=== PATIENT | female | born 1940 | race African-American/Black ===

== ENCOUNTER 2017-03-01 11:07 | Inpatient (IN) | payer OTHER, MEDICARE ==
[2017-03-01] MEDS ORDERED: Magnesium 1GM/D5W 100ML PREMIX 200 ML IV ONE (11:11)
[2017-03-01] MEDS ORDERED: methylPREDNISolone SOD SUCC 125 MG/2ML VIAL ONE (11:22)
[2017-03-01] MEDS ORDERED: Magnesium 1GM/D5W 100ML PREMIX 100 ML IV ONE ×2 (11:22→12:34)
[2017-03-01] MEDS ORDERED: IPRATROPIUM NEB FS 0.5 MG/2.5 ML AMPUL.NEB ONE ×2 (11:26→12:34)
[2017-03-01] MEDS ORDERED: ALBUTEROL FS 2.5 MG/3 ML VIAL.NEB ONE ×2 (11:26→12:34)
[2017-03-01] MEDS ORDERED: methylPREDNISolone SOD SUCC 125 MG/2ML VIAL IV ONE (11:30)
[2017-03-01] MEDS ORDERED: IPRATROPIUM NEB FS 0.5 MG/2.5 ML AMPUL.NEB NEB ONE ×2 (11:30→12:30)
[2017-03-01] MEDS ORDERED: ALBUTEROL FS 2.5 MG/3 ML VIAL.NEB NEB ONE ×2 (11:30→12:30)
[2017-03-01] MEDS ORDERED: HYDROCODONE/APAP 5/325MG 1 EACH TABLET PO STA (13:01)
[2017-03-01] MEDS ORDERED: HYDROCODONE/APAP 5/325MG 1 EACH TABLET ONE (13:04)
[2017-03-01] MEDS ORDERED: APIX2.5T PO (13:23)
[2017-03-01] MEDS ORDERED: PANT40TA2 PO (13:23)
[2017-03-01] MEDS ORDERED: ASCO-340 PO (13:23)
[2017-03-01] MEDS ORDERED: AMIO200T2 PO (13:23)
[2017-03-01] MEDS ORDERED: DOCU-170 PO (13:23)
[2017-03-01] MEDS ORDERED: HYDR-552 PO (13:23)
[2017-03-01] MEDS ORDERED: ALBU18HF2 INH (13:23)
[2017-03-01] MEDS ORDERED: FURO40TA5 PO (13:23)
[2017-03-01] MEDS ORDERED: SENN8.6T6 PO (13:23)
[2017-03-01] MEDS ORDERED: TRAZ-144 PO (13:23)
[2017-03-01] MEDS ORDERED: MULT-213 PO (13:23)
[2017-03-01] MEDS ORDERED: INSU100I19 SQ (13:23)
[2017-03-01] MEDS ORDERED: BUDE10.2 INH (13:23)
[2017-03-01] MEDS ORDERED: LEVO175T7 PO (13:23)
[2017-03-01] MEDS ORDERED: DIPH50CA4 PO (13:23)
[2017-03-01] MEDS ORDERED: INSU100I4 SQ (13:23)
[2017-03-01] MEDS ORDERED: ACETAMINOPHEN 325 MG TABLET PO PRN (14:00)
[2017-03-01] MEDS ORDERED: DEXTROSE 50%-WATER 50 ML DISP.SYRIN IV PRN (14:00)
[2017-03-01] MEDS ORDERED: ZOLPIDEM TARTRATE 5 MG TABLET PO PRN (14:00)
[2017-03-01] MEDS ORDERED: ONDANSETRON HCL/PF 4 MG/2 ML VIAL IVP PRN (14:00)
[2017-03-01] MEDS ORDERED: MAGNESIUM HYDROXIDE 30 ML UDC PO PRN (14:00)
[2017-03-01] MEDS ORDERED: Budesonide/Formoterol Fumarate (Symbicort 160-4.5 Mcg In INH SCH (17:00)
[2017-03-01] MEDS: DOCUSATE SODIUM 100 MG CAPSULE PO SCH (17:33)
[2017-03-01] MEDS: methylPREDNISolone SOD SUCC 125 MG/2ML VIAL IV SCH (17:33)
[2017-03-01] MEDS: SENNOSIDES 8.6 MG TABLET PO SCH (17:33)
[2017-03-01] MEDS: BLOOD SUGAR DIAGNOSTIC 1 EACH STRIP VI SCH ×2 (17:33→21:38)
[2017-03-01] MEDS: APIXABAN 2.5 MG TABLET PO SCH (17:34)
[2017-03-01] MEDS: Z GUARD REMEDY 2 OZ OINT TP PRN (17:34)
[2017-03-01] MEDS: HYDROCODONE/APAP 5/325MG 1 EACH TABLET PO PRN ×2 (17:40→21:38)
[2017-03-01] MEDS: ALBUTEROL FS 2.5 MG/3 ML VIAL.NEB NEB PRN (18:06)
[2017-03-01] MEDS: INSULIN REGULAR, HUMAN 100 UNIT/ML 3 ML VIAL SQ PRN (18:09)
[2017-03-01] MEDS: ALBUTEROL FS 2.5 MG/3 ML VIAL.NEB NEB SCH (19:08)
[2017-03-01] MEDS: diphenhydrAMINE HCL 50 MG CAPSULE PO SCH (21:37)
[2017-03-01] MEDS: INSULIN DETEMIR 100 UNIT/ML CARTRIDGE SQ SCH (21:45)
[2017-03-01] MEDS: *INSULIN REGULAR(HUMULIN R)HUM 100 UNIT/ML VIAL SQ PRN (21:46)
[2017-03-01] MEDS: MAG HYDROX/AL HYDROX/SIMETH 30 ML UDC PO PRN (22:17)
[2017-03-02] MEDS: ALBUTEROL FS 2.5 MG/3 ML VIAL.NEB NEB SCH ×4 (01:03→19:18)
[2017-03-02] MEDS: HYDROCODONE/APAP 5/325MG 1 EACH TABLET PO PRN ×2 (05:56→19:42)
[2017-03-02] MEDS: BLOOD SUGAR DIAGNOSTIC 1 EACH STRIP VI SCH ×4 (05:56→21:30)
[2017-03-02] MEDS: INSULIN REGULAR, HUMAN 100 UNIT/ML 3 ML VIAL SQ PRN ×3 (06:00→17:51)
[2017-03-02] MEDS: ALBUTEROL FS 2.5 MG/3 ML VIAL.NEB NEB PRN ×3 (06:10→23:59)
[2017-03-02] MEDS: methylPREDNISolone SOD SUCC 125 MG/2ML VIAL IV SCH ×3 (08:19→17:25)
[2017-03-02] MEDS: DOCUSATE SODIUM 100 MG CAPSULE PO SCH ×2 (08:19→17:25)
[2017-03-02] MEDS: TRAZODONE 50 MG TABLET PO SCH (08:19)
[2017-03-02] MEDS: FUROSEMIDE 40 MG TABLET PO SCH (08:19)
[2017-03-02] MEDS: PANTOPRAZOLE 40 MG TABLET.DR PO SCH (08:19)
[2017-03-02] MEDS: LEVOTHYROXINE SODIUM 175 MCG TABLET PO SCH (08:19)
[2017-03-02] MEDS: AMIODARONE HCL 200 MG TABLET PO SCH (08:20)
[2017-03-02] MEDS: SENNOSIDES 8.6 MG TABLET PO SCH ×2 (08:46→17:25)
[2017-03-02] MEDS: APIXABAN 2.5 MG TABLET PO SCH ×2 (08:46→17:25)
[2017-03-02] MEDS: INSULIN DETEMIR 100 UNIT/ML CARTRIDGE SQ SCH ×2 (08:51→21:33)
[2017-03-02] MEDS: Z GUARD REMEDY 2 OZ OINT TP PRN (12:13)
[2017-03-02] MEDS ORDERED: HYDROGEL DRESSING 90 GM TUBE TP PRN (14:00)
[2017-03-02] MEDS: HYDROGEL DRESSING 90 GM TUBE TP SCH (14:15)
[2017-03-02] MEDS: MAG HYDROX/AL HYDROX/SIMETH 30 ML UDC PO PRN (19:42)
[2017-03-02] MEDS: diphenhydrAMINE HCL 50 MG CAPSULE PO SCH (21:30)
[2017-03-02] MEDS: *INSULIN REGULAR(HUMULIN R)HUM 100 UNIT/ML VIAL SQ PRN (21:33)
[2017-03-03] MEDS: HYDROCODONE/APAP 5/325MG 1 EACH TABLET PO PRN ×3 (00:02→21:21)
[2017-03-03] MEDS: ALBUTEROL FS 2.5 MG/3 ML VIAL.NEB NEB SCH ×5 (01:30→20:38)
[2017-03-03] MEDS: ALBUTEROL FS 2.5 MG/3 ML VIAL.NEB NEB PRN (05:20)
[2017-03-03] MEDS: BLOOD SUGAR DIAGNOSTIC 1 EACH STRIP VI SCH ×4 (07:55→21:50)
[2017-03-03] MEDS: LEVOTHYROXINE SODIUM 175 MCG TABLET PO SCH (07:55)
[2017-03-03] MEDS: PANTOPRAZOLE 40 MG TABLET.DR PO SCH (07:55)
[2017-03-03] MEDS: FLUTICASONE/VILANTEROL 1 EACH BLST.W.DEV IH SCH (08:02)
[2017-03-03] MEDS: TRAZODONE 50 MG TABLET PO SCH (08:02)
[2017-03-03] MEDS: FUROSEMIDE 40 MG TABLET PO SCH (08:03)
[2017-03-03] MEDS: DOCUSATE SODIUM 100 MG CAPSULE PO SCH ×2 (08:03→16:36)
[2017-03-03] MEDS: SENNOSIDES 8.6 MG TABLET PO SCH ×2 (08:03→16:36)
[2017-03-03] MEDS: predniSONE 20 MG TABLET PO SCH (08:11)
[2017-03-03] MEDS: APIXABAN 2.5 MG TABLET PO SCH ×2 (08:12→16:36)
[2017-03-03] MEDS: HYDROGEL DRESSING 90 GM TUBE TP SCH (08:12)
[2017-03-03] MEDS: AMIODARONE HCL 200 MG TABLET PO SCH (08:12)
[2017-03-03] MEDS: INSULIN REGULAR, HUMAN 100 UNIT/ML 3 ML VIAL SQ PRN ×2 (08:16→11:36)
[2017-03-03] MEDS: INSULIN DETEMIR 100 UNIT/ML CARTRIDGE SQ SCH ×2 (08:17→21:50)
[2017-03-03] MEDS ORDERED: *INSULIN REGULAR(HUMULIN R)HUM 100 UNIT/ML VIAL SQ PRN (17:00)
[2017-03-03] MEDS ORDERED: INSULIN REGULAR, HUMAN 100 UNIT/ML 3 ML VIAL SQ PRN (17:00)
[2017-03-03] MEDS: diphenhydrAMINE HCL 50 MG CAPSULE PO SCH (21:21)
[2017-03-04] MEDS: ALBUTEROL FS 2.5 MG/3 ML VIAL.NEB NEB SCH ×3 (01:30→13:36)
[2017-03-04] MEDS: HYDROCODONE/APAP 5/325MG 1 EACH TABLET PO PRN ×4 (01:48→17:26)
[2017-03-04] MEDS: ALBUTEROL FS 2.5 MG/3 ML VIAL.NEB NEB PRN ×2 (01:54→11:46)
[2017-03-04] MEDS: BLOOD SUGAR DIAGNOSTIC 1 EACH STRIP VI SCH ×3 (07:30→17:16)
[2017-03-04] MEDS: SENNOSIDES 8.6 MG TABLET PO SCH ×2 (08:53→17:16)
[2017-03-04] MEDS: TRAZODONE 50 MG TABLET PO SCH (08:53)
[2017-03-04] MEDS: AMIODARONE HCL 200 MG TABLET PO SCH (08:54)
[2017-03-04] MEDS: predniSONE 20 MG TABLET PO SCH (08:54)
[2017-03-04] MEDS: FUROSEMIDE 40 MG TABLET PO SCH (08:54)
[2017-03-04] MEDS: DOCUSATE SODIUM 100 MG CAPSULE PO SCH ×2 (08:54→17:16)
[2017-03-04] MEDS: INSULIN DETEMIR 100 UNIT/ML CARTRIDGE SQ SCH (09:00)
[2017-03-04] MEDS: FLUTICASONE/VILANTEROL 1 EACH BLST.W.DEV IH SCH (09:02)
[2017-03-04] MEDS: PANTOPRAZOLE 40 MG TABLET.DR PO SCH (09:02)
[2017-03-04] MEDS: APIXABAN 2.5 MG TABLET PO SCH ×2 (09:03→17:16)
[2017-03-04] MEDS: LEVOTHYROXINE SODIUM 175 MCG TABLET PO SCH (09:03)
[2017-03-04] MEDS: HYDROGEL DRESSING 90 GM TUBE TP SCH (09:03)
[2017-03-04] MEDS ORDERED: PRED1TAB PO (13:44)
[2017-03-04] MEDS ORDERED: METH4TAB16 PO (13:44)
[2017-03-04] MEDS ORDERED: PRED20TA PO (13:44)
== END 2017-03-04 19:49 | DRG 191 ==
DX: J44.0 Chronic obstructive pulmonary disease with (acute) lower respiratory infection (principal); E44.1 Mild protein-calorie malnutrition; J96.10 Chronic respiratory failure, unspecified whether with hypoxia or hypercapnia; I11.0 Hypertensive heart disease with heart failure; I50.32 Chronic diastolic (congestive) heart failure; Z68.42 Body mass index [BMI] 45.0-49.9, adult; J44.1 Chronic obstructive pulmonary disease with (acute) exacerbation; E66.9 Obesity, unspecified; K21.9 Gastro-esophageal reflux disease without esophagitis; E78.5 Hyperlipidemia, unspecified; E11.9 Type 2 diabetes mellitus without complications; I25.10 Atherosclerotic heart disease of native coronary artery without angina pectoris; I48.0 Paroxysmal atrial fibrillation; Z79.01 Long term (current) use of anticoagulants; Z99.81 Dependence on supplemental oxygen; J20.9 Acute bronchitis, unspecified; Z79.899 Other long term (current) drug therapy; Z82.49 Family history of ischemic heart disease and other diseases of the circulatory system

== ENCOUNTER 2017-04-10 16:59 | Inpatient (IN) | payer MEDICARE, OTHER ==
[~2017-04-10] VITALS: Ht 165.1 cm; Wt 113.9 kg
[~2017-04-10 16:59] MED LIST: ALBU18HF2 INH; AMIO200T2 PO; APIX2.5T PO; ASCO-340 PO; BUDE10.2 INH; DIPH50CA4 PO; DOCU-170 PO; FURO40TA5 PO; HYDR-552 PO; INSU100I19 SQ; INSU100I4 SQ; LEVO175T7 PO; METH4TAB16 PO; MULT-213 PO; PANT40TA2 PO; PRED1TAB PO; PRED20TA PO; SENN8.6T6 PO; TRAZ-144 PO
--- NOTE | 2017-04-10 17:05 | NUR ---
AAOX3, BIB PRIVATE EMT,PAIN/SWELLING TO RIGHT OCCIPITAL AREA AND JAW X 4 DAYS. RR IS EVEN AND UNLABORED WITH NAD NOTED. SKIN IS WARM AND DRY. AWAITING MD FOR EVAL.
[2017-04-10 17:50] LABS: BASOPHILS % (AUTO) 0.3 % (0.0-2.0); EOSINOPHILS # (AUTO) 0.1 /CMM (0.0-0.7); EOSINOPHILS % (AUTO) 1.3 % (0.0-6.0); HEMATOCRIT 38 % (33-45); LYMPHOCYTES % (AUTO) 14.7 % (20.0-44.0); MEAN CORPUSCULAR HEMOGLOBIN 26 PG (26.0-33.0); MEAN CORPUSCULAR HGB CONC 32 g/dl (31.0-36.0); MEAN CORPUSCULAR VOLUME 83 fL (82-100); MONOCYTES # (AUTO) 0.6 /CMM (0.1-1.30); MONOCYTES % (AUTO) 8.6 % (2.0-12.0); NEUTROPHILS # (AUTO) 4.9 /CMM (1.8-8.9); NEUTROPHILS % (AUTO) 75.1 % (43.0-81.0); PLATELET COUNT (AUTO) 348 /CMM (150-450); RDW COEFFICIENT OF VARIATION 16.7 (11.5-15.0); RED BLOOD CELL COUNT(AUTO) 4.59 MIL/uL (4.0-5.2); WHITE BLOOD COUNT (AUTO) 6.6 K/uL (4.3-11.0)
[2017-04-10] MEDS ORDERED: ACETAMINOPHEN ES 500 MG TABLET PO ONE (18:00)
[2017-04-10 18:03] LABS: CARBON DIOXIDE 36 mmol/L (21-32); CHLORIDE 96 mmol/L (98-107); CREATININE 1.2 mg/dL (0.6-1.3); GLUCOSE 139 mg/dL (74-106); POTASSIUM 3.7 mmol/L (3.5-5.1); SODIUM SERUM 137 mmol/L (136-145); UREA NITROGEN, BLOOD 13 mg/dL (7-18)
[2017-04-10] MEDS ORDERED: diphenhydrAMINE HCL 50 MG/ML VIAL IV ONE (18:30)
[2017-04-10] MEDS ORDERED: FLUT1DIS3 IH (18:40)
[2017-04-10] MEDS ORDERED: METH1ADH4 TP (18:40)
[2017-04-10] MEDS ORDERED: MULT-24 PO (18:40)
[2017-04-10 18:49] LABS: INR 1.03 (0.87-1.13); PROTHROMBIN TIME 10.7 SECS (9.5-12.7)
[2017-04-10 18:50] LABS: ALANINE AMINOTRANSFERASE 11 U/L (12-78); ALBUMIN 3.4 g/dL (3.4-5.0); ALKALINE PHOSPHATASE 68 U/L (46-116); ASPARTATE AMINOTRANSFERASE 14 U/L (15-37); BILIRUBIN,DIRECT 0.2 mg/dL (0.0-0.2); BILIRUBIN,TOTAL 0.4 mg/dL (0.2-1.0); TOTAL PROTEIN, SERUM 7.8 g/dL (6.4-8.2)
[2017-04-10 18:54] LABS: TROPONIN I < 0.017 ng/mL (0.00-0.056)
[2017-04-10 18:59] LABS: APPEARANCE,URINE Clear (CLEAR); BILIRUBIN,URINE Negative (NEGATIVE); BLOOD, URINE Negative Ery/uL (NEGATIVE); COLOR,URINE Yellow (YELLOW); KETONES,URINE Trace (NEGATIVE); LEUKOCYTE ESTERASE ,URINE Trace (NEGATIVE); NITRITE, URINE Negative (NEGATIVE); PROTEIN,URINE Trace mg/dl (NEGATIVE); UGLUCOSE Negative (NEGATIVE)
--- NOTE | 2017-04-10 19:00 | NUR ---
IV removed AT [facility]. Catheter intact and site benign. Pressure and 4x4 applied to site. No bleeding noted.
[2017-04-10] MEDS ORDERED: ACETAMINOPHEN ES 500 MG TABLET ONE (19:01)
[2017-04-10] MEDS ORDERED: diphenhydrAMINE HCL 50 MG/ML VIAL ONE (19:01)
[2017-04-10 19:10] LABS: BACTERIA,URINE 3+ /HPF (None Seen); RBC,URINE NONE SEEN /HPF (0-2); SQUAMOUS EPITHELIAL CELL,UR Few /HPF (None Seen)
--- NOTE | 2017-04-10 19:25 | NUR ---
REPORT GIVEN TO ED, HANDMADE TILE ARTIST NURSE FOR CARLOS.
[2017-04-10] MEDS ORDERED: HYDROCODONE/APAP 10/325MG 1 EA TABLET PO ONE (19:30)
[2017-04-10] MEDS ORDERED: HYDROCODONE/APAP 10/325MG 1 EA TABLET ONE ×2 (19:33→23:08)
[2017-04-10] MEDS ORDERED: IV NS 0.9% 250 ML IV ONE (19:50)
[2017-04-10] MEDS ORDERED: IOHEXOL-300 100 ML VIAL IV ONE (19:50)
--- NOTE | 2017-04-10 19:56 | NUR ---
PT TRANSPORTED TO RADIOLOGY FOR CT FACIAL WITH IV CONTRAST.
--- NOTE | 2017-04-10 20:11 | NUR ---
PT BACK FROM RADIOLOGY. PENDING CT RESULT.
[2017-04-10] MEDS ORDERED: PIPERACILLIN /TAZOBACTAM 3.375 G VIAL IV ONE (21:51)
[2017-04-10] MEDS ORDERED: VANCOMYCIN 1 GM VIAL ONE (21:51)
--- NOTE | 2017-04-10 21:51 | NUR ---
VANCOMUYCIN 1GM IVPB ENDORSED TO M/S BARBARA GRIMALDO.
--- NOTE | 2017-04-10 21:51 | NUR ---
REPORT CALLED TO M/S BARBARA GRIMALDO. ER SPOKE TO DR. MARJ ROGERS PT ADMISSION.
[2017-04-10] MEDS: diphenhydrAMINE HCL 50 MG CAPSULE PO SCH (22:00)
[2017-04-10] MEDS ORDERED: MENTHOL TP PRN (22:00)
[2017-04-10] MEDS ORDERED: Z GUARD REMEDY 2 OZ OINT TP PRN (22:00)
[2017-04-10] MEDS ORDERED: ZOLPIDEM TARTRATE 5 MG TABLET PO PRN (22:00)
[2017-04-10] MEDS ORDERED: CAMPHOR TP PRN (22:00)
[2017-04-10] MEDS ORDERED: MAG HYDROX/AL HYDROX/SIMETH 30 ML UDC PO PRN (22:00)
[2017-04-10] MEDS ORDERED: VANCOMYCIN 1 GM in IV D5W 250 ML IV ONE (22:00)
[2017-04-10] MEDS ORDERED: [UNRECOGNIZED DRUG - OTHER] TP PRN (22:00)
[2017-04-10] MEDS ORDERED: MAGNESIUM HYDROXIDE 30 ML UDC PO PRN (22:00)
[2017-04-10] MEDS ORDERED: ENOXAPARIN SODIUM 30 MG/0.3 ML DISP.SYRIN SQ SCH (22:00)
[2017-04-10] MEDS ORDERED: ACETAMINOPHEN 325 MG TABLET PO PRN (22:00)
[2017-04-10] MEDS ORDERED: METHYL SALICYLATE TP PRN (22:00)
[2017-04-10] MEDS ORDERED: DEXTROSE 50%-WATER 50 ML DISP.SYRIN IV PRN (22:00)
[2017-04-10] MEDS ORDERED: ONDANSETRON HCL/PF 4 MG/2 ML VIAL IVP PRN (22:00)
[2017-04-10] MEDS ORDERED: PIPERACILLIN /TAZOBACTAM 3.375 G in IV D5W 50 ML IV ONE (22:00)
[2017-04-10 22:20] VITALS: BP 128/75
--- NOTE | 2017-04-10 22:20 | NUR ---
MS RN NOTE RECEIVED PATIENT AWAKE, ALERT AND ORIENTED X3. ON 2L OXYGEN VIA NASAL CANNULA. NO RESPIRATORY DISTRESS OR SOB NOTED. PATIENT HAVING 7/10 GENERALIZED PAIN. RELAXATION TECHNIQUES PROVIDED. WILL ADMINISTER PAIN MEDICATION WHEN DUE. LUMP ON RIGHT SIDE OF HEAD, RASH TO RIGHT SIDE OF NECK. PICTURES TAKEN AND PLACED IN CHART. WOUND CONSULT ORDERED. ALL BELONGINGS CHECKED AND ACCOUNTED FOR. ORIENTED TO ROOM AND TO UNIT. BED LOCKED AND IN LOWEST POSITION. CALL LIGHT WITHIN REACH. WILL CONTINUE TO MONITOR.
[2017-04-10] MEDS ORDERED: ENOXAPARIN SODIUM 30 MG/0.3 ML DISP.SYRIN ONE (22:28)
[2017-04-10] MEDS ORDERED: TRAZODONE 50 MG TABLET ONE (22:28)
[2017-04-10] MEDS: TRAZODONE 50 MG TABLET PO SCH (22:49)
[2017-04-10] MEDS: BLOOD SUGAR DIAGNOSTIC 1 EACH STRIP VI SCH (22:51)
[2017-04-10] MEDS: HYDROCODONE/APAP 10/325MG 1 EA TABLET PO PRN (23:14)
[2017-04-10 23:41] VITALS: BP 128/75
[2017-04-11] MEDS ORDERED: CEFTRIAXONE 1 G VIAL ONE (01:20)
[2017-04-11] MEDS ORDERED: ACYCLOVIR 800 MG TABLET ONE ×2 (01:20→06:00)
[2017-04-11] MEDS: ACYCLOVIR 800 MG TABLET PO SCH ×5 (02:04→16:44)
[2017-04-11] MEDS: CEFTRIAXONE 1 G in IV D5W 50 ML IV SCH ×2 (02:04→23:01)
[2017-04-11] MEDS ORDERED: HYDROCODONE/APAP 10/325MG 1 EA TABLET ONE (06:00)
[2017-04-11] MEDS: HYDROCODONE/APAP 10/325MG 1 EA TABLET PO PRN (06:02)
--- NOTE | 2017-04-11 06:26 | NUR ---
MS RN NOTE PATIENT STABLE. RECEIVING 2L VIA NASAL CANNULA. ALL NEEDS MET AND ATTENDED TOO. KEPT CLEAN DRY AND COMFORTABLE. BLOOD SUGAR 110. NO COVERAGE NEEDED. WILL ENDORSE TO DAY SHIFT FOR CARLOS.
[2017-04-11 06:30] LABS: BASOPHILS % (AUTO) 0.5 % (0.0-2.0); EOSINOPHILS # (AUTO) 0.1 /CMM (0.0-0.7); EOSINOPHILS % (AUTO) 1.3 % (0.0-6.0); HEMATOCRIT 36 % (33-45); HEMOGLOBIN 11.5 g/dL (11.5-14.8); LYMPHOCYTES # (AUTO) 1.4 /CMM (0.8-4.8); LYMPHOCYTES % (AUTO) 24.7 % (20.0-44.0); MEAN CORPUSCULAR HEMOGLOBIN 26 PG (26.0-33.0); MEAN CORPUSCULAR HGB CONC 32 g/dl (31.0-36.0); MEAN CORPUSCULAR VOLUME 83 fL (82-100); MONOCYTES # (AUTO) 0.6 /CMM (0.1-1.30); MONOCYTES % (AUTO) 9.9 % (2.0-12.0); NEUTROPHILS # (AUTO) 3.6 /CMM (1.8-8.9); NEUTROPHILS % (AUTO) 63.6 % (43.0-81.0); PLATELET COUNT (AUTO) 318 /CMM (150-450); RDW COEFFICIENT OF VARIATION 17.6 (11.5-15.0); RED BLOOD CELL COUNT(AUTO) 4.34 MIL/uL (4.0-5.2); WHITE BLOOD COUNT (AUTO) 5.7 K/uL (4.3-11.0)
[2017-04-11 06:52] LABS: CALCIUM, SERUM 8.4 mg/dL (8.5-10.1); CARBON DIOXIDE 32 mmol/L (21-32); CHLORIDE 96 mmol/L (98-107); CREATININE 1.1 mg/dL (0.6-1.3); GLUCOSE 115 mg/dL (74-106); MAGNESIUM 1.7 mg/dL (1.8-2.4); PHOSPHORUS 4.4 mg/dL (2.5-4.9); POTASSIUM 3.3 mmol/L (3.5-5.1); SODIUM SERUM 136 mmol/L (136-145); UREA NITROGEN, BLOOD 12 mg/dL (7-18)
[2017-04-11] MEDS: BLOOD SUGAR DIAGNOSTIC 1 EACH STRIP VI SCH ×4 (06:54→20:54)
[2017-04-11] MEDS ORDERED: PANTOPRAZOLE 40 MG TABLET.DR PO SCH (07:30)
[2017-04-11] MEDS ORDERED: FEE PK DOSING 1 MIN EA MC ONE (08:02)
--- NOTE | 2017-04-11 08:11 | NUR ---
RN NOTES RECEIVED PT. PT IS STABLE AND IN BED, A/OX4. NO S/S OF DISTRESS OR SOB. PT HAS C/O MILD PAIN 09/29, WILL MANAGE WITH NON-PHARMACOLOGICAL INTERVENTIONS. IV ACCESS LOCATED ON RIGHT FOREARM 18G, CURRENTLY SL. SAFETY MEASURES IN PLACE, CALL LIGHT WITHIN REACH. WILL CONTINUE TO MONITOR.
[2017-04-11 08:15] VITALS: BP 110/72
[2017-04-11] MEDS: MULTIVITAMINS,THERAGRAN 1 UDTAB TABLET PO SCH (08:39)
[2017-04-11] MEDS: AMIODARONE HCL 200 MG TABLET PO SCH (08:40)
[2017-04-11] MEDS: DOCUSATE SODIUM 100 MG CAPSULE PO SCH ×2 (08:40→16:35)
[2017-04-11] MEDS: LEVOTHYROXINE SODIUM 175 MCG TABLET PO SCH (08:40)
[2017-04-11] MEDS: FUROSEMIDE 40 MG TABLET PO SCH (08:40)
[2017-04-11] MEDS: SENNOSIDES 8.6 MG TABLET PO SCH ×2 (08:40→16:43)
[2017-04-11] MEDS: PANTOPRAZOLE 40 MG TABLET.DR PO SCH (08:40)
[2017-04-11] MEDS: ASCORBIC ACID 500 MG TABLET PO SCH (08:40)
[2017-04-11] MEDS: HYDROCODONE/APAP 5/325MG 1 EACH TABLET PO PRN (08:41)
--- NOTE | 2017-04-11 09:03 | NUR ---
RN NOTES LEVEMIR AND ELIQUIS ADMINISTRATION DELAYED. NO STOCK WITHIN [facility] OR [facility]. PHARMACY NOTIFIED. WILL F/U FOR ADMINISTRATION.
[2017-04-11] MEDS ORDERED: POTASSIUM CHLORIDE 20 MEQ TAB.PRT.SR PO ONE (09:30)
[2017-04-11] MEDS: Magnesium 1GM/D5W 100ML PREMIX 100 ML IV SCH ×2 (09:57→10:58)
[2017-04-11] MEDS: FLUTICASONE/VILANTEROL 1 EACH BLST.W.DEV IH SCH (09:58)
[2017-04-11] MEDS: INSULIN DETEMIR 100 UNIT/ML CARTRIDGE SQ SCH ×2 (09:58→16:46)
[2017-04-11] MEDS: APIXABAN 2.5 MG TABLET PO SCH ×2 (10:58→16:43)
--- NOTE | 2017-04-11 11:48 | NUR ---
RN NOTES PT APPEARS TO BE IN PAIN DESPITE PHARMACOLOGICAL PAIN MANAGEMENT. MD CALLED, NEW ORDERS PLACED.
[2017-04-11] MEDS: NYSTATIN (PYXIS) 500,000 UNIT/5 ML ORAL.SUSP PO SCH ×2 (12:33→16:37)
[2017-04-11] MEDS: MORPHINE SULFATE INJ 2 MG/ML DISP.SYRIN IV PRN ×3 (12:45→20:49)
--- NOTE | 2017-04-11 12:47 | NUR ---
RN NOTES BLOOD SUGAR LEVEL AT 140. INSULIN PER SLIDING SCALE HELD. PT REFUSES LUNCH DUE TO SORES IN THE MOUTH. MD AWARE, NYSTATIN SWISH/SWALLOW ORDERED AND GIVEN.
[2017-04-11 16:25] VITALS: BP 132/78
[2017-04-11] MEDS: GABAPENTIN 300 MG CAPSULE PO SCH (16:43)
--- NOTE | 2017-04-11 18:29 | NUR ---
RN NOTES PT IS AWAKE AND RESTING IN BED. A/OX3. NO S/S OF RESPIRATORY DISTRESS OR SOB. PT C/O PAIN AT 5/10 AT THIS TIME. WILL F/U AND MANAGE WITH NON-PHARMACOLOGICAL INTERVENTIONS. 1730 LEVEMIR AND SLIDING SCALE INSULIN HELD DUE TO BS OF 104 AND PT INABILITY TO EAT AT THIS MOMENT. BOOST ORDERED FOR PT IN ORDER TO SUPPLEMENT DIET. ALL NEEDS ANTICIPATED AND MET. SAFETY MEASURES IN PLACE, CALL LIGHT WITHIN REACH. WILL ENDORSE TO ENGINEERING TEST MECHANIC FOR CARLOS.
[2017-04-11] MEDS ORDERED: BOOST PLUS FOOD-CHOCLATE 237 ML BOX PO SCH (18:30)
--- NOTE | 2017-04-11 19:50 | NUR ---
RN INITIAL NOTES: RECEIVED REPORT FORM OMAIRA JIMENEZ, PT IN BED, AWAKE, A/O X3 ON 2L VIA NC RESPIRATION EVEN AND UNLABORED, STATED SHE HAS TOLERABLE PAIN /GENERALIZED AT 4/10, RFA IV ACCESS PATENT AND FLUSHING WELL, ON HL. NOTED RASHES ON NECK AND OTHER PARTS OF THE BODY APPEARING TO BE SHINGLES, AWARE, PT REFUSED SCD DUE TO FEELING OF SORENESS ON LEGS AND THUS SHE ADDED ITS CAUSING DISCOMFORT, EDUCATON PROVIDED TO THE PT, BED ON LOWEST POSITION, BRAKES ENGAGED, CALL LIGHT IN REACH, WILL CONTINUE TO MONITOR
[2017-04-11 20:00] VITALS: BP 122/70
[2017-04-11] MEDS: MICAFUNGIN SODIUM 50 MG in IV NS 0.9% 100 ML IV SCH (20:13)
[2017-04-11] MEDS: *INSULIN REGULAR(HUMULIN R)HUM 100 UNIT/ML VIAL SQ PRN (21:00)
[2017-04-11] MEDS ORDERED: VANCOMYCIN 1.25 GM in IV D5W 500 ML IV SCH (21:00)
--- NOTE | 2017-04-11 21:01 | NUR ---
PRN MORPHINE: PT C.O 01/29 DESCRIBED TOOTH ACHE -LIKE PAIN IN HER HEAD FACE SHOULDER ARM (GENERALIZED), REQUESTING FOR PAIN MEDICATION, PRN MORPHINE 2MG IVP ADMINISTERED TO THE PT AT THIS TIME, ALSO PT REQUESTED TO HAVE HER BLOOD SUGAR CHECK, ACCU CHECKED PERFORMED AND OBTAINED 210 A RESULT, 4UNITS OF INSULIN GIVEN PER SLIDING SCALE, PT ABLE TO DRINK THE PRESCRIBED ENSURE BY MD, WILL CONTINUE MONITORING FOR ANY S/S OF HYPOGLYCEMIA
[2017-04-11] MEDS: ACYCLOVIR IV 500 MG in IV D5W 100 ML IV SCH (21:32)
[2017-04-11] MEDS: TRAZODONE 50 MG TABLET PO SCH (21:45)
[2017-04-11] MEDS: diphenhydrAMINE HCL 50 MG CAPSULE PO SCH (21:46)
--- NOTE | 2017-04-11 21:58 | NUR ---
RN NOTES: RFA IV NOTED TO BE INFILTRATED, REMOVED AND APPLIED PRESSURED DRESSING, OFFLOADED ARM ON A PILLOW. NEW ACCESS SECURED ON RIGHT HAND G22
--- NOTE | 2017-04-12 | NUR ---
RN NOTES: PT SLEEPING, APPEARS COMFORTABLE
[2017-04-12] MEDS: ACYCLOVIR IV 500 MG in IV D5W 100 ML IV SCH ×3 (05:07→21:03)
[2017-04-12] MEDS: MORPHINE SULFATE INJ 2 MG/ML DISP.SYRIN IV PRN (05:38)
--- NOTE | 2017-04-12 05:49 | NUR ---
PRN MORPHINE: PT C/O 01/29 GENERALIZED PAIN REQUESTING MORPHINE, PRN MORPHINE 2MG IVP ADMINISTERED TO THE PT ORDERED,WILL MONITOR AND REASSESS
[2017-04-12] MEDS: BLOOD SUGAR DIAGNOSTIC 1 EACH STRIP VI SCH ×4 (05:55→21:03)
[2017-04-12] MEDS: INSULIN REGULAR, HUMAN 100 UNIT/ML 3 ML VIAL SQ PRN ×2 (05:56→12:09)
--- NOTE | 2017-04-12 05:56 | NUR ---
ACCU CHECK: PT INSISTED TO CHECK BLOOD SUGAR AT THIS TIME, SHE STATED SINCE SHE'S AWAKE, AND HAD A BED BATH SHE RATHER HAVE HER SUGAR/GLUCOSE CHECK SHE WILL GO BACK TO SLEEP AFTERWARDS, BLOOD SUGAR CHECKED AND REVEAL 120, NO INSULIN COVERAGE GIVEN PER SLIDING SCALE, WILL MONITOR FOR ANY S/S OF HYPOGLYCEMIA
[2017-04-12 06:34] LABS: BASOPHILS % (AUTO) 0.1 % (0.0-2.0); EOSINOPHILS # (AUTO) 0.1 /CMM (0.0-0.7); EOSINOPHILS % (AUTO) 1.4 % (0.0-6.0); HEMATOCRIT 40 % (33-45); HEMOGLOBIN 12.6 g/dL (11.5-14.8); LYMPHOCYTES # (AUTO) 1.4 /CMM (0.8-4.8); MEAN CORPUSCULAR HEMOGLOBIN 26 PG (26.0-33.0); MEAN CORPUSCULAR HGB CONC 32 g/dl (31.0-36.0); MEAN CORPUSCULAR VOLUME 84 fL (82-100); MONOCYTES # (AUTO) 0.7 /CMM (0.1-1.30); MONOCYTES % (AUTO) 12.5 % (2.0-12.0); NEUTROPHILS # (AUTO) 3.4 /CMM (1.8-8.9); PLATELET COUNT (AUTO) 337 /CMM (150-450); RDW COEFFICIENT OF VARIATION 17.8 (11.5-15.0); RED BLOOD CELL COUNT(AUTO) 4.78 MIL/uL (4.0-5.2); WHITE BLOOD COUNT (AUTO) 5.6 K/uL (4.3-11.0)
--- NOTE | 2017-04-12 06:52 | NUR ---
RN CLOSING NOTES: PT IN BED, AWAKE, REMAINS ON 2L VIA NC, RESPIRATION EVEN AND UNLABORED, LAST PAIN MEDS GIVEN AT 0538AM. IV ACCESS REMAINS PATENT AND FLUSHING WELL, ON HL. VS REMAINS STABLE, NEEDS ATTENDED, BED BRAKES REMAINS ENGAGED, CALL LIGHT IN REACH, WILL ENDORSE TO DAY RN FOR CARLOS.
[2017-04-12 07:03] LABS: CALCIUM, SERUM 8.9 mg/dL (8.5-10.1); CARBON DIOXIDE 34 mmol/L (21-32); CHLORIDE 96 mmol/L (98-107); CREATININE 1.2 mg/dL (0.6-1.3); GLUCOSE 116 mg/dL (74-106); PHOSPHORUS 4.2 mg/dL (2.5-4.9); POTASSIUM 3.6 mmol/L (3.5-5.1); SODIUM SERUM 139 mmol/L (136-145); UREA NITROGEN, BLOOD 13 mg/dL (7-18)
--- NOTE | 2017-04-12 07:15 | NUR ---
ms rn initial notes Received patient in bed, awake, head of bed elevated, no SOB or distress noted. On 02 @2lpm via NC and tolerated well. 02 saturation of 98%. No complaint of pain or discomfort. Verbally responsive and able to make needs known. IV intact and patent HL only. Kept patient clean and comfortable in bed, call light with in patient reach, will continue to monitor accordingly.
[2017-04-12] MEDS: PANTOPRAZOLE 40 MG TABLET.DR PO SCH (07:36)
[2017-04-12] MEDS: LEVOTHYROXINE SODIUM 175 MCG TABLET PO SCH (07:36)
[2017-04-12 08:00] VITALS: BP 126/77
[2017-04-12] MEDS: INSULIN DETEMIR 100 UNIT/ML CARTRIDGE SQ SCH ×2 (08:30→16:21)
[2017-04-12] MEDS: ASCORBIC ACID 500 MG TABLET PO SCH (08:31)
[2017-04-12] MEDS: SENNOSIDES 8.6 MG TABLET PO SCH ×2 (08:31→16:21)
[2017-04-12] MEDS: APIXABAN 2.5 MG TABLET PO SCH ×2 (08:31→16:20)
[2017-04-12] MEDS: FUROSEMIDE 40 MG TABLET PO SCH (08:31)
[2017-04-12] MEDS: DOCUSATE SODIUM 100 MG CAPSULE PO SCH ×2 (08:31→16:20)
[2017-04-12] MEDS: NYSTATIN (PYXIS) 500,000 UNIT/5 ML ORAL.SUSP PO SCH ×3 (08:31→16:20)
[2017-04-12] MEDS: MULTIVITAMINS,THERAGRAN 1 UDTAB TABLET PO SCH (08:31)
[2017-04-12] MEDS: GABAPENTIN 300 MG CAPSULE PO SCH ×2 (08:31→16:21)
[2017-04-12] MEDS: AMIODARONE HCL 200 MG TABLET PO SCH (08:32)
[2017-04-12] MEDS: FLUTICASONE/VILANTEROL 1 EACH BLST.W.DEV IH SCH (08:33)
[2017-04-12] MEDS: HYDROCODONE/APAP 5/325MG 1 EACH TABLET PO PRN ×3 (08:36→21:14)
[2017-04-12] MEDS ORDERED: FLUTICASONE/VILANTEROL 1 EACH BLST.W.DEV IH SCH (09:00)
[2017-04-12 16:00] VITALS: BP 107/61
[2017-04-12] MEDS: LACTOBACILLUS RHAMNOSUS GG 1 EACH CAP.SPRINK PO SCH (16:21)
[2017-04-12] MEDS: *INSULIN REGULAR(HUMULIN R)HUM 100 UNIT/ML VIAL SQ PRN ×2 (16:22→21:23)
--- NOTE | 2017-04-12 18:51 | NUR ---
ms rn closing notes All needs provided, attended, and anticipated. Kept patient clean and comfortable in bed, call light with in patient reach, Endorsed to next shift RN to continue care.
[2017-04-12] MEDS: MICAFUNGIN SODIUM 50 MG in IV NS 0.9% 100 ML IV SCH (19:15)
--- NOTE | 2017-04-12 19:39 | NUR ---
RN INITIAL NOTES: RECEIVED REPORT FORM CARLENE JIMENEZ, PT IN BED, AWAKE, A/O X3 ON 2L VIA NC RESPIRATION EVEN AND UNLABORED, STATED HER PAIN IMPROVED. PT HAS RIGHT HAND IV ACCESS PATENT AND FLUSHING WELL, ON HL. BED SIDE COMMODE AVAILABLE, INSTRUCTED PT TO CALL FOR ASSISTANCE. BED ON LOWEST POSITION, BRAKES ENGAGED, CALL LIGHT IN REACH, WILL CONTINUE TO MONITOR
[2017-04-12 20:00] VITALS: BP 98/65
[2017-04-12 20:36] VITALS: BP 98/65
[2017-04-12] MEDS: TRAZODONE 50 MG TABLET PO SCH (21:03)
[2017-04-12] MEDS: diphenhydrAMINE HCL 50 MG CAPSULE PO SCH (21:03)
--- NOTE | 2017-04-12 21:14 | NUR ---
PRN NORCO: PT REQUESTED FOR PAIN MEDICATION 10/29 STATED SHE HAS GENERALIZED TOOTH-ACHE LIKE PAIN, PRN NORCO 5/325 MG TAB PO ADMINISTERED TO THE PT AT THIS TIME, EDUCATION PROVIDED TO THE PT REGARDING FALL RISK, WILL CONTINUE TO MONITOR AND REASSESS
--- NOTE | 2017-04-12 21:24 | NUR ---
ACCU CHECK: BLOOD SUGAR CHECK PERFORMED AND REVEAL 165, 3UNITS OF INSULIN GIVEN PER SLIDING SCALE, WILL MONITOR PT FOR ANY S/S OF HYPOGLYCEMIA
[2017-04-12] MEDS: CEFTRIAXONE 1 G in IV D5W 50 ML IV SCH (23:08)
[2017-04-13] MEDS: HYDROCODONE/APAP 5/325MG 1 EACH TABLET PO PRN ×3 (02:28→20:00)
--- NOTE | 2017-04-13 02:28 | NUR ---
PRN NORCO: PT C/O 6/10 GENERALIZED PAIN REQUESTING FOR NORCO, PRN NORCO 5/325 MG TAB PO ADMINISTERED TO THE PT AT THIS TIME, WILL CONTINUE TO MONITOR AND REASSESS
[2017-04-13] MEDS: ACYCLOVIR IV 500 MG in IV D5W 100 ML IV SCH ×2 (05:29→12:22)
[2017-04-13] MEDS: BLOOD SUGAR DIAGNOSTIC 1 EACH STRIP VI SCH ×3 (05:44→17:24)
[2017-04-13] MEDS: INSULIN REGULAR, HUMAN 100 UNIT/ML 3 ML VIAL SQ PRN ×2 (05:46→13:22)
--- NOTE | 2017-04-13 05:52 | NUR ---
ACCU CHECK: PT REQUESTED TO CHECK BLOOD SUGAR, SHE STATED SHE DOESN'T FEEL GOOD AND THAT MAY BE HER SUGAR IS WAY TOO LOW, BS TAKEN AND REVEAL 92, NO INSULIN GIVEN PER SLIDING SCALE, CRANBERRY JUICE 120ML PROVIDED TO THE PT,WILL CONTINUE TO MONITOR FOR ANY S/S OF HYPOGLYCEMIA
[2017-04-13 06:46] LABS: CALCIUM, SERUM 8.7 mg/dL (8.5-10.1); CARBON DIOXIDE 33 mmol/L (21-32); CHLORIDE 97 mmol/L (98-107); CREATININE 1.7 mg/dL (0.6-1.3); GLUCOSE 147 mg/dL (74-106); POTASSIUM 3.7 mmol/L (3.5-5.1); SODIUM SERUM 137 mmol/L (136-145); UREA NITROGEN, BLOOD 24 mg/dL (7-18)
--- NOTE | 2017-04-13 06:54 | NUR ---
RN CLOSING NOTES: PT IN BED, REMAINS ON 2L VIA NC, RESPIRATION EVEN AND UNLABORED, RIGHT HAND IV ACCESS REMAINS PATENT AND FLUSHING WELL, ON HL. POSSIBLE DC TODAY TO [facility], EXIT CARE COMPLETED. VS REMAINS STABLE, NEEDS ATTENDED. SAFETY PRECAUTIONS FOR FALL REMAINS ENGAGED, CALL LIGHT IN REACH, WILL ENDORSE TO DAY RN FOR CARLOS.
[2017-04-13 08:00] VITALS: BP 123/75
[2017-04-13] MEDS: SENNOSIDES 8.6 MG TABLET PO SCH ×2 (08:30→17:21)
[2017-04-13] MEDS: MULTIVITAMINS,THERAGRAN 1 UDTAB TABLET PO SCH (08:30)
[2017-04-13] MEDS: LACTOBACILLUS RHAMNOSUS GG 1 EACH CAP.SPRINK PO SCH ×2 (08:30→17:21)
[2017-04-13] MEDS: PANTOPRAZOLE 40 MG TABLET.DR PO SCH (08:30)
[2017-04-13] MEDS: NYSTATIN (PYXIS) 500,000 UNIT/5 ML ORAL.SUSP PO SCH ×3 (08:30→17:21)
[2017-04-13] MEDS: GABAPENTIN 300 MG CAPSULE PO SCH ×2 (08:30→17:21)
[2017-04-13] MEDS: FUROSEMIDE 40 MG TABLET PO SCH (08:30)
[2017-04-13] MEDS: LEVOTHYROXINE SODIUM 175 MCG TABLET PO SCH (08:30)
[2017-04-13] MEDS: ASCORBIC ACID 500 MG TABLET PO SCH (08:30)
[2017-04-13] MEDS: DOCUSATE SODIUM 100 MG CAPSULE PO SCH ×2 (08:31→17:21)
[2017-04-13] MEDS: AMIODARONE HCL 200 MG TABLET PO SCH (08:31)
[2017-04-13] MEDS: APIXABAN 2.5 MG TABLET PO SCH ×2 (08:33→17:21)
[2017-04-13] MEDS: FLUTICASONE/VILANTEROL 1 EACH BLST.W.DEV IH SCH (08:34)
[2017-04-13] MEDS: INSULIN DETEMIR 100 UNIT/ML CARTRIDGE SQ SCH ×2 (08:35→17:00)
--- NOTE | 2017-04-13 08:35 | NUR ---
MS/RN Levemir non administration Levemir not administered as patient not wanting to eat breakfast.
--- NOTE | 2017-04-13 09:36 | NUR ---
WOUND CARE CONSULT PATIENT SEEN AND PARTIAL SKIN ASSESSMENT PERFORMED; PATIENT REFUSED TO HAVE BACK AND SACRUM CHECKED. PATIENT NOTED TO HAVE A RASH ON HER FACE AND NECK AND A RAISED HEMATOMA ON THE OCCIPITAL SKULL. MD IS AWARE OF HEMATOMA AND RASH AND HAS PLACED TREATMENT ORDERS. PATIENT SEVERINO Mohr; NO ASSISTANCE NEEDED WITH TURNING AND REPOSITIONING. PT ON FIRST STEP LOW AIR LOSS MATTRESS. WILL CONTINUE TO FOLLOW PATIENT NEEDED. Addendum: 04/13/17 at 0941 by VIDHYA ASHLEY RN Amended: Links added. Addendum: 04/13/17 at 1038 by VIDHYA ASHLEY RN PATIENT ON ISOFLEX AIR MATTRESS NOT LOW AIR LOSS.
--- NOTE | 2017-04-13 11:06 | NUR ---
MS/RN S/B Dr Sousa Seen by Dr Sousa - patient to be discharged back to facility today and continue with oral antibiotics for further seven days. Paper prescription wrote
[2017-04-13] MEDS ORDERED: GABA-532 PO (11:28)
--- NOTE | 2017-04-13 11:30 | NUR ---
MS/commodity management specialist Per case management, no isolation bed at [facility] at this time, will contact family to arrange alternative placement.
--- NOTE | 2017-04-13 14:59 | NUR ---
MS/RN C/O Pain Patient complaining of pain 03/31, norco 5/325mg administered as ordered at 1420, will monitor effectiveness.
[2017-04-13 16:00] VITALS: BP 94/56
--- NOTE | 2017-04-13 17:00 | NUR ---
MS/RN Blood sugar Blood sugar at 5p - 142.
[2017-04-13] MEDS ORDERED: ACYCLOVIR 200 MG CAPSULE PO SCH (17:30)
--- NOTE | 2017-04-13 17:40 | NUR ---
MS/RN New placement Per Neema correctional case manager, patient will be discharged to [facility] this evening at 8p. Paperwork printed, needs to be signed by patient. Daughter has attempted to been contacted by correctional case manager but no response, voice mail left.
--- NOTE | 2017-04-13 18:44 | NUR ---
MS/RN End note No changes in condition, transport arranged to [employer] patient at 8p. Will endorse to night baker.
[2017-04-13 19:54] VITALS: BP 100/61
--- NOTE | 2017-04-13 20:00 | NUR ---
MS RN NOTE: PATIENT RESTING IN BED, NO ACUTE DISTRESS NOTED. BREATHING EVEN AND UNLABORED, NO SOB NOTED. PATIENT TO BE DISCHARGED TO [facility], WAITING GLASS WASH[facility]. DISCHARGE PAPERWORK SIGNED AND IN CHART AND COPY GIVEN TO PATIENT. CALLED TO GIVE REPORT, SPOKE TO HAZEL. PATIENT BLOOD SUGAR LEVEL 148 MG/DL, NO COVERAGE GIVEN PER PATIENT REQUEST. PATIENT COMPLAINS OF PAIN TO LEFT SHOULDER, NORCO 5/325MG ORAL GIVEN PER MD ORDER. SPOKE TO PATIENT DAUGHTER RO, INFORMED THAT PATIENT WILL BE DISCHARGE TONIGHT AND PROVIDED LOCATION AND PHONE NUMBER OF FACILITY. WILL CONTINUE TO MONITOR.
--- NOTE | 2017-04-13 20:45 | NUR ---
MS RN NOTE: PATIENT PICKED UP FOR TRANSFER. REPORT GIVEN TO EMT, VITAL SIGNS STABLE. DISCHARGE PAPER WORK GIVING TO EMT. IV ALREADY REMOVED DURING DAY SHIFT. BELONGING WITH PATIENT . PATIENT OFF FLOOR IN STABLE CONDITION.
== END 2017-04-13 20:45 | DRG 871 ==
LOC: ER 17:00 → MEDSG2 21:46
PROVIDERS: ADMIT Internal Medicine; ATTEND Internal Medicine
DX: A41.9 Sepsis, unspecified organism (principal); E43 Unspecified severe protein-calorie malnutrition; J96.11 Chronic respiratory failure with hypoxia; I48.0 Paroxysmal atrial fibrillation; B37.0 Candidal stomatitis; I11.0 Hypertensive heart disease with heart failure; I50.32 Chronic diastolic (congestive) heart failure; B02.9 Zoster without complications; E66.2 Morbid (severe) obesity with alveolar hypoventilation; N39.0 Urinary tract infection, site not specified; Z68.41 Body mass index [BMI] 40.0-44.9, adult; L03.221 Cellulitis of neck; L03.211 Cellulitis of face; E11.9 Type 2 diabetes mellitus without complications; J44.9 Chronic obstructive pulmonary disease, unspecified; E03.9 Hypothyroidism, unspecified; E78.5 Hyperlipidemia, unspecified; I25.10 Atherosclerotic heart disease of native coronary artery without angina pectoris; K21.9 Gastro-esophageal reflux disease without esophagitis; Z79.01 Long term (current) use of anticoagulants; B96.20 Unspecified Escherichia coli [E. coli] as the cause of diseases classified elsewhere; R13.10 Dysphagia, unspecified; R19.6 Halitosis
CPT/HCPCS: 36415; 70486-TC; 71010-TC; 80048-TC; 80076-TC; 81000-TC; 82962-TC; 83605-TC; 83735-TC; 84100-TC; 84484-TC; 85025-TC; 85730-TC; 87040-TC; 87086-TC; 87186-TC; A4216; A4606; J0133; J0696; J1200; J1650; J1815; J2248; J2270; J2543; J3370; J3475; J7030; J7050; J7060; Q0163; Q9967; Z7610

== ENCOUNTER 2017-06-15 08:03 | Inpatient (IN) | payer MEDICAID, MEDICARE ==
[~2017-06-15] VITALS: Ht 165.1 cm; Wt 119.7 kg
[2017-06-15] VITALS (26 sets, daily range): BP systolic 129–189; BP diastolic 69–150
[~2017-06-15 08:03] MED LIST changes: -ALBU18HF2 INH; -DOCU-170 PO; +DOCU100C36 PO; +FLUT1DIS3 IH; +GABA-532 PO; -HYDR-552 PO; +METH1ADH4 TP; -METH4TAB16 PO; -MULT-213 PO; +MULT-24 PO; -PRED1TAB PO; -PRED20TA PO; +SENN-167 PO; -SENN8.6T6 PO
--- NOTE | 2017-06-15 08:05 | NUR ---
PT WAS BBRA 60 FROM [facility] FOR SOB. PT ARRIVED ON CPAP. RT AT BEDSIDE- PT WAS PLACED ON BIPAP WITH THE FF SETTINGS: 15/5, R-16, FIO2-40%. PT UNABLE TO PROVIDE INFORTAION AT THIS TIME. GOWNED AND PLACED ON CONT MONITORING. ALL NEEDS ARE ATTENDED. KEPT COMFORTABLE. DR VALENTINO AT BEDSIDE FOR EVALUATION. WILL CONT TO MONITOR
[2017-06-15] MEDS ORDERED: IPRATROPIUM NEB FS 0.5 MG/2.5 ML AMPUL.NEB ONE (08:20)
[2017-06-15] MEDS ORDERED: ALBUTEROL FS 2.5 MG/3 ML VIAL.NEB ONE (08:20)
--- NOTE | 2017-06-15 08:22 | NUR ---
BREATHING TRETAMENT IN PROGRESS AT BEDSIDE.
[2017-06-15 08:29] LABS: BASOPHILS % (AUTO) 0.4 % (0.0-2.0); EOSINOPHILS # (AUTO) 0.1 /CMM (0.0-0.7); EOSINOPHILS % (AUTO) 0.8 % (0.0-6.0); HEMATOCRIT 37 % (33-45); HEMOGLOBIN 11.5 g/dL (11.5-14.8); LYMPHOCYTES # (AUTO) 1.2 /CMM (0.8-4.8); LYMPHOCYTES % (AUTO) 12.9 % (20.0-44.0); MEAN CORPUSCULAR HEMOGLOBIN 27 PG (26.0-33.0); MEAN CORPUSCULAR HGB CONC 31 g/dl (31.0-36.0); MEAN CORPUSCULAR VOLUME 88 fL (82-100); MONOCYTES # (AUTO) 0.3 /CMM (0.1-1.30); MONOCYTES % (AUTO) 3.9 % (2.0-12.0); NEUTROPHILS # (AUTO) 7.4 /CMM (1.8-8.9); PLATELET COUNT (AUTO) 332 /CMM (150-450); RDW COEFFICIENT OF VARIATION 18.9 (11.5-15.0)
[2017-06-15] MEDS ORDERED: ALBUTEROL FS 2.5 MG/3 ML VIAL.NEB CONTNEB ONE (08:30)
[2017-06-15] MEDS ORDERED: IPRATROPIUM NEB FS 0.5 MG/2.5 ML AMPUL.NEB NEB ONE (08:30)
[2017-06-15 08:39] LABS: CALCIUM, SERUM 9.4 mg/dL (8.5-10.1); CARBON DIOXIDE 37 mmol/L (21-32); CHLORIDE 98 mmol/L (98-107); CREATININE 1.2 mg/dL (0.6-1.3); GLUCOSE 218 mg/dL (74-106); POTASSIUM 5.1 mmol/L (3.5-5.1); SODIUM SERUM 138 mmol/L (136-145); UREA NITROGEN, BLOOD 23 mg/dL (7-18)
[2017-06-15 08:46] LABS: TROPONIN I < 0.017 ng/mL (0.00-0.056)
--- NOTE | 2017-06-15 08:48 | NUR ---
RT NOTE PT PLACED ON BIPAP PER MD ORDER. SETTINGS PRESCRIBED. ALARMS SET PER PROTOCOL AND AUDIBLE. BIPAP PLUGGED IN TO RED OUTLET. AMBU BAG AT BED SIDE. PT AWAKE AND ALERT. NO DISTRESS NOTED. WILL CONTINUE TO MONITOR. Addendum: 06/15/17 at 0850 by NASH HUNT RT Amended: Links added.
[2017-06-15 08:53] LABS: ALANINE AMINOTRANSFERASE 30 U/L (12-78); ALBUMIN 3.8 g/dL (3.4-5.0); ALKALINE PHOSPHATASE 76 U/L (46-116); ASPARTATE AMINOTRANSFERASE 24 U/L (15-37); B-TYPE NATRIURETIC PEPTIDE 1420 PG/ML (0-125); BILIRUBIN,DIRECT 0.2 mg/dL (0.0-0.2); BILIRUBIN,TOTAL 0.6 mg/dL (0.2-1.0); TOTAL PROTEIN, SERUM 8.6 g/dL (6.4-8.2)
--- NOTE | 2017-06-15 08:57 | NUR ---
PANEL ON-CALL PAGED
[2017-06-15] MEDS ORDERED: VANCOMYCIN 1 GM in IV D5W 250 ML IV ONE (09:00)
[2017-06-15] MEDS ORDERED: LEVOFLOXACIN 750 MG /D5W 150ML 150 ML IV ONE ×2 (09:00→09:12)
[2017-06-15] MEDS ORDERED: PIPERACILLIN /TAZOBACTAM 3.375 G in IV D5W 50 ML IV ONE (09:00)
--- NOTE | 2017-06-15 09:00 | NUR ---
CALLED PHARMACY FOR IV ABX ORDER
[2017-06-15 09:15] LABS: ABG OXYGEN SATURATION 94.3 % (92.0-98.5); ABG PCO2 60.8 mmHg (35.0-45.0); ABG PH 7.354 (7.350-7.450); ABG PO2 77.5 mmHg (75.0-100.0); AaDO2 137.8 mmHg; COHb 1.6 % (0.5-1.5); MetHb 0.4 % (0.0-1.5); O2Hb 92.4 % (94.0-97.0); PEEP,BG 5 cm H2O; SITE, ABG Right Radial; VENT MODE, BG ST 15/5 RR 16 40%
--- NOTE | 2017-06-15 09:21 | NUR ---
SPOKE TO MADINA FROM PHARMACY FOR FOLLOW UP OF ABX
[2017-06-15] MEDS ORDERED: methylPREDNISolone SOD SUCC 125 MG/2ML VIAL ONE (09:23)
[2017-06-15] MEDS ORDERED: FUROSEMIDE 20 MG/2 ML VIAL ONE (09:23)
[2017-06-15] MEDS ORDERED: GABA-532 PO (09:25)
[2017-06-15] MEDS ORDERED: HYDR-551 PO (09:25)
[2017-06-15] MEDS ORDERED: methylPREDNISolone SOD SUCC 125 MG/2ML VIAL IV ONE (09:30)
[2017-06-15] MEDS ORDERED: FUROSEMIDE 20 MG/2 ML VIAL IV ONE (09:30)
--- NOTE | 2017-06-15 11:20 | NUR ---
REPORT GIVEN TO JOB RN FOR CONT OF CARE
[2017-06-15] MEDS ORDERED: MAGNESIUM HYDROXIDE 30 ML UDC PO PRN (11:30)
[2017-06-15] MEDS ORDERED: MAG HYDROX/AL HYDROX/SIMETH 30 ML UDC PO PRN (11:30)
[2017-06-15] MEDS ORDERED: ENOXAPARIN SODIUM 40 MG/0.4 ML DISP.SYRIN SQ SCH (11:30)
[2017-06-15] MEDS ORDERED: ZOLPIDEM TARTRATE 5 MG TABLET PO PRN (11:30)
[2017-06-15] MEDS ORDERED: LEVOFLOXACIN 500 MG /D5W 100ML 500 MG in PREMIX 1 EA IV SCH (11:30)
[2017-06-15] MEDS ORDERED: HYDROCODONE/APAP 5/325MG 1 EACH TABLET PO PRN (11:30)
[2017-06-15] MEDS ORDERED: ONDANSETRON HCL/PF 4 MG/2 ML VIAL IVP PRN (11:30)
[2017-06-15] MEDS ORDERED: ALBUTEROL FS 2.5 MG/3 ML VIAL.NEB NEB PRN (11:30)
[2017-06-15] MEDS: methylPREDNISolone SOD SUCC 40 MG/ML VIAL IV SCH ×3 (12:00→23:13)
--- NOTE | 2017-06-15 13:02 | NUR ---
ICU ROOM 251
--- NOTE | 2017-06-15 13:11 | NUR ---
REPORT GIVEN TO SOFÍA RN FOR CONT OF CARE
--- NOTE | 2017-06-15 13:25 | NUR ---
TRANSFERRED TO FLOOR [facility] PROTOCOL
[2017-06-15] MEDS: IPRATROPIUM NEB FS 0.5 MG/2.5 ML AMPUL.NEB NEB SCH ×4 (13:30→23:37)
[2017-06-15] MEDS: ALBUTEROL HALF STRENGTH 1.25 MG/3 ML VIAL.NEB NEB SCH ×4 (13:30→23:37)
--- NOTE | 2017-06-15 13:39 | NUR ---
SOLUMEDROL WAS GIVEN IN ER AT 0930-125 MG AND PT WAS NOT IN ICU UNTIL 1330
--- NOTE | 2017-06-15 14:00 | NUR ---
RN NOTE RECIEVED PT ON BED, ON BIPAP, AOX2, ABLE TO VERBALIZE NEEDS, IV IN R HAND AND L AC INACT, SKIN IS INTACT, VS STABLE, SAFETY MEASURES IMPLEMENTED, CALL LIGHT WITHIN REACH. WILL MONITOR.
[2017-06-15] MEDS: GABAPENTIN 100 MG CAPSULE PO SCH ×2 (15:28→17:00)
[2017-06-15] MEDS: ACETAMINOPHEN 325 MG TABLET PO PRN (15:28)
[2017-06-15] MEDS ORDERED: DEXTROSE 50%-WATER 50 ML DISP.SYRIN IV PRN (15:30)
[2017-06-15] MEDS: CEFTRIAXONE 1 G in IV D5W 50 ML IV SCH (15:59)
[2017-06-15] MEDS ORDERED: FLUTICASONE/SALMETEROL DISKUS IH SCH (17:00)
--- NOTE | 2017-06-15 17:00 | NUR ---
RN NOTE GABAPENTIN SCHEDULED 1700 NOT GIVEN BECAUSE PREVIOUS DOSE GIVEN TOO CLOSE TO THIS ONE.
[2017-06-15] MEDS: APIXABAN 2.5 MG TABLET PO SCH (17:10)
[2017-06-15] MEDS: SENNOSIDES 8.6 MG TABLET PO SCH (17:10)
[2017-06-15] MEDS: BLOOD SUGAR DIAGNOSTIC 1 EACH STRIP VI SCH ×2 (17:40→22:18)
[2017-06-15] MEDS: INSULIN REGULAR, HUMAN 100 UNIT/ML 3 ML VIAL SQ PRN (17:44)
--- NOTE | 2017-06-15 19:00 | NUR ---
RN NOTE PT REMAINED STABLE, ALL NEEDS MET, MEDS GIVEN, SAFETY MEASURES IMPLEMENTED, KEPT CLEAN AND DRY, DID NOT EAT DINNER BECAUSE OF FEELING TIRED AND OUT OF BREATH. WILL ENDORSE TO AUTOMATION ANALYST NURSE.
--- NOTE | 2017-06-15 19:59 | NUR ---
OCCUPATIONAL HEALTH PHYSICIAN - NOTES - PT RECEIVED IN BED, AWAKE ALERT, ON BIPAP SETTINGS R 18, FIO2 40%, PEEP 5.0 AND CPAP 15. PT TOLERATING WELL, 02SAT 100%, VSS, NAD. PT IS IN SR HR 80S. PT HAS 2 INTACT PATENT IVS R HAND 22G AND L AC 18G. WILL CONTINUE TO MONITOR
[2017-06-15] MEDS: TRAZODONE 50 MG TABLET PO SCH (22:18)
[2017-06-15] MEDS: diphenhydrAMINE HCL 50 MG CAPSULE PO SCH (22:18)
[2017-06-15] MEDS: *INSULIN REGULAR(HUMULIN R)HUM 100 UNIT/ML VIAL SQ PRN (22:20)
[2017-06-16] VITALS (42 sets, daily range): BP systolic 49–159; BP diastolic 24–113
[2017-06-16] MEDS: IPRATROPIUM NEB FS 0.5 MG/2.5 ML AMPUL.NEB NEB SCH ×6 (03:03→23:36)
[2017-06-16] MEDS: ALBUTEROL HALF STRENGTH 1.25 MG/3 ML VIAL.NEB NEB SCH ×6 (03:03→23:36)
[2017-06-16 05:32] LABS: HEMATOCRIT 38 % (33-45); LYMPHOCYTES # (AUTO) 0.4 /CMM (0.8-4.8); LYMPHOCYTES % (AUTO) 7.1 % (20.0-44.0); MEAN CORPUSCULAR HEMOGLOBIN 28 PG (26.0-33.0); MEAN CORPUSCULAR HGB CONC 32 g/dl (31.0-36.0); MEAN CORPUSCULAR VOLUME 88 fL (82-100); MONOCYTES # (AUTO) 0.2 /CMM (0.1-1.30); MONOCYTES % (AUTO) 3.9 % (2.0-12.0); NEUTROPHILS # (AUTO) 4.6 /CMM (1.8-8.9); PLATELET COUNT (AUTO) 310 /CMM (150-450); RDW COEFFICIENT OF VARIATION 18.8 (11.5-15.0); RED BLOOD CELL COUNT(AUTO) 4.28 MIL/uL (4.0-5.2); WHITE BLOOD COUNT (AUTO) 5.2 K/uL (4.3-11.0)
[2017-06-16] MEDS: methylPREDNISolone SOD SUCC 40 MG/ML VIAL IV SCH ×4 (05:40→23:31)
[2017-06-16 05:42] LABS: CALCIUM, SERUM 9.5 mg/dL (8.5-10.1); CARBON DIOXIDE 35 mmol/L (21-32); CHLORIDE 97 mmol/L (98-107); CREATININE 1.1 mg/dL (0.6-1.3); GLUCOSE 163 mg/dL (74-106); MAGNESIUM 2.4 mg/dL (1.8-2.4); PHOSPHORUS 4.6 mg/dL (2.5-4.9); POTASSIUM 4.4 mmol/L (3.5-5.1); SODIUM SERUM 138 mmol/L (136-145); UREA NITROGEN, BLOOD 23 mg/dL (7-18)
--- NOTE | 2017-06-16 06:30 | NUR ---
pt had an episode of sob and respiratory distress while on bipap, she pulled off the bipap and said that she couldnt breathe, lungs sounds had wheezing and pt complained of tightness, rt was called and pt was given a breathing treatment albuterol via bipap, afterwards she became calm and said her lungs felt less tight, 02sat never dropped below 98%
--- NOTE | 2017-06-16 07:30 | NUR ---
PAPER COUNTER INITIAL NOTES RECEIVED PATIENT AWAKE IN BED, AOX3, ON BIPAP SETTINGS FI02 40% PEEP 5 RR18, IPAP 15 EPAP 5, SATURATING WELL, NO SOB, IN DIAPER CLEAN AND DRY, IV R HAND 22G PATENT AND INTACT, L AC 18G PATENT AND INTACT, SL, BED IN LOW AND LOCKED POSITION WILL CONTINUE TO MONITOR.
[2017-06-16] MEDS: BLOOD SUGAR DIAGNOSTIC 1 EACH STRIP VI SCH ×4 (07:51→21:40)
--- NOTE | 2017-06-16 08:00 | NUR ---
PULPWOOD CUTTER NOTES PATIENT OFF BIPAP, ON NASAL CANNULA 3L SATURATING WELL, WILL CONTINUE MONITOR.
[2017-06-16] MEDS: SENNOSIDES 8.6 MG TABLET PO SCH ×2 (08:07→17:17)
[2017-06-16] MEDS: PANTOPRAZOLE 40 MG TABLET.DR PO SCH (08:07)
[2017-06-16] MEDS: GABAPENTIN 100 MG CAPSULE PO SCH ×3 (08:08→17:17)
[2017-06-16] MEDS: LEVOTHYROXINE SODIUM 175 MCG TABLET PO SCH (08:08)
[2017-06-16] MEDS: MULTIVITAMINS,THERAGRAN 1 UDTAB TABLET PO SCH (08:08)
[2017-06-16] MEDS: ASCORBIC ACID 500 MG TABLET PO SCH (08:08)
[2017-06-16] MEDS: DOCUSATE SODIUM 100 MG CAPSULE PO SCH (08:08)
[2017-06-16] MEDS: APIXABAN 2.5 MG TABLET PO SCH ×2 (08:09→17:17)
[2017-06-16] MEDS: AMIODARONE HCL 200 MG TABLET PO SCH (08:09)
[2017-06-16] MEDS: FUROSEMIDE 40 MG/4 ML VIAL IV SCH (08:09)
[2017-06-16] MEDS: INSULIN REGULAR, HUMAN 100 UNIT/ML 3 ML VIAL SQ PRN ×3 (08:11→17:22)
[2017-06-16] MEDS ORDERED: FLUTICASONE/VILANTEROL 1 EACH BLST.W.DEV IH SCH (09:00)
[2017-06-16 09:34] LABS: ABG BASE EXCESS 9.4 mmol/L; ABG PCO2 66.3 mmHg (35.0-45.0); ABG PH 7.364 (7.350-7.450); ABG PO2 66.6 mmHg (75.0-100.0); AaDO2 69.4 mmHg; COHb 0.3 % (0.5-1.5); MetHb 0.5 % (0.0-1.5); O2Hb 91.3 % (94.0-97.0); SITE, ABG Right Radial; VENT MODE, BG NC 3L
[2017-06-16] MEDS: CEFTRIAXONE 1 G in IV D5W 50 ML IV SCH (13:57)
--- NOTE | 2017-06-16 18:49 | NUR ---
TRIM SETTER NOTES PATIENT RESTING IN BED, NO SIGNS OF DISTRESS, ALL NEEDS MET, PATIENT ABLE TO USE COMMODE WITH ASSISTANCE, BED IN LOW AND LOCKED POSITION CALL LIGHT WITHIN REACH, WILL ENDORSE TO PATTERN PUNCHER FOR CONTINUITY OF CARE.
--- NOTE | 2017-06-16 19:30 | NUR ---
ROLL OR TAPE EDGE MACHINE OPERATOR NOTE PT RECEIVED SITTING UP IN BED. A/O X3 AND ABLE TO VERBALIZE NEEDS. ON 3L OF O2 VIA NC AND SATURATING 92%. BREATHING REGULAR, EVEN AND UNLABORED. HOB ELEVATED. IV R HAND AND L AC CLEAN, DRY, PATENT AND FLUSHING WELL. CALL LIGHT WITHIN REACH. WILL CONTINUE TO MONITOR.
--- NOTE | 2017-06-16 21:15 | NUR ---
SEED TESTER NOTE PT TRANSFERRED SAFELY FROM ICU TO TELE STATUS ROOM 112-1. TELE- SR 97. ON 3L OF O2 AND SATURATING WELL. CALL LIGHT WITHIN REACH. NO SOB NOTED. WILL CONTINUE TO MONITOR.
[2017-06-16] MEDS: diphenhydrAMINE HCL 50 MG CAPSULE PO SCH (21:38)
[2017-06-16] MEDS: TRAZODONE 50 MG TABLET PO SCH (21:38)
[2017-06-16] MEDS: *INSULIN REGULAR(HUMULIN R)HUM 100 UNIT/ML VIAL SQ PRN (21:50)
--- NOTE | 2017-06-16 23:00 | NUR ---
GUSSET EDGER NOTE PT REFUSED TO USE NOCTURNAL BIPAP. NO C/O SOB. INFORMED OF RISKS AND BENEFITS OF USING BIPAP. PT STILL REFUSED. ON 2L AND SATURATING WELL. WILL CONTINUE TO MONITOR.
[2017-06-17] VITALS: BP 111/75
[2017-06-17] MEDS: ACETAMINOPHEN 325 MG TABLET PO PRN ×2 (00:16→09:27)
[2017-06-17] MEDS: IPRATROPIUM NEB FS 0.5 MG/2.5 ML AMPUL.NEB NEB SCH ×6 (02:52→23:45)
[2017-06-17] MEDS: ALBUTEROL HALF STRENGTH 1.25 MG/3 ML VIAL.NEB NEB SCH ×6 (02:52→23:45)
[2017-06-17 04:00] VITALS: BP 138/81
[2017-06-17] MEDS: methylPREDNISolone SOD SUCC 40 MG/ML VIAL IV SCH ×3 (06:00→16:38)
--- NOTE | 2017-06-17 07:30 | NUR ---
television servicer opening received patient a/ox4. slight increased effort of breathing. on 2lpm nc. states pain; will give tylenol. patient needs in reach, bed lowered and locked, rails upx3 for safety with bed alarm on. will round q2h or less per needs.
[2017-06-17 08:00] VITALS: BP 132/87
[2017-06-17] MEDS: BLOOD SUGAR DIAGNOSTIC 1 EACH STRIP VI SCH ×4 (08:13→21:33)
[2017-06-17] MEDS: SENNOSIDES 8.6 MG TABLET PO SCH ×2 (08:13→16:28)
[2017-06-17] MEDS: MULTIVITAMINS,THERAGRAN 1 UDTAB TABLET PO SCH (08:13)
[2017-06-17] MEDS: ASCORBIC ACID 500 MG TABLET PO SCH (08:13)
[2017-06-17] MEDS: LEVOTHYROXINE SODIUM 175 MCG TABLET PO SCH (08:14)
[2017-06-17] MEDS: APIXABAN 2.5 MG TABLET PO SCH ×2 (08:14→16:28)
[2017-06-17] MEDS: PANTOPRAZOLE 40 MG TABLET.DR PO SCH (08:14)
[2017-06-17] MEDS: FUROSEMIDE 40 MG/4 ML VIAL IV SCH (08:14)
[2017-06-17] MEDS: GABAPENTIN 100 MG CAPSULE PO SCH ×3 (08:14→16:28)
[2017-06-17] MEDS: DOCUSATE SODIUM 100 MG CAPSULE PO SCH (08:14)
--- NOTE | 2017-06-17 08:14 | NUR ---
EYEWEAR CONSULTANT CLOSING NOTE PT REMAINED STABLE DURING SHIFT. NO S/SX OF RESPIRATORY DISTRESS NOTED. ON 2L OF O2 AND WELL TOLERATED. KEPT CLEAN AND DRY. CALL LIGHT WITHIN REACH. WILL ENDORSE TO NEXT SHIFT FOR CONTINUITY OF CARE.
[2017-06-17] MEDS: Z GUARD REMEDY 2 OZ OINT TP PRN ×3 (08:15→16:37)
[2017-06-17] MEDS: AMIODARONE HCL 200 MG TABLET PO SCH (08:19)
[2017-06-17] MEDS: INSULIN REGULAR, HUMAN 100 UNIT/ML 3 ML VIAL SQ PRN ×3 (08:24→16:37)
[2017-06-17 08:52] LABS: CALCIUM, SERUM 9.1 mg/dL (8.5-10.1); CARBON DIOXIDE 34 mmol/L (21-32); CHLORIDE 98 mmol/L (98-107); CREATININE 1.3 mg/dL (0.6-1.3); GLUCOSE 203 mg/dL (74-106); POTASSIUM 4.5 mmol/L (3.5-5.1); SODIUM SERUM 137 mmol/L (136-145); UREA NITROGEN, BLOOD 36 mg/dL (7-18)
[2017-06-17 09:09] LABS: BASOPHILS % (AUTO) 0.1 % (0.0-2.0); HEMATOCRIT 38 % (33-45); HEMOGLOBIN 11.9 g/dL (11.5-14.8); LYMPHOCYTES # (AUTO) 0.6 /CMM (0.8-4.8); LYMPHOCYTES % (AUTO) 7.5 % (20.0-44.0); MEAN CORPUSCULAR HEMOGLOBIN 28 PG (26.0-33.0); MEAN CORPUSCULAR HGB CONC 32 g/dl (31.0-36.0); MEAN CORPUSCULAR VOLUME 88 fL (82-100); MONOCYTES # (AUTO) 0.4 /CMM (0.1-1.30); MONOCYTES % (AUTO) 5.6 % (2.0-12.0); NEUTROPHILS # (AUTO) 6.4 /CMM (1.8-8.9); NEUTROPHILS % (AUTO) 86.8 % (43.0-81.0); PLATELET COUNT (AUTO) 326 /CMM (150-450); RDW COEFFICIENT OF VARIATION 18.4 (11.5-15.0); RED BLOOD CELL COUNT(AUTO) 4.27 MIL/uL (4.0-5.2); WHITE BLOOD COUNT (AUTO) 7.4 K/uL (4.3-11.0)
--- NOTE | 2017-06-17 09:24 | NUR ---
PLANNER CHIEF NOTES PATIENT OXYGEN SATURATION IS 79-82% ROOM AIR HOWEVER SHE HAS NAILPOLISH ON ALL OF HER FINGERS WHICH I TRIED TO EXPLAIN DECREASES THE ACCURACY OF THE READING. ASKED IF I MAY REMOVE NAIL SAMI FROM ONE OF HER FINGERS AND PATIENT STARTED YELLING AT ME. WILL NOT ALLOW ME TO CHECK O2 SAT ANY WHERE ELSE. 2LPM NASAL CANNULA APPLIED.
--- NOTE | 2017-06-17 10:30 | NUR ---
SENIOR CUSTOMER SERVICE REPRESENTATIVE NOTES NOTIFIED ESPINOSA PATIENT C/O PAIN NOT RELIEVED BY TYLENOL. PER MD GIVE 5/325 NORCO PO Q4H PRN FOR PAIN
[2017-06-17] MEDS: HYDROCODONE/APAP 5/325MG 1 EACH TABLET PO PRN ×2 (11:43→18:23)
[2017-06-17 12:00] VITALS: BP 128/83
[2017-06-17] MEDS: CEFTRIAXONE 1 G in IV D5W 50 ML IV SCH (13:57)
[2017-06-17 16:00] VITALS: BP 121/84
--- NOTE | 2017-06-17 18:44 | NUR ---
PROCESS SPECIALIST CLOSING PATIENT STABLE PAIN WELL CONTROLLED WITH PRN MEDICATIONS. ALL DUE MEDS GIVEN AND ALL NEEDS MET. PATIENT NEEDS IN REACH. BED LOWERED AND LOCKED, RAILS UPX3 FOR SAFETY AND WILL ENDORSE CARE TO RN FOR CARLOS.
[2017-06-17 20:00] VITALS: BP 122/59
--- NOTE | 2017-06-17 20:00 | NUR ---
Rn initial note received patient a/ox4,resting in bed, no signs of distress, bed lowered and locked, rails upx3 for safety with bed alarm on. will continue to monitor.
[2017-06-17] MEDS: TRAZODONE 50 MG TABLET PO SCH (21:17)
[2017-06-17] MEDS: diphenhydrAMINE HCL 50 MG CAPSULE PO SCH (21:17)
[2017-06-17] MEDS: *INSULIN REGULAR(HUMULIN R)HUM 100 UNIT/ML VIAL SQ PRN (21:37)
[2017-06-18] VITALS: BP 106/70
[2017-06-18] MEDS: ALBUTEROL HALF STRENGTH 1.25 MG/3 ML VIAL.NEB NEB SCH ×6 (03:57→23:28)
[2017-06-18] MEDS: IPRATROPIUM NEB FS 0.5 MG/2.5 ML AMPUL.NEB NEB SCH ×6 (03:57→23:28)
[2017-06-18 04:00] VITALS: BP 136/88
--- NOTE | 2017-06-18 07:27 | NUR ---
RN CLOSING NOTES NO CHANGES OVER NIGHT, PATIENT STABLE PAIN WELL CONTROLLED WITH PRN MEDICATIONS. ALL DUE MEDS GIVEN AND ALL NEEDS MET. PATIENT NEEDS IN REACH. BED LOWERED AND LOCKED, RAILS UPX3 FOR SAFETY AND WILL ENDORSE CARE TO RN FOR CARLOS.
--- NOTE | 2017-06-18 07:36 | NUR ---
telephonic nurse case manager opening received patient a/ox4. slight increased effort of breathing with activity. on 1lpm nc tolerating well. states pain well controlled now with prn medications. patient needs in reach, bed lowered and locked, rails upx3 for safety with bed alarm on. will round q2h or less per needs. patient is wheelchair bound and educated patient on importance of turning and offloading sacrum throughout day. patient is wanting to wear diaper and educated on skin care and keeping clean and dry. patient still wishes to use diaper. blanching redness on sacrum. will continue to educate patient. she is not wanting pillows placed for offloading states she will do it herself
[2017-06-18 08:00] VITALS: BP 143/89
[2017-06-18] MEDS: BLOOD SUGAR DIAGNOSTIC 1 EACH STRIP VI SCH ×4 (08:22→21:32)
[2017-06-18] MEDS: PANTOPRAZOLE 40 MG TABLET.DR PO SCH (08:23)
[2017-06-18] MEDS: APIXABAN 2.5 MG TABLET PO SCH ×2 (08:23→16:08)
[2017-06-18] MEDS: GABAPENTIN 100 MG CAPSULE PO SCH ×3 (08:23→16:08)
[2017-06-18] MEDS: ASCORBIC ACID 500 MG TABLET PO SCH (08:23)
[2017-06-18] MEDS: LEVOTHYROXINE SODIUM 175 MCG TABLET PO SCH (08:23)
[2017-06-18] MEDS: MULTIVITAMINS,THERAGRAN 1 UDTAB TABLET PO SCH (08:24)
[2017-06-18] MEDS: AMIODARONE HCL 200 MG TABLET PO SCH (08:24)
[2017-06-18] MEDS: SENNOSIDES 8.6 MG TABLET PO SCH ×2 (08:24→16:08)
[2017-06-18] MEDS: HYDROCODONE/APAP 5/325MG 1 EACH TABLET PO PRN ×3 (08:24→18:15)
[2017-06-18] MEDS: FUROSEMIDE 40 MG TABLET PO SCH (08:24)
[2017-06-18] MEDS: DOCUSATE SODIUM 100 MG CAPSULE PO SCH (08:24)
[2017-06-18] MEDS: methylPREDNISolone SOD SUCC 40 MG/ML VIAL IV SCH ×2 (08:24→16:08)
[2017-06-18] MEDS: INSULIN REGULAR, HUMAN 100 UNIT/ML 3 ML VIAL SQ PRN ×4 (08:30→21:39)
[2017-06-18] MEDS: Z GUARD REMEDY 2 OZ OINT TP PRN ×2 (08:31→12:36)
--- NOTE | 2017-06-18 09:33 | NUR ---
DENITRATOR OPERATOR NOTES NOTIFIED PATIENT I WILL NEED TO PUT NEW IV IN TODAY IT IS DAY 3. PATIENT REFUSING STARTING TO YELL. EXPLAINED REASONING. WILL F/U WITH PATIENT LATER.
[2017-06-18 12:00] VITALS: BP 110/77
[2017-06-18] MEDS: CEFTRIAXONE 1 G in IV D5W 50 ML IV SCH (14:35)
[2017-06-18 16:00] VITALS: BP 118/70
--- NOTE | 2017-06-18 19:15 | NUR ---
MEAL PACKER CLOSING PATIENT STABLE PAIN WELL CONTROLLED WITH PRN MEDICATIONS. ALL DUE MEDS GIVEN AND ALL NEEDS MET. PATIENT NEEDS IN REACH. BED LOWERED AND LOCKED, RAILS UPX3 FOR SAFETY AND WILL ENDORSE CARE TO RN FOR CARLOS.
[2017-06-18 20:00] VITALS: BP 132/78
--- NOTE | 2017-06-18 20:00 | NUR ---
RN INITIAL NOTES RECEIVED PATIENT STABLE, PAIN WELL CONTROLLED WITH PRN MEDICATIONS. CALL LIGHT WITHIN REACH. BED LOWERED AND LOCKED, RAILS UPX3 FOR SAFETY, WILL ENDORSE CARE TO RN FOR CARLOS.
[2017-06-18] MEDS: diphenhydrAMINE HCL 50 MG CAPSULE PO SCH (21:31)
[2017-06-18] MEDS: TRAZODONE 50 MG TABLET PO SCH (21:31)
[2017-06-19] VITALS: BP_SYST 133; BP_DIAS 60; BP_DIAS 80
[2017-06-19] MEDS: ALBUTEROL HALF STRENGTH 1.25 MG/3 ML VIAL.NEB NEB SCH ×6 (03:08→23:03)
[2017-06-19] MEDS: IPRATROPIUM NEB FS 0.5 MG/2.5 ML AMPUL.NEB NEB SCH ×6 (03:08→23:03)
[2017-06-19 04:00] VITALS: BP 134/81
--- NOTE | 2017-06-19 07:20 | NUR ---
RN NOTES; PATIENT RESTING IN BED. AOX3. NONLABORED BREATHING. NO SOB NOTED. DENIES PAIN AT THE MOMENT. IV SITE ON RIGHT HAND PATENT AND INTACT. BED IN LOWEST LOCKED POSITION. CALL LIGHT WITHIN REACH. WILL CONTINUE TO MONITOR. PATIENT NOW ON TELE MONITORING WITH SR NOTED
[2017-06-19] MEDS: LEVOTHYROXINE SODIUM 175 MCG TABLET PO SCH (07:30)
[2017-06-19] MEDS: PANTOPRAZOLE 40 MG TABLET.DR PO SCH (07:30)
[2017-06-19 08:00] VITALS: BP 132/79
[2017-06-19] MEDS: BLOOD SUGAR DIAGNOSTIC 1 EACH STRIP VI SCH ×4 (08:05→21:52)
[2017-06-19] MEDS: SENNOSIDES 8.6 MG TABLET PO SCH ×2 (09:00→17:46)
[2017-06-19] MEDS: DOCUSATE SODIUM 100 MG CAPSULE PO SCH (09:00)
[2017-06-19] MEDS: ASCORBIC ACID 500 MG TABLET PO SCH (09:00)
[2017-06-19] MEDS: MULTIVITAMINS,THERAGRAN 1 UDTAB TABLET PO SCH (09:00)
[2017-06-19] MEDS: AMIODARONE HCL 200 MG TABLET PO SCH (09:00)
[2017-06-19] MEDS: methylPREDNISolone SOD SUCC 40 MG/ML VIAL IV SCH ×2 (09:00→17:44)
[2017-06-19] MEDS: GABAPENTIN 100 MG CAPSULE PO SCH ×3 (09:00→17:46)
[2017-06-19] MEDS: APIXABAN 2.5 MG TABLET PO SCH ×2 (09:00→17:48)
[2017-06-19 09:15] LABS: CALCIUM, SERUM 9.2 mg/dL (8.5-10.1); CARBON DIOXIDE 38 mmol/L (21-32); CHLORIDE 100 mmol/L (98-107); CREATININE 1.2 mg/dL (0.6-1.3); GLUCOSE 106 mg/dL (74-106); POTASSIUM 4.3 mmol/L (3.5-5.1); SODIUM SERUM 139 mmol/L (136-145); UREA NITROGEN, BLOOD 39 mg/dL (7-18)
[2017-06-19] MEDS: HYDROCODONE/APAP 5/325MG 1 EACH TABLET PO PRN ×2 (09:30→20:04)
[2017-06-19] MEDS: FUROSEMIDE 40 MG TABLET PO SCH (11:49)
[2017-06-19 12:00] VITALS: BP 133/78
[2017-06-19] MEDS: INSULIN REGULAR, HUMAN 100 UNIT/ML 3 ML VIAL SQ PRN (12:12)
[2017-06-19] MEDS: CEFTRIAXONE 1 G in IV D5W 50 ML IV SCH (13:57)
[2017-06-19] MEDS ORDERED: Z GUARD REMEDY 4 OZ OINT TP PRN (14:30)
[2017-06-19 16:00] VITALS: BP 94/56
--- NOTE | 2017-06-19 19:20 | NUR ---
RN NOTES; PATIENT RESTING IN BED. AOX3. NONLABORED BREATHING. NO SOB NOTED. DENIES PAIN AT THE MOMENT. IV SITE ON RIGHT HAND PATENT AND INTACT. BED IN LOWEST LOCKED POSITION. CALL LIGHT WITHIN REACH. PATIENT REFUSED MORNING MEDICATIONS, OFFERED THEM TO HER TILL 1200 WITH BENEFITS AND RISKS EXPLAINED MULTIPLE TIMES. PATIENT KEPT REFUSING STATING THAT SHE JUST WANTED TO TAKE HER NORCO, LASIX. AND WISHED TO REST AND BE LEFT ALONE. DR ESPINOSA INFORMED AND SPOKE WITH PATIENT, PATIENT HAS BEEN MED COMPLIANT DURING SHIFT. PATIENT KEPT CLEAN AND DRY. ENDORSED TO NEXT SHIFT
--- NOTE | 2017-06-19 19:30 | NUR ---
RN NOTES RECEIVED PATIENT IN BED AWAKE, AO X 3, ABLE TO MAKE NEEDS KNOWN. NO ACUTE DISTRESS NOTED. MONITORED FOR PAIN. SR HR 90. IV SITE PATENT, INTACT; FLUSHED. SAFETY REMINDERS GIVEN. ON LOW BED WITH BILATERAL UPPER SIDE RAILS UP. CALL LIGHT WITHIN EASY REACH. WILL CONTINUE TO MONITOR.
[2017-06-19 20:00] VITALS: BP 123/82
[2017-06-19] MEDS: TRAZODONE 50 MG TABLET PO SCH (21:52)
[2017-06-19] MEDS: diphenhydrAMINE HCL 50 MG CAPSULE PO SCH (21:52)
[2017-06-19] MEDS: *INSULIN REGULAR(HUMULIN R)HUM 100 UNIT/ML VIAL SQ PRN (21:55)
[2017-06-20] VITALS: BP 112/70
[2017-06-20] MEDS: ALBUTEROL HALF STRENGTH 1.25 MG/3 ML VIAL.NEB NEB SCH ×4 (03:44→14:53)
[2017-06-20] MEDS: IPRATROPIUM NEB FS 0.5 MG/2.5 ML AMPUL.NEB NEB SCH ×4 (03:44→14:53)
[2017-06-20 04:00] VITALS: BP 129/84
--- NOTE | 2017-06-20 06:38 | NUR ---
RN NOTES PATIENT ASLEEP, EASILY AROUSABLE. RESPIRATIONS EVEN. NO SIGNS OF PAIN NOTED. DUE MEDS GIVEN WITH NO ASE NOTED. NEEDS ATTENDED. KEPT CLEAN AND DRY. SAFETY PRECAUTIONS AND COMFORT MEASURES IN PLACE. WILL GIVE REPORT TO DAY SHIFT FOR CONTINUITY OF CARE.
--- NOTE | 2017-06-20 07:45 | NUR ---
RN OPENING NOTES PATIENT RESTING COMFORTABLY IN BED. AOX4. SATURATING ADEQUATELY ON 2L VIA NC. DENIES CP, SOB. COMPLAINING OF SEVERE LOWER BACK PAIN. IV ACCESS PATENT AND INTACT. RESPIRATIONS EVEN AND UNLABORED. NO ACUTE DISTRESS. BED LOCKED IN THE LOWEST POSITION WITH SIDERAILS UP X2. CALL LIGHT WITHIN REACH. WILL CONTINUE TO EDUCATE, MONITOR AND ASSESS PATIENT THROUGHOUT SHIFT.
[2017-06-20 08:00] VITALS: BP 154/92
[2017-06-20 08:41] LABS: CALCIUM, SERUM 8.7 mg/dL (8.5-10.1); CHLORIDE 100 mmol/L (98-107); CREATININE 1.1 mg/dL (0.6-1.3); GLUCOSE 180 mg/dL (74-106); POTASSIUM 4.4 mmol/L (3.5-5.1); SODIUM SERUM 138 mmol/L (136-145); UREA NITROGEN, BLOOD 35 mg/dL (7-18)
[2017-06-20 08:47] LABS: BASOPHILS % (AUTO) 0.6 % (0.0-2.0); HEMATOCRIT 39 % (33-45); HEMOGLOBIN 12.5 g/dL (11.5-14.8); LYMPHOCYTES # (AUTO) 1.3 /CMM (0.8-4.8); LYMPHOCYTES % (AUTO) 16.5 % (20.0-44.0); MEAN CORPUSCULAR HEMOGLOBIN 28 PG (26.0-33.0); MEAN CORPUSCULAR HGB CONC 32 g/dl (31.0-36.0); MEAN CORPUSCULAR VOLUME 87 fL (82-100); MONOCYTES # (AUTO) 0.7 /CMM (0.1-1.30); MONOCYTES % (AUTO) 8.8 % (2.0-12.0); NEUTROPHILS # (AUTO) 5.8 /CMM (1.8-8.9); NEUTROPHILS % (AUTO) 74.1 % (43.0-81.0); PLATELET COUNT (AUTO) 301 /CMM (150-450); RDW COEFFICIENT OF VARIATION 16.8 (11.5-15.0); WHITE BLOOD COUNT (AUTO) 7.8 K/uL (4.3-11.0)
[2017-06-20 09:05] LABS: CARBON DIOXIDE 34 mmol/L (21-32)
[2017-06-20] MEDS: LEVOTHYROXINE SODIUM 175 MCG TABLET PO SCH (09:46)
[2017-06-20] MEDS: MULTIVITAMINS,THERAGRAN 1 UDTAB TABLET PO SCH (09:46)
[2017-06-20] MEDS: FUROSEMIDE 40 MG TABLET PO SCH (09:46)
[2017-06-20] MEDS: ASCORBIC ACID 500 MG TABLET PO SCH (09:46)
[2017-06-20] MEDS: PANTOPRAZOLE 40 MG TABLET.DR PO SCH (09:46)
[2017-06-20] MEDS: GABAPENTIN 100 MG CAPSULE PO SCH ×3 (09:46→18:09)
[2017-06-20] MEDS: DOCUSATE SODIUM 100 MG CAPSULE PO SCH (09:46)
[2017-06-20] MEDS: SENNOSIDES 8.6 MG TABLET PO SCH ×2 (09:46→18:09)
[2017-06-20] MEDS: methylPREDNISolone SOD SUCC 40 MG/ML VIAL IV SCH ×2 (09:50→18:09)
[2017-06-20] MEDS: AMIODARONE HCL 200 MG TABLET PO SCH (09:50)
[2017-06-20] MEDS: APIXABAN 2.5 MG TABLET PO SCH ×2 (09:51→18:10)
[2017-06-20] MEDS: BLOOD SUGAR DIAGNOSTIC 1 EACH STRIP VI SCH ×3 (09:51→18:10)
[2017-06-20] MEDS: INSULIN REGULAR, HUMAN 100 UNIT/ML 3 ML VIAL SQ PRN ×3 (09:52→18:26)
[2017-06-20] MEDS: HYDROCODONE/APAP 5/325MG 1 EACH TABLET PO PRN ×2 (10:01→14:30)
[2017-06-20] MEDS: CEFTRIAXONE 1 G in IV D5W 50 ML IV SCH (14:30)
[2017-06-20] MEDS ORDERED: PRED20TA PO (14:32)
[2017-06-20 16:00] VITALS: BP 122/89
--- NOTE | 2017-06-20 20:25 | NUR ---
RN CLOSING NOTES PATIENT DISCHARGED IN STABLE CONDITION TO [facility]. PATIENT VERBALIZED UNDERSTANDING OF DISCHARGE. NO ACUTE DISTRESS. AOX4. RESPIRATIONS EVEN AND UNLABORED. ALL EXITCARE EDUCATION PROVIDED. ALL BELONGINGS ACCOUNTED FOR. REPORT GIVEN TO [facility].
== END 2017-06-20 20:25 | DRG 194 ==
LOC: ER 08:06 → ICU 11:02 → TELE1 06-16 20:57 → MEDSG1 06-20 10:09
PROVIDERS: ADMIT Internal Medicine; ATTEND Internal Medicine
PROC: 5A09457 Assistance with Respiratory Ventilation, 24-96 Consecutive Hours, Continuous Positive Airway Pressure (ICD-10-PCS; principal; 2017-06-15)
DX: I11.0 Hypertensive heart disease with heart failure (principal); J96.21 Acute and chronic respiratory failure with hypoxia; E43 Unspecified severe protein-calorie malnutrition; D69.2 Other nonthrombocytopenic purpura; I48.0 Paroxysmal atrial fibrillation; Z99.81 Dependence on supplemental oxygen; E66.2 Morbid (severe) obesity with alveolar hypoventilation; Z68.41 Body mass index [BMI] 40.0-44.9, adult; J44.0 Chronic obstructive pulmonary disease with (acute) lower respiratory infection; E11.9 Type 2 diabetes mellitus without complications; J44.1 Chronic obstructive pulmonary disease with (acute) exacerbation; I50.33 Acute on chronic diastolic (congestive) heart failure; J96.22 Acute and chronic respiratory failure with hypercapnia; E03.9 Hypothyroidism, unspecified; E78.5 Hyperlipidemia, unspecified; F17.200 Nicotine dependence, unspecified, uncomplicated; G89.29 Other chronic pain; I25.10 Atherosclerotic heart disease of native coronary artery without angina pectoris; J20.9 Acute bronchitis, unspecified; K21.9 Gastro-esophageal reflux disease without esophagitis; L84 Corns and callosities; Z83.3 Family history of diabetes mellitus; M19.012 Primary osteoarthritis, left shoulder; Z79.01 Long term (current) use of anticoagulants; F32.9 Major depressive disorder, single episode, unspecified; F41.9 Anxiety disorder, unspecified; Z79.4 Long term (current) use of insulin; Z79.899 Other long term (current) drug therapy; S90.415A Abrasion, left lesser toe(s), initial encounter; S90.414A Abrasion, right lesser toe(s), initial encounter; X58.XXXA Exposure to other specified factors, initial encounter; Y93.9 Activity, unspecified; Y92.89 Other specified places as the place of occurrence of the external cause
CPT/HCPCS: 36415; 36600; 71010-TC; 80048-TC; 80076-TC; 82803-TC; 82962-TC; 83605-TC; 83735-TC; 83880; 84100-TC; 84484-TC; 85025-TC; 87040-TC; 87081-TC; 87400; 93307-TC; 94762-TC; 94799-TC; 99082-TC; A4216; A4606; A6253; A6402; J0696; J1815; J1940; J1956; J2543; J2920; J2930; J3370; J7030; J7050; J7060; Q0163; Z7610

== ENCOUNTER 2018-06-09 13:35 | Inpatient (IN) | payer MEDICAID, MEDICARE ==
[~2018-06-09] VITALS: Ht 165.1 cm; Wt 129.7 kg
[~2018-06-09 13:35] MED LIST changes: -AMIO200T2 PO; +AMIO200T4 PO; -BUDE10.2 INH; +HYDR-4385 PO; -INSU100I19 SQ; -INSU100I4 SQ; -METH1ADH4 TP; +PRED20TA PO; -SENN-167 PO; +SENN-168 PO; -TRAZ-144 PO; +TRAZ-182 PO
--- NOTE | 2018-06-09 13:40 | NUR ---
PT CAME FROM [facility] C/O GENERALIZED WEAKNESS. PT SLID OUT OF BED AND ROLLED RIGHT ANKLE, PER EMS AND DAUGHTER. APPEARS VERY WEAK. NO EVIDENCE OF FACIAL ASYMMETRY, SLURRED SPEECH, ARM DRIFT. EYES PERRLA. ON 2 L NC, SATTING AT 98%. AMBULATORY FOR VERY SHORT DISTANCES, RESPIRATIONS EVEN AND UNLABORED. DENIES PAIN, SOB, DIZZINESS, N/V. DAUGHTER AT BEDSIDE. READY FOR EVAL.
[2018-06-09 14:31] LABS: BASOPHILS % (AUTO) 0.4 % (0.0-2.0); EOSINOPHILS % (AUTO) 0.7 % (0.0-6.0); HEMATOCRIT 39 % (33-45); HEMOGLOBIN 12.4 g/dL (11.5-14.8); LYMPHOCYTES # (AUTO) 0.9 /CMM (0.8-4.8); LYMPHOCYTES % (AUTO) 9.9 % (20.0-44.0); MEAN CORPUSCULAR HGB CONC 32 g/dl (31.0-36.0); MEAN CORPUSCULAR VOLUME 92 fL (82-100); MONOCYTES # (AUTO) 0.5 /CMM (0.1-1.30); MONOCYTES % (AUTO) 5.1 % (2.0-12.0); NEUTROPHILS # (AUTO) 7.9 /CMM (1.8-8.9); NEUTROPHILS % (AUTO) 83.9 % (43.0-81.0); PLATELET COUNT (AUTO) 310 /CMM (150-450); RED BLOOD CELL COUNT(AUTO) 4.25 MIL/uL (4.0-5.2); WHITE BLOOD COUNT (AUTO) 9.3 K/uL (4.3-11.0)
[2018-06-09 14:59] LABS: ALANINE AMINOTRANSFERASE 14 U/L (12-78); ALBUMIN 3.3 g/dL (3.4-5.0); ALKALINE PHOSPHATASE 64 U/L (46-116); ASPARTATE AMINOTRANSFERASE 14 U/L (15-37); BILIRUBIN,DIRECT 0.1 mg/dL (0.0-0.2); BILIRUBIN,TOTAL 0.3 mg/dL (0.2-1.0); CALCIUM, SERUM 9.1 mg/dL (8.5-10.1); CHLORIDE 97 mmol/L (98-107); CREATININE 1.4 mg/dL (0.6-1.3); GLUCOSE 332 mg/dL (74-106); POTASSIUM 4.1 mmol/L (3.5-5.1); SODIUM SERUM 137 mmol/L (136-145); TOTAL PROTEIN, SERUM 7.7 g/dL (6.4-8.2); UREA NITROGEN, BLOOD 25 mg/dL (7-18)
[2018-06-09 15:00] LABS: CARBON DIOXIDE 41 mmol/L (21-32)
--- NOTE | 2018-06-09 15:19 | NUR ---
URINE COLLECTED VIA BEDPAN AND SENT TO LAB
[2018-06-09] MEDS ORDERED: predniSONE 20 MG TABLET ONE (15:23)
--- NOTE | 2018-06-09 15:28 | NUR ---
RT CALLED FOR BREATHING TX
[2018-06-09] MEDS ORDERED: ALBUTEROL FS 2.5 MG/3 ML VIAL.NEB NEB ONE (15:30)
[2018-06-09] MEDS ORDERED: predniSONE 20 MG TABLET PO ONE (15:30)
[2018-06-09] MEDS ORDERED: IPRATROPIUM NEB FS 0.5 MG/2.5 ML AMPUL.NEB NEB ONE (15:30)
[2018-06-09] MEDS ORDERED: IPRATROPIUM NEB FS 0.5 MG/2.5 ML AMPUL.NEB ONE (15:34)
[2018-06-09] MEDS ORDERED: ALBUTEROL FS 2.5 MG/3 ML VIAL.NEB ONE (15:34)
[2018-06-09 15:44] LABS: APPEARANCE,URINE Clear (CLEAR); BILIRUBIN,URINE Negative (NEGATIVE); BLOOD, URINE Negative Ery/uL (NEGATIVE); COLOR,URINE Yellow (YELLOW); KETONES,URINE Negative (NEGATIVE); LEUKOCYTE ESTERASE ,URINE Negative (NEGATIVE); NITRITE, URINE Negative (NEGATIVE); PROTEIN,URINE Negative (NEGATIVE); UGLUCOSE Negative (NEGATIVE); UROBILINOGEN,URINE 0.2 EU/dL (0.2)
[2018-06-09] MEDS ORDERED: ASCO500T9 PO (16:04)
[2018-06-09] MEDS ORDERED: INSU100V10 SQ (16:04)
[2018-06-09] MEDS ORDERED: ALBU18HF2 IH (16:04)
[2018-06-09] MEDS ORDERED: INSU100V11 SQ (16:04)
[2018-06-09] MEDS ORDERED: ACET325T53 PO (16:04)
[2018-06-09] MEDS ORDERED: GABA-536 PO (16:04)
[2018-06-09] MEDS ORDERED: GABA-534 PO (16:04)
--- NOTE | 2018-06-09 16:16 | NUR ---
CALLED [employer] GLASS CARRIER WAS PAGED.
--- NOTE | 2018-06-09 16:42 | NUR ---
Patient is resting comfortably in bed with eyes closed. Easily aroused. VSS
[2018-06-09] MEDS ORDERED: HYDROCODONE/APAP 5/325MG 1 EACH TABLET PO PRN (18:30)
[2018-06-09] MEDS ORDERED: ONDANSETRON HCL/PF 4 MG/2 ML VIAL IVP PRN (18:30)
[2018-06-09] MEDS ORDERED: Z GUARD REMEDY 2 OZ OINT TP PRN (18:30)
[2018-06-09] MEDS ORDERED: MAGNESIUM HYDROXIDE 30 ML UDC PO PRN (18:30)
[2018-06-09] MEDS ORDERED: ACETAMINOPHEN 325 MG TABLET PO PRN (18:30)
[2018-06-09] MEDS ORDERED: FUROSEMIDE 40 MG/4 ML VIAL IV SCH (18:30)
[2018-06-09] MEDS ORDERED: MAG HYDROX/AL HYDROX/SIMETH 30 ML UDC PO PRN (18:30)
[2018-06-09] MEDS ORDERED: DEXTROSE 50%-WATER 50 ML DISP.SYRIN IV PRN (18:30)
--- NOTE | 2018-06-09 19:40 | NUR ---
REPORT GIVEN TO SALES SERVICE MANAGER FOR [id number] TELE
[2018-06-09 20:00] VITALS: BP 136/61
--- NOTE | 2018-06-09 20:00 | NUR ---
S/B Dr. Ruggiero discuss POC and reminded the Med recon per Dr. Ruggiero Insert Sneed noted orders and carried out
--- NOTE | 2018-06-09 20:10 | NUR ---
PT TRANSFERRED TO FLOOR
[2018-06-09] MEDS: ALBUTEROL FS 2.5 MG/0.5 ML VIAL.NEB NEB SCH ×2 (20:17→23:05)
--- NOTE | 2018-06-09 20:30 | NUR ---
TELE NOTES INSERTED [facility] CATH FR 16 STERILE TECHNIQUE PT TOLERATED PROCEDURE WELL WITH GOOD FLOW OF URINE YELLOW (CLEAR) NO SEDIMENTS NO HEMATURIA NO CLOUDINESS
[2018-06-09] MEDS: BLOOD SUGAR DIAGNOSTIC 1 EACH STRIP VI SCH (21:54)
[2018-06-09] MEDS: *INSULIN REGULAR(HUMULIN R)HUM 100 UNIT/ML VIAL SQ PRN (21:55)
--- NOTE | 2018-06-09 22:00 | NUR ---
Tele Admit Received pt via helen from [facility] at 1953 admit to tele pt awake, alert and oriented x 4, well appearing, non toxic, Symmetric chest wall rise. no rales. No accessory muscle use. on 3lpm via nc 02 sat at 95% pt complains that she fell but 0 pain at this time in the R leg.head to assessment is done. kept clean and dry and comfort. will continue to monitor
[2018-06-09] MEDS: FUROSEMIDE 40 MG/4 ML VIAL IV SCH (22:35)
[2018-06-10] VITALS: BP 151/82
[2018-06-10] MEDS: ALBUTEROL FS 2.5 MG/0.5 ML VIAL.NEB NEB SCH ×5 (03:22→20:17)
[2018-06-10 04:00] VITALS: BP 115/86
[2018-06-10] MEDS: BLOOD SUGAR DIAGNOSTIC 1 EACH STRIP VI SCH ×4 (05:54→21:35)
[2018-06-10] MEDS: INSULIN REGULAR, HUMAN 100 UNIT/ML 3 ML VIAL SQ PRN ×3 (05:57→16:37)
--- NOTE | 2018-06-10 06:22 | NUR ---
MS RN CLOSING NOTES REMAINS STABLE. ON 3LPM VIA NC 02 SAT AT 95%. ALL NURSING CARE RENDERED. KEPT CLEAN AND DRY AND COMFORTABLE, NEEDS ATTENDED AND ANTICIPATED. OFFLOAD HEELS AND ELBOWS. REPOSITION EVERY 2 HOURS FOR SKIN MANAGEMENT. ON LOW BED AT ALL TIMES TO ENSURE SAFETY. SAFE HAZARD FREE ENVIRONMENT PROVIDED. CALL LIGHT WITHIN EASY TO REACH. WILL ENDORSE NEXT SHIFT CONTINUITY OF CARE Addendum: 06/10/18 at 0624 by CHACHA DUGGAN RN 84'S
--- NOTE | 2018-06-10 07:35 | NUR ---
RETAIL COVERAGE MERCHANDISER OPENING NOTES RECEIVED PT LAYING IN BED WITH HOB ELEVATED. PT IS A/O X2-3, AFEBRILE. RESPIRATIONS ARE EVEN AND UNLABORED, NOT IN ANY ACUTE DISTRESS NOTED. PT DENIES ANY CHEST PAIN, SOB, N/V. IV SITE TO LAC INTACT, NO INFILTRATION NOTED. DRESSING KEPT CLEAN AND DRY. INSTRUCTED PT TO USE CALL LIGHT WHEN ASSISTANCE IS NEEDED, CALL LIGHT IS LEFT WITHIN REACH. SAFETY MEASURES ARE IN PLACE. BED IS IN ITS LOWEST AND LOCKED POSITION. WILL CONTINUE TO MONITOR THROUGHOUT SHIFT FOR CONTINUITY OF CARE.
[2018-06-10 08:00] VITALS: BP 138/91
[2018-06-10] MEDS: FUROSEMIDE 40 MG/4 ML VIAL IV SCH (08:13)
[2018-06-10 08:36] LABS: ABG BASE EXCESS 11.4 mmol/L; ABG PCO2 50.5 mmHg (35.0-45.0); ABG PH 7.481 (7.350-7.450); AaDO2 75.1 mmHg; SITE, ABG Right Radial
--- NOTE | 2018-06-10 08:44 | NUR ---
TURKEY PINNER NOTES-- PT SEEN AND EXAMINED BY DR. MCMAHAN W/ ORDERS FOR ABG AND PULMONARY CONSULT.
--- NOTE | 2018-06-10 10:59 | NUR ---
AGENCY SALES DIRECTOR NOTES-- NOTIFIED DR. ROBERTSON OF ABG RESULTS AND FOR CONSULTATION. PER DR. ROBERTSON " WILL SEE THIS AFTERNOON."
[2018-06-10 11:27] LABS: BASOPHILS % (AUTO) 0.4 % (0.0-2.0); EOSINOPHILS % (AUTO) 0.3 % (0.0-6.0); HEMATOCRIT 42 % (33-45); HEMOGLOBIN 13.3 g/dL (11.5-14.8); LYMPHOCYTES # (AUTO) 1.7 /CMM (0.8-4.8); LYMPHOCYTES % (AUTO) 16.5 % (20.0-44.0); MEAN CORPUSCULAR HGB CONC 32 g/dl (31.0-36.0); MEAN CORPUSCULAR VOLUME 90 fL (82-100); MONOCYTES % (AUTO) 9.5 % (2.0-12.0); NEUTROPHILS # (AUTO) 7.8 /CMM (1.8-8.9); NEUTROPHILS % (AUTO) 73.3 % (43.0-81.0); PLATELET COUNT (AUTO) 344 /CMM (150-450); RED BLOOD CELL COUNT(AUTO) 4.64 MIL/uL (4.0-5.2); WHITE BLOOD COUNT (AUTO) 10.6 K/uL (4.3-11.0)
[2018-06-10 11:40] LABS: CALCIUM, SERUM 9.6 mg/dL (8.5-10.1); CARBON DIOXIDE 39 mmol/L (21-32); CHLORIDE 97 mmol/L (98-107); CREATININE 1.3 mg/dL (0.6-1.3); GLUCOSE 168 mg/dL (74-106); MAGNESIUM 1.9 mg/dL (1.8-2.4); PHOSPHORUS 3.1 mg/dL (2.5-4.9); SODIUM SERUM 141 mmol/L (136-145); UREA NITROGEN, BLOOD 26 mg/dL (7-18)
[2018-06-10 12:00] VITALS: BP 129/92
--- NOTE | 2018-06-10 12:50 | NUR ---
OPTICAL GLASS WET INSPECTOR NOTES-- PT SEEN AND EXAMINED BY DR. AILYN Luis/ ORDERS FOR STAT ABG. NOTIFIED EMIGDIO DUNN.
[2018-06-10 13:24] LABS: ABG BASE EXCESS 9.7 mmol/L; ABG PCO2 44.1 mmHg (35.0-45.0); ABG PH 7.504 (7.350-7.450); ABG PO2 63.3 mmHg (75.0-100.0); AaDO2 84.3 mmHg; COHb 1.5 % (0.5-1.5); MetHb 0.3 % (0.0-1.5); O2Hb 91.3 % (94.0-97.0); SITE, ABG Right Radial; VENT MODE, BG NASAL CANULA 2L
--- NOTE | 2018-06-10 13:27 | NUR ---
NEUROPSYCHOLOGY MEDICAL CONSULTANT NOTES-- NOTIFIED DR. ROBERTSON OF ABG RESULTS W/ NO NEW ORDERS.
[2018-06-10] MEDS: acetaZOLAMIDE 250 MG TABLET PO SCH (13:33)
[2018-06-10] MEDS: NYSTATIN TOP POWDER 15 GM BOTTLE TP SCH (14:09)
[2018-06-10 16:00] VITALS: BP 141/88
[2018-06-10] MEDS: GABAPENTIN 300 MG CAPSULE PO SCH (16:30)
[2018-06-10] MEDS: SENNOSIDES 8.6 MG TABLET PO SCH (16:30)
--- NOTE | 2018-06-10 16:43 | NUR ---
LEGAL AID NOTES-- A CALL IS OUT TO DR. MCMAHAN RE: PT BEING LETHARGIC AFTER BREAKFAST AND IS NOW RESTLESS. WAITING A CALL BACK. WILL CONTINUE TO MONITOR PT.
--- NOTE | 2018-06-10 17:26 | NUR ---
PULP ROLLER NOTES-- RECEIVED A CALL BACK FROM DR. MCMAHAN "TO OBSERVE FOR NOW." WILL CONTINUE TO MONITOR. PT IS NOT IN ANY DISTRESS AT THIS TIME.
--- NOTE | 2018-06-10 18:23 | NUR ---
CLINICAL EDUCATION MANAGER CLOSING NOTES ALL DUE MEDS GIVEN, NEEDS MET AND ANTICIPATED. PT IS AWAKE AND ALERT AT THIS TIME W/ DAUGHTER AT BEDSIDE. RESPIRATIONS ARE EVEN AND UNLABORED, NOT IN ANY ACUTE DISTRESS NOTED. CURRENTLY ON O2 SATURATING AT 92%, TOLERATING 2L/MIN. DENIES ANY CHEST PAIN, N/V. IV SITE TO LAC INTACT, NO INFILTRATION NOTED. DRESSING KEPT CLEAN AND DRY. CENTENO CATH IN PLACE, TUBING FREE OF KINKS, DRAINING YELLOW URINE. SAFETY MEASURES ARE IN PLACE. REMINDED PT TO USE CALL LIGHT WHEN ASSISTANCE IS NEEDED, CALL LIGHT IS LEFT WITHIN REACH. WILL ENDORSE TO NEXT SHIFT FOR CONTINUITY OF CARE.
--- NOTE | 2018-06-10 19:29 | NUR ---
MS JIMENEZ NOTES RECEIVE PT IN THE BED A/O X 4, IN STABLE CONDITION, NOT IN DISTRESS, SAFETY MEASURES IN PLACE. WILL CONTINUE TO MONITOR. Addendum: 06/10/18 at 1930 by CHACHA DUGGAN RN SR [facility]
[2018-06-10 20:00] VITALS: BP 120/71
[2018-06-10] MEDS: *INSULIN REGULAR(HUMULIN R)HUM 100 UNIT/ML VIAL SQ PRN (21:33)
[2018-06-10] MEDS: GABAPENTIN 400 MG CAPSULE PO SCH (21:35)
[2018-06-11] VITALS: BP 120/76
[2018-06-11] MEDS: ALBUTEROL FS 2.5 MG/0.5 ML VIAL.NEB NEB SCH ×6 (00:22→20:25)
[2018-06-11] MEDS: NYSTATIN TOP POWDER 15 GM BOTTLE TP SCH ×2 (01:30→17:36)
[2018-06-11 04:00] VITALS: BP 115/69
[2018-06-11] MEDS: INSULIN REGULAR, HUMAN 100 UNIT/ML 3 ML VIAL SQ PRN ×3 (05:47→17:46)
[2018-06-11] MEDS: BLOOD SUGAR DIAGNOSTIC 1 EACH STRIP VI SCH ×4 (05:47→21:11)
--- NOTE | 2018-06-11 06:17 | NUR ---
SUPERVISORY INVESTIGATIVE SPECIALIST CLOSING NOTES ASLEEP AND EASILY AWAKEN ON 3LPM VIA NC 02 SAT AT 98%. RESPIRATIONS EVEN AND UNLABORED. KEPT CLEAN AND DRY AND COMFORTABLE, NEEDS ATTENDED AND ANTICIPATED. ALL NURSING CARE RENDERED. REPOSITION EVERY 2 HOURS FOR SKIN MANAGEMENT. GOOD SKIN CARE, OFFLOAD HEELS AND ELBOWS. ON LOW BED AT ALL TIMES TO ENSURE SAFETY. SAFE HAZARD FREE ENVIRONMENT PROVIDED. CALL LIGHT WITHIN EASY TO REACH. WILL ENDORSE NEXT SHIFT CONTINUITY OF CARE Addendum: 06/11/18 at 0618 by CHACHA DUGGAN RN SR 71 HR IN THE TELE MONITOR
--- NOTE | 2018-06-11 07:25 | NUR ---
MSRN. PT RECEIVED A&0X1, CONVERSING APPROPRIATELY AND ABLE TO MAKE NEEDS KNOWN. PT WITH O2 VIA NC AT 3LPM, DENIES SOB AT THIS TIME, AUSCULTATED CLEAR BUT DIMINISHED AT LOWER LOBES. PT WITH IVC AT LAC INTACT AND SALINE FLUSH PATENT. PT DECLINED ASSISTANCE WITH REPOSITIONING. PT WITH CENTENO INTACT AND OPERATIONAL WITH YELLOW URINE IN COLLECTION. HARD BOOT INSITU AT R FOOT. PT WITH RT PRESENT FOR THERAPY. PT BED IN LOWEST LOCKED POSITION WITH HANDRUIALSX2 AND CALL LEARY WITHIN REACH. PT BRIEFED ON POC AND IS WITHOUT CONCERN OR COMPLAINT AT THIS TIME. WILL CONTINUE POC.
[2018-06-11 08:14] VITALS: BP 119/75
[2018-06-11 08:50] LABS: BASOPHILS # (AUTO) 0.1 /CMM (0.0-0.2); BASOPHILS % (AUTO) 0.6 % (0.0-2.0); EOSINOPHILS % (AUTO) 0.5 % (0.0-6.0); HEMATOCRIT 43 % (33-45); HEMOGLOBIN 13.4 g/dL (11.5-14.8); LYMPHOCYTES # (AUTO) 2.4 /CMM (0.8-4.8); LYMPHOCYTES % (AUTO) 23.4 % (20.0-44.0); MEAN CORPUSCULAR HGB CONC 32 g/dl (31.0-36.0); MEAN CORPUSCULAR VOLUME 90 fL (82-100); MONOCYTES # (AUTO) 0.9 /CMM (0.1-1.30); MONOCYTES % (AUTO) 8.7 % (2.0-12.0); NEUTROPHILS # (AUTO) 6.8 /CMM (1.8-8.9); NEUTROPHILS % (AUTO) 66.8 % (43.0-81.0); PLATELET COUNT (AUTO) 348 /CMM (150-450); RED BLOOD CELL COUNT(AUTO) 4.72 MIL/uL (4.0-5.2); WHITE BLOOD COUNT (AUTO) 10.1 K/uL (4.3-11.0)
[2018-06-11 09:23] LABS: CARBON DIOXIDE 33 mmol/L (21-32); CHLORIDE 99 mmol/L (98-107); CREATININE 1.5 mg/dL (0.6-1.3); GLUCOSE 179 mg/dL (74-106); MAGNESIUM 1.9 mg/dL (1.8-2.4); PHOSPHORUS 4.7 mg/dL (2.5-4.9); POTASSIUM 3.4 mmol/L (3.5-5.1); SODIUM SERUM 140 mmol/L (136-145); UREA NITROGEN, BLOOD 32 mg/dL (7-18)
[2018-06-11] MEDS: GABAPENTIN 300 MG CAPSULE PO SCH ×3 (09:24→17:34)
[2018-06-11] MEDS: SENNOSIDES 8.6 MG TABLET PO SCH ×2 (09:24→17:34)
[2018-06-11] MEDS: DOCUSATE SODIUM 100 MG CAPSULE PO SCH (09:24)
[2018-06-11] MEDS: ASCORBIC ACID 500 MG TABLET PO SCH (09:24)
[2018-06-11] MEDS: acetaZOLAMIDE 250 MG TABLET PO SCH (09:24)
[2018-06-11] MEDS: PANTOPRAZOLE 40 MG TABLET.DR PO SCH (09:24)
[2018-06-11] MEDS: MULTIVITAMINS,THERAGRAN 1 UDTAB TABLET PO SCH (09:25)
[2018-06-11] MEDS: LEVOTHYROXINE SODIUM 175 MCG TABLET PO SCH (09:25)
[2018-06-11] MEDS: AMIODARONE HCL 200 MG TABLET PO SCH (09:25)
[2018-06-11] MEDS: FLUTICASONE/VILANTEROL 1 EACH BLST.W.DEV IH SCH (09:28)
[2018-06-11] MEDS ORDERED: POTASSIUM CHLORIDE 10 MEQ TABLET.SA PO ONE (11:00)
[2018-06-11] MEDS ORDERED: POTASSIUM CHLORIDE 20 MEQ TAB.PRT.SR PO ONE (11:30)
[2018-06-11 16:19] VITALS: BP 118/66
--- NOTE | 2018-06-11 18:49 | NUR ---
MSRN. PT REMAINS A&0X1 BUT CONVERSING WITH DTR AND SON AT BEDSIDE. PT WITH O2 VIA NC AT 3LPM WITHOUT DISTRESS. PT WITH IVC AT LAC INTACT AND SL. PT REFUSED MULTIPLE REPOSITIONINGS BUT COMPLIANT WITH REPO APPROX Q3HR. PT WITH CENTENO INTACT AND OPERATIONAL. HARD BOOT REMAINS IN.SITU AT R FOOT, REFUSED FUTHER INSPECTION/ASSESSMENT. PT BED IN LOWEST LOCKED POSITION WITH HANDRIALSX2 AND CALL LEARY WITHIN REACH. PT AND FAMILY ARE WITHOUT CONCERN OR COMPLAINT AT THIS TIME. WILL ENDORSE TO NIGHT NURSE AT BEDSIDE FOR CARLOS.
--- NOTE | 2018-06-11 19:00 | NUR ---
MS RN NOTES RECEIVE PT IN THE BED A/O X 2-3 WITH PERIOD OF FORGETFULNESS, IN STABLE CONDITION, NOT IN DISTRESS, SAFETY MEASURES IN PLACE. WILL CONTINUE TO MONITOR.
[2018-06-11 20:00] VITALS: BP 113/79
[2018-06-11 20:22] VITALS: BP 113/79
[2018-06-11] MEDS: *INSULIN REGULAR(HUMULIN R)HUM 100 UNIT/ML VIAL SQ PRN (21:19)
[2018-06-11] MEDS: GABAPENTIN 400 MG CAPSULE PO SCH (21:22)
[2018-06-12] MEDS: ALBUTEROL FS 2.5 MG/0.5 ML VIAL.NEB NEB SCH ×5 (00:19→14:57)
[2018-06-12] MEDS: NYSTATIN TOP POWDER 15 GM BOTTLE TP SCH ×2 (01:30→14:18)
[2018-06-12] MEDS: BLOOD SUGAR DIAGNOSTIC 1 EACH STRIP VI SCH ×2 (05:59→12:10)
[2018-06-12] MEDS: INSULIN REGULAR, HUMAN 100 UNIT/ML 3 ML VIAL SQ PRN ×2 (06:02→12:16)
--- NOTE | 2018-06-12 06:29 | NUR ---
MS RN CLOSING NOTES ASLEEP AND EASILY AWAKEN, ON 3LPM VIA NC 02 SAT AT 96%. OFFLOAD HEELS AND ELBOWS. GOOD SKIN CARE. NOT IN DISTRESS. KEPT CLEAN AND DRY AND COMFORTABLE, ALL NURSING CARE RENDERED. NEEDS ATTENDED AND ANTICIPATED. ON LOW BED AT ALL TIMES TO ENSURE SAFETY. SAFE HAZARD FREE ENVIRONMENT PROVIDED. CALL LIGHT WITHIN EASY TO REACH. WILL ENDORSE NEXT SHIFT CONTINUITY OF CARE Addendum: 06/12/18 at 0641 by CHACHA DUGGAN RN REPOSITIONED EVERY 2 HOURS FOR SKIN MGT.
[2018-06-12 07:01] LABS: BASOPHILS % (AUTO) 0.5 % (0.0-2.0); EOSINOPHILS % (AUTO) 1.6 % (0.0-6.0); HEMATOCRIT 39 % (33-45); HEMOGLOBIN 12.7 g/dL (11.5-14.8); LYMPHOCYTES # (AUTO) 1.4 /CMM (0.8-4.8); LYMPHOCYTES % (AUTO) 18.6 % (20.0-44.0); MEAN CORPUSCULAR HGB CONC 32 g/dl (31.0-36.0); MEAN CORPUSCULAR VOLUME 90 fL (82-100); MONOCYTES # (AUTO) 0.6 /CMM (0.1-1.30); MONOCYTES % (AUTO) 8.5 % (2.0-12.0); NEUTROPHILS # (AUTO) 5.3 /CMM (1.8-8.9); NEUTROPHILS % (AUTO) 70.8 % (43.0-81.0); PLATELET COUNT (AUTO) 310 /CMM (150-450); RED BLOOD CELL COUNT(AUTO) 4.36 MIL/uL (4.0-5.2); WHITE BLOOD COUNT (AUTO) 7.4 K/uL (4.3-11.0)
[2018-06-12 07:21] LABS: CALCIUM, SERUM 8.7 mg/dL (8.5-10.1); CARBON DIOXIDE 33 mmol/L (21-32); CHLORIDE 100 mmol/L (98-107); CREATININE 1.7 mg/dL (0.6-1.3); GLUCOSE 292 mg/dL (74-106); MAGNESIUM 2.2 mg/dL (1.8-2.4); PHOSPHORUS 4.9 mg/dL (2.5-4.9); POTASSIUM 3.6 mmol/L (3.5-5.1); SODIUM SERUM 139 mmol/L (136-145); UREA NITROGEN, BLOOD 40 mg/dL (7-18)
[2018-06-12 08:00] VITALS: BP 121/79
[2018-06-12 08:17] VITALS: BP 121/79
[2018-06-12] MEDS: PANTOPRAZOLE 40 MG TABLET.DR PO SCH (08:23)
[2018-06-12] MEDS: ASCORBIC ACID 500 MG TABLET PO SCH (08:23)
[2018-06-12] MEDS: MULTIVITAMINS,THERAGRAN 1 UDTAB TABLET PO SCH (08:23)
[2018-06-12] MEDS: DOCUSATE SODIUM 100 MG CAPSULE PO SCH (08:23)
[2018-06-12] MEDS: GABAPENTIN 300 MG CAPSULE PO SCH ×2 (08:23→13:00)
[2018-06-12] MEDS: SENNOSIDES 8.6 MG TABLET PO SCH (08:23)
[2018-06-12] MEDS: LEVOTHYROXINE SODIUM 175 MCG TABLET PO SCH (08:23)
[2018-06-12 08:24] VITALS: BP 121/79
[2018-06-12] MEDS: AMIODARONE HCL 200 MG TABLET PO SCH (08:24)
[2018-06-12] MEDS: FLUTICASONE/VILANTEROL 1 EACH BLST.W.DEV IH SCH (08:25)
--- NOTE | 2018-06-12 13:00 | NUR ---
MS RN NOTES-- PT NOT IN ANY DISTRESS. NO C/O SOB, N/V, CHEST PAIN. WILL CONTINUE TO MONITOR.
--- NOTE | 2018-06-12 15:50 | NUR ---
MS POTATO SEED CUTTER NOTE PT DISCHARGED TO [facility] IN STABLE CONDITION VIA GURNEY ACCOMPANIED BY 2 EMT PERSONNEL. PT IS A/O X2-3, AFEBRILE. RESPIRATIONS ARE EVEN AND UNLABORED, NOT IN ANY ACUTE DISTRESS NOTED. PT DENIES ANY CHEST PAIN, N/V, SOB. PUPILS ARE REACTIVE TO LIGHT, BILATERAL HAND LATHER APPRENTICE ARE STRONG AND EQUAL. ABDOMEN IS SOFT AND NONDISTENDED, BOWEL SOUNDS ARE PRESENT IN ALL 4 QUADRANTS UPON AUSCULTATION. DENIES ANY BLADDER DISCOMFORT. PT HAS A CENTENO CATH, TUBING FREE OF KINKS AND DRAINING YELLOW URINE. PICTURES TAKEN TO CHEST AND RLE, PLACED IN CHART. IV ACCESS REMOVED, APPLIED PRESSURE AND TOLERATED WELL. ID BAND REMOVED. ALL BELONGINGS TAKEN WITH PT. EXPLAINED DISCHARGE PAPERWORK TO PT WITH VERBAL AND WRITTEN UNDERSTANDING. PT LEFT IN STABLE CONDITION.
== END 2018-06-12 15:50 | disposition home health service (06) | DRG 133 ==
LOC: ER 13:39 → MED 18:12 → TELE 22:06 → MED 06-11 08:19
PROVIDERS: ADMIT Internal Medicine; ATTEND Internal Medicine
PROC: 2W3QX1Z Immobilization of Right Lower Leg using Splint (ICD-10-PCS; principal; 2018-06-09)
DX: J96.22 Acute and chronic respiratory failure with hypercapnia (principal); N17.0 Acute kidney failure with tubular necrosis; E43 Unspecified severe protein-calorie malnutrition; I50.33 Acute on chronic diastolic (congestive) heart failure; E87.3 Alkalosis; I42.9 Cardiomyopathy, unspecified; I48.0 Paroxysmal atrial fibrillation; Z68.42 Body mass index [BMI] 45.0-49.9, adult; Z99.81 Dependence on supplemental oxygen; S82.64XA Nondisplaced fracture of lateral malleolus of right fibula, initial encounter for closed fracture; E11.9 Type 2 diabetes mellitus without complications; E86.9 Volume depletion, unspecified; J44.1 Chronic obstructive pulmonary disease with (acute) exacerbation; I11.0 Hypertensive heart disease with heart failure; I25.10 Atherosclerotic heart disease of native coronary artery without angina pectoris; W01.0XXA Fall on same level from slipping, tripping and stumbling without subsequent striking against object, initial encounter; E78.5 Hyperlipidemia, unspecified; Y92.129 Unspecified place in nursing home as the place of occurrence of the external cause; E03.9 Hypothyroidism, unspecified; E66.2 Morbid (severe) obesity with alveolar hypoventilation; Z87.891 Personal history of nicotine dependence; L30.4 Erythema intertrigo; K21.9 Gastro-esophageal reflux disease without esophagitis; Y93.9 Activity, unspecified; Y92.89 Other specified places as the place of occurrence of the external cause; Z79.01 Long term (current) use of anticoagulants; Z79.4 Long term (current) use of insulin
CPT/HCPCS: 36415; 36600; 70450-TC; 71045-TC; 73564-TC; 73590-TC; 73610-TC; 80048-TC; 80076-TC; 81000-TC; 82803-TC; 82962-TC; 83735-TC; 83880; 84100-TC; 84484-TC; 85025-TC; 85730-TC; 87081-TC; 93307-TC; A4606; G0378; J1815; J1940; Z7610

== ENCOUNTER 2018-09-04 19:38 | Inpatient (IN) | payer MEDICARE, MEDICAID ==
[~2018-09-04] VITALS: Ht 172.7 cm; Wt 130.6 kg
[~2018-09-04 19:38] MED LIST changes: +ACET325T53 PO; +ALBU18HF2 IH; -APIX2.5T PO; -ASCO-340 PO; +ASCO500T9 PO; -GABA-532 PO; +GABA-534 PO; +GABA-536 PO; +INSU100V10 SQ; +INSU100V11 SQ; -PRED20TA PO
--- NOTE | 2018-09-04 19:51 | NUR ---
ANASTASIA. C/O "HAVING SOB FOR 2X DAYS, 02 SAT 86-88% ON 6L O2" -ACUTE DISTRESS AT THIS TIME. PT AOX4.
--- NOTE | 2018-09-04 20:17 | NUR ---
RT AT BEDSIDE. RADIO AT BEDSIDE.
[2018-09-04] MEDS ORDERED: methylPREDNISolone SOD SUCC 125 MG/2ML VIAL ONE (20:19)
[2018-09-04 20:21] LABS: BASOPHILS % (AUTO) 0.8 % (0.0-2.0); EOSINOPHILS % (AUTO) 0.8 % (0.0-6.0); HEMATOCRIT 37 % (33-45); HEMOGLOBIN 11.5 g/dL (11.5-14.8); LYMPHOCYTES # (AUTO) 0.7 /CMM (0.8-4.8); LYMPHOCYTES % (AUTO) 13.8 % (20.0-44.0); MEAN CORPUSCULAR HGB CONC 32 g/dl (31.0-36.0); MEAN CORPUSCULAR VOLUME 95 fL (82-100); MONOCYTES # (AUTO) 0.5 /CMM (0.1-1.30); MONOCYTES % (AUTO) 9.8 % (2.0-12.0); NEUTROPHILS # (AUTO) 3.5 /CMM (1.8-8.9); NEUTROPHILS % (AUTO) 74.8 % (43.0-81.0); PLATELET COUNT (AUTO) 259 /CMM (150-450); RED BLOOD CELL COUNT(AUTO) 3.83 MIL/uL (4.0-5.2); WHITE BLOOD COUNT (AUTO) 4.7 K/uL (4.3-11.0)
[2018-09-04] MEDS ORDERED: IPRATROPIUM NEB FS 0.5 MG/2.5 ML AMPUL.NEB ONE (20:24)
[2018-09-04] MEDS ORDERED: ALBUTEROL FS 2.5 MG/3 ML VIAL.NEB ONE (20:24)
[2018-09-04 20:30] LABS: CARBON DIOXIDE 37 mmol/L (21-32); CHLORIDE 98 mmol/L (98-107); CREATININE 1.7 mg/dL (0.6-1.3); GLUCOSE 212 mg/dL (74-106); POTASSIUM 4.7 mmol/L (3.5-5.1); SODIUM SERUM 134 mmol/L (136-145); UREA NITROGEN, BLOOD 20 mg/dL (7-18)
[2018-09-04] MEDS ORDERED: methylPREDNISolone SOD SUCC 125 MG/2ML VIAL IV ONE (20:30)
[2018-09-04] MEDS ORDERED: ALBUTEROL FS 2.5 MG/3 ML VIAL.NEB CONTNEB ONE (20:30)
[2018-09-04] MEDS ORDERED: IPRATROPIUM NEB FS 0.5 MG/2.5 ML AMPUL.NEB NEB ONE (20:30)
[2018-09-04 20:42] LABS: B-TYPE NATRIURETIC PEPTIDE 4660 PG/ML (0-125)
[2018-09-04] MEDS ORDERED: FUROSEMIDE 40 MG/4 ML VIAL ONE (21:12)
--- NOTE | 2018-09-04 21:17 | NUR ---
CALLED NURSING SUP. FOR TELE BED
[2018-09-04] MEDS ORDERED: FUROSEMIDE 40 MG/4 ML VIAL IV ONE (21:30)
--- NOTE | 2018-09-04 23:00 | NUR ---
REPORT GIVEN TO MICKI JIMENEZ.
[2018-09-04] MEDS ORDERED: NITROGLYCERIN 0.4 MG/TAB BOTTLE SL PRN (23:30)
[2018-09-04] MEDS ORDERED: DEXTROSE 50%-WATER 50 ML DISP.SYRIN IV PRN (23:30)
--- NOTE | 2018-09-04 23:34 | NUR ---
DAIRY PRODUCTS MAKER Notes ADMITTED PT FROM ER VIA [facility] IN STABLE CONDITION. PT A/O X3. PT DENIES AND DISTRESS OR SOB AT THIS TIME. PT DENIES ANY CHEST PAIN. EXPLAINED TO PT IF HELP IS NEEDED TO USE CALL LIGHT. PT REFUSED SKIN CHECK ASSESSMENT AND PICTURES AT THIS TIME. SAFETY MEASURES IN PLACE WITH BED IN LOWEST POSITION WITH SIDE RAILS UP X3. CALL LIGHT WITHIN REACH. WILL CONTINUE TO MONITOR.
[2018-09-05] VITALS (31 sets, daily range): BP systolic 120–166; BP diastolic 66–106
[2018-09-05] MEDS: ALBUTEROL FS 2.5 MG/0.5 ML VIAL.NEB NEB SCH ×6 (01:39→23:25)
[2018-09-05] MEDS: IPRATROPIUM NEB FS 0.5 MG/2.5 ML AMPUL.NEB NEB SCH ×6 (01:39→23:25)
[2018-09-05 03:18] LABS: ABG BASE EXCESS 5.5 mmol/L; ABG OXYGEN SATURATION 82.7 % (92.0-98.5); ABG PCO2 72.7 mmHg (35.0-45.0); ABG PH 7.292 (7.350-7.450); ABG PO2 50.2 mmHg (75.0-100.0); AaDO2 63.7 mmHg; COHb 2.1 % (0.5-1.5); MetHb 0.3 % (0.0-1.5); O2Hb 80.7 % (94.0-97.0); SITE, ABG Right Radial; VENT MODE, BG NASAL CANNULA
--- NOTE | 2018-09-05 03:45 | NUR ---
SOFTWARE ENGINEER WEB SERVICES NOTES PT TRANSFERRED TO ICU PER ACLS PROTOCOL. BEDSIDE REPORT GIVEN TO ED.
[2018-09-05 06:20] LABS: ABG BASE EXCESS 7.5 mmol/L; ABG PH 7.313 (7.350-7.450); ABG PO2 55.9 mmHg (75.0-100.0); AaDO2 72.2 mmHg; COHb 1.8 % (0.5-1.5); MetHb 0.6 % (0.0-1.5); O2Hb 83.9 % (94.0-97.0); PEEP,BG 5 cm H2O; SITE, ABG Left Radial; VENT MODE, BG BIPAP 20/5
--- NOTE | 2018-09-05 07:00 | NUR ---
TIME STAMP ASSEMBLER PT WAS TRANSFERRED FORM [facility] AROUND 4 A.M. WITH DIAGNOSIS COPD EXACERBATION, RESPIRATORY FAILURE. STAT ABG DONE- RESPIRATORY ACIDOSIS. PT WAS PLACED ON BIPAP. PT IS DROWSY, OPENS EYES TO VOICE, ALL EXTREMITIES ARE WEAK. NO EDEMA. SCOPE-A.FIB. VSS, AFEBRILE. PT REFUSED TO HAVE F/C INSERTION. PT HAS 300 POUNDS WEIGHT AND BARIMAXX !! BED WAS ORDERED. COMPLETE BATH GIVEN, ALL LINEN CHANGED. ABG WAS REPEATED IN 2 HOURS AFTER PLACING PT ON BIPAP- SEE RESULTS. REPORT GIVEN TO NABOR TOWNSEND RN.
--- NOTE | 2018-09-05 07:05 | NUR ---
STOKER INSTALLATION MECHANIC INITIAL NOTES RECEIVED PT FROM NIGHTSHIFT RN IN STABLE CONDITION. PT LETHARGIC AT THIS TIME, BUT RESPONDS APPROPRIATELY WHEN SPOKEN TO. PT ON BIPAP. SETTINGS CHECKED FOR ACCURACY. NO SOB OAR ACUTE SIGNS OF DISTRESS NOTED. PT SATING WELL AT 100%. VSS. PT CURRENTLY AFIB ON THE TELE MONITOR. IV TO RIGHT FA NOTED TO BE PATENT AND INTACT. NO REDNESS OR SIGNS OF INFILTRATION NOTED. BED IN LOW LOCKED POSITION, SIDE RAILS UP X2, CALL LIGHT WITHIN REACH. WILL CONTINUE TO MONITOR
[2018-09-05] MEDS: LEVOTHYROXINE SODIUM 175 MCG TABLET PO SCH (07:30)
[2018-09-05] MEDS: PANTOPRAZOLE 40 MG TABLET.DR PO SCH (07:30)
[2018-09-05 07:36] LABS: BASOPHILS % (AUTO) 0.3 % (0.0-2.0); HEMATOCRIT 37 % (33-45); HEMOGLOBIN 11.7 g/dL (11.5-14.8); LYMPHOCYTES # (AUTO) 0.4 /CMM (0.8-4.8); LYMPHOCYTES % (AUTO) 7.3 % (20.0-44.0); MEAN CORPUSCULAR HGB CONC 31 g/dl (31.0-36.0); MEAN CORPUSCULAR VOLUME 95 fL (82-100); MONOCYTES # (AUTO) 0.2 /CMM (0.1-1.30); MONOCYTES % (AUTO) 3.3 % (2.0-12.0); NEUTROPHILS # (AUTO) 4.4 /CMM (1.8-8.9); NEUTROPHILS % (AUTO) 89.1 % (43.0-81.0); PLATELET COUNT (AUTO) 251 /CMM (150-450); RED BLOOD CELL COUNT(AUTO) 3.91 MIL/uL (4.0-5.2)
[2018-09-05 07:58] LABS: ALANINE AMINOTRANSFERASE 41 U/L (12-78); ALBUMIN 3.3 g/dL (3.4-5.0); ALKALINE PHOSPHATASE 72 U/L (46-116); ASPARTATE AMINOTRANSFERASE 20 U/L (15-37); BILIRUBIN,TOTAL 0.4 mg/dL (0.2-1.0); CALCIUM, SERUM 8.8 mg/dL (8.5-10.1); CARBON DIOXIDE 34 mmol/L (21-32); CHLORIDE 97 mmol/L (98-107); CREATININE 1.5 mg/dL (0.6-1.3); GLUCOSE 265 mg/dL (74-106); MAGNESIUM 2.2 mg/dL (1.8-2.4); PHOSPHORUS 4.6 mg/dL (2.5-4.9); SODIUM SERUM 138 mmol/L (136-145); TOTAL PROTEIN, SERUM 7.7 g/dL (6.4-8.2); UREA NITROGEN, BLOOD 22 mg/dL (7-18)
[2018-09-05 08:02] LABS: CHOLESTEROL 151 mg/dL (<200); HDL CHOLESTEROL 80 mg/dL (40-60); LDL 67 mg/dL (0-99); THYROID STIMULATING HORMONE 1.481 uIU/mL (0.358-3.74); TRIGLYCERIDES 41 mg/dL (30-150)
[2018-09-05 08:48] LABS: ABG BASE EXCESS 7.5 mmol/L; ABG OXYGEN SATURATION 96.8 % (92.0-98.5); ABG PCO2 84.4 mmHg (35.0-45.0); ABG PH 7.262 (7.350-7.450); ABG PO2 102.4 mmHg (75.0-100.0); AaDO2 122.4 mmHg; COHb 1.8 % (0.5-1.5); MetHb 0.6 % (0.0-1.5); O2Hb 94.5 % (94.0-97.0); SITE, ABG Left Radial
[2018-09-05] MEDS ORDERED: HEPARIN SODIUM, PORCINE 5000 UNITS/1 ML VIAL SQ SCH (09:00)
[2018-09-05] MEDS: DOCUSATE SODIUM 100 MG CAPSULE PO SCH (09:00)
[2018-09-05] MEDS: SENNOSIDES 8.6 MG TABLET PO SCH ×2 (09:00→16:49)
[2018-09-05] MEDS: AMIODARONE HCL 200 MG TABLET PO SCH (09:00)
[2018-09-05] MEDS ORDERED: FUROSEMIDE 40 MG/4 ML VIAL IV SCH ×2 (09:00)
[2018-09-05] MEDS: MULTIVITAMINS,THERAGRAN 1 UDTAB TABLET PO SCH (09:00)
[2018-09-05] MEDS: GABAPENTIN 300 MG CAPSULE PO SCH ×3 (09:00→16:48)
[2018-09-05] MEDS ORDERED: HYDROCODONE/APAP 5/325MG 1 EACH TABLET PO PRN (09:00)
[2018-09-05] MEDS: FLUTICASONE/VILANTEROL 1 EACH BLST.W.DEV IH SCH (09:00)
[2018-09-05] MEDS ORDERED: methylPREDNISolone SOD SUCC 40 MG/ML VIAL IV ONE (09:00)
[2018-09-05] MEDS ORDERED: FLUTICASONE/SALMETEROL DISKUS IH SCH (09:00)
[2018-09-05] MEDS: INSULIN GLARGINE, 100 UNIT/ML CARTRIDGE SQ SCH ×2 (09:00→21:19)
[2018-09-05] MEDS: ASCORBIC ACID 500 MG TABLET PO SCH (09:00)
[2018-09-05] MEDS: BLOOD SUGAR DIAGNOSTIC 1 EACH STRIP VI SCH ×4 (09:24→21:12)
[2018-09-05] MEDS: INSULIN REGULAR, HUMAN 100 UNIT/ML 3 ML VIAL SQ PRN ×3 (09:27→16:51)
[2018-09-05] MEDS ORDERED: ENOXAPARIN SODIUM 40 MG/0.4 ML DISP.SYRIN SQ SCH (11:00)
[2018-09-05] MEDS: methylPREDNISolone SOD SUCC 125 MG/2ML VIAL IV SCH ×3 (11:00→16:49)
[2018-09-05] MEDS: FUROSEMIDE 40 MG/4 ML VIAL IV SCH ×2 (12:40→16:49)
--- NOTE | 2018-09-05 15:31 | NUR ---
RT PATIENT REMAINS ON BIPAP WITH SETTINGS SET BY DR SMITH 13/11. PATIENT LETHARGIC BUT AWAKENS WHEN SPOKEN TO. PER DR SMITH PATIENT WILL REMAIN ON BIPAP UNTIL TOMORROW AND RE-EVALUATE IN THE MORNING. Addendum: 09/05/18 at 1550 by JASIEL CRUZ RT Amended: Links added.
[2018-09-05] MEDS: RIVAROXABAN 15 MG TABLET PO SCH (16:50)
[2018-09-05 18:32] LABS: APPEARANCE,URINE CLEAR (CLEAR); BILIRUBIN,URINE NEGATIVE (NEGATIVE); BLOOD, URINE TRACE-INTA Ery/uL (NEGATIVE); COLOR,URINE YELLOW (YELLOW); KETONES,URINE NEGATIVE (NEGATIVE); LEUKOCYTE ESTERASE ,URINE NEGATIVE (NEGATIVE); NITRITE, URINE NEGATIVE (NEGATIVE); PH,URINE 6.5 (5.0-8.0); PROTEIN,URINE NEGATIVE (NEGATIVE); UGLUCOSE NEGATIVE (NEGATIVE); UROBILINOGEN,URINE 0.2 EU/dL (0.2)
--- NOTE | 2018-09-05 18:54 | NUR ---
BILLING CHECKER CLOSING NOTES PT REMAINS STABLE ON BIPAP. ALL NEEDS ANTICIPATED FOR AND MET. ALL DUE MEDS GIVEN ACCORDINGLY. PRN CARE RENDERED. CENTENO CATHETER SUCCESSFULLY INSERTED PER HOSPITAL POLICY AND PROCEDURES. CATHETER CARE RENDERED. INVASIVE LINES REMAIN CLEAN, DRY, AND INTACT. PT REPOSITIONED AND TURNED PER PROTOCOL. SAFETY MEASURES IN PLACE. WILL ENDORSE TO NIGHTSHIFT RN FOR CARLOS
[2018-09-05 19:04] LABS: CREATININE, URINE < 13.0 MG/DL (30.0-125.0); URINE SODIUM, RANDOM 110 mmol/l (40-220); URINE TOTAL PROTEIN 10.1 mg/dL (0-11.9)
[2018-09-05 19:15] LABS: BACTERIA,URINE Rare /HPF (None Seen); SQUAMOUS EPITHELIAL CELL,UR 0-2 /HPF (None Seen); WBC,URINE 0-2 /HPF (0-3)
[2018-09-05 20:34] LABS: EOSINOPHIL,URINE None Seen
[2018-09-05] MEDS: TRAZODONE 50 MG TABLET PO SCH (21:12)
[2018-09-05] MEDS: diphenhydrAMINE HCL 50 MG CAPSULE PO SCH (21:12)
[2018-09-05] MEDS: GABAPENTIN 400 MG CAPSULE PO SCH (21:12)
[2018-09-06] VITALS (29 sets, daily range): BP systolic 95–144; BP diastolic 53–85
[2018-09-06] MEDS: ALBUTEROL FS 2.5 MG/0.5 ML VIAL.NEB NEB SCH ×6 (03:15→23:10)
[2018-09-06] MEDS: IPRATROPIUM NEB FS 0.5 MG/2.5 ML AMPUL.NEB NEB SCH ×6 (03:15→23:10)
[2018-09-06 05:21] LABS: BASOPHILS % (AUTO) 0.1 % (0.0-2.0); HEMATOCRIT 39 % (33-45); HEMOGLOBIN 12.3 g/dL (11.5-14.8); LYMPHOCYTES # (AUTO) 0.6 /CMM (0.8-4.8); LYMPHOCYTES % (AUTO) 8.8 % (20.0-44.0); MEAN CORPUSCULAR HGB CONC 31 g/dl (31.0-36.0); MEAN CORPUSCULAR VOLUME 95 fL (82-100); MONOCYTES # (AUTO) 0.4 /CMM (0.1-1.30); MONOCYTES % (AUTO) 6.5 % (2.0-12.0); NEUTROPHILS # (AUTO) 5.3 /CMM (1.8-8.9); NEUTROPHILS % (AUTO) 84.6 % (43.0-81.0); PLATELET COUNT (AUTO) 299 /CMM (150-450); RED BLOOD CELL COUNT(AUTO) 4.14 MIL/uL (4.0-5.2); WHITE BLOOD COUNT (AUTO) 6.3 K/uL (4.3-11.0)
--- NOTE | 2018-09-06 05:29 | NUR ---
RT Pt remains on BiPAP t/o the night w/ no resp distress noted. svn treatment given inline. Addendum: 09/06/18 at 0529 by ZAC HENSON RT Amended: Links added.
[2018-09-06 05:41] LABS: ALANINE AMINOTRANSFERASE 33 U/L (12-78); ALBUMIN 3.4 g/dL (3.4-5.0); ALKALINE PHOSPHATASE 70 U/L (46-116); ASPARTATE AMINOTRANSFERASE 18 U/L (15-37); BILIRUBIN,TOTAL 0.3 mg/dL (0.2-1.0); CALCIUM, SERUM 9.1 mg/dL (8.5-10.1); CARBON DIOXIDE 39 mmol/L (21-32); CHLORIDE 97 mmol/L (98-107); CREATININE 1.5 mg/dL (0.6-1.3); GLUCOSE 182 mg/dL (74-106); MAGNESIUM 2.2 mg/dL (1.8-2.4); PHOSPHORUS 4.4 mg/dL (2.5-4.9); POTASSIUM 4.1 mmol/L (3.5-5.1); SODIUM SERUM 140 mmol/L (136-145); TOTAL PROTEIN, SERUM 7.9 g/dL (6.4-8.2); UREA NITROGEN, BLOOD 31 mg/dL (7-18)
[2018-09-06 05:54] LABS: CREATINE KINASE, TOTAL 74 U/L (26-192)
[2018-09-06] MEDS: PANTOPRAZOLE 40 MG TABLET.DR PO SCH (07:30)
[2018-09-06] MEDS: LEVOTHYROXINE SODIUM 175 MCG TABLET PO SCH (07:30)
--- NOTE | 2018-09-06 07:45 | NUR ---
ICU/RN: Pt received on BiPAP, awake, alert, pleasant. No distress noted. FC draining well to gravity. Pt refuses 2nd IV line, "the other one is working." Educated, will reattempt at later time.
[2018-09-06] MEDS: BLOOD SUGAR DIAGNOSTIC 1 EACH STRIP VI SCH ×4 (07:55→22:16)
[2018-09-06] MEDS: FLUTICASONE/VILANTEROL 1 EACH BLST.W.DEV IH SCH (07:56)
--- NOTE | 2018-09-06 08:47 | NUR ---
RT REMOVED PT FROM BIPAP PLACED ON NC 4L ABG IN 2 HRS PER MD DALY
[2018-09-06] MEDS: methylPREDNISolone SOD SUCC 125 MG/2ML VIAL IV SCH ×3 (08:54→17:12)
[2018-09-06] MEDS: FUROSEMIDE 40 MG TABLET PO SCH (08:54)
[2018-09-06] MEDS: AMIODARONE HCL 200 MG TABLET PO SCH (08:54)
[2018-09-06] MEDS: SENNOSIDES 8.6 MG TABLET PO SCH ×2 (08:54→17:00)
[2018-09-06] MEDS: GABAPENTIN 300 MG CAPSULE PO SCH ×3 (08:54→17:12)
[2018-09-06] MEDS: MULTIVITAMINS,THERAGRAN 1 UDTAB TABLET PO SCH (08:55)
[2018-09-06] MEDS: DOCUSATE SODIUM 100 MG CAPSULE PO SCH (08:55)
[2018-09-06] MEDS: ASCORBIC ACID 500 MG TABLET PO SCH (08:55)
[2018-09-06] MEDS: INSULIN GLARGINE, 100 UNIT/ML CARTRIDGE SQ SCH ×2 (08:56→22:21)
[2018-09-06] MEDS ORDERED: FUROSEMIDE 40 MG TABLET PO SCH (09:00)
[2018-09-06] MEDS: ACETAMINOPHEN 325 MG TABLET PO PRN (09:03)
[2018-09-06 12:15] LABS: ABG BASE EXCESS 10.3 mmol/L; ABG OXYGEN SATURATION 92.5 % (92.0-98.5); ABG PCO2 70.2 mmHg (35.0-45.0); ABG PH 7.357 (7.350-7.450); ABG PO2 68.8 mmHg (75.0-100.0); AaDO2 106.5 mmHg; COHb 0.9 % (0.5-1.5); MetHb 0.3 % (0.0-1.5); O2Hb 91.4 % (94.0-97.0); SITE, ABG Left Radial; VENT MODE, BG 4L NC
--- NOTE | 2018-09-06 13:00 | NUR ---
ICU/RN: Pt tolerating meals, on NC. Educated on need for nocturnal BiPAP, verbalized understanding.
[2018-09-06] MEDS: INSULIN REGULAR, HUMAN 100 UNIT/ML 3 ML VIAL SQ PRN ×2 (13:17→17:24)
[2018-09-06] MEDS ORDERED: SIMETHICONE 80 MG TAB.CHEW PO PRN (14:30)
--- NOTE | 2018-09-06 15:30 | NUR ---
ICU/RN: Total of 3 loose BM, per pt "I was constipated yesterday and took a lot of stool softeners." Hygienic care rendered. Pt noted with SOB with exertion.
[2018-09-06] MEDS: RIVAROXABAN 15 MG TABLET PO SCH (17:12)
--- NOTE | 2018-09-06 20:14 | NUR ---
RECEIVED PT ON 4L NC. PT IS AWAKE AND ALERT. PT IS RECEIVING Q4 BREATHING TX. PT HAS ORDER FOR NOC BIPAP. EXPLAINED TO THE PT THAT SHE WILL BE ON BIPAP AT NIGHT. PT SAID SHE DOESN'T WANT TO BE ON THE BIPAP MACHINE. BARBARA MERAZ AT BEDSIDE AND IS AWARE. WILL CONTINUE TO MONITOR.
--- NOTE | 2018-09-06 22:00 | NUR ---
PT REFUSED BIPAP, PT STATED IT HURTS AND SHE DOESNT WANT IT, CHARGE NURSE AWARE.
[2018-09-06] MEDS: GABAPENTIN 400 MG CAPSULE PO SCH (22:15)
[2018-09-06] MEDS: diphenhydrAMINE HCL 50 MG CAPSULE PO SCH (22:16)
[2018-09-06] MEDS: TRAZODONE 50 MG TABLET PO SCH (22:16)
[2018-09-06] MEDS: *INSULIN REGULAR(HUMULIN R)HUM 100 UNIT/ML VIAL SQ PRN (22:22)
--- NOTE | 2018-09-06 23:14 | NUR ---
PT REFUSED BIPAP. BARBARA MERAZ NOTIFIED.
[2018-09-07] VITALS (29 sets, daily range): BP systolic 100–167; BP diastolic 34–102
[2018-09-07] MEDS: ALBUTEROL FS 2.5 MG/0.5 ML VIAL.NEB NEB SCH ×6 (03:09→23:37)
[2018-09-07] MEDS: IPRATROPIUM NEB FS 0.5 MG/2.5 ML AMPUL.NEB NEB SCH ×6 (03:09→23:37)
[2018-09-07 05:07] LABS: BASOPHILS % (AUTO) 0.2 % (0.0-2.0); HEMATOCRIT 39 % (33-45); HEMOGLOBIN 12.3 g/dL (11.5-14.8); MEAN CORPUSCULAR HGB CONC 32 g/dl (31.0-36.0); MEAN CORPUSCULAR VOLUME 94 fL (82-100); MONOCYTES # (AUTO) 0.7 /CMM (0.1-1.30); MONOCYTES % (AUTO) 10.4 % (2.0-12.0); NEUTROPHILS # (AUTO) 5.3 /CMM (1.8-8.9); NEUTROPHILS % (AUTO) 75.4 % (43.0-81.0); PLATELET COUNT (AUTO) 280 /CMM (150-450)
[2018-09-07 05:24] LABS: ALANINE AMINOTRANSFERASE 30 U/L (12-78); ALBUMIN 2.9 g/dL (3.4-5.0); ALKALINE PHOSPHATASE 56 U/L (46-116); ASPARTATE AMINOTRANSFERASE 16 U/L (15-37); BILIRUBIN,TOTAL 0.2 mg/dL (0.2-1.0); CALCIUM, SERUM 8.6 mg/dL (8.5-10.1); CHLORIDE 100 mmol/L (98-107); CREATININE 1.5 mg/dL (0.6-1.3); GLUCOSE 128 mg/dL (74-106); MAGNESIUM 2.3 mg/dL (1.8-2.4); PHOSPHORUS 4.5 mg/dL (2.5-4.9); POTASSIUM 4.2 mmol/L (3.5-5.1); SODIUM SERUM 143 mmol/L (136-145); UREA NITROGEN, BLOOD 41 mg/dL (7-18)
[2018-09-07 05:37] LABS: CARBON DIOXIDE 41 mmol/L (21-32)
[2018-09-07] MEDS ORDERED: acetaZOLAMIDE 250 MG TABLET PO ONE (08:00)
[2018-09-07] MEDS: BLOOD SUGAR DIAGNOSTIC 1 EACH STRIP VI SCH ×4 (08:31→21:31)
[2018-09-07] MEDS: FUROSEMIDE 40 MG TABLET PO SCH (08:35)
[2018-09-07] MEDS: GABAPENTIN 300 MG CAPSULE PO SCH ×3 (08:35→16:38)
[2018-09-07] MEDS: MULTIVITAMINS,THERAGRAN 1 UDTAB TABLET PO SCH (08:35)
[2018-09-07] MEDS: DOCUSATE SODIUM 100 MG CAPSULE PO SCH (08:35)
[2018-09-07] MEDS: ASCORBIC ACID 500 MG TABLET PO SCH (08:36)
[2018-09-07] MEDS: methylPREDNISolone SOD SUCC 125 MG/2ML VIAL IV SCH ×2 (08:36→12:30)
[2018-09-07] MEDS: SENNOSIDES 8.6 MG TABLET PO SCH ×2 (08:36→16:38)
[2018-09-07] MEDS: AMIODARONE HCL 200 MG TABLET PO SCH (08:36)
[2018-09-07] MEDS: PANTOPRAZOLE 40 MG TABLET.DR PO SCH (08:37)
[2018-09-07] MEDS: INSULIN GLARGINE, 100 UNIT/ML CARTRIDGE SQ SCH ×2 (08:38→21:24)
[2018-09-07] MEDS: LEVOTHYROXINE SODIUM 175 MCG TABLET PO SCH (08:38)
--- NOTE | 2018-09-07 09:28 | NUR ---
RN NOTE 0715: Received patient resting well. VS in the monitor are stable. On 8LPM of O2 via mask. Will titrate O2. 96% O2 sat. Sneed cath intact, noted with kelsey colored urine drained to BSD. Afib 90's on the monitor. 0800: Patient awake, A/Ox4. LFA PIV intact. 92% O2 sat on 4LPM of O2 via NC. 0915: S/E by Dr. Bourgeois, with order for ABG.
[2018-09-07] MEDS: FLUTICASONE/VILANTEROL 1 EACH BLST.W.DEV IH SCH (09:42)
[2018-09-07 09:45] LABS: ABG BASE EXCESS 15.4 mmol/L; ABG OXYGEN SATURATION 92.8 % (92.0-98.5); ABG PH 7.315 (7.350-7.450); ABG PO2 71.5 mmHg (75.0-100.0); AaDO2 34.3 mmHg; COHb 0.7 % (0.5-1.5); MetHb 0.3 % (0.0-1.5); O2Hb 91.9 % (94.0-97.0); SITE, ABG Right Radial; VENT MODE, BG NASAL CANNULA
--- NOTE | 2018-09-07 10:27 | NUR ---
RN NOTE ABg resulted. Dr. Bourgeois in the unit made aware, with order to place patient on Bipap again 20/5 rate 12 then ABG in 2 hours. Made RT aware, spoke with Anny.
[2018-09-07 11:10] LABS: *SPE ALBUMIN 3.8 g/dL (2.9-4.4); *SPE ALPHA-1-GLOBULIN 0.2 g/dL (0.0-0.4); *SPE ALPHA-2-GLOBULIN 0.7 g/dL (0.4-1.0); *SPE BETA GLOBULIN 1.2 g/dL (0.7-1.3); *SPE GLOBULIN, TOTAL 3.7 g/dL (2.2-3.9); *SPE M-SPIKE Not Observed g/dL (Not Observed); *SPEGAMMA GLOBULIN 1.6 g/dL (0.4-1.8)
[2018-09-07 13:45] LABS: ABG BASE EXCESS 12.2 mmol/L; ABG OXYGEN SATURATION 83.5 % (92.0-98.5); ABG PCO2 83.6 mmHg (35.0-45.0); ABG PO2 51.9 mmHg (75.0-100.0); AaDO2 63.8 mmHg; COHb 0.7 % (0.5-1.5); MetHb 0.3 % (0.0-1.5); O2Hb 82.7 % (94.0-97.0)
[2018-09-07 14:02] LABS: PTH, INTACT 42 pg/mL (15-65)
--- NOTE | 2018-09-07 15:15 | NUR ---
RN NTOE 1400: Repeat ABG resulted, made Dr. calloway aware. Patient let eat, placed on 4LPM of O2 via NC. said to place back on Bipap after eating. Patient at first refuses but let her talk to daughter and agreed to be back on Bipap. 1500: On Bipap at this time. Daughter at bedside. Patient and family aware needed to be on Bipap for now for high PCo2.
[2018-09-07] MEDS: methylPREDNISolone SOD SUCC 40 MG/ML VIAL IV SCH (16:38)
[2018-09-07] MEDS: RIVAROXABAN 15 MG TABLET PO SCH (16:38)
[2018-09-07] MEDS: INSULIN REGULAR, HUMAN 100 UNIT/ML 3 ML VIAL SQ PRN (16:48)
--- NOTE | 2018-09-07 19:00 | NUR ---
MANAGER BACKGROUND NOTES Received patient awake,alert,not in nay distress,converses,coherent and appropriate.With O2 via nasal cannula 3 L/min., saturating well in the 90's.BIPAP/AVAP at HS .Comfort care done,needs attended.
[2018-09-07] MEDS: *INSULIN REGULAR(HUMULIN R)HUM 100 UNIT/ML VIAL SQ PRN (21:27)
[2018-09-07] MEDS: GABAPENTIN 400 MG CAPSULE PO SCH (21:30)
[2018-09-07] MEDS: diphenhydrAMINE HCL 50 MG CAPSULE PO SCH (21:30)
[2018-09-07] MEDS: TRAZODONE 50 MG TABLET PO SCH (21:30)
--- NOTE | 2018-09-07 22:00 | NUR ---
OPTIMIZATION ENGINEER NOTES Patient remains stable,transferred to [facility] room # 118, via luisana ,awake,alert not in nay distress.Report given to Rigo JIMENEZ.
--- NOTE | 2018-09-07 23:54 | NUR ---
PT PLACED ON BIPAP. BARBARA PATE NOTIFIED.
[2018-09-08] VITALS (21 sets, daily range): BP systolic 92–144; BP diastolic 43–84
--- NOTE | 2018-09-08 | NUR ---
ACCREDITED FARM MANAGER NOTES REMAINS STABLE,NOT IN NAY DISTRESS.PLACED ON BIPAP MACHINE (AVAP MODE),COMPLIANT,KEEPS IT ON. 0200 ASLEEP ,STILL COMPLIANT WITH THE BIPAP.WILL CLOSELY MONITOR .
[2018-09-08] MEDS: ALBUTEROL FS 2.5 MG/0.5 ML VIAL.NEB NEB SCH ×6 (03:12→23:02)
[2018-09-08] MEDS: IPRATROPIUM NEB FS 0.5 MG/2.5 ML AMPUL.NEB NEB SCH ×6 (03:13→23:02)
[2018-09-08 05:07] LABS: BASOPHILS % (AUTO) 0.1 % (0.0-2.0); EOSINOPHILS % (AUTO) 0.2 % (0.0-6.0); HEMATOCRIT 40 % (33-45); HEMOGLOBIN 12.9 g/dL (11.5-14.8); LYMPHOCYTES # (AUTO) 1.3 /CMM (0.8-4.8); LYMPHOCYTES % (AUTO) 19.4 % (20.0-44.0); MEAN CORPUSCULAR HGB CONC 32 g/dl (31.0-36.0); MEAN CORPUSCULAR VOLUME 94 fL (82-100); MONOCYTES # (AUTO) 0.7 /CMM (0.1-1.30); MONOCYTES % (AUTO) 10.7 % (2.0-12.0); NEUTROPHILS # (AUTO) 4.8 /CMM (1.8-8.9); NEUTROPHILS % (AUTO) 69.6 % (43.0-81.0); PLATELET COUNT (AUTO) 271 /CMM (150-450); RED BLOOD CELL COUNT(AUTO) 4.28 MIL/uL (4.0-5.2); WHITE BLOOD COUNT (AUTO) 6.9 K/uL (4.3-11.0)
[2018-09-08 05:10] LABS: CALCIUM, SERUM 8.6 mg/dL (8.5-10.1); CARBON DIOXIDE 39 mmol/L (21-32); CHLORIDE 101 mmol/L (98-107); CREATININE 1.4 mg/dL (0.6-1.3); GLUCOSE 92 mg/dL (74-106); POTASSIUM 3.9 mmol/L (3.5-5.1); SODIUM SERUM 143 mmol/L (136-145); UREA NITROGEN, BLOOD 42 mg/dL (7-18)
--- NOTE | 2018-09-08 05:53 | NUR ---
PT OFF BIPAP, PLACED ON 3L NC. RN NOTIFIED.
--- NOTE | 2018-09-08 07:00 | NUR ---
SELVAGE MACHINE OPERATOR NOTES REMAINS STABLE,KEPT BIPAP ALL NIGHT .NO SOB,NOT IN NAY DISTRESS.STABLE ALL NIGHT.
--- NOTE | 2018-09-08 07:30 | NUR ---
RN NOTES RECEIVED PATIENT IN BED, ASLEEP BUT EASILY AWAKEN BY VERBAL STIMULI, A/0X2-3, ABLE TO RESPOND APPROPRIATELY, WITH NASAL CANNULA AT 3 LPM, NO SOB NOTED, BREATHING UNLABORED, SATING AT 98%, SINUS RHYTHM ON THE MONITOR, HR AT 86BPM. IV ACCESS ON THE R FORE ARM, G 22: IN PLACE AND INTACT, DRESSING CDI, PATENT ON FLUSHING. PATIENT ABLE TO MOVE AROUND IN BED. SAFETY MEASURES OBSERVED AND MAINTAINED, ENCOURAGE TO USE CALL LIGHT FOR ASSISTANCE. CALL LIGHT PLACED WITHIN REACH, WILL CONTINUE TO MONITOR PATIENT CLOSELY
--- NOTE | 2018-09-08 08:08 | NUR ---
RT PATIENT AWAKE AND ALERT, REFUSING ABG. NO SOB NOTED.
[2018-09-08] MEDS: BLOOD SUGAR DIAGNOSTIC 1 EACH STRIP VI SCH ×4 (08:42→21:21)
[2018-09-08] MEDS: INSULIN GLARGINE, 100 UNIT/ML CARTRIDGE SQ SCH ×2 (08:46→21:23)
[2018-09-08] MEDS: PANTOPRAZOLE 40 MG TABLET.DR PO SCH (08:46)
[2018-09-08] MEDS: MULTIVITAMINS,THERAGRAN 1 UDTAB TABLET PO SCH (08:46)
[2018-09-08] MEDS: FLUTICASONE/VILANTEROL 1 EACH BLST.W.DEV IH SCH (08:46)
[2018-09-08] MEDS: methylPREDNISolone SOD SUCC 40 MG/ML VIAL IV SCH ×2 (08:46→17:03)
[2018-09-08] MEDS: DOCUSATE SODIUM 100 MG CAPSULE PO SCH (08:47)
[2018-09-08] MEDS: GABAPENTIN 300 MG CAPSULE PO SCH ×3 (08:47→17:03)
[2018-09-08] MEDS: FUROSEMIDE 40 MG TABLET PO SCH (08:47)
[2018-09-08] MEDS: LEVOTHYROXINE SODIUM 175 MCG TABLET PO SCH (08:47)
[2018-09-08] MEDS: ASCORBIC ACID 500 MG TABLET PO SCH (08:47)
[2018-09-08] MEDS: SENNOSIDES 8.6 MG TABLET PO SCH ×2 (08:47→17:03)
[2018-09-08] MEDS: AMIODARONE HCL 200 MG TABLET PO SCH (08:48)
--- NOTE | 2018-09-08 09:00 | NUR ---
RN NOTES SEEN AND EXAMINED BY Melchor ESPINOSA DNP WITH ORDERS FOR ABG. PER LATER, IF ABG RESULTS ARE GUNJAN, PATIENT MIGHT GET DOWN GRADED TODAY.
--- NOTE | 2018-09-08 09:30 | NUR ---
WOUND CARE CONSULT WOUND CARE RECEIVED CONSULT FOR TWO DRIED BLISTERS ON POSTERIOR RIGHT THIGH. WOUND CARE WILL DEFER CONSULT AND ALL TREATMENT PLANS TO PLASTIC SURGICAL TEAM WHO ARE CURRENTLY FOLLOWING THIS PATIENT. PATIENT WITH SEVERINO AT 15, ALL PRESSURE ULCER PREVENTION MEASURES ARE NOTED TO BE IN PLACE. WILL SEE PRN.
--- NOTE | 2018-09-08 11:28 | NUR ---
PATIENT AWAKE AND ALERT. NEW ABG ORDERS WERE PLACED AND PATIENT IS STILL REFUSING ABG TO BE DONE. RN YANDEL NOTIFIED.
[2018-09-08 11:38] LABS: ABG BASE EXCESS 10.7 mmol/L; ABG OXYGEN SATURATION 97.3 % (92.0-98.5); ABG PCO2 67.4 mmHg (35.0-45.0); ABG PH 7.375 (7.350-7.450); ABG PO2 108.3 mmHg (75.0-100.0); AaDO2 62.9 mmHg; COHb 0.4 % (0.5-1.5); MetHb 0.6 % (0.0-1.5); O2Hb 96.3 % (94.0-97.0); SITE, ABG Left Radial; VENT MODE, BG 3L N/C
[2018-09-08] MEDS: INSULIN REGULAR, HUMAN 100 UNIT/ML 3 ML VIAL SQ PRN ×2 (12:47→17:06)
--- NOTE | 2018-09-08 13:00 | NUR ---
RN NOTES RELAYED ABG RESULT TO DR. ROBERTSON WITH ORDERS TO TRANSFER PATIENT TO [facility]. ORDERED CARRIED OUT
--- NOTE | 2018-09-08 15:40 | NUR ---
RN NOTES ENDORSED PATIENT TO BARBARA LAINEZ. PATIENT TRANSFERRED TO [facility] VIA ACLS PROTOCOL. PATIENT ON STABLE CONDITION. NO ACUTE CHANGES NOTED.
--- NOTE | 2018-09-08 15:45 | NUR ---
[facility] RN NOTE RECEIVED REPORT FROM YANDEL JIMENEZ.
--- NOTE | 2018-09-08 16:20 | NUR ---
[facility] RN NOTE RECEIVED PATIENT IN [facility] IN STABLE CONDITION.NO SOB NO DISTRESS NOTED.ON TELE MONITOR SR WITH OCCASIONAL PAC WITH FIRST DEGREE AV BLOCK.HR 95.DAUGHTER IS AT BEDSIDE.BED IS LOW AND IN LOCKED POSITION.CALL LIGHT IN REACH.SRX3.WILL CONTINUE TO MONITOR. Addendum: 09/08/18 at 1857 by INDIGO BORDEN RN ON TELE MONITOR CONTROLLED AFIB.
[2018-09-08] MEDS: RIVAROXABAN 15 MG TABLET PO SCH (17:07)
--- NOTE | 2018-09-08 18:50 | NUR ---
[facility] RN CLOSING NOTE PATIENT IN BED. AXOX4.NO SOB NO DISTRESS NOTED.ON O2 3L VIA NASAL CANULA.ON TELE MONITOR AFIB CONTROLLED.HR 95.BED IS LOW AND IN LOCKED POSITION.CALL LIGHT IN REACH.SRX3.WILL ENDORSE TO PM NURSE FOR CARLOS.
--- NOTE | 2018-09-08 19:30 | NUR ---
RN INITIAL NOTES RECEIVED PT A/OX 3, ON A BARIATRIC BED. PT IS ON 3L NASAL CANNULA, NO S/S OF RESP DISTRESS, SATURATING WELL. CURRENTLY CONTROLLED AFIB ON THE MONITOR,HR 90'S. CENTENO CATH INTACT. RIGHT FOREARM 22G FLUSHED AND PATENT, NO S/S OF INFILTRATION/INFECTION, DRESSING CDI. BED LOW AND LOCKED, SIDERAILS UP, CALL LIGHT WITHIN REACH. WILL MONITOR
--- NOTE | 2018-09-08 20:02 | NUR ---
PT IS AWAKE AND ALERT. PATIENT REFUSED BIPAP AT THIS TIME. SAYS SHE DOESN'T LIKE IT AND FEELS LIKE IT CHOKES HER. PT IS ON 3LNC SP02 97%. NOTIFIED BARBARA WILCOX. WILL CONT TO MONITOR PATIENT AND GIVE Q4 BREATHING TREATMENTS.
[2018-09-08] MEDS: diphenhydrAMINE HCL 50 MG CAPSULE PO SCH (21:21)
[2018-09-08] MEDS: GABAPENTIN 400 MG CAPSULE PO SCH (21:21)
[2018-09-08] MEDS: TRAZODONE 50 MG TABLET PO SCH (21:21)
[2018-09-08] MEDS: *INSULIN REGULAR(HUMULIN R)HUM 100 UNIT/ML VIAL SQ PRN (21:22)
[2018-09-09] VITALS: BP 117/71
--- NOTE | 2018-09-09 | NUR ---
RN NOTES PT REFUSES BIPAP. EDUCATION PROVIDED IN REGARDS TO THE IMPORTANCE OF HAVING THE BIPAP AT NIGHT PER MD ORDER BUT PT CONTINUES TO REFUSE. WILL CONTINUE TO MONITOR RESP STATUS
[2018-09-09] MEDS: ALBUTEROL FS 2.5 MG/0.5 ML VIAL.NEB NEB SCH ×6 (03:21→22:31)
[2018-09-09] MEDS: IPRATROPIUM NEB FS 0.5 MG/2.5 ML AMPUL.NEB NEB SCH ×6 (03:21→22:31)
[2018-09-09 04:00] VITALS: BP 109/72
[2018-09-09 06:28] LABS: BASOPHILS % (AUTO) 0.5 % (0.0-2.0); HEMATOCRIT 42 % (33-45); HEMOGLOBIN 13.5 g/dL (11.5-14.8); LYMPHOCYTES # (AUTO) 0.9 /CMM (0.8-4.8); LYMPHOCYTES % (AUTO) 11.3 % (20.0-44.0); MEAN CORPUSCULAR HGB CONC 32 g/dl (31.0-36.0); MEAN CORPUSCULAR VOLUME 94 fL (82-100); MONOCYTES # (AUTO) 0.5 /CMM (0.1-1.30); MONOCYTES % (AUTO) 6.2 % (2.0-12.0); NEUTROPHILS # (AUTO) 6.6 /CMM (1.8-8.9); PLATELET COUNT (AUTO) 268 /CMM (150-450); RED BLOOD CELL COUNT(AUTO) 4.53 MIL/uL (4.0-5.2)
--- NOTE | 2018-09-09 06:30 | NUR ---
RN CLOSING NOTES PT REMAINS STABLE OF THE MOMENT. ALL DUE MEDS GIVEN, AM CARE PROVIDED. WILL ENDORSE CARLOS TO AM RN
[2018-09-09 06:42] LABS: CALCIUM, SERUM 8.9 mg/dL (8.5-10.1); CARBON DIOXIDE 37 mmol/L (21-32); CHLORIDE 102 mmol/L (98-107); CREATININE 1.2 mg/dL (0.6-1.3); GLUCOSE 188 mg/dL (74-106); POTASSIUM 4.4 mmol/L (3.5-5.1); SODIUM SERUM 142 mmol/L (136-145); UREA NITROGEN, BLOOD 36 mg/dL (7-18)
--- NOTE | 2018-09-09 07:23 | NUR ---
RN [facility] OPENING NOTES RECIEVED BEDSIDE REPORT PATIENT SLEEPING ABLE TO AWAKE WITH VOICE AND TOUCH. A/O X2-3. NO SIGNS OR SYMPTOMS OF RESPIRATORY DISTRESS OR ACUTE PAIN NOTED ON 3 LTRS NASAL CANNULA. CONTROLLED AFIB ON MONITOR CENTENO CATH DRAINING CLEAR YELLOW URINE. SAFETY PRECAUTIONS IN PLACE BED IN LOW POSITION LABS DRAWN WILL CONT TO MONITOR
[2018-09-09] MEDS: BLOOD SUGAR DIAGNOSTIC 1 EACH STRIP VI SCH ×4 (07:47→21:48)
[2018-09-09] MEDS: PANTOPRAZOLE 40 MG TABLET.DR PO SCH (07:47)
[2018-09-09] MEDS: LEVOTHYROXINE SODIUM 175 MCG TABLET PO SCH (07:48)
[2018-09-09] MEDS: INSULIN REGULAR, HUMAN 100 UNIT/ML 3 ML VIAL SQ PRN ×2 (07:49→17:52)
[2018-09-09 08:00] VITALS: BP 111/71
[2018-09-09] MEDS: FLUTICASONE/VILANTEROL 1 EACH BLST.W.DEV IH SCH (09:00)
[2018-09-09] MEDS: FUROSEMIDE 40 MG TABLET PO SCH (09:46)
[2018-09-09] MEDS: SENNOSIDES 8.6 MG TABLET PO SCH ×2 (09:47→17:12)
[2018-09-09] MEDS: MULTIVITAMINS,THERAGRAN 1 UDTAB TABLET PO SCH (09:47)
[2018-09-09] MEDS: GABAPENTIN 300 MG CAPSULE PO SCH ×3 (09:47→17:12)
[2018-09-09] MEDS: DOCUSATE SODIUM 100 MG CAPSULE PO SCH (09:47)
[2018-09-09] MEDS: methylPREDNISolone SOD SUCC 40 MG/ML VIAL IV SCH ×2 (09:48→17:12)
[2018-09-09] MEDS: ASCORBIC ACID 500 MG TABLET PO SCH (09:48)
[2018-09-09] MEDS: AMIODARONE HCL 200 MG TABLET PO SCH (09:48)
[2018-09-09] MEDS: INSULIN GLARGINE, 100 UNIT/ML CARTRIDGE SQ SCH ×2 (09:59→21:42)
--- NOTE | 2018-09-09 10:23 | NUR ---
RN [facility] NOTES SPOKE WITH RT IN REGARDS TO STAT ABG FROM ALESSIA ESPINOSA. RT SAID SHE WILL CONFIRM WITH DR ROBERTSON BECAUSE PATIENT IS ABLE TO AROUSE AND IS REFUSING. WILL F/U WITH BOTH MDS
--- NOTE | 2018-09-09 10:25 | NUR ---
RT NOTE: ALERT PATIENT IS REFUSING ABG DRAW AND STATES TO CHECK WITH ADMINISTRATION ASSISTANT. NOTIFIED AND SAYS IT IS OKAY TO TRY AGAIN LATER.
[2018-09-09 12:00] VITALS: BP 120/68
[2018-09-09 12:06] LABS: ABG BASE EXCESS 5.4 mmol/L; ABG OXYGEN SATURATION 93.4 % (92.0-98.5); ABG PCO2 53.1 mmHg (35.0-45.0); ABG PH 7.393 (7.350-7.450); ABG PO2 67.5 mmHg (75.0-100.0); AaDO2 69.5 mmHg; MetHb 0.2 % (0.0-1.5); O2Hb 92.3 % (94.0-97.0); SITE, ABG Right Radial; VENT MODE, BG Nasal Cannula
[2018-09-09 16:00] VITALS: BP 128/70
[2018-09-09] MEDS: RIVAROXABAN 15 MG TABLET PO SCH (17:14)
[2018-09-09] MEDS ORDERED: Z GUARD REMEDY 2 OZ OINT TP PRN (17:30)
--- NOTE | 2018-09-09 19:07 | NUR ---
FORESTRY CONSULTANT CLOSING NOTES BEDSIDE REPORT GIVEN TO NOC PATIENT MORE ALERT THIS EVENING. A/O X 3-4. NO SIGNS OR SYMPTOMS OF RESPIRATORY DISTRESS OR ACUTE PAIN NOTED ON 3 LTRS NASAL CANNULA.APPETITE GOOD. CONTROLLED AFIB ON MONITOR CENTENO CATH DRAINING CLEAR YELLOW URINE. SAFETY PRECAUTIONS IN PLACE BED IN LOW POSITION ABLE TO MAKE NEEDS KNOW AND AND ALL MET BY STAFF. WILL ENDORSE TO NOC
[2018-09-09 20:00] VITALS: BP 104/58
--- NOTE | 2018-09-09 20:00 | NUR ---
RN [facility] OPENING NOTES RECEIVED BEDSIDE REPORT FROM AM RN.PATIENT SLEEPING ABLE TO AWAKE WITH EASILY.PATIENT IS A/O X3. NO SIGNS OR SYMPTOMS OF RESPIRATORY DISTRESS , ON 3 L O2 VIA NASAL CANNULA WITH SPO2 OF 98%. PATIENT IS COMPLAINING OF LOW BACK PAIN 10/10 AND ASKED FOR PAIN MEDICATION. AFIB ON RELOCATION DIRECTOR WITH HR OS 105, CENTENO CATH DRAINING CLEAR YELLOW URINE. SAFETY PRECAUTIONS IN PLACE BED IN LOW, LOCKED POSITION, CALL LIGHT IN REACH. WILL CONT TO MONITOR PATIENT CLOSELY
[2018-09-09] MEDS: *INSULIN REGULAR(HUMULIN R)HUM 100 UNIT/ML VIAL SQ PRN (21:44)
[2018-09-09] MEDS: GABAPENTIN 400 MG CAPSULE PO SCH (21:47)
[2018-09-09] MEDS: TRAZODONE 50 MG TABLET PO SCH (21:47)
[2018-09-09] MEDS: diphenhydrAMINE HCL 50 MG CAPSULE PO SCH (21:48)
[2018-09-10] VITALS: BP 95/58
--- NOTE | 2018-09-10 01:02 | NUR ---
RT NOTE PT TOOK OFF BIPAP, DOES NOT WANT TO USE IT.
[2018-09-10] MEDS: ALBUTEROL FS 2.5 MG/0.5 ML VIAL.NEB NEB SCH ×4 (03:09→15:30)
[2018-09-10] MEDS: IPRATROPIUM NEB FS 0.5 MG/2.5 ML AMPUL.NEB NEB SCH ×4 (03:09→15:30)
[2018-09-10] MEDS: ACETAMINOPHEN 325 MG TABLET PO PRN (03:19)
[2018-09-10 04:00] VITALS: BP 96/60
[2018-09-10 06:38] LABS: BASOPHILS % (AUTO) 0.1 % (0.0-2.0); EOSINOPHILS % (AUTO) 0.1 % (0.0-6.0); HEMATOCRIT 41 % (33-45); HEMOGLOBIN 13.1 g/dL (11.5-14.8); LYMPHOCYTES # (AUTO) 0.9 /CMM (0.8-4.8); LYMPHOCYTES % (AUTO) 10.2 % (20.0-44.0); MEAN CORPUSCULAR HGB CONC 32 g/dl (31.0-36.0); MEAN CORPUSCULAR VOLUME 93 fL (82-100); MONOCYTES # (AUTO) 0.6 /CMM (0.1-1.30); MONOCYTES % (AUTO) 6.4 % (2.0-12.0); NEUTROPHILS # (AUTO) 7.6 /CMM (1.8-8.9); NEUTROPHILS % (AUTO) 83.2 % (43.0-81.0); PLATELET COUNT (AUTO) 263 /CMM (150-450); RED BLOOD CELL COUNT(AUTO) 4.37 MIL/uL (4.0-5.2); WHITE BLOOD COUNT (AUTO) 9.2 K/uL (4.3-11.0)
[2018-09-10 06:50] LABS: ALANINE AMINOTRANSFERASE 17 U/L (12-78); ALBUMIN 2.7 g/dL (3.4-5.0); ALKALINE PHOSPHATASE 50 U/L (46-116); ASPARTATE AMINOTRANSFERASE 15 U/L (15-37); BILIRUBIN,TOTAL 0.3 mg/dL (0.2-1.0); CALCIUM, SERUM 8.4 mg/dL (8.5-10.1); CARBON DIOXIDE 36 mmol/L (21-32); CHLORIDE 100 mmol/L (98-107); CREATININE 1.3 mg/dL (0.6-1.3); GLUCOSE 218 mg/dL (74-106); MAGNESIUM 2.4 mg/dL (1.8-2.4); PHOSPHORUS 3.7 mg/dL (2.5-4.9); POTASSIUM 4.2 mmol/L (3.5-5.1); SODIUM SERUM 139 mmol/L (136-145); TOTAL PROTEIN, SERUM 6.6 g/dL (6.4-8.2); UREA NITROGEN, BLOOD 38 mg/dL (7-18)
--- NOTE | 2018-09-10 07:22 | NUR ---
ALTERNATIVE MEDICINE PRACTITIONER OPENING NOTES RECEIVED BEDSIDE REPORT PATIENT SLEEPING ABLE TO AWAKE WITH VOICE AND TOUCH. A/O X2-3. NO SIGNS OR SYMPTOMS OF RESPIRATORY DISTRESS OR ACUTE PAIN NOTED ON 3 LTRS NASAL CANNULA. CONTROLLED AFIB ON MONITOR CENTENO CATH DRAINING CLEAR YELLOW URINE. SAFETY PRECAUTIONS IN PLACE BED IN LOW POSITION LABS DRAWN WILL CONT TO MONITOR
[2018-09-10] MEDS: BLOOD SUGAR DIAGNOSTIC 1 EACH STRIP VI SCH ×2 (07:39→12:07)
[2018-09-10] MEDS: INSULIN REGULAR, HUMAN 100 UNIT/ML 3 ML VIAL SQ PRN ×2 (07:45→12:19)
[2018-09-10] MEDS: LEVOTHYROXINE SODIUM 175 MCG TABLET PO SCH (07:45)
[2018-09-10] MEDS: PANTOPRAZOLE 40 MG TABLET.DR PO SCH (07:45)
[2018-09-10 08:00] VITALS: BP 104/74
[2018-09-10] MEDS: DOCUSATE SODIUM 100 MG CAPSULE PO SCH (08:23)
[2018-09-10] MEDS: AMIODARONE HCL 200 MG TABLET PO SCH (08:23)
[2018-09-10] MEDS: FUROSEMIDE 40 MG TABLET PO SCH (08:23)
[2018-09-10] MEDS: GABAPENTIN 300 MG CAPSULE PO SCH ×2 (08:23→12:18)
[2018-09-10] MEDS: MULTIVITAMINS,THERAGRAN 1 UDTAB TABLET PO SCH (08:23)
[2018-09-10] MEDS: FLUTICASONE/VILANTEROL 1 EACH BLST.W.DEV IH SCH (08:23)
[2018-09-10] MEDS: ASCORBIC ACID 500 MG TABLET PO SCH (08:23)
[2018-09-10] MEDS: SENNOSIDES 8.6 MG TABLET PO SCH (08:23)
[2018-09-10] MEDS: methylPREDNISolone SOD SUCC 40 MG/ML VIAL IV SCH (08:23)
[2018-09-10] MEDS: INSULIN GLARGINE, 100 UNIT/ML CARTRIDGE SQ SCH (08:28)
[2018-09-10] MEDS ORDERED: PRED20TA PO (08:53)
[2018-09-10] MEDS ORDERED: PRED10TA PO (08:53)
[2018-09-10] MEDS ORDERED: Rivaroxaban PO (08:53)
--- NOTE | 2018-09-10 11:25 | NUR ---
SR. PAYROLL PROCESSOR NOTES REPORT GIVEN TO MATTHEW @ [facility] PATIENT TO BE P/U @ 5154 TICKET # [id number]
[2018-09-10 12:00] VITALS: BP 122/76
--- NOTE | 2018-09-10 12:54 | NUR ---
CHEMICAL TANK WORKER NOTES ALL EXIT CARE DONE ALL PT EDUCATION EXPLAINED AND UNDERSTOOD. NO WOUND NOTED TO RIGHT THIGH ( HEALED) NO PHOTOS TAKEN. DAUGHTER TO ACCOMPANY PT BACK TO FACILITY. CENTENO CATH LEFT PER FACILITY (MATTHEW) ALL RX AND PAPERS SIGNED AND BIPAP TO BE DELIVERED TO FACILITY AWAITING FOR P/U
--- NOTE | 2018-09-10 13:42 | NUR ---
CABINET PROFESSIONAL NOTES EMS TO SHEET ROCK APPLIER PATIENT. LEAVING VIA GURNEY. LAST VS BP 1.3/58 HR 96 RR 18 97% ON 3 LTRS. DAUGHTER ACCOMPANY EMS . ALL EXIT CARE GIVEN
[2018-09-11] MEDS ORDERED: methylPREDNISolone SOD SUCC 40 MG/ML VIAL IV SCH (09:00)
== END 2018-09-10 13:42 | DRG 194 ==
LOC: ER 19:42 → TELE 22:03 → ICU 09-05 03:38 → TELE-TD 09-08 16:21 → TELE1 09-09 14:54
PROVIDERS: ADMIT Registered Nurse; ATTEND Nurse Practitioner Acute Care
PROC: 5A09457 Assistance with Respiratory Ventilation, 24-96 Consecutive Hours, Continuous Positive Airway Pressure (ICD-10-PCS; principal; 2018-09-05)
DX: I13.0 Hypertensive heart and chronic kidney disease with heart failure and stage 1 through stage 4 chronic kidney disease, or unspecified chronic kidney disease (principal); J96.21 Acute and chronic respiratory failure with hypoxia; N17.0 Acute kidney failure with tubular necrosis; G93.41 Metabolic encephalopathy; E87.4 Mixed disorder of acid-base balance; E10.22 Type 1 diabetes mellitus with diabetic chronic kidney disease; D68.59 Other primary thrombophilia; I48.91 Unspecified atrial fibrillation; I48.92 Unspecified atrial flutter; E10.40 Type 1 diabetes mellitus with diabetic neuropathy, unspecified; J96.22 Acute and chronic respiratory failure with hypercapnia; I50.33 Acute on chronic diastolic (congestive) heart failure; N18.9 Chronic kidney disease, unspecified; I25.10 Atherosclerotic heart disease of native coronary artery without angina pectoris; E78.5 Hyperlipidemia, unspecified; J44.1 Chronic obstructive pulmonary disease with (acute) exacerbation; K21.9 Gastro-esophageal reflux disease without esophagitis; D64.9 Anemia, unspecified; G89.29 Other chronic pain; G47.9 Sleep disorder, unspecified; Z68.41 Body mass index [BMI] 40.0-44.9, adult; S70.321A Blister (nonthermal), right thigh, initial encounter; E66.2 Morbid (severe) obesity with alveolar hypoventilation; E87.1 Hypo-osmolality and hyponatremia; E03.9 Hypothyroidism, unspecified; Z87.891 Personal history of nicotine dependence; Z99.81 Dependence on supplemental oxygen
CPT/HCPCS: 36415; 36600; 71045-TC; 80048-TC; 80053-TC; 80061-TC; 81000-TC; 82550-TC; 82570-TC; 82803-TC; 82962-TC; 83735-TC; 83880; 83970; 84100-TC; 84155; 84155-TC; 84165; 84300-TC; 84443-TC; 84484-TC; 85025-TC; 87081-TC; 94660; 94760-TC; 94799-TC; 99082-TC; G0378; J1815; J1940; J2920; J2930; Q0163

== ENCOUNTER 2018-10-16 19:39 | Inpatient (IN) | payer MEDICARE, MEDICAID ==
[~2018-10-16] VITALS: Ht 165.1 cm; Wt 130.2 kg
[~2018-10-16 19:39] MED LIST changes: +PRED10TA PO; +PRED20TA PO; +Rivaroxaban PO
--- NOTE | 2018-10-16 20:08 | NUR ---
ALYSE FROM [facility] C/O SOB X1 WK WITH COUGH, CONGESTION, WHEEZING, NOTED ON 2 L NC, PLACED ON ER BED 1, SEEN AND EVAL ARIANE ARCHER, PLACED ON MONITOR VS STABLE, O2 95% AT THIS TIME.
[2018-10-16] MEDS ORDERED: Magnesium 1GM/D5W 100ML PREMIX 200 ML IV ONE ×2 (20:09→21:16)
--- NOTE | 2018-10-16 20:13 | NUR ---
TAKEN TO CT HEAD AND XR CHEST.
[2018-10-16] MEDS ORDERED: ALBUTEROL FS 2.5 MG/3 ML VIAL.NEB CONTNEB ONE ×2 (20:30→21:30)
[2018-10-16] MEDS ORDERED: IV NS 0.9% 1,000 ML BAG IV ONE (20:30)
[2018-10-16] MEDS ORDERED: methylPREDNISolone SOD SUCC 125 MG/2ML VIAL IV ONE ×2 (20:30→21:30)
[2018-10-16] MEDS ORDERED: IPRATROPIUM NEB FS 0.5 MG/2.5 ML AMPUL.NEB NEB ONE ×2 (20:30→21:30)
[2018-10-16 20:38] LABS: BASOPHILS % (AUTO) 0.5 % (0.0-2.0); HEMATOCRIT 36 % (33-45); HEMOGLOBIN 11.4 g/dL (11.5-14.8); LYMPHOCYTES # (AUTO) 1.4 /CMM (0.8-4.8); LYMPHOCYTES % (AUTO) 27.8 % (20.0-44.0); MEAN CORPUSCULAR HGB CONC 32 g/dl (31.0-36.0); MEAN CORPUSCULAR VOLUME 94 fL (82-100); MONOCYTES # (AUTO) 0.5 /CMM (0.1-1.30); MONOCYTES % (AUTO) 9.6 % (2.0-12.0); NEUTROPHILS # (AUTO) 3.1 /CMM (1.8-8.9); NEUTROPHILS % (AUTO) 61.1 % (43.0-81.0); PLATELET COUNT (AUTO) 299 /CMM (150-450); RED BLOOD CELL COUNT(AUTO) 3.83 MIL/uL (4.0-5.2)
[2018-10-16 20:39] LABS: ABG BASE EXCESS 7.9 mmol/L; ABG OXYGEN SATURATION 93.4 % (92.0-98.5); ABG PCO2 69.8 mmHg (35.0-45.0); ABG PH 7.331 (7.350-7.450); ABG PO2 76.9 mmHg (75.0-100.0); AaDO2 40.4 mmHg; COHb 2.3 % (0.5-1.5); MetHb 0.3 % (0.0-1.5); SITE, ABG Right Brachial
--- NOTE | 2018-10-16 20:40 | NUR ---
PT PLACED ON BIPAP, BY RT, APPEARS COMFORTABLE AT THIS TIME.
[2018-10-16 21:02] LABS: ALANINE AMINOTRANSFERASE 18 U/L (12-78); ALBUMIN 3.2 g/dL (3.4-5.0); ALKALINE PHOSPHATASE 60 U/L (46-116); ASPARTATE AMINOTRANSFERASE 19 U/L (15-37); B-TYPE NATRIURETIC PEPTIDE 2866 PG/ML (0-125); BILIRUBIN,DIRECT 0.1 mg/dL (0.0-0.2); BILIRUBIN,TOTAL 0.3 mg/dL (0.2-1.0); CALCIUM, SERUM 8.9 mg/dL (8.5-10.1); CARBON DIOXIDE 38 mmol/L (21-32); CHLORIDE 101 mmol/L (98-107); CREATININE 1.3 mg/dL (0.6-1.3); GLUCOSE 178 mg/dL (74-106); POTASSIUM 4.3 mmol/L (3.5-5.1); SODIUM SERUM 141 mmol/L (136-145); TOTAL PROTEIN, SERUM 7.3 g/dL (6.4-8.2); UREA NITROGEN, BLOOD 12 mg/dL (7-18)
[2018-10-16] MEDS ORDERED: Magnesium 1GM/D5W 100ML PREMIX 100 ML IV ONE ×2 (21:19→22:35)
[2018-10-16] MEDS ORDERED: methylPREDNISolone SOD SUCC 125 MG/2ML VIAL ONE (21:19)
[2018-10-16] MEDS ORDERED: ALBUTEROL FS 2.5 MG/3 ML VIAL.NEB ONE (21:21)
[2018-10-16] MEDS ORDERED: IPRATROPIUM NEB FS 0.5 MG/2.5 ML AMPUL.NEB ONE (21:21)
[2018-10-16] MEDS ORDERED: FUROSEMIDE 40 MG/4 ML VIAL IV ONE (22:00)
--- NOTE | 2018-10-16 22:04 | NUR ---
ICU BED 259
[2018-10-16] MEDS ORDERED: FUROSEMIDE 40 MG/4 ML VIAL ONE (22:30)
--- NOTE | 2018-10-16 22:45 | NUR ---
called for report, pt going to rm [id number] icu, report given to Ed charge nurse.
--- NOTE | 2018-10-16 22:50 | NUR ---
Received patient from ED, who presented to ED from longterm with complain of SOB x 3-4 days with cough.HX of COPD,Diastolic Heart failure,CAD,HTN,HLD,GERD, AFIB . In ER CXR showed pulmonary congestion ( given lasix,placed on BIPAP ,Solumedrol)ABG on NC Pco2=69.8,Po2= 76.9,PH=7.33 placed on BIPAP. BNP =2866. Patient awake,alert,converses,coherent and appropriate,not in acute distress, tolerating BIPAP( 05/26, rate=16, Fio2 -40%). 2300 Sneed catheter inserted, Bumex 4 mg.to be given.Comfort care done,needs attended.
[2018-10-16 23:00] VITALS: BP 126/86
[2018-10-16] MEDS ORDERED: HYDROCODONE/APAP 10/325MG 1 EA TABLET PO PRN (23:00)
[2018-10-16] MEDS ORDERED: ZOLPIDEM TARTRATE 5 MG TABLET PO PRN (23:00)
[2018-10-16] MEDS ORDERED: Z GUARD REMEDY 2 OZ OINT TP PRN (23:00)
[2018-10-16] MEDS ORDERED: BUMETANIDE INJ 4 MG in IV NS 0.9% 24 ML IV ONE (23:00)
[2018-10-16] MEDS ORDERED: DEXTROSE 50%-WATER 50 ML DISP.SYRIN IV PRN (23:00)
[2018-10-16] MEDS ORDERED: ACETAMINOPHEN 325 MG TABLET PO PRN (23:00)
[2018-10-16] MEDS ORDERED: ONDANSETRON HCL/PF 4 MG/2 ML VIAL IVP PRN (23:00)
[2018-10-16] MEDS: methylPREDNISolone SOD SUCC 125 MG/2ML VIAL IV SCH (23:00)
[2018-10-16] MEDS ORDERED: BUMETANIDE INJ 0.25 MG/ML VIAL ONE (23:11)
[2018-10-16] MEDS: IPRATROPIUM NEB FS 0.5 MG/2.5 ML AMPUL.NEB NEB SCH (23:26)
[2018-10-16] MEDS: ALBUTEROL FS 2.5 MG/0.5 ML VIAL.NEB NEB SCH (23:26)
[2018-10-16 23:31] VITALS: BP 126/86
[2018-10-17] VITALS (32 sets, daily range): BP systolic 86–141; BP diastolic 55–94
--- NOTE | 2018-10-17 04:00 | NUR ---
Remains stable,tolerating BIPAP. not in any distress.Bumex still infusing ,voiding excellent amount of urine.
[2018-10-17] MEDS: ALBUTEROL FS 2.5 MG/0.5 ML VIAL.NEB NEB SCH ×6 (04:29→23:19)
[2018-10-17] MEDS: IPRATROPIUM NEB FS 0.5 MG/2.5 ML AMPUL.NEB NEB SCH ×6 (04:29→23:19)
[2018-10-17 04:47] LABS: BASOPHILS % (AUTO) 0.4 % (0.0-2.0); HEMATOCRIT 37 % (33-45); HEMOGLOBIN 12.1 g/dL (11.5-14.8); LYMPHOCYTES # (AUTO) 0.3 /CMM (0.8-4.8); LYMPHOCYTES % (AUTO) 5.8 % (20.0-44.0); MEAN CORPUSCULAR HGB CONC 32 g/dl (31.0-36.0); MEAN CORPUSCULAR VOLUME 93 fL (82-100); MONOCYTES # (AUTO) 0.1 /CMM (0.1-1.30); MONOCYTES % (AUTO) 1.3 % (2.0-12.0); NEUTROPHILS # (AUTO) 5.1 /CMM (1.8-8.9); NEUTROPHILS % (AUTO) 92.5 % (43.0-81.0); PLATELET COUNT (AUTO) 325 /CMM (150-450); WHITE BLOOD COUNT (AUTO) 5.5 K/uL (4.3-11.0)
[2018-10-17 05:27] LABS: CARBON DIOXIDE 38 mmol/L (21-32); CHLORIDE 99 mmol/L (98-107); POTASSIUM 4.1 mmol/L (3.5-5.1); SODIUM SERUM 142 mmol/L (136-145)
[2018-10-17 05:28] LABS: CALCIUM, SERUM 9.2 mg/dL (8.5-10.1); CREATININE 1.2 mg/dL (0.6-1.3); GLUCOSE 319 mg/dL (74-106); PHOSPHORUS 5.2 mg/dL (2.5-4.9); UREA NITROGEN, BLOOD 11 mg/dL (7-18)
[2018-10-17 05:29] LABS: ALANINE AMINOTRANSFERASE 16 U/L (12-78); ALBUMIN 3.3 g/dL (3.4-5.0); ASPARTATE AMINOTRANSFERASE 11 U/L (15-37); MAGNESIUM 2.1 mg/dL (1.8-2.4)
[2018-10-17 05:30] LABS: BILIRUBIN,TOTAL 0.5 mg/dL (0.2-1.0); TOTAL PROTEIN, SERUM 7.7 g/dL (6.4-8.2)
[2018-10-17 05:31] LABS: ALKALINE PHOSPHATASE 60 U/L (46-116)
[2018-10-17 06:09] LABS: CHOLESTEROL 197 mg/dL (<200); HDL CHOLESTEROL 100 mg/dL (40-60); LDL 82 mg/dL (0-99); THYROID STIMULATING HORMONE 1.089 uIU/mL (0.358-3.74); TRIGLYCERIDES 43 mg/dL (30-150)
--- NOTE | 2018-10-17 07:00 | NUR ---
Remains stable,not in nay distress ,still tolerating BIPAP.
[2018-10-17] MEDS: PANTOPRAZOLE 40 MG TABLET.DR PO SCH ×2 (07:30→16:59)
[2018-10-17] MEDS: LEVOTHYROXINE SODIUM 175 MCG TABLET PO SCH ×2 (07:30→16:59)
[2018-10-17] MEDS: BLOOD SUGAR DIAGNOSTIC 1 EACH STRIP IN SCH ×4 (07:31→22:23)
[2018-10-17] MEDS: INSULIN REGULAR, HUMAN 100 UNIT/ML 3 ML VIAL SQ PRN ×3 (07:51→17:42)
[2018-10-17 08:50] LABS: ABG BASE EXCESS 12.6 mmol/L; ABG OXYGEN SATURATION 98.4 % (92.0-98.5); ABG PCO2 60.3 mmHg (35.0-45.0); ABG PH 7.432 (7.350-7.450); ABG PO2 139.5 mmHg (75.0-100.0); COHb 1.5 % (0.5-1.5); MetHb 0.6 % (0.0-1.5); O2Hb 96.3 % (94.0-97.0); SITE, ABG Right Radial
[2018-10-17] MEDS: AMIODARONE HCL 200 MG TABLET PO SCH ×2 (09:00→17:00)
[2018-10-17] MEDS ORDERED: FLUTICASONE/SALMETEROL DISKUS IH SCH (09:00)
[2018-10-17] MEDS: GABAPENTIN 300 MG CAPSULE PO SCH ×3 (09:00→17:02)
[2018-10-17] MEDS ORDERED: FUROSEMIDE 40 MG TABLET PO SCH (09:00)
--- NOTE | 2018-10-17 09:30 | NUR ---
Pt opens eye so tactile stimulation, follows commands, but coughs on sips of water. 0730 and 0900 am po meds held. breakfast held.
[2018-10-17] MEDS: methylPREDNISolone SOD SUCC 125 MG/2ML VIAL IV SCH ×3 (09:44→17:00)
[2018-10-17] MEDS: FUROSEMIDE 40 MG/4 ML VIAL IV SCH (09:44)
[2018-10-17] MEDS: FLUTICASONE/VILANTEROL 1 EACH BLST.W.DEV IH SCH (09:45)
[2018-10-17] MEDS: CLINDAMYCIN 600 MG in IV D5W 50 ML IV SCH ×2 (12:50→20:18)
[2018-10-17] MEDS ORDERED: CLINDAMYCIN 600 MG in IV NS 0.9% 50 ML IV SCH (13:00)
--- NOTE | 2018-10-17 13:41 | NUR ---
1300 po meds held due to pt's mental status. not safe to swallow.
--- NOTE | 2018-10-17 16:00 | NUR ---
PT NEURO STATUS IMPROVED. SHE IS ALERT ORIENTED X3. DENIES PAIN, ABLE TO MAKE HER NEEDS KNOWN. STATES SHE FEELS MUCH BETTER NOW ABLE TO SWALLOW WATER AND SOLID FOOD. SHE WAS ABLE TO EAT PB AND J SANDWICH. ASSISTED WITH BED AND BATH. ONE BM.
[2018-10-17] MEDS: RIVAROXABAN 15 MG TABLET PO SCH (17:02)
--- NOTE | 2018-10-17 18:30 | NUR ---
ALL MEDS ADMINISTERED, PT ATE 80% OF HER DINNER. ASSISTED TO BEDPAN FOR ONE LARGE BM.
--- NOTE | 2018-10-17 19:07 | NUR ---
SUPPORT ANALYST. INITIAL ASSESSMENT. RECEIVED THE PT REST ON THE BED, AWAKE, ALERT, FOLLOW COMMANDS. DIRECTOR OF SOFTWARE DEVELOPMENT SHOWING CONTROLLED A FLUTTER. OXYGEN 2L VIA NASAL CANNULA. SAT 98%, NO ACUTE DISTRESS NOTED, FC PATENT, URINE DRAINING, HOB ELEVATED, WILL CONTINUE TO MONITOR VITALS
[2018-10-17] MEDS ORDERED: diphenhydrAMINE HCL 50 MG CAPSULE PO SCH (22:00)
[2018-10-17] MEDS: TRAZODONE 50 MG TABLET PO SCH (22:23)
[2018-10-17] MEDS: GABAPENTIN 400 MG CAPSULE PO SCH (22:23)
[2018-10-17] MEDS: *INSULIN REGULAR(HUMULIN R)HUM 100 UNIT/ML VIAL SQ PRN (22:34)
[2018-10-18] VITALS (23 sets, daily range): BP systolic 99–135; BP diastolic 53–93
--- NOTE | 2018-10-18 03:03 | NUR ---
BUFFING LINE SET UP WORKER. AM CARE, ORAL CARE, BED BATH GIVEN. LINEN CHANGED. REMAINING SAME BIPAP SETTING TOLERATED WELL. SAT 97%, LAB ANIMAL TECHNOLOGIST SHOWING A FLUTTER. HOB ELEVATED. FC PATENT. URINE DRAINING, TURN AND REPOSITION Q2H. WILL CONTINUE TO MONITOR VITALS.
[2018-10-18] MEDS: IPRATROPIUM NEB FS 0.5 MG/2.5 ML AMPUL.NEB NEB SCH ×6 (03:41→23:20)
[2018-10-18] MEDS: ALBUTEROL FS 2.5 MG/0.5 ML VIAL.NEB NEB SCH ×6 (03:41→23:20)
[2018-10-18 04:33] LABS: BASOPHILS % (AUTO) 0.2 % (0.0-2.0); HEMATOCRIT 38 % (33-45); HEMOGLOBIN 12.1 g/dL (11.5-14.8); LYMPHOCYTES # (AUTO) 0.7 /CMM (0.8-4.8); LYMPHOCYTES % (AUTO) 7.7 % (20.0-44.0); MEAN CORPUSCULAR HGB CONC 32 g/dl (31.0-36.0); MEAN CORPUSCULAR VOLUME 93 fL (82-100); MONOCYTES # (AUTO) 0.4 /CMM (0.1-1.30); MONOCYTES % (AUTO) 3.7 % (2.0-12.0); NEUTROPHILS # (AUTO) 8.5 /CMM (1.8-8.9); NEUTROPHILS % (AUTO) 88.4 % (43.0-81.0); PLATELET COUNT (AUTO) 358 /CMM (150-450); RED BLOOD CELL COUNT(AUTO) 4.07 MIL/uL (4.0-5.2); WHITE BLOOD COUNT (AUTO) 9.6 K/uL (4.3-11.0)
[2018-10-18 04:48] LABS: CALCIUM, SERUM 8.7 mg/dL (8.5-10.1); CHLORIDE 98 mmol/L (98-107); CREATININE 1.4 mg/dL (0.6-1.3); GLUCOSE 255 mg/dL (74-106); POTASSIUM 3.9 mmol/L (3.5-5.1); SODIUM SERUM 141 mmol/L (136-145); UREA NITROGEN, BLOOD 20 mg/dL (7-18)
[2018-10-18 05:00] LABS: CARBON DIOXIDE 45 mmol/L (21-32)
[2018-10-18] MEDS: CLINDAMYCIN 600 MG in IV D5W 50 ML IV SCH ×3 (05:15→21:18)
--- NOTE | 2018-10-18 07:00 | NUR ---
RN NOTES RECEIVED PT ON BED, A/Ox3, ON BIPAP AT THIS TIME, ON TELE A.FIB HR IN 90'S , NO DISTRESS NOTED, CENTENO DRAINING TO GRAVITY, R AC IV SITE G 18 CLEAN , DRY AND INTACT, SR UP x3, CALL LIGHT WITHIN EASY REACH, BED LOCKED AND IN LOWEST POSITION, CONTINUE TO MONITOR
[2018-10-18] MEDS: INSULIN REGULAR, HUMAN 100 UNIT/ML 3 ML VIAL SQ PRN ×2 (08:08→11:51)
[2018-10-18] MEDS: BLOOD SUGAR DIAGNOSTIC 1 EACH STRIP IN SCH ×4 (08:08→21:15)
[2018-10-18] MEDS: methylPREDNISolone SOD SUCC 125 MG/2ML VIAL IV SCH (08:09)
[2018-10-18] MEDS: LEVOTHYROXINE SODIUM 175 MCG TABLET PO SCH (08:09)
[2018-10-18] MEDS: FUROSEMIDE 40 MG/4 ML VIAL IV SCH (08:09)
[2018-10-18] MEDS: PANTOPRAZOLE 40 MG TABLET.DR PO SCH (08:10)
[2018-10-18] MEDS: AMIODARONE HCL 200 MG TABLET PO SCH (08:10)
[2018-10-18] MEDS: GABAPENTIN 300 MG CAPSULE PO SCH ×3 (08:10→16:32)
[2018-10-18] MEDS: FLUTICASONE/VILANTEROL 1 EACH BLST.W.DEV IH SCH (08:12)
[2018-10-18 10:00] LABS: ABG BASE EXCESS 14.3 mmol/L; ABG OXYGEN SATURATION 91.8 % (92.0-98.5); ABG PCO2 60.6 mmHg (35.0-45.0); ABG PH 7.448 (7.350-7.450); ABG PO2 62.6 mmHg (75.0-100.0); AaDO2 65.5 mmHg; COHb 1.2 % (0.5-1.5); MetHb 0.2 % (0.0-1.5); O2Hb 90.5 % (94.0-97.0); SITE, ABG Left Radial; VENT MODE, BG N/C
--- NOTE | 2018-10-18 11:00 | NUR ---
RN NOTES DR ROBERTSON NOTIFED REGARDING ABG RESULTS , NO NEW ORDER GIVEN , PT ON 2L O2 N/C , TOLERATING WELL, NO SOB NOTED
[2018-10-18] MEDS: NYSTATIN TOP POWDER 15 GM BOTTLE TP SCH ×2 (13:06→23:56)
[2018-10-18] MEDS: RIVAROXABAN 15 MG TABLET PO SCH (16:32)
[2018-10-18] MEDS: methylPREDNISolone SOD SUCC 40 MG/ML VIAL IV SCH (16:33)
--- NOTE | 2018-10-18 17:30 | NUR ---
RN NOTES REPORT GIVEN TO YANDEL RN IN [facility] FOR CONTINUITY OF CARE .
--- NOTE | 2018-10-18 18:33 | NUR ---
RN NOTES RECEIVED PATIENT FROM ICU ACCOMPANIED BY BARBARA REAGAN AND TYLER. PATIENT MADE COMFORTABLE AND SITUATED IN BED. PATIENT A/O X2-3, ABLE TO RESPOND APPROPRIATELY, ON OXYGEN SUPPORT VIA NASAL CANNULA AT 2LPM, SATING WELL, ATTACHED TO MONITOR. VITAL SIGNS TAKEN AND NOTED FOLLOWS BP 121/69, HR AT 88, TEMP AT 98.8. IV ACCESS ON THE RAC G 18: IN PLACE AND INTACT. PATIENT ORIENTED TO FLOOR AND USE OF CALL LIGHT. ENCOURAGE TO USE CALL LIGHT FOR HELP AND ASSISTANCE. ENSURED SAFETY BY RAISING SRX2, BED LOW AND LOCKED POSITIONED. CALL LIGHT PLACED WITHIN REACH. WILL CONTINUE TO MONITOR PATIENT
--- NOTE | 2018-10-18 18:33 | NUR ---
RN NOTES PT TRANSFERRED TO ROOM 107 [place] STATUS VIA ACLS PROTOCOL IN STABLE CONDITION WITH HER BELONGING.
--- NOTE | 2018-10-18 19:23 | NUR ---
RN NOTES ENDORSED PATIENT FOR CONTINUITY OF CARE. NO ACUTE CHANGES WITHIN THE SHIFT. NOT ON ANY FORM OF DISTRESS. ALL NURSING NEEDS ATTENDED AND MET. SAFETY MEASURES KEPT IN PLACE. CALL LIGHT PLACED WITHIN REACH AT ALL TIMES
--- NOTE | 2018-10-18 20:10 | NUR ---
pt refusing bipap at this time. rn notified Addendum: 10/18/18 at 2010 by MARIAH GREGORIO RT Amended: Links added.
--- NOTE | 2018-10-18 20:30 | NUR ---
TD RN NOTES RECEIVED PT ON BED. A/O X 4. NO RESPIRATORY DISTRESS NOTED. IV ACCESS PATENT AND INTACT. ON TELE MONTOR AFIB CONTROLLED. HEAD OF BED ELEVATED. SIDE RAILS UP. CALL LIGHT WITHIN REACH. BED ALARM ON . WILL CONTINUE TO MONITOR PT CLOSELY.
--- NOTE | 2018-10-18 20:32 | NUR ---
TD RN NOTES PT REFUSING BIPAP, EXPLAINED RISK AND BENEFITS. PT STILL REFUSED.
[2018-10-18] MEDS: TRAZODONE 50 MG TABLET PO SCH (21:18)
[2018-10-18] MEDS: *INSULIN REGULAR(HUMULIN R)HUM 100 UNIT/ML VIAL SQ PRN (21:18)
[2018-10-18] MEDS: diphenhydrAMINE HCL 25 MG CAPSULE PO SCH (21:19)
[2018-10-18] MEDS: GABAPENTIN 400 MG CAPSULE PO SCH (21:19)
--- NOTE | 2018-10-18 23:56 | NUR ---
TD RN NOTES [place]STAT[facility] NON ADMIN. MEDICATION NOT PRESENT. WILL F/U IN AM
[2018-10-19] VITALS: BP 134/87
--- NOTE | 2018-10-19 00:17 | NUR ---
TD RN NOTES PT ON BIPAP, RT @ BEDSIDE
[2018-10-19 04:00] VITALS: BP 138/87
[2018-10-19] MEDS: ALBUTEROL FS 2.5 MG/0.5 ML VIAL.NEB NEB SCH ×6 (04:09→22:30)
[2018-10-19] MEDS: IPRATROPIUM NEB FS 0.5 MG/2.5 ML AMPUL.NEB NEB SCH ×6 (04:09→22:30)
[2018-10-19] MEDS: CLINDAMYCIN 600 MG in IV D5W 50 ML IV SCH ×3 (04:15→20:06)
--- NOTE | 2018-10-19 05:17 | NUR ---
TD RN NOTES PT REFUSING WOUND CARE. EXPLAINED RISK AND BENEFITS. PT STILL REFUSED. CHARGE NURSE INFORMED.
[2018-10-19 06:26] LABS: BASOPHILS % (AUTO) 0.1 % (0.0-2.0); EOSINOPHILS % (AUTO) 0.1 % (0.0-6.0); HEMATOCRIT 38 % (33-45); HEMOGLOBIN 12.3 g/dL (11.5-14.8); LYMPHOCYTES # (AUTO) 0.9 /CMM (0.8-4.8); LYMPHOCYTES % (AUTO) 7.3 % (20.0-44.0); MEAN CORPUSCULAR HGB CONC 32 g/dl (31.0-36.0); MEAN CORPUSCULAR VOLUME 91 fL (82-100); MONOCYTES # (AUTO) 0.7 /CMM (0.1-1.30); MONOCYTES % (AUTO) 5.9 % (2.0-12.0); NEUTROPHILS # (AUTO) 10.1 /CMM (1.8-8.9); NEUTROPHILS % (AUTO) 86.6 % (43.0-81.0); PLATELET COUNT (AUTO) 346 /CMM (150-450); RED BLOOD CELL COUNT(AUTO) 4.19 MIL/uL (4.0-5.2); WHITE BLOOD COUNT (AUTO) 11.7 K/uL (4.3-11.0)
[2018-10-19 07:02] LABS: CALCIUM, SERUM 8.7 mg/dL (8.5-10.1); CHLORIDE 97 mmol/L (98-107); CREATININE 1.2 mg/dL (0.6-1.3); GLUCOSE 226 mg/dL (74-106); POTASSIUM 3.8 mmol/L (3.5-5.1); SODIUM SERUM 140 mmol/L (136-145); UREA NITROGEN, BLOOD 30 mg/dL (7-18)
[2018-10-19 07:14] LABS: CARBON DIOXIDE 40 mmol/L (21-32)
--- NOTE | 2018-10-19 07:19 | NUR ---
TD RN NOTES NO ACUTE CHANGES NOTED DURING THE SHIFT. NO RESPIRATORY DISTRESS NOTED. CO2 OF 40 TRENDING DOWN. ENDORSE TO THE AM NURSE FOR CONTINUITY OF CARE.
[2018-10-19] MEDS: BLOOD SUGAR DIAGNOSTIC 1 EACH STRIP IN SCH ×4 (07:32→21:16)
[2018-10-19 08:00] VITALS: BP 117/78
--- NOTE | 2018-10-19 08:00 | NUR ---
TD/RN AM SHIFT INITIAL NOTES RECEIVED PT AWAKE SITTING IN BED, PT A/O X 3, DENIES ANY SYMPTOMS, NO ACUTE RESPIRATORY DISTRESS NOTED. ON 2L O2 VIA N/C SATURATING @ 96%, LUNG SOUNDS DIMINISHED, RESPIRATIONS EVEN AND UNLABORED. ON TELE MONITORING, CONTROLLED A-FIB, HR 78. IV SITE FLUSHED, PATENT WITH NO S/S OF INFECTION. CENTENO CATHETER INTACT WITH CLEAR YELLOW URINE OUT. BS CHECKED, RESULT 238, NO S/S OF HYPERGLYCEMIA, TO BE 8 UNITS OF REGULAR INSULIN PER ORDERED SLIDING SCALE. PT IS COMFORTABLE AT THIS TIME, SCHEDULED AM MEDS TO BE GIVEN. CL WITHIN REACHED AND SAFETY MAINTAINED. ON GOING MONITORING.
[2018-10-19] MEDS: INSULIN REGULAR, HUMAN 100 UNIT/ML 3 ML VIAL SQ PRN ×3 (08:42→17:16)
[2018-10-19] MEDS: FLUTICASONE/VILANTEROL 1 EACH BLST.W.DEV IH SCH (08:42)
[2018-10-19] MEDS: methylPREDNISolone SOD SUCC 40 MG/ML VIAL IV SCH ×2 (08:43→17:13)
[2018-10-19] MEDS: AMIODARONE HCL 200 MG TABLET PO SCH (08:45)
[2018-10-19] MEDS: LEVOTHYROXINE SODIUM 175 MCG TABLET PO SCH (08:46)
[2018-10-19] MEDS: PANTOPRAZOLE 40 MG TABLET.DR PO SCH (08:46)
[2018-10-19] MEDS: GABAPENTIN 300 MG CAPSULE PO SCH ×3 (08:46→17:12)
--- NOTE | 2018-10-19 10:42 | NUR ---
TD/RN ROUNDS - DR. DALY UPDATED PT'S CONDITION. PT SEEN & EXAMINED BY DR. DALY, WITH ORDER NOTED FOR LANTUS. MONITORING CONTINUED.
[2018-10-19] MEDS ORDERED: INSULIN GLARGINE, 100 UNIT/ML CARTRIDGE SQ SCH ×2 (11:00→22:00)
[2018-10-19 12:00] VITALS: BP 143/83
--- NOTE | 2018-10-19 12:00 | NUR ---
TD/RN NOON ROUNDS NO ACUTE CHANGE OF CONDITION. MONITORING CONTINUED.
[2018-10-19] MEDS: NYSTATIN TOP POWDER 15 GM BOTTLE TP SCH ×2 (12:06→23:03)
[2018-10-19 16:00] VITALS: BP 103/59
[2018-10-19] MEDS: RIVAROXABAN 15 MG TABLET PO SCH (17:13)
--- NOTE | 2018-10-19 17:30 | NUR ---
TD/RN AFTERNOON ROUNDS PM CARE PROVIDED. NO CHANGE OF CONDITION. MONITORING CONTINUED.
--- NOTE | 2018-10-19 19:11 | NUR ---
TD/RN AM SHIFT END NOTES NO ACUTE CHANGE OF CONDITION NOTED DURING THE SHIFT, ALL NEEDS MET. PT ENDORSED TO PM NURSE TO CONTINUE CARE. CL WITHIN REACHED AND SAFETY MAINTAINED.
[2018-10-19 20:00] VITALS: BP 123/69
[2018-10-19] MEDS: HYDROCODONE/APAP 10/325MG 1 EA TABLET PO PRN (20:14)
[2018-10-19] MEDS: diphenhydrAMINE HCL 25 MG CAPSULE PO SCH (21:19)
[2018-10-19] MEDS: TRAZODONE 50 MG TABLET PO SCH (21:19)
[2018-10-19] MEDS: GABAPENTIN 400 MG CAPSULE PO SCH (21:19)
[2018-10-19] MEDS: *INSULIN REGULAR(HUMULIN R)HUM 100 UNIT/ML VIAL SQ PRN (21:22)
[2018-10-20] VITALS (7 sets, daily range): BP systolic 104–129; BP diastolic 67–77
--- NOTE | 2018-10-20 00:10 | NUR ---
pt refused avaps at this time, pt placed back on 2l nc, tolerating well, no s/s of distress
--- NOTE | 2018-10-20 00:30 | NUR ---
RT NOTE PT WAS TAKEN OFF BIPAP AT MIDNIGHT; REFUSES AT THIS TIME. PLACED BACK ON 2L NC PER RN.
[2018-10-20] MEDS: IPRATROPIUM NEB FS 0.5 MG/2.5 ML AMPUL.NEB NEB SCH ×6 (02:31→22:31)
[2018-10-20] MEDS: ALBUTEROL FS 2.5 MG/0.5 ML VIAL.NEB NEB SCH ×6 (02:31→22:31)
[2018-10-20] MEDS: CLINDAMYCIN 600 MG in IV D5W 50 ML IV SCH ×3 (05:50→21:01)
--- NOTE | 2018-10-20 07:30 | NUR ---
SAND MILL OPERATOR INITIAL NOTES RECEIVED PT A/A/O X3. PATIENT ABLE TO MAKE NEEDS KNOWN. NO ACUTE RESPIRATORY OR CARDIAC DISTRESS AT THIS TIME. PATIENT ON O2 2 LITERS VIA N/C SATURATING @ 100%. RESPIRATIONS EVEN AND UNLABORED. ON TELE MONITORING WITH HR OF 78. PATIENT IV SITE ON RIGHT AC 18G. FLUSHING WELL AND PATENT. NO S/S OF INFECTION OR INFILTRATION. CENTENO CATHETER INTACT AND IN PLACE WITH CLEAR YELLOW URINE OUT. BS CHECKED AND IT WAS RESULT 300. NO S/S OF HYPERGLYCEMIA. INSULIN WAS GIVEN PER SLIDING SCALE. ALL NEEDS ANTICIPATED. KEPT CLEAN AND DRY. CALL LIGHT WITHIN REACHED. BED LOCKED AND IN LOW POSITION. SAFETY MEASURES OBSERVED. WILL CONTINUE TO MONITOR.
[2018-10-20] MEDS: BLOOD SUGAR DIAGNOSTIC 1 EACH STRIP IN SCH ×4 (07:57→21:31)
[2018-10-20] MEDS: PANTOPRAZOLE 40 MG TABLET.DR PO SCH (07:57)
[2018-10-20] MEDS: LEVOTHYROXINE SODIUM 175 MCG TABLET PO SCH (07:57)
[2018-10-20] MEDS: INSULIN REGULAR, HUMAN 100 UNIT/ML 3 ML VIAL SQ PRN ×3 (07:58→16:21)
[2018-10-20] MEDS: AMIODARONE HCL 200 MG TABLET PO SCH (08:04)
[2018-10-20] MEDS: methylPREDNISolone SOD SUCC 40 MG/ML VIAL IV SCH ×2 (08:04→16:06)
[2018-10-20] MEDS: GABAPENTIN 300 MG CAPSULE PO SCH ×3 (08:04→16:05)
[2018-10-20] MEDS: FLUTICASONE/VILANTEROL 1 EACH BLST.W.DEV IH SCH (08:05)
[2018-10-20] MEDS: HYDROCODONE/APAP 10/325MG 1 EA TABLET PO PRN (08:06)
--- NOTE | 2018-10-20 10:45 | NUR ---
RN NOTES RECEIVED RESULTS OF THE ABG AND RELAYED THE RESULTS TO DR. DALY WITH NO NEW ORDERS AT THIS TIME. WILL CONTINUE TO MONITOR.
[2018-10-20 10:53] LABS: ABG BASE EXCESS 10.4 mmol/L; ABG PCO2 58.6 mmHg (35.0-45.0); ABG PH 7.418 (7.350-7.450); ABG PO2 58.7 mmHg (75.0-100.0); AaDO2 42.7 mmHg; MetHb 0.3 % (0.0-1.5); O2Hb 87.8 % (94.0-97.0); SITE, ABG Right Brachial; VENT MODE, BG NASAL CANNULA
[2018-10-20] MEDS: NYSTATIN TOP POWDER 15 GM BOTTLE TP SCH (11:58)
--- NOTE | 2018-10-20 13:00 | NUR ---
RN NOTES NUT CHOPPER WAS MADE AWARE BY BARBARA KRISHNA REGARDING THE REQUEST OF THE FAMILY TO HAVE BIPAP AT HOME IF POSSIBLE.
[2018-10-20] MEDS: RIVAROXABAN 15 MG TABLET PO SCH (16:04)
--- NOTE | 2018-10-20 18:29 | NUR ---
RN CLOSING NOTES PATIENT IN BED AWAKE AND WATCHING TV AT THE MOMENT. PT TOLERATED DINNER WELL AND ATE 100%. PATIENT ABLE TO MAKE NEEDS KNOWN. NO ACUTE RESPIRATORY OR CARDIAC DISTRESS AT THIS TIME. PT CONTINUES ON O2 THERAPY AT 2LPM. RESPIRATIONS EVEN AND UNLABORED. PATIENT IV SITE ON LEFT AC 18G. FLUSHING WELL AND PATENT. NO S/S OF INFECTION OR INFILTRATION. CENTENO CATHETER INTACT AND IN PLACE WITH CLEAR YELLOW URINE OUTPUT. NO S/S OF HYPERGLYCEMIA. ALL NEEDS ANTICIPATED. KEPT CLEAN AND DRY. CALL LIGHT WITHIN REACHED. BED LOCKED AND IN LOW POSITION. SAFETY MEASURES OBSERVED. WILL CONTINUE TO MONITOR.
--- NOTE | 2018-10-20 19:00 | NUR ---
leopoldo rn notes received pts in bed awake alert and responsive no sob no distress noted on tele afib 101 on monitor sating 98 % v/s stable afebrile no sob no distress noted , heplock on bernie intact and patent ,pts on f/c intact and patent draining with yellowish urine output.all due meds given as ordered , daughter at bedside , updated with pts current condition , all needs attended too call light within reach ,kept pts clean dry and comfortable will continue to monitor pts..
[2018-10-20] MEDS: diphenhydrAMINE HCL 25 MG CAPSULE PO SCH (21:01)
[2018-10-20] MEDS: TRAZODONE 50 MG TABLET PO SCH (21:01)
[2018-10-20] MEDS: GABAPENTIN 400 MG CAPSULE PO SCH (21:01)
[2018-10-20] MEDS: *INSULIN REGULAR(HUMULIN R)HUM 100 UNIT/ML VIAL SQ PRN (21:36)
[2018-10-20] MEDS ORDERED: INSULIN GLARGINE, 100 UNIT/ML CARTRIDGE SQ SCH (22:00)
--- NOTE | 2018-10-20 22:00 | NUR ---
leopoldo rn notes rt at bedside , pts refused nocte bipap , explain r/b pts still refusing, pts on nc at 2liters of o2 pts sating 98% all needs attended call light within reach, pts blood sugar for 10 pm is 375 mg/dl lantus 18 units sq injection , and regular insulin 10 units given per sliding scale , pts offered snacks kept pts clean dry and comfortable .
--- NOTE | 2018-10-20 22:03 | NUR ---
RT NOTES PT REFUSED USE OF BIPAP FOR NIGHT. TOLD PT ABOUT THE BENEFITS BIPAP OFFERS. WILL CONT TO MONITOR PT. RN AWARE OF REFUSAL. NO DISTRESS NOTED. NO SOB/ RESP. DISTRESS NOTED.
[2018-10-21] VITALS (7 sets, daily range): BP systolic 114–133; BP diastolic 65–79
[2018-10-21] MEDS: NYSTATIN TOP POWDER 15 GM BOTTLE TP SCH ×3 (00:56→23:18)
[2018-10-21] MEDS: IPRATROPIUM NEB FS 0.5 MG/2.5 ML AMPUL.NEB NEB SCH ×6 (02:46→22:33)
[2018-10-21] MEDS: ALBUTEROL FS 2.5 MG/0.5 ML VIAL.NEB NEB SCH ×6 (02:46→22:33)
[2018-10-21] MEDS: CLINDAMYCIN 600 MG in IV D5W 50 ML IV SCH ×3 (04:23→20:08)
[2018-10-21 06:28] LABS: BASOPHILS % (AUTO) 0.2 % (0.0-2.0); HEMATOCRIT 39 % (33-45); HEMOGLOBIN 12.4 g/dL (11.5-14.8); LYMPHOCYTES # (AUTO) 0.7 /CMM (0.8-4.8); LYMPHOCYTES % (AUTO) 6.1 % (20.0-44.0); MEAN CORPUSCULAR HGB CONC 32 g/dl (31.0-36.0); MEAN CORPUSCULAR VOLUME 92 fL (82-100); MONOCYTES % (AUTO) 8.6 % (2.0-12.0); NEUTROPHILS # (AUTO) 9.6 /CMM (1.8-8.9); NEUTROPHILS % (AUTO) 85.1 % (43.0-81.0); PLATELET COUNT (AUTO) 320 /CMM (150-450); RED BLOOD CELL COUNT(AUTO) 4.23 MIL/uL (4.0-5.2); WHITE BLOOD COUNT (AUTO) 11.3 K/uL (4.3-11.0)
[2018-10-21 06:37] LABS: ALANINE AMINOTRANSFERASE 9 U/L (12-78); ALBUMIN 2.7 g/dL (3.4-5.0); ALKALINE PHOSPHATASE 60 U/L (46-116); ASPARTATE AMINOTRANSFERASE 4 U/L (15-37); BILIRUBIN,TOTAL 0.2 mg/dL (0.2-1.0); CALCIUM, SERUM 8.4 mg/dL (8.5-10.1); CARBON DIOXIDE 34 mmol/L (21-32); CHLORIDE 99 mmol/L (98-107); CREATININE 1.4 mg/dL (0.6-1.3); MAGNESIUM 2.3 mg/dL (1.8-2.4); POTASSIUM 3.6 mmol/L (3.5-5.1); SODIUM SERUM 139 mmol/L (136-145); TOTAL PROTEIN, SERUM 6.3 g/dL (6.4-8.2); UREA NITROGEN, BLOOD 39 mg/dL (7-18)
[2018-10-21 06:43] LABS: GLUCOSE 367 mg/dL (74-106)
--- NOTE | 2018-10-21 06:57 | NUR ---
TORSTEN RN NOTES RECEIVED LAB RESULT FROM LAB BLOOD GLUCOSE IS 357 MG /DL PTS BREAKFAST COMING SOON , WILL ENDORSE TO RN DAY SHIFT FOR SLIDING SCALE BEFORE MEALS.
[2018-10-21] MEDS: BLOOD SUGAR DIAGNOSTIC 1 EACH STRIP IN SCH ×5 (07:31→23:03)
[2018-10-21] MEDS: PANTOPRAZOLE 40 MG TABLET.DR PO SCH (07:32)
[2018-10-21] MEDS: LEVOTHYROXINE SODIUM 175 MCG TABLET PO SCH (07:32)
[2018-10-21] MEDS: INSULIN REGULAR, HUMAN 100 UNIT/ML 3 ML VIAL SQ PRN ×5 (07:34→23:10)
--- NOTE | 2018-10-21 07:52 | NUR ---
ART TEACHER OPENING NOTES RECEIVED REPORT FROM PM NURSE.PT A/A/O X3-4 WITH PERIODS OF FORGETFULNESS . PATIENT ABLE TO MAKE NEEDS KNOWN. NO ACUTE RESPIRATORY OR CARDIAC DISTRESS AT THIS TIME. PATIENT ON O2 1 LITERS VIA N/C SATURATING @ 100%. RESPIRATIONS EVEN AND UNLABORED. ON TELE MONITOR CONTROLLED AFIB WITH HR OF 68. PATIENT IV SITE INTACT AND PATENT. NO S/S OF INFECTION OR INFILTRATION. CENTENO CATHETER INTACT AND IN PLACE WITH CLEAR YELLOW URINE OUT. CALL LIGHT WITHIN REACH. BED LOCKED AND IN LOW POSITION. SAFETY MEASURES OBSERVED. SRX3.WILL CONTINUE TO MONITOR.
[2018-10-21] MEDS: FLUTICASONE/VILANTEROL 1 EACH BLST.W.DEV IH SCH (08:15)
[2018-10-21] MEDS: methylPREDNISolone SOD SUCC 40 MG/ML VIAL IV SCH (08:15)
[2018-10-21] MEDS: GABAPENTIN 300 MG CAPSULE PO SCH ×3 (08:15→17:06)
[2018-10-21] MEDS: AMIODARONE HCL 200 MG TABLET PO SCH (08:15)
[2018-10-21] MEDS: HYDROCODONE/APAP 10/325MG 1 EA TABLET PO PRN ×2 (08:29→18:12)
[2018-10-21] MEDS ORDERED: DEXTROSE 50%-WATER 50 ML DISP.SYRIN IV PRN (11:21)
[2018-10-21] MEDS ORDERED: INSULIN GLARGINE, 100 UNIT/ML CARTRIDGE SQ ONE (11:30)
--- NOTE | 2018-10-21 12:00 | NUR ---
TORSTEN RN NOTE SEEN BY ,UPDATED ABOUT PATIENT CONDITION,OK TO HAVE DIETITIAN CONSULT FOR LOW ALBUMIN.
[2018-10-21] MEDS: RIVAROXABAN 15 MG TABLET PO SCH (17:06)
--- NOTE | 2018-10-21 18:59 | NUR ---
RN CLOSING NOTES PATIENT IN BED SLEEPING COMFORTABLY. ABLE TO RESPOND TO VERBAL AND TACTILE STIMULI. NO ACUTE DISTRESS AT THIS TIME. NO SOB. RESPIRATION EVEN AND UNLABORED. HOB ELEVATED AT ALL TIMES. NO S/S OF HYPOGLYCEMIA. PATIENT CONTINUES ON O2 THERAPY. TOLERATED WELL. SKIN IS DRY WARM TO TOUCH. PATIENT HAS A LEFT HAND IV ACCESS. PATENT AND FLUSHING WELL. NO S/S OF INFILTRATION AND INFECTION. CENTENO CATH INTACT AND PATENT WITH YELLOW COLOR URINE. ALL NEEDS ANTICIPATED. KEPT CLEAN AND DRY. BED LOCKED AND IN LOW POSITION. SAFETY MEASURES OBSERVED. CALL LIGHT WITHIN REACHED. WILL CONTINUE PLAN OF CARE. ENDORSED TO PM NURSE FOR CARLOS.
--- NOTE | 2018-10-21 19:30 | NUR ---
leopoldo rn notes blood sugar for 1930 hrs is 198mg/dl 4 units og regular insulin given per sliding scale , pts on po diet, will check again in 4 hrs.
--- NOTE | 2018-10-21 20:00 | NUR ---
leopoldo rn notes received pts in bed a/o x3 able to make needs known , on tele afib -90 on the monitor ,sating 100%on 1 liter of 02 via nc , pts refused noc avap explain benifits pts still refusing , pts no sob no distress noted , all needs attended too call light within reach kept pts clean dry and comfortable , all due meds given as ordered ,pts on iv heplock on left hand g 22 intact and patent continue on iv atb cleocin with no ase noted , also with f/c intact and patent draining with yellowish urine output .will continue to monitor pts.
[2018-10-21] MEDS: GABAPENTIN 400 MG CAPSULE PO SCH (21:24)
[2018-10-21] MEDS: TRAZODONE 50 MG TABLET PO SCH (21:24)
[2018-10-21] MEDS: diphenhydrAMINE HCL 25 MG CAPSULE PO SCH (21:24)
--- NOTE | 2018-10-21 22:30 | NUR ---
TORSTEN RN NOTES RT AT BEDSIDE PTS WAS PLACE ON AVAP FOR 13MINS PTS REMOVED THE AVAP ,PTS WAS PUT BACK TO NC AT 1 LITER OF O2 NO SOB NO DISTRESS NOTED .WILL CONTINUE TO MONITOR PTS.
--- NOTE | 2018-10-21 22:43 | NUR ---
RT NOTE PT PLACED ON BIPAP AT 2230 AND TAKEN OFF AT 2243. PT IS REFUSING BIPAP AT THIS TIME. PT PLACED BACK ON NC 2L. NO RESP DISTRESS NOTED. RN IS AWARE.
[2018-10-21] MEDS: INSULIN GLARGINE, 100 UNIT/ML CARTRIDGE SQ SCH (23:04)
--- NOTE | 2018-10-21 23:30 | NUR ---
TORSTEN RN NOTES BLOOD SUGAR FOR 1130PM IS 235M/DL, LANTUS 25 UNITS GIVEN ORDERED AND 8 UNITS OF REGULAR INSULIN GIVEN PER SLIDING SCALE.WILL CHECK BLOOD SUGAR AGAIN IN 4 HRS.WILL CONTINUE TO MONITOR PTS.
[2018-10-22] VITALS: BP 118/73
[2018-10-22] MEDS: IPRATROPIUM NEB FS 0.5 MG/2.5 ML AMPUL.NEB NEB SCH ×6 (02:33→23:00)
[2018-10-22] MEDS: ALBUTEROL FS 2.5 MG/0.5 ML VIAL.NEB NEB SCH ×6 (02:33→23:00)
[2018-10-22] MEDS: INSULIN REGULAR, HUMAN 100 UNIT/ML 3 ML VIAL SQ PRN ×4 (03:41→21:35)
[2018-10-22] MEDS: BLOOD SUGAR DIAGNOSTIC 1 EACH STRIP IN SCH ×5 (03:42→19:52)
--- NOTE | 2018-10-22 03:43 | NUR ---
TORSTEN RN NOTES BLOOD SUGAR FOR 330AM IS 88MG/DL NO INSULIN COVERAGE GIVEN PER SLIDING SCALE.WILL CHECK BLOOD SUGAR AGAIN AT 730AM.
[2018-10-22 04:00] VITALS: BP 101/60
[2018-10-22] MEDS: CLINDAMYCIN 600 MG in IV D5W 50 ML IV SCH ×3 (05:53→21:39)
--- NOTE | 2018-10-22 06:25 | NUR ---
leopoldo rn notes pts remains in bed on o2 at 1 liter via nc sating 100%. no sob no distress noted , v/s stable afebrile , no complain of pain .will endorse to rn day shift for continuity of care.
[2018-10-22 06:27] LABS: BASOPHILS % (AUTO) 0.2 % (0.0-2.0); EOSINOPHILS % (AUTO) 0.5 % (0.0-6.0); HEMATOCRIT 40 % (33-45); HEMOGLOBIN 12.8 g/dL (11.5-14.8); LYMPHOCYTES # (AUTO) 1.7 /CMM (0.8-4.8); MEAN CORPUSCULAR HGB CONC 32 g/dl (31.0-36.0); MEAN CORPUSCULAR VOLUME 92 fL (82-100); MONOCYTES # (AUTO) 1.4 /CMM (0.1-1.30); MONOCYTES % (AUTO) 10.2 % (2.0-12.0); NEUTROPHILS # (AUTO) 10.2 /CMM (1.8-8.9); NEUTROPHILS % (AUTO) 76.1 % (43.0-81.0); PLATELET COUNT (AUTO) 316 /CMM (150-450); RED BLOOD CELL COUNT(AUTO) 4.36 MIL/uL (4.0-5.2); WHITE BLOOD COUNT (AUTO) 13.4 K/uL (4.3-11.0)
[2018-10-22 06:56] LABS: CALCIUM, SERUM 8.5 mg/dL (8.5-10.1); CARBON DIOXIDE 36 mmol/L (21-32); CHLORIDE 99 mmol/L (98-107); CREATININE 1.2 mg/dL (0.6-1.3); GLUCOSE 104 mg/dL (74-106); MAGNESIUM 2.5 mg/dL (1.8-2.4); PHOSPHORUS 4.6 mg/dL (2.5-4.9); POTASSIUM 3.8 mmol/L (3.5-5.1); SODIUM SERUM 141 mmol/L (136-145); UREA NITROGEN, BLOOD 40 mg/dL (7-18)
--- NOTE | 2018-10-22 07:46 | NUR ---
SALES AND MARKETING INTERN NOTE RECEIVED PATIENT IN BED , RESTING COMFORTABLY, ON 2L NS , NO SOB NOTED AT THIS TIME , , ON TELE MONITOR AFIB HR 74, WITH CENTENO CATH TO GRAVITY M LT HAND HL INTACT BED IN LOWEST AND LOCKED POSITION , CALL LIGHT WITHIN REACH , WILL CONT TO MONITOR CLOSELY
[2018-10-22 08:00] VITALS: BP 103/65
--- NOTE | 2018-10-22 08:00 | NUR ---
AUDITING SPECIALIST NOTE RECEIVED PATENT IN ED , ALERT ORIENTED X3 ,ON TELE MONITOR SR 93 WITH CENTENO CATH TO GRAVITY WITH YELLOW COLOR URINE ,FED BY STAFF, ATE 50 50% OF DIET , ON IVF ORDERED VIA PAULO CATH LT FA , BED IN LOWEST AND LOCKED POSITION , CALL LIGHT WITHIN REACH ,PLAN OF CARE DISCUSSED WITH PATIENT, WILL CONT TO MONITOR CLOSELY NO SOB AT THIS TIME NOTED
[2018-10-22] MEDS: LEVOTHYROXINE SODIUM 175 MCG TABLET PO SCH (08:29)
[2018-10-22] MEDS: AMIODARONE HCL 200 MG TABLET PO SCH (08:29)
[2018-10-22] MEDS: GABAPENTIN 300 MG CAPSULE PO SCH ×3 (08:29→17:22)
[2018-10-22] MEDS: PANTOPRAZOLE 40 MG TABLET.DR PO SCH (08:29)
[2018-10-22] MEDS: FLUTICASONE/VILANTEROL 1 EACH BLST.W.DEV IH SCH (08:32)
[2018-10-22] MEDS: methylPREDNISolone SOD SUCC 40 MG/ML VIAL IV SCH (08:32)
--- NOTE | 2018-10-22 09:50 | NUR ---
TORSTEN RN NOTE REPORT GIVEN TO YANDEL RN
--- NOTE | 2018-10-22 10:00 | NUR ---
RN NOTES RECEIVED PATIENT FROM BARBARA FERNANDEZ. PATIENT CALMLY ASLEEP AT THIS TIME. ON OXYGEN SUPPORT VIA NASAL CANNULA, NO SOB NOTED AT THIS TIME. KEPT COMFORTABLE, WILL CHECK WITH INTERVAL AND CONTINUE TO MONITOR.
[2018-10-22] MEDS: NYSTATIN TOP POWDER 15 GM BOTTLE TP SCH (12:36)
[2018-10-22 16:00] VITALS: BP 109/63
--- NOTE | 2018-10-22 16:00 | NUR ---
RN NOTES RECEIVED DISCHARGE ORDER FROM DR. BOWMAN. ORDER NOTED AND CARRIED OUT Addendum: 10/22/18 at 2009 by YANDEL IGLESIAS RN CALLED DAUGHTERS TO INFORM THEM ON THE DISCHARGE, FIRST DAUGHTER DIDN'T PICKED UP, LEFT MESSAGE ON VOICE MAIL. CALL AND SPOKE TO MONET, DETAILS RELAYED TO HER
[2018-10-22] MEDS: RIVAROXABAN 15 MG TABLET PO SCH (17:21)
--- NOTE | 2018-10-22 17:30 | NUR ---
RN NOTES SPOKE AND REPORT GIVEN TO BARBARA RAY FOR CONTINUITY OF CARE.
--- NOTE | 2018-10-22 19:00 | NUR ---
RN NOTES SPOKE TO MONET, WITH CONCERNS ABOUT MOTHER NOT READY TO BE DISCHARGE YET? AND REQUEST FOR CHEST XRAY. DR. BOWMAN CALLED AND INFORMED, PER OK TO HOLD DISCHARGE AND ORDER FOR CHEST XRAY. ORDER NOTED AND CARRIED OUT Addendum: 10/22/18 at 2012 by YANDEL IGLESIAS RN CASE MANAGEMENT TEAM INFORMED
--- NOTE | 2018-10-22 19:30 | NUR ---
RN NOTES ENDORSED PATIENT FOR CONNTINUITY OF CARE. NOT ON ANY FORM OF DISTRESS. NO ACUTE CHANGES WITHIN THE SHIFT. ALL NURSING NEEDS ATTENDED AND MET. SAFETY MEASURES IN PLACE AT ALL TIME. CALL LIGHT WITHIN REACH
--- NOTE | 2018-10-22 20:00 | NUR ---
RN NOTES RECEIVED PATIENT AWAKE, ALERT, NO SIGNS OF ACUTE RESPIRATORY DISTRESS NOTED, ALL SAFETY MEASURES IN PLACED, BED IN LOW LOCKED POSITION, CALL LIGHT WITH REACH, ASPIRATION PRECAUTION EMPHASIZED, IV ACCESS ON HER L HAND G#22 INTACT AND PATENT, REPOSITIONED FOR COMFORT, WILL CONTINUE TO MONITOR ACCORDINGLY.
--- NOTE | 2018-10-22 21:00 | NUR ---
RN NOTES DAUGHTER CALLED, UPDATED HER REGARDING PATIENT'S CURRENT STATUS, PATIENT IS RESTING COMFORTABLY, WILL MONITOR.
[2018-10-22] MEDS ORDERED: CLINDAMYCIN 900 MG/6 ML VIAL ONE (21:29)
[2018-10-22] MEDS: diphenhydrAMINE HCL 25 MG CAPSULE PO SCH (21:30)
[2018-10-22] MEDS: GABAPENTIN 400 MG CAPSULE PO SCH (21:30)
[2018-10-22] MEDS: TRAZODONE 50 MG TABLET PO SCH (21:30)
[2018-10-22] MEDS: INSULIN GLARGINE, 100 UNIT/ML CARTRIDGE SQ SCH (21:39)
[2018-10-22 22:00] VITALS: BP 134/75
[2018-10-23] MEDS: NYSTATIN TOP POWDER 15 GM BOTTLE TP SCH ×2 (00:04→12:52)
[2018-10-23] MEDS: BLOOD SUGAR DIAGNOSTIC 1 EACH STRIP IN SCH ×4 (00:04→11:22)
[2018-10-23] MEDS: INSULIN REGULAR, HUMAN 100 UNIT/ML 3 ML VIAL SQ PRN ×4 (00:07→11:31)
[2018-10-23] MEDS: HYDROCODONE/APAP 10/325MG 1 EA TABLET PO PRN ×2 (01:43→08:30)
--- NOTE | 2018-10-23 01:43 | NUR ---
RN NOTES PATIENT COMPLAINTS OF SHOULDER PAIN 01/29, REPOSITIONED FOR COMFORT, NORCO GIVEN PER MD ORDER, WILL CONTINUE TO MONITOR.
[2018-10-23] MEDS: IPRATROPIUM NEB FS 0.5 MG/2.5 ML AMPUL.NEB NEB SCH ×2 (04:03→08:03)
[2018-10-23] MEDS: ALBUTEROL FS 2.5 MG/0.5 ML VIAL.NEB NEB SCH ×2 (04:03→08:04)
[2018-10-23] MEDS: CLINDAMYCIN 600 MG in IV D5W 50 ML IV SCH (04:41)
--- NOTE | 2018-10-23 06:17 | NUR ---
RN NOTES RESTING COMFORTABLY, REPOSITIONED, ABLE TO REST AND SLEEP AT INTERVALS, NO SIGNS OF ACUTE RESPIRATORY DISTRESS NOTED, CAN TOLERATE WITHOUT OXYGEN VIA NC, SATING 98-100%, SAFETY MEASURES IN PLACED, ASPIRATION PRECAUTION EMPHASIZED, ALL NEEDS ATTENDED AND MET, WILL ENDORSED TO AM NURSE FOR CONTINUITY OF CARE.
--- NOTE | 2018-10-23 07:33 | NUR ---
MS RN OPENING NOTES RECEIVED PT LAYING IN BED WITH HOB SLIGHTLY ELEVATED. PT IS A/O X3, AFEBRILE. RESPIRATIONS ARE EVEN AND UNLABORED, NOT IN ANY ACUTE DISTRESS NOTED.C/O GENERALIZED PAIN W/ PL 09/29. WILL MEDICATE ACCORDINGLY. DENIES ANY SOB, N/V. IV SITE TO L HAND INTACT, NO INFILTRATION NOTED. DRESSING KEPT CLEAN AND DRY. SAFETY MEASURES ARE IN PLACE. INSTRUCTED PT TO USE CALL LIGHT WHEN ASSISTANCE IS NEEDED, CALL LIGHT IS LEFT WITHIN REACH. WILL MONITOR THROUGHOUT SHIFT FOR CONTINUITY OF CARE.
[2018-10-23] MEDS: PANTOPRAZOLE 40 MG TABLET.DR PO SCH (07:57)
[2018-10-23] MEDS: LEVOTHYROXINE SODIUM 175 MCG TABLET PO SCH (07:57)
[2018-10-23 08:00] VITALS: BP 100/66
[2018-10-23] MEDS: GABAPENTIN 300 MG CAPSULE PO SCH ×2 (08:30→12:51)
[2018-10-23] MEDS: methylPREDNISolone SOD SUCC 40 MG/ML VIAL IV SCH (08:31)
[2018-10-23] MEDS: AMIODARONE HCL 200 MG TABLET PO SCH (08:31)
[2018-10-23] MEDS: FLUTICASONE/VILANTEROL 1 EACH BLST.W.DEV IH SCH (08:33)
--- NOTE | 2018-10-23 09:31 | NUR ---
message left to daughter voicemail pt. seen and evaluated by dr. carmichael and reviewed cxr and clear pt. for discharge.c/o rah [phone].
--- NOTE | 2018-10-23 09:32 | NUR ---
yancy jensen made aware.awaits ambulance.
[2018-10-23 10:00] VITALS: BP 100/66
--- NOTE | 2018-10-23 10:52 | NUR ---
MS RN NOTES-- NOTIFIED BANDAR SIEGEL, RE: TIME OF DISCHARGE AND AGREES. PT MADE AWARE. EXPLAINED DISCHARGE PAPERWORK TO PT WITH VERBAL AND WRITTEN UNDERSTANDING.
--- NOTE | 2018-10-23 13:40 | NUR ---
MS CONVERSION MAN NOTE PT DISCHARGED TO [facility] IN STABLE CONDITION VIA GURNEY ACCOMPANIED BY 2 EMT PERSONNEL. PT IS A/O X3, AFEBRILE. RESPIRATIONS ARE EVEN AND UNLABORED, NOT IN ANY ACUTE DISTRESS NOTED. PT DENIES ANY PAIN AT THIS TIME, NO C/O SOB, N/V. ABDOMEN IS SOFT AND NONDISTENDED, BOWEL SOUNDS ARE PRESENT IN ALL 4 QUADRANTS UPON AUSCULTATION. DENIES ANY BLADDER DISCOMFORT. IV SITE REMOVED, APPLIED PRESSURE AND TOLERATED WELL. ID BANDS REMOVED. SKIN ASSESSMENT DONE AND PICTURES TAKEN TO RIGHT GROIN, RLE, AND RIGHT POSTERIOR THIGH. PT IS KEPT CLEAN AND DRY. CALLED [facility], SPOKE WITH PETEY JIMENEZ FOR REPORT. PT WILL BE GOING TO [facility] [address]. BEDSIDE ENDORSEMENT GIVEN TO EMT PERSONNEL. BELONGINGS SENT WITH PT. BEDSIDE ENDORSEMENT GIVEN. PT LEFT IN STABLE CONDITION.
== END 2018-10-23 13:43 | DRG 194 ==
LOC: ER 19:46 → ICU 22:04 → TELE-TD 10-18 18:16 → MEDSG1 10-22 09:57
PROVIDERS: ADMIT Nurse Practitioner Acute Care; ATTEND Internal Medicine
PROC: 5A09357 Assistance with Respiratory Ventilation, Less than 24 Consecutive Hours, Continuous Positive Airway Pressure (ICD-10-PCS; principal; 2018-10-16)
DX: I13.0 Hypertensive heart and chronic kidney disease with heart failure and stage 1 through stage 4 chronic kidney disease, or unspecified chronic kidney disease (principal); N17.0 Acute kidney failure with tubular necrosis; J96.21 Acute and chronic respiratory failure with hypoxia; J44.1 Chronic obstructive pulmonary disease with (acute) exacerbation; D68.59 Other primary thrombophilia; E11.22 Type 2 diabetes mellitus with diabetic chronic kidney disease; E66.2 Morbid (severe) obesity with alveolar hypoventilation; J96.22 Acute and chronic respiratory failure with hypercapnia; L03.116 Cellulitis of left lower limb; I50.33 Acute on chronic diastolic (congestive) heart failure; E03.9 Hypothyroidism, unspecified; I25.10 Atherosclerotic heart disease of native coronary artery without angina pectoris; E78.5 Hyperlipidemia, unspecified; L30.4 Erythema intertrigo; N18.9 Chronic kidney disease, unspecified; K21.9 Gastro-esophageal reflux disease without esophagitis; Z79.01 Long term (current) use of anticoagulants; Z79.4 Long term (current) use of insulin; I48.91 Unspecified atrial fibrillation; Z99.81 Dependence on supplemental oxygen; Z68.41 Body mass index [BMI] 40.0-44.9, adult
CPT/HCPCS: 36415; 36600; 71045-TC; 80048-TC; 80053-TC; 80061-TC; 80076-TC; 82803-TC; 82962-TC; 83605-TC; 83735-TC; 83880; 84100-TC; 84443-TC; 84484-TC; 85025-TC; 87040-TC; 87081-TC; 87400; 93307-TC; 93970-TC; 94760-TC; 94799-TC; 97110-TC; 97116-TC; 97530-TC; 99082-TC; A4216; G0378; J1815; J1940; J2920; J2930; J3475; J3490; J7030; J7050; J7060; Q0163

== ENCOUNTER 2018-11-13 18:30 | Inpatient (IN) | payer MEDICAID, MEDICARE ==
[~2018-11-13] VITALS: Ht 167.6 cm; Wt 131.5 kg
--- NOTE | 2018-11-13 18:36 | NUR ---
PT BIB DAUGHTER FOR SOB, PT RECENTLY DC FROM [facility]. PT AAOX4, PT TO BED 5, PT ON MONITOR, VSS, NAD NOTED, ERMIAS BOUDREAUX
[2018-11-13 18:45] LABS: BASOPHILS % (AUTO) 0.9 % (0.0-2.0); EOSINOPHILS % (AUTO) 1.8 % (0.0-6.0); HEMATOCRIT 37 % (33-45); HEMOGLOBIN 12.2 g/dL (11.5-14.8); LYMPHOCYTES % (AUTO) 20.8 % (20.0-44.0); MEAN CORPUSCULAR HGB CONC 33 g/dl (31.0-36.0); MEAN CORPUSCULAR VOLUME 92 fL (82-100); MONOCYTES # (AUTO) 0.4 /CMM (0.1-1.30); NEUTROPHILS # (AUTO) 3.4 /CMM (1.8-8.9); NEUTROPHILS % (AUTO) 68.5 % (43.0-81.0); PLATELET COUNT (AUTO) 333 /CMM (150-450); RED BLOOD CELL COUNT(AUTO) 4.06 MIL/uL (4.0-5.2)
[2018-11-13 18:55] LABS: CALCIUM, SERUM 9.4 mg/dL (8.5-10.1); CARBON DIOXIDE 34 mmol/L (21-32); CHLORIDE 101 mmol/L (98-107); CREATININE 1.3 mg/dL (0.6-1.3); GLUCOSE 248 mg/dL (74-106); POTASSIUM 3.8 mmol/L (3.5-5.1); SODIUM SERUM 140 mmol/L (136-145); UREA NITROGEN, BLOOD 16 mg/dL (7-18)
[2018-11-13] MEDS ORDERED: INSU100V3 SQ (18:55)
[2018-11-13] MEDS ORDERED: RIVA10TA PO (18:55)
[2018-11-13] MEDS ORDERED: HYDR-4354 PO (18:55)
[2018-11-13] MEDS ORDERED: IPRA0.2S9 IH (18:55)
[2018-11-13] MEDS ORDERED: ALBU2.5V13 IH (18:55)
[2018-11-13] MEDS ORDERED: FLUT1DIS IH (18:55)
[2018-11-13] MEDS ORDERED: FLUT1BLS IH (18:58)
[2018-11-13] MEDS ORDERED: TIOT18CA3 IH (18:58)
[2018-11-13 19:07] LABS: ALANINE AMINOTRANSFERASE 15 U/L (12-78); ALKALINE PHOSPHATASE 57 U/L (46-116); ASPARTATE AMINOTRANSFERASE 16 U/L (15-37); B-TYPE NATRIURETIC PEPTIDE 2595 PG/ML (0-125); BILIRUBIN,DIRECT 0.1 mg/dL (0.0-0.2); BILIRUBIN,TOTAL 0.5 mg/dL (0.2-1.0); TOTAL PROTEIN, SERUM 7.4 g/dL (6.4-8.2)
--- NOTE | 2018-11-13 19:14 | NUR ---
CHRISTAL SALGUERO (DAUGHTER) - [phone] CALL FOR ANY UPDATE
[2018-11-13] MEDS ORDERED: FUROSEMIDE 40 MG/4 ML VIAL ONE (20:11)
[2018-11-13] MEDS ORDERED: FUROSEMIDE 40 MG/4 ML VIAL IV ONE (20:30)
--- NOTE | 2018-11-13 20:41 | NUR ---
PT ASSIGNED TO 114-1
[2018-11-13] MEDS ORDERED: ALBUTEROL FS 2.5 MG/0.5 ML VIAL.NEB IH PRN (21:00)
[2018-11-13] MEDS ORDERED: INSULIN DETEMIR 100 UNIT/ML CARTRIDGE SQ SCH (21:00)
[2018-11-13] MEDS ORDERED: ONDANSETRON HCL/PF 4 MG/2 ML VIAL IVP PRN (21:00)
[2018-11-13] MEDS ORDERED: IPRATROPIUM NEB FS 0.5 MG/2.5 ML AMPUL.NEB IH PRN (21:00)
[2018-11-13] MEDS ORDERED: INSULIN REGULAR, HUMAN 100 UNIT/ML 3 ML VIAL SQ PRN (21:00)
--- NOTE | 2018-11-13 21:00 | NUR ---
REPORT GIVEN, PT WILL BE TRANSPORTED TO 1ST FLOOR/TELE VIA ACLS PROTOCOL
--- NOTE | 2018-11-13 21:50 | NUR ---
RN SPOKE TO MD ZENG, WITH NEW ORDER OF ACCU CHECK Q ACHS WITH MILD SLIDING SCALE, AND INSERT F/C FOR STRICT I&O, PT ON LASIX, BEDBOUND . PT AWARE AND AGREED.
[2018-11-13 22:00] VITALS: BP 129/76
[2018-11-13] MEDS ORDERED: DEXTROSE 50%-WATER 50 ML DISP.SYRIN IV PRN (22:00)
[2018-11-13] MEDS: SENNOSIDES 8.6 MG TABLET PO SCH (22:35)
[2018-11-13] MEDS: TRAZODONE 50 MG TABLET PO SCH (22:36)
[2018-11-13] MEDS: GABAPENTIN 400 MG CAPSULE PO SCH (22:36)
[2018-11-13] MEDS: methylPREDNISolone SOD SUCC 40 MG/ML VIAL IV SCH (22:36)
[2018-11-13] MEDS: HYDROCODONE/APAP 10/325MG 1 EA TABLET PO PRN (22:37)
[2018-11-13] MEDS: BLOOD SUGAR DIAGNOSTIC 1 EACH STRIP IN SCH (22:49)
[2018-11-13] MEDS ORDERED: INSULIN GLARGINE, 100 UNIT/ML CARTRIDGE SQ ONE (23:42)
[2018-11-13] MEDS: INSULIN REGULAR, HUMAN 100 UNIT/ML 3 ML VIAL SQ PRN (23:48)
[2018-11-13] MEDS: FUROSEMIDE 40 MG/4 ML VIAL IV SCH (23:51)
[2018-11-14] VITALS: BP 119/59
--- NOTE | 2018-11-14 00:23 | NUR ---
BARBARA PT COMPLAINED OF L ARM PAIN, NO SWELLING OR DISCOLORATION NOTED, MD ZENG MADE AWARE WITH NO NEW ORDERS AT THIS TIME.
[2018-11-14 04:00] VITALS: BP_SYST 119; BP_SYST 120; BP_DIAS 59; BP_DIAS 76
[2018-11-14] MEDS: FUROSEMIDE 40 MG/4 ML VIAL IV SCH (05:08)
[2018-11-14] MEDS: methylPREDNISolone SOD SUCC 40 MG/ML VIAL IV SCH ×3 (05:08→20:38)
[2018-11-14 06:23] LABS: BASOPHILS % (AUTO) 0.4 % (0.0-2.0); EOSINOPHILS % (AUTO) 0.2 % (0.0-6.0); HEMATOCRIT 39 % (33-45); HEMOGLOBIN 12.5 g/dL (11.5-14.8); LYMPHOCYTES # (AUTO) 0.5 /CMM (0.8-4.8); LYMPHOCYTES % (AUTO) 12.5 % (20.0-44.0); MEAN CORPUSCULAR HGB CONC 32 g/dl (31.0-36.0); MEAN CORPUSCULAR VOLUME 91 fL (82-100); MONOCYTES # (AUTO) 0.1 /CMM (0.1-1.30); MONOCYTES % (AUTO) 1.4 % (2.0-12.0); NEUTROPHILS # (AUTO) 3.5 /CMM (1.8-8.9); NEUTROPHILS % (AUTO) 85.5 % (43.0-81.0); PLATELET COUNT (AUTO) 361 /CMM (150-450); RED BLOOD CELL COUNT(AUTO) 4.29 MIL/uL (4.0-5.2); WHITE BLOOD COUNT (AUTO) 4.1 K/uL (4.3-11.0)
[2018-11-14 06:34] LABS: B-TYPE NATRIURETIC PEPTIDE 2095 PG/ML (0-125); CALCIUM, SERUM 9.2 mg/dL (8.5-10.1); CARBON DIOXIDE 37 mmol/L (21-32); CHLORIDE 99 mmol/L (98-107); CREATININE 1.1 mg/dL (0.6-1.3); GLUCOSE 237 mg/dL (74-106); MAGNESIUM 1.7 mg/dL (1.8-2.4); PHOSPHORUS 4.8 mg/dL (2.5-4.9); SODIUM SERUM 140 mmol/L (136-145); UREA NITROGEN, BLOOD 17 mg/dL (7-18)
[2018-11-14 07:07] LABS: CHOLESTEROL 179 mg/dL (<200); HDL CHOLESTEROL 102 mg/dL (40-60); LDL 74 mg/dL (0-99); THYROID STIMULATING HORMONE 1.209 uIU/mL (0.358-3.74); TRIGLYCERIDES 38 mg/dL (30-150)
[2018-11-14] MEDS: IPRATROPIUM NEB FS 0.5 MG/2.5 ML AMPUL.NEB NEB SCH ×3 (07:35→20:24)
--- NOTE | 2018-11-14 07:35 | NUR ---
RN OPENING NOTE PT WAS RECEIVED RESTING IN BED AT LOWEST AND LOCKED POSITION WITH SIDE RAILS UP X2, A/O X3-4 BREATHING EVEN AND UNLABORED ON 2L VIA NC, NOTED TO BE ON TELE MONITOR SHOWING A.FIB, ON STRICT I/O WITH CENTENO IN PLACE, IV IS PATENT AND INTACT, SAFETY PRECUATIOSN IN PLACE, CALL LIGHT WITHIN REACH, WILL MONITOR PT ACCORDINGLY
[2018-11-14] MEDS: BLOOD SUGAR DIAGNOSTIC 1 EACH STRIP IN SCH ×4 (08:26→21:41)
[2018-11-14] MEDS: INSULIN REGULAR, HUMAN 100 UNIT/ML 3 ML VIAL SQ PRN ×4 (08:28→21:27)
[2018-11-14] MEDS: MULTIVITAMINS,THERAGRAN 1 UDTAB TABLET PO SCH (08:30)
[2018-11-14] MEDS: DOCUSATE SODIUM 100 MG CAPSULE PO SCH (08:30)
[2018-11-14] MEDS: LEVOTHYROXINE SODIUM 175 MCG TABLET PO SCH (08:30)
[2018-11-14] MEDS: PANTOPRAZOLE 40 MG TABLET.DR PO SCH (08:30)
[2018-11-14] MEDS: GABAPENTIN 300 MG CAPSULE PO SCH ×3 (08:30→16:44)
[2018-11-14] MEDS: HYDROCODONE/APAP 10/325MG 1 EA TABLET PO PRN ×2 (08:31→20:38)
[2018-11-14] MEDS: AMIODARONE HCL 200 MG TABLET PO SCH ×2 (08:31→16:44)
[2018-11-14] MEDS: ASCORBIC ACID 500 MG TABLET PO SCH (08:31)
[2018-11-14] MEDS: INSULIN GLARGINE, 100 UNIT/ML CARTRIDGE SQ SCH ×2 (08:33→21:26)
[2018-11-14] MEDS: Magnesium 1GM/D5W 100ML PREMIX 100 ML IV SCH ×2 (08:41→09:29)
[2018-11-14] MEDS ORDERED: AMIODARONE HCL 200 MG TABLET PO SCH (09:00)
[2018-11-14 09:07] VITALS: BP 130/81
[2018-11-14] MEDS: FLUTICASONE/VILANTEROL 1 EACH BLST.W.DEV IH SCH ×2 (12:06→16:44)
[2018-11-14 12:21] VITALS: BP 122/83
[2018-11-14] MEDS: RIVAROXABAN 10 MG TABLET PO SCH (16:46)
[2018-11-14] MEDS ORDERED: RIVAROXABAN 10 MG TABLET PO SCH (17:00)
[2018-11-14 17:12] VITALS: BP 124/81
--- NOTE | 2018-11-14 18:34 | NUR ---
RN CLOSING NOTE PT RESTING IN BED AT LOWEST AND LOCKED POSITION WITH SIDE RAILS UP X2, A/O X3-4 BREATHING EVEN AND UNLABORED ON 2L VIA NC, ON TELE MONITOR SHOWING A.FIB 76, ON STRICT I/O WITH 500 CC NOTED OUT OF CENTENO, IV IS PATENT AND INTACT, SAFETY PRECAUTIONS IN PLACE, CALL LIGHT WITHIN REACH, ALL NEEDS ATTENDED TO, WILL ENDORSE TO APPEALS OFFICER RN FOR CARLOS.
[2018-11-14 20:00] VITALS: BP 124/73
--- NOTE | 2018-11-14 20:28 | NUR ---
NO HHN TREATMENTS GIVEN IN AM SHIFT. Addendum: 11/14/18 at 2028 by JESSIKA REIS RT Amended: Links added.
[2018-11-14] MEDS: GABAPENTIN 400 MG CAPSULE PO SCH (21:19)
[2018-11-14] MEDS: TRAZODONE 50 MG TABLET PO SCH (21:19)
[2018-11-14] MEDS: SENNOSIDES 8.6 MG TABLET PO SCH (21:19)
[2018-11-15] VITALS (7 sets, daily range): BP systolic 97–132; BP diastolic 53–73
[2018-11-15] MEDS: IPRATROPIUM NEB FS 0.5 MG/2.5 ML AMPUL.NEB NEB SCH ×4 (01:56→19:09)
[2018-11-15] MEDS: HYDROCODONE/APAP 10/325MG 1 EA TABLET PO PRN ×3 (02:34→17:07)
[2018-11-15] MEDS: methylPREDNISolone SOD SUCC 40 MG/ML VIAL IV SCH ×3 (05:23→16:50)
[2018-11-15 06:31] LABS: BASOPHILS % (AUTO) 0.1 % (0.0-2.0); HEMATOCRIT 38 % (33-45); HEMOGLOBIN 12.2 g/dL (11.5-14.8); LYMPHOCYTES # (AUTO) 0.8 /CMM (0.8-4.8); LYMPHOCYTES % (AUTO) 7.9 % (20.0-44.0); MEAN CORPUSCULAR HGB CONC 32 g/dl (31.0-36.0); MEAN CORPUSCULAR VOLUME 91 fL (82-100); MONOCYTES # (AUTO) 0.4 /CMM (0.1-1.30); NEUTROPHILS # (AUTO) 8.5 /CMM (1.8-8.9); PLATELET COUNT (AUTO) 344 /CMM (150-450); RED BLOOD CELL COUNT(AUTO) 4.17 MIL/uL (4.0-5.2); WHITE BLOOD COUNT (AUTO) 9.6 K/uL (4.3-11.0)
[2018-11-15 07:06] LABS: CALCIUM, SERUM 8.4 mg/dL (8.5-10.1); CARBON DIOXIDE 31 mmol/L (21-32); CHLORIDE 96 mmol/L (98-107); CREATININE 1.4 mg/dL (0.6-1.3); GLUCOSE 309 mg/dL (74-106); SODIUM SERUM 135 mmol/L (136-145); UREA NITROGEN, BLOOD 31 mg/dL (7-18)
--- NOTE | 2018-11-15 07:15 | NUR ---
RN OPENING NOTES RECEIVED BEDSIDE REPORT, PATIENT AWAKE AND ALERT. ON TELE MONITOR, CONTROLLED AFIB. ON A STRICT I AND O WITH CENTENO WITH CLEAR AND YELLOW URINE. HAS A RIGHT HAND #22 SALINE LOCKED. BEDREST, WAITING FOR PT EVAL PER NOC SHIFT RN. BED LOCKED AND IN LOW POSITION. CALL LIGHT WITHIN REACH. WILL CONTINUE TO MONITOR
[2018-11-15] MEDS: BLOOD SUGAR DIAGNOSTIC 1 EACH STRIP IN SCH ×4 (07:32→21:11)
[2018-11-15] MEDS: INSULIN REGULAR, HUMAN 100 UNIT/ML 3 ML VIAL SQ PRN ×4 (07:35→21:14)
[2018-11-15] MEDS: FLUTICASONE/VILANTEROL 1 EACH BLST.W.DEV IH SCH ×2 (08:32→16:51)
[2018-11-15] MEDS: ASCORBIC ACID 500 MG TABLET PO SCH (08:33)
[2018-11-15] MEDS: MULTIVITAMINS,THERAGRAN 1 UDTAB TABLET PO SCH (08:33)
[2018-11-15] MEDS: AMIODARONE HCL 200 MG TABLET PO SCH ×2 (08:33→16:50)
[2018-11-15] MEDS: GABAPENTIN 300 MG CAPSULE PO SCH ×3 (08:33→16:50)
[2018-11-15] MEDS: PANTOPRAZOLE 40 MG TABLET.DR PO SCH (08:33)
[2018-11-15] MEDS: LEVOTHYROXINE SODIUM 175 MCG TABLET PO SCH (08:33)
[2018-11-15] MEDS: DOCUSATE SODIUM 100 MG CAPSULE PO SCH (08:34)
[2018-11-15] MEDS: INSULIN GLARGINE, 100 UNIT/ML CARTRIDGE SQ SCH ×2 (08:59→21:13)
--- NOTE | 2018-11-15 09:14 | NUR ---
RN NOTES PATIENT COMPLAINED OF GENERALIZED PAIN 7/10, WAS GIVEN NORCO.
--- NOTE | 2018-11-15 16:31 | NUR ---
RN NOTES DAUGHTER ON BEDSIDE, STATES THAT HER MOM WOULD GO TO A DIFFERENT PLACE WHEN GETS DISCHARGED. GOING TO [facility] INSTEAD OF [facility]. DAUGHTER'S NAME IS CHRISTAL . WILL LET PIANO PLAYER AWARE
[2018-11-15] MEDS: RIVAROXABAN 10 MG TABLET PO SCH (16:53)
--- NOTE | 2018-11-15 18:30 | NUR ---
RN CLOSING NOTE PATIENT IN BED AWAKE AND ALERT. ALL MEDS GIVEN. NO COMPLAINS OF ANY PAIN AT THIS TIME. NO SOB NOTED, ON 2L NC. PATIENT REQUESTED FOR BEDSIDE COMMODE, HAD A BM ONCE. HAS CENTENO CATH. HAS A RIGHT HAND #20 SALINE LOCKED. BED LOCKED AND IN LOW POSITION. CALL LIGHT WITHIN REACH. WILL ENDORSE TO NOC SHIFT RN
--- NOTE | 2018-11-15 19:10 | NUR ---
TELE/RN INITIAL NOTES RECEIVED PT IN BED, A/OX4. CONTROLLED AFIB, HR 80S ON TELE. ON 2L O2 VIA NC, NO SOB NOTED. F/C INTACT AND INPLACED, DRAINING CLEAR YELLOW URINE. RHAND G22 HEPLOCK PATENT, C/D/I. CALL LIGHT WITHIN EASY REACH. SAFETY MEASURES IN PLACED. WILL CONT TO MONITOR
[2018-11-15] MEDS: TRAZODONE 50 MG TABLET PO SCH (21:10)
[2018-11-15] MEDS: GABAPENTIN 400 MG CAPSULE PO SCH (21:10)
[2018-11-15] MEDS: SENNOSIDES 8.6 MG TABLET PO SCH (21:11)
[2018-11-16] VITALS (9 sets, daily range): BP systolic 98–121; BP diastolic 61–80
[2018-11-16] MEDS: IPRATROPIUM NEB FS 0.5 MG/2.5 ML AMPUL.NEB NEB SCH ×4 (01:25→19:57)
[2018-11-16] MEDS: HYDROCODONE/APAP 10/325MG 1 EA TABLET PO PRN ×4 (02:19→21:27)
--- NOTE | 2018-11-16 07:02 | NUR ---
RN NOTES PT IN STABLE CONDITION. NO ACUTE CHANGES THROUGHOUT SHIFT. ALL NEEDS ANTICIPATED. SAFETY MEASURES OBSERVED AT ALL TIMES. ENDORSED TO AM SHIFT RN
--- NOTE | 2018-11-16 07:30 | NUR ---
MS/RN Patient received Patient received from shift production supervisor. A/O X3, vital signs within normal range for patient. Call light within reach, will continue to monitor and ensure safety.
[2018-11-16 07:46] LABS: BASOPHILS % (AUTO) 0.3 % (0.0-2.0); HEMATOCRIT 38 % (33-45); HEMOGLOBIN 12.2 g/dL (11.5-14.8); LYMPHOCYTES # (AUTO) 0.7 /CMM (0.8-4.8); LYMPHOCYTES % (AUTO) 8.1 % (20.0-44.0); MEAN CORPUSCULAR HGB CONC 32 g/dl (31.0-36.0); MEAN CORPUSCULAR VOLUME 91 fL (82-100); MONOCYTES # (AUTO) 0.6 /CMM (0.1-1.30); MONOCYTES % (AUTO) 6.7 % (2.0-12.0); NEUTROPHILS # (AUTO) 7.8 /CMM (1.8-8.9); NEUTROPHILS % (AUTO) 84.9 % (43.0-81.0); PLATELET COUNT (AUTO) 334 /CMM (150-450); RED BLOOD CELL COUNT(AUTO) 4.16 MIL/uL (4.0-5.2); WHITE BLOOD COUNT (AUTO) 9.2 K/uL (4.3-11.0)
[2018-11-16 07:57] LABS: CALCIUM, SERUM 8.7 mg/dL (8.5-10.1); CARBON DIOXIDE 36 mmol/L (21-32); CHLORIDE 97 mmol/L (98-107); CREATININE 1.2 mg/dL (0.6-1.3); GLUCOSE 226 mg/dL (74-106); POTASSIUM 4.1 mmol/L (3.5-5.1); SODIUM SERUM 137 mmol/L (136-145); UREA NITROGEN, BLOOD 38 mg/dL (7-18)
[2018-11-16] MEDS: AMIODARONE HCL 200 MG TABLET PO SCH ×2 (08:21→16:43)
[2018-11-16] MEDS: MULTIVITAMINS,THERAGRAN 1 UDTAB TABLET PO SCH (08:22)
[2018-11-16] MEDS: LEVOTHYROXINE SODIUM 175 MCG TABLET PO SCH (08:22)
[2018-11-16] MEDS: methylPREDNISolone SOD SUCC 40 MG/ML VIAL IV SCH ×2 (08:22→16:43)
[2018-11-16] MEDS: ASCORBIC ACID 500 MG TABLET PO SCH (08:22)
[2018-11-16] MEDS: DOCUSATE SODIUM 100 MG CAPSULE PO SCH (08:22)
[2018-11-16] MEDS: PANTOPRAZOLE 40 MG TABLET.DR PO SCH (08:22)
[2018-11-16] MEDS: INSULIN GLARGINE, 100 UNIT/ML CARTRIDGE SQ SCH ×2 (08:26→21:30)
[2018-11-16] MEDS: INSULIN REGULAR, HUMAN 100 UNIT/ML 3 ML VIAL SQ PRN ×4 (08:26→21:29)
[2018-11-16] MEDS: BLOOD SUGAR DIAGNOSTIC 1 EACH STRIP IN SCH ×4 (08:27→21:28)
[2018-11-16] MEDS: GABAPENTIN 300 MG CAPSULE PO SCH ×3 (08:27→16:43)
--- NOTE | 2018-11-16 08:30 | NUR ---
MS/RN Medications Morning medications administered by student nurse with clinical instructor supervising.
--- NOTE | 2018-11-16 08:48 | NUR ---
MS/RN Pain Complaining of back pain 12/29 and requesting pain medication. [place] 5/325mg one tablet administered. Will monitor effectiveness.
[2018-11-16] MEDS: FLUTICASONE/VILANTEROL 1 EACH BLST.W.DEV IH SCH ×2 (08:54→16:46)
--- NOTE | 2018-11-16 11:00 | NUR ---
MS/RN S/B Dr Sousa Seen by MD - patient to be discharged back to facility today to continue with current treatment.
--- NOTE | 2018-11-16 16:00 | NUR ---
MS/management information systems director Per Diana watch caser, patient will remain in the hospital overnight as [facility] are still waiting for authorization from insurance company.
[2018-11-16] MEDS: RIVAROXABAN 10 MG TABLET PO SCH (16:45)
--- NOTE | 2018-11-16 17:00 | NUR ---
MS/RN Blood sugar Blood sugar at 5p - 265, 6 units regulat insulin administered as per sliding scale.
--- NOTE | 2018-11-16 18:24 | NUR ---
MS/RN End note Patient remains in stable condition, all needs attended, will endorse to shift foreman.
--- NOTE | 2018-11-16 19:10 | NUR ---
TELE/RN INITIAL NOTES RECEIVED PT IN BED, A/OX4. ON 2L O2 VIA NC, NO SOB NOTED. F/C INTACT AND INPLACED, DRAINING CLEAR YELLOW URINE. [facility] G22 HEPLOCK PATENT, C/D/I. CALL LIGHT WITHIN EASY REACH. SAFETY MEASURES IN PLACED. WILL CONT TO MONITOR PT IS FOR D/C TO [facility], AWAITING FOR AUTHORIZATION
[2018-11-16] MEDS: GABAPENTIN 400 MG CAPSULE PO SCH (21:27)
[2018-11-16] MEDS: TRAZODONE 50 MG TABLET PO SCH (21:27)
[2018-11-16] MEDS: SENNOSIDES 8.6 MG TABLET PO SCH (21:27)
[2018-11-17] VITALS: BP 103/61
[2018-11-17] MEDS: IPRATROPIUM NEB FS 0.5 MG/2.5 ML AMPUL.NEB NEB SCH ×4 (01:19→19:30)
[2018-11-17 04:00] VITALS: BP 104/67
--- NOTE | 2018-11-17 06:45 | NUR ---
RN NOTES PT IN STABLE CONDITION. NO ACUTE CHANGES THROUGHOUT SHIFT. ALL NEEDS ANTICIPATED. SAFETY MEASURES OBSERVED AT ALL TIMES. ENDORSED TO AM SHIFT RN
--- NOTE | 2018-11-17 07:20 | NUR ---
LOCUM TENENS PSYCHIATRIST OPENING NOTES RECEIVED PT IN BED, A/OX4. ON 2L O2 VIA NC, NO SOB NOTED. F/C INTACT AND INPLACED, DRAINING CLEAR YELLOW URINE. RHAND G22 S/L PATENT, C/D/I. CALL LIGHT WITHIN EASY REACH. SAFETY MEASURES IN PLACED. WILL CONT TO MONITOR PT IS FOR D/C TO [facility], AWAITING FOR AUTHORIZATION
[2018-11-17 08:00] VITALS: BP 113/64
[2018-11-17] MEDS: PANTOPRAZOLE 40 MG TABLET.DR PO SCH (08:15)
[2018-11-17] MEDS: DOCUSATE SODIUM 100 MG CAPSULE PO SCH (08:15)
[2018-11-17] MEDS: MULTIVITAMINS,THERAGRAN 1 UDTAB TABLET PO SCH (08:15)
[2018-11-17] MEDS: ASCORBIC ACID 500 MG TABLET PO SCH (08:15)
[2018-11-17] MEDS: methylPREDNISolone SOD SUCC 40 MG/ML VIAL IV SCH ×2 (08:16→17:53)
[2018-11-17] MEDS: GABAPENTIN 300 MG CAPSULE PO SCH ×3 (08:16→17:52)
[2018-11-17] MEDS: AMIODARONE HCL 200 MG TABLET PO SCH ×2 (08:17→17:52)
[2018-11-17] MEDS: BLOOD SUGAR DIAGNOSTIC 1 EACH STRIP IN SCH ×3 (08:17→17:53)
[2018-11-17] MEDS: LEVOTHYROXINE SODIUM 175 MCG TABLET PO SCH (08:19)
[2018-11-17] MEDS: HYDROCODONE/APAP 10/325MG 1 EA TABLET PO PRN ×2 (08:44→18:08)
[2018-11-17] MEDS: INSULIN REGULAR, HUMAN 100 UNIT/ML 3 ML VIAL SQ PRN ×3 (08:45→17:58)
[2018-11-17] MEDS: FLUTICASONE/VILANTEROL 1 EACH BLST.W.DEV IH SCH (09:46)
[2018-11-17] MEDS: INSULIN GLARGINE, 100 UNIT/ML CARTRIDGE SQ SCH (09:47)
[2018-11-17 12:00] VITALS: BP 106/54
[2018-11-17 16:00] VITALS: BP 118/65
[2018-11-17] MEDS: RIVAROXABAN 10 MG TABLET PO SCH (17:54)
--- NOTE | 2018-11-17 19:10 | NUR ---
MS RN NOTES RECEIVED PT IN BED AWAKE AND ABLE TO MAKE NEEDS KNOWN. PT A/O X4. RESPIRATIONS EVEN AND SLIGHTLY LABORED WITH NO S/S OF ACUTE DISTRESS OR SOB NOTED. ELEVATED HOB FOR EASIER BREATHING. NO COMPLAINTS OF PAIN AT THIS TIME. AND #22G PATENT AND INTACT. SAFETY MEASURES IN PLACE WITH BED IN LOWEST LOCKED POSITION WITH SIDE RAILS UP X2. CALL LIGHT WITHIN REACH. WILL CONTINUE TO MONITOR.
--- NOTE | 2018-11-17 19:21 | NUR ---
RN MS CLOSING NOTES REPORT GIVEN TO [facility] SHIFT RN. PT IN BED, A/OX4. ON 2L O2 VIA NC, NO SOB NOTED. F/C INTACT AND INPLACED, DRAINING CLEAR YELLOW URINE. RHAND G22 S/L PATENT, C/D/I. CALL LIGHT WITHIN EASY REACH. SAFETY MEASURES IN PLACED. WILL ENDORSE CONTINUITY OF CARE TO OR ASSISTANT RN. REPORT GIVEN TO RN STAFF THERAPIST MIHAI AT [facility].
[2018-11-17 20:00] VITALS: BP 124/75
--- NOTE | 2018-11-17 20:50 | NUR ---
MS FINANCIAL COST ANALYST PT A/O X4 AND ABLE TO MAKE NEEDS KNOWN IN STABLE CONDITION. PT BEING DISCHRAGED TO [facility]. DISCHARGE INSTRUCTIONS REVIEWED WITH PT WELL RN MIHAI AND BOTH VERBALIZED UNDERSTANDING. ALL BELONGINGS WITH PT AND DENIED MISSING ITEMS. VSS, DENIES PAIN, AFEBRILE, NO C/O SOB. NO FALL/INJURY DURING HOSPITAL STAY. SALINE LOCK REMOVED ON RIGHT HAND WITH CATHETER TIP INTACT AND NO REDNESS OR SWELLING AT SITE. DISCHARGE PHOTOS TAKEN. DISCHARGE PAPERS SENT WITH AMBULANCE. CHRISTAL AWARE OF DISCHARGE.
[2018-11-18] MEDS ORDERED: FLUTICASONE/VILANTEROL 1 EACH BLST.W.DEV IH SCH (09:00)
== END 2018-11-17 21:40 | DRG 140 ==
LOC: ER 18:30 → TELE1 20:54 → MEDSG1 11-17 17:50
PROVIDERS: ATTEND Internal Medicine
DX: J44.1 Chronic obstructive pulmonary disease with (acute) exacerbation (principal); J96.21 Acute and chronic respiratory failure with hypoxia; I50.33 Acute on chronic diastolic (congestive) heart failure; E44.0 Moderate protein-calorie malnutrition; D68.59 Other primary thrombophilia; E11.65 Type 2 diabetes mellitus with hyperglycemia; E11.22 Type 2 diabetes mellitus with diabetic chronic kidney disease; I48.0 Paroxysmal atrial fibrillation; E66.01 Morbid (severe) obesity due to excess calories; I13.0 Hypertensive heart and chronic kidney disease with heart failure and stage 1 through stage 4 chronic kidney disease, or unspecified chronic kidney disease; I48.92 Unspecified atrial flutter; E83.42 Hypomagnesemia; E03.9 Hypothyroidism, unspecified; Z99.81 Dependence on supplemental oxygen; E78.5 Hyperlipidemia, unspecified; I25.10 Atherosclerotic heart disease of native coronary artery without angina pectoris; K21.9 Gastro-esophageal reflux disease without esophagitis; Z79.4 Long term (current) use of insulin; Z87.01 Personal history of pneumonia (recurrent); Z87.891 Personal history of nicotine dependence; G47.33 Obstructive sleep apnea (adult) (pediatric); Z68.42 Body mass index [BMI] 45.0-49.9, adult; E88.09 Other disorders of plasma-protein metabolism, not elsewhere classified; L30.4 Erythema intertrigo; L98.8 Other specified disorders of the skin and subcutaneous tissue; N18.9 Chronic kidney disease, unspecified
CPT/HCPCS: 36415; 71045-TC; 80048-TC; 80061-TC; 80076-TC; 82962-TC; 83735-TC; 83880; 84100-TC; 84443-TC; 84484-TC; 85025-TC; 85730-TC; 87081-TC; 94799-TC; 97530-TC; G0378; J1815; J1940; J2920; J3475; J7030

== ENCOUNTER 2019-04-10 01:10 | Inpatient (IN) | payer MEDICARE, MEDICAID ==
[~2019-04-10] VITALS: Ht 165.1 cm; Wt 127.0 kg
[~2019-04-10 01:10] MED LIST changes: -ACET325T53 PO; -ALBU18HF2 IH; +ALBU2.5V13 IH; -DIPH50CA4 PO; +FLUT1BLS IH; -FLUT1DIS3 IH; +HYDR-4354 PO; -HYDR-4385 PO; -INSU100V11 SQ; +INSU100V3 SQ; +IPRA0.2S9 IH; -PRED10TA PO; -PRED20TA PO; +RIVA10TA PO; -Rivaroxaban PO; +TIOT18CA3 IH
[2019-04-10 01:51] LABS: BASOPHILS # (AUTO) 0.1 /CMM (0.0-0.2); EOSINOPHILS % (AUTO) 2.5 % (0.0-6.0); HEMATOCRIT 37 % (33-45); HEMOGLOBIN 11.7 g/dL (11.5-14.8); LYMPHOCYTES # (AUTO) 1.3 /CMM (0.8-4.8); LYMPHOCYTES % (AUTO) 26.9 % (20.0-44.0); MEAN CORPUSCULAR HGB CONC 32 g/dl (31.0-36.0); MEAN CORPUSCULAR VOLUME 93 fL (82-100); MONOCYTES # (AUTO) 0.5 /CMM (0.1-1.30); MONOCYTES % (AUTO) 9.2 % (2.0-12.0); NEUTROPHILS % (AUTO) 60.4 % (43.0-81.0); PLATELET COUNT (AUTO) 233 /CMM (150-450); RED BLOOD CELL COUNT(AUTO) 3.95 MIL/uL (4.0-5.2); WHITE BLOOD COUNT (AUTO) 4.9 K/uL (4.3-11.0)
--- NOTE | 2019-04-10 01:56 | NUR ---
FELI FROM HOME TO ER BED 8. AAOX3. NO RESP DISTRESS NOTED, BREATHING EVEN AND UNLABORED. BROUGHT IN FOR DESATURATION ON RA AT [facility]. PER EMS REPORT, PT DESATTED AND EMS WAS CALLED. UPPON ARRIVAL, EMS NOTED THE PT WAS SATTING @ 95% ON RA. W/O NOTING ANY DISTRESS. PT WAS PLACED ON 02 VIA NC @ 2LPM AND SATTING @ 97%. PT CONTINUED TO BE PLACED ON 02 VIA NC. WAS AT BEDSIDE FOR EVAL. IV LINE OBTAINED ON L AC 20G. BLOOD DRAWN AND SENT TO LAB. XRAY DONE AT BEDSIDE
[2019-04-10 02:01] LABS: CALCIUM, SERUM 8.9 mg/dL (8.5-10.1); CARBON DIOXIDE 38 mmol/L (21-32); CHLORIDE 98 mmol/L (98-107); CREATININE 1.2 mg/dL (0.6-1.3); GLUCOSE 129 mg/dL (74-106); POTASSIUM 4.7 mmol/L (3.5-5.1); SODIUM SERUM 135 mmol/L (136-145); UREA NITROGEN, BLOOD 21 mg/dL (7-18)
[2019-04-10 02:13] LABS: ALANINE AMINOTRANSFERASE 13 U/L (12-78); ALKALINE PHOSPHATASE 48 U/L (46-116); ASPARTATE AMINOTRANSFERASE 13 U/L (15-37); B-TYPE NATRIURETIC PEPTIDE 994 PG/ML (0-125); BILIRUBIN,DIRECT 0.1 mg/dL (0.0-0.2); BILIRUBIN,TOTAL 0.3 mg/dL (0.2-1.0); TOTAL PROTEIN, SERUM 7.4 g/dL (6.4-8.2)
--- NOTE | 2019-04-10 02:16 | NUR ---
URINE COLLECTED AND SENT OT LAB
[2019-04-10 02:20] LABS: APPEARANCE,URINE Cloudy (CLEAR); BILIRUBIN,URINE Negative (NEGATIVE); BLOOD, URINE Negative Ery/uL (NEGATIVE); COLOR,URINE Light yellow (YELLOW); KETONES,URINE Negative (NEGATIVE); LEUKOCYTE ESTERASE ,URINE Trace (NEGATIVE); NITRITE, URINE Positive (NEGATIVE); PROTEIN,URINE Negative (NEGATIVE); UGLUCOSE Negative (NEGATIVE); UROBILINOGEN,URINE 0.2 EU/dL (0.2)
[2019-04-10] MEDS ORDERED: CEFTRIAXONE 1GM BAG (ER ONLY) 50 ML IV ONE (02:50)
[2019-04-10] MEDS ORDERED: Z GUARD REMEDY 2 OZ OINT TP PRN (03:00)
[2019-04-10] MEDS ORDERED: ONDANSETRON HCL/PF 4 MG/2 ML VIAL IVP PRN (03:00)
[2019-04-10] MEDS ORDERED: ACETAMINOPHEN 325 MG TABLET PO PRN (03:00)
[2019-04-10] MEDS ORDERED: CEFTRIAXONE 1GM BAG (ER ONLY) 1 GM/50 ML PIGGYBACK IV ONE (03:00)
[2019-04-10] MEDS ORDERED: ZOLPIDEM TARTRATE 5 MG TABLET PO PRN (03:00)
[2019-04-10] MEDS ORDERED: FUROSEMIDE 40 MG/4 ML VIAL IV ONE (03:00)
[2019-04-10 03:12] LABS: BACTERIA,URINE Moderate /HPF (None Seen); RBC,URINE 0-2 /HPF (0-2); SQUAMOUS EPITHELIAL CELL,UR Moderate /HPF (None Seen)
--- NOTE | 2019-04-10 04:30 | NUR ---
REPORT GIVEN TO JOMAR JIMENEZ.
--- NOTE | 2019-04-10 04:31 | NUR ---
roofer vinyl coating notes Received report from BARBARA Zapata
--- NOTE | 2019-04-10 04:40 | NUR ---
PT TRANSPORTED TO UNIT ON GURNEY WITH EMT AND RN AT BEDSIDE W/ ACLS PROTOCOL. NAD NOTED DURING TRANSPORT.
[2019-04-10 04:45] VITALS: BP 136/76
--- NOTE | 2019-04-10 05:00 | NUR ---
assembler handbagsbliss press operator notes Received Pt from ER Nurse BARBARA Almodovar. Pt arrived at the unit with a gurney with ACLS protocol. Pt is 78 Y O Female with a diagnose of CHF by Dr. Graham. Pt is alert and oriented x3. Respiration is normal in 3 L NC. No SOB. No nausea or vomiting. Pt denies any pain or discomfort at this time. IV sites at LAC # 20 is clean, intact, patent and SL. VS is stable. Tele monitor showed normal sinus rhytm. Skin assessment done and pictures taken and placed in Pt's chart. Kept Pt clean, dry, warm and comfortable. Instructed to call. Safety precautions is maintained. Bed at low position, brakes locked, side rails upX3, bed alarm is on and call light is within reach. Received admission ordered from Dr. Graham. Will continue to monitor.
--- NOTE | 2019-04-10 06:50 | NUR ---
scientific editor notes Pt is sleeping in bed comfortably. Awaken easily. Respiration is normal. O2 sat is 96% in 3 L NC. No SOB. No nausea or vomiting. No S/S of distress noted. IV sites at LAC#20 is clean, intact and patent. VS is stable. Kept Pt clean, dry, warm and comfortable. Instructed to call. Safety precautions is maintained. Bed at low position, brakes locked, side rails upX3, call light is within reach and bed alarm is on. Will endorse to morning nurse for CARLOS.
[2019-04-10 07:07] LABS: BASOPHILS % (AUTO) 0.4 % (0.0-2.0); HEMATOCRIT 40 % (33-45); HEMOGLOBIN 12.5 g/dL (11.5-14.8); LYMPHOCYTES # (AUTO) 1.3 /CMM (0.8-4.8); MEAN CORPUSCULAR HGB CONC 31 g/dl (31.0-36.0); MEAN CORPUSCULAR VOLUME 93 fL (82-100); MONOCYTES # (AUTO) 0.3 /CMM (0.1-1.30); MONOCYTES % (AUTO) 8.3 % (2.0-12.0); NEUTROPHILS # (AUTO) 2.4 /CMM (1.8-8.9); NEUTROPHILS % (AUTO) 56.3 % (43.0-81.0); PLATELET COUNT (AUTO) 228 /CMM (150-450); RED BLOOD CELL COUNT(AUTO) 4.29 MIL/uL (4.0-5.2); WHITE BLOOD COUNT (AUTO) 4.2 K/uL (4.3-11.0)
--- NOTE | 2019-04-10 07:17 | NUR ---
RN OPENING NOTE PT WAS RECEIVED IN BED AT LOWEST AND LOCKED POSITION WITH SIDE RAILS UPX2, A/O X2-3 BREATHING IS EVEN BUT APPEARS SLIGHTLY LABORED ON 3L VIA NC, NO S/S OF ANY PAIN OR DISTRESS AT THIS TIME, ON TELE MONITOR SHOWING SR 80S, IV IS PATENT AND INTACT, SAFETY PRECAUTIONS IN PLACE, CALL LIGHT IN REACH, WILL MONITOR ACCORDINGLY
[2019-04-10 07:22] LABS: CREATININE 1.1 mg/dL (0.6-1.3); MAGNESIUM 2.2 mg/dL (1.8-2.4); PHOSPHORUS 4.8 mg/dL (2.5-4.9); POTASSIUM 4.6 mmol/L (3.5-5.1)
[2019-04-10] MEDS ORDERED: MULT-447 PO (07:42)
[2019-04-10] MEDS ORDERED: MAGN400O6 PO (07:42)
[2019-04-10] MEDS ORDERED: NA P133E RC (07:42)
[2019-04-10] MEDS ORDERED: CALC-494 PO (07:42)
[2019-04-10] MEDS ORDERED: BISA10SU11 RC (07:42)
[2019-04-10] MEDS ORDERED: IPRA3AMP23 IH (07:42)
[2019-04-10] MEDS ORDERED: ALBU8.5H8 IH ×2 (07:42)
[2019-04-10] MEDS ORDERED: INSU100V7 SQ (07:42)
[2019-04-10 08:00] VITALS: BP 118/88
[2019-04-10 12:00] VITALS: BP 132/81
[2019-04-10 16:00] VITALS: BP 142/82
--- NOTE | 2019-04-10 18:26 | NUR ---
RN CLOSING NOTE PT IN BED AT LOWEST AND LOCKED POSITION WITH SIDE RAILS UPX2, A/O X3 BREATHING IS EVEN AND UNLABORED ON 3L VIA NC, NO COMPLAINTS OF ANY PAIN OR DISTRESS AT THIS TIME, ON TELE MONITOR SHOWING SR 66, IV IS PATENT AND INTACT, SAFETY PRECAUTIONS IN PLACE, CALL LIGHT IN REACH, ALL NEEDS ATTENDED TO, WILL ENDORSE TO NIGHT RN FOR CARLOS.
--- NOTE | 2019-04-10 19:30 | NUR ---
CRAY FISHING HAND OPENING NOTES PATIENT IN BED AT THE MOMENT WITH VALENTINO, ADVISED CNA LTC FOR ANY BREATHING TREATMENTS. PATIENT IS ON 3L OF O2 WITH 90% O2 SAT. OTHERWISE PATIENT DOES NOT COMPLAIN OF ANY OTHER DISCOMFORT. PATIENT HAS A LAC #20G SL, PATENT AND FLUSHING. PATIENT STATES SHE IS UNABLE TO AMBULATE AND IS ON BEDREST. ALL SAFETY PRECAUTIONS APPLIED. CALL LIGHT WITHIN REACH, BED LOCKED IN LOW POSITION, AND SIDE RAILS UP X3. WILL CONTINUE TO MONITOR PATIENT.
[2019-04-10 20:00] VITALS: BP 126/71
--- NOTE | 2019-04-10 20:55 | NUR ---
RN NOTE PAGED FILTER PLANT OPERATOR DR. CHRISTIE ELECTROMEDICAL SERVICE ENGINEER. NOTIFIED ABOUT PATIENT HAVING SOB. ORDERED ALBUTEROL 2.5MG AND ATROVENT [id number] PRN.
[2019-04-10] MEDS ORDERED: IPRATROPIUM NEB FS 0.5 MG/2.5 ML AMPUL.NEB NEB PRN (21:00)
[2019-04-10] MEDS ORDERED: ALBUTEROL FS 2.5 MG/3 ML VIAL.NEB NEB PRN (21:00)
[2019-04-10] MEDS ORDERED: FUROSEMIDE 20 MG/2 ML VIAL IV SCH (21:30)
--- NOTE | 2019-04-10 22:37 | NUR ---
RN NOTE OFFERED PATIENT BREATHING TREATMENTS BUT PATIENT REFUSED.
[2019-04-11] VITALS: BP 131/81
[2019-04-11] MEDS: CEFTRIAXONE 1 G in IV D5W 50 ML IV SCH ×2 (00:17→21:27)
[2019-04-11] MEDS: HYDROCODONE/APAP 5/325MG 1 EACH TABLET PO PRN ×2 (00:19→19:39)
[2019-04-11 04:00] VITALS: BP 138/71
--- NOTE | 2019-04-11 07:24 | NUR ---
CREDIT PORTFOLIO ADVISOR CLOSING NOTE PATIENT IN BED ASLEEP WITH NO SIGN OF ANY DISTRESS. PATIENT SEEMS TO BE TOLERATING 3L OF O2 WITH SAT OF 93%. ALL SAFETY PRECAUTIONS HAVE BEEN APPLIED. ENDORSED PATIENT TO MORNING NURSE.
--- NOTE | 2019-04-11 07:30 | NUR ---
RAINBOW TROUT FARM MANAGER AM NOTES RECEIVED PATIENT IN BED, AWAKE,,ALERT,ORIENTED X 3, ON 3L NASAL CANULA, DENIES SOB, PER CLAIMS ADJUSTER SUPERVISOR REFUSED BREATHING TREATMENTS, SINUS RHYTHM ON TELE MONITOR, DENIES CHEST PAIN OR DISCOMFORT AT THIS TIME. LAC G20 FLUSHES WELL, SITE CLEAR. PATIENT STATES SHE IS UNABLE TO TURN AND NEEDS ASSIST. ALSO REFUSES TO HAVE HOB ELEVATED. ON CARDIAC DIET. ALL SAFETY PRECAUTIONS APPLIED. CALL LIGHT WITHIN REACH, BED LOCKED IN LOW POSITION, AND SIDE RAILS UP X3. WILL CONTINUE TO MONITOR PATIENT. MED RECON NOT DONE WILL FOLLOW UP WITH MD.
[2019-04-11 08:00] VITALS: BP 131/72
--- NOTE | 2019-04-11 10:30 | NUR ---
ELECTROMECHANICAL TECHNOLOGIST NOTES DR. ZENG AT BEDSIDE INFORMED ABOUT PATIENT'S HOME MEDS NOT RECONCILED YET.
--- NOTE | 2019-04-11 11:20 | NUR ---
BATTERY WRECKER OPERATOR NOTES DR. ZENG NOTIFIED AGAIN REGARDING MED RECONCILIATION. PER HIM, HE SAID HE WILL DO IT. CHARGE NURSE SOON AWARE. CLARA AT PHARMACY MADE AWARE.
[2019-04-11 12:00] VITALS: BP 144/82
[2019-04-11 16:00] VITALS: BP 128/82
[2019-04-11] MEDS ORDERED: IPRATROPIUM NEB FS 0.5 MG/2.5 ML AMPUL.NEB NEB PRN (16:30)
[2019-04-11] MEDS: ALBUTEROL FS 2.5 MG/3 ML VIAL.NEB NEB SCH ×3 (17:03→23:12)
[2019-04-11 17:04] LABS: ABG BASE EXCESS 6.3 mmol/L; ABG OXYGEN SATURATION 92.7 % (92.0-98.5); ABG PCO2 48.4 mmHg (35.0-45.0); ABG PH 7.433 (7.350-7.450); ABG PO2 64.8 mmHg (75.0-100.0); AaDO2 106.7 mmHg; COHb 1.8 % (0.5-1.5); MetHb 0.1 % (0.0-1.5); O2Hb 90.9 % (94.0-97.0); SITE, ABG Right Radial; VENT MODE, BG Nasal Cannula
[2019-04-11] MEDS: IPRATROPIUM NEB FS 0.5 MG/2.5 ML AMPUL.NEB NEB SCH ×3 (17:04→23:12)
--- NOTE | 2019-04-11 18:30 | NUR ---
AIR VALUE TESTER CLOSING NOTES PATIENT IN BED, AWAKE,ALERT,ORIENTED X 3, ON 3L NASAL CANULA, SOB WHEN BEING CLEANED AND TURNING, SINUS RHYTHM ON TELE MONITOR, DENIES CHEST PAIN OR DISCOMFORT AT THIS TIME. LAC G20 FLUSHES WELL, SITE CLEAR. PM CARE DONE, NEEDS TO ADJUST HOB FROM TIME TO TIME. ON CARDIAC DIET, NEEDS MINIMAL ASSIST. ALL SAFETY PRECAUTIONS APPLIED. CALL LIGHT WITHIN REACH, BED LOCKED IN LOW POSITION, AND SIDE RAILS UP X3. ALL NEEDS MET FOR NOW. CALL LIGHT WITHIN REACH, WILL ENDORSE TO NEXT SHIFT FOR CARLOS.
--- NOTE | 2019-04-11 19:40 | NUR ---
PROPOSAL SPECIALIST NOTE PT IN BED AWAKE. A/O X 3, NO SOB NOTED. PT C/O LOWER BACK BACK 01/29, NORCO 1 TAB PO GIVEN. ON TELE SR 74. SL LAC #20 G INTACT AND PATENT. VSS. ALL NEEDS ATTENDED. SIDE RAILS UP X 2 AND CALL LIGHT WITHIN REACH. CONTINUE TO MONITOR HER.
[2019-04-11 20:00] VITALS: BP 137/81
[2019-04-11] MEDS ORDERED: FUROSEMIDE 20 MG/2 ML VIAL IV ONE (21:30)
--- NOTE | 2019-04-11 23:23 | NUR ---
PARAGLIDING INSTRUCTOR NOTE PT IN BED ASLEEP, NO DISTRESS OR DISCOMFORT NOTED. ENDORSE TO NURSE DUCKWORTH FOR CONTINUE TO CARE.
--- NOTE | 2019-04-11 23:31 | NUR ---
HAND MIXER NOTES, RECEIVED PATIENT FROM BARBARA RUBY FOR CONTINUATION OF CARE, PATIENT AWAKE AT THIS TIME, BREATHING EVEN AND UNLABORED, NO SOB/SCUTE DISTRESS NOTED AT THIS TIME, ON O2 2LPM VIA NC, LEFT AC 20G IV ACCESS, PATENT AND INTACT, NO IVF AT THIS TIME, ALL SAFETY MEASURES IN PLACED, CALL LIGHT W/I REACH, 2 S/R OF BED UP FOR REPOSITIONING, WILL CONTINUE TO MONITOR CLOSELY.
[2019-04-12] VITALS: BP 144/82
[2019-04-12] MEDS: HYDROCODONE/APAP 5/325MG 1 EACH TABLET PO PRN ×2 (00:16→10:03)
[2019-04-12] MEDS: ALBUTEROL FS 2.5 MG/3 ML VIAL.NEB NEB SCH ×6 (03:30→23:39)
[2019-04-12] MEDS: IPRATROPIUM NEB FS 0.5 MG/2.5 ML AMPUL.NEB NEB SCH ×6 (03:30→23:39)
[2019-04-12 04:00] VITALS: BP 136/82
--- NOTE | 2019-04-12 06:55 | NUR ---
BRAND LEAD NOTES, PATENT WITH SOB AFTER CHANGE AND REPOSITIONED, DAUGHTER AND PATIENT REQUESTING QVAR, PER THEM PATIENT FEELS RELIEVE BETTER WITH QVAR THAN WITH HHN, INFORMED BREE AND REPLIED WITH ORDER FOR THAT, REFER TO TO MAR PLEASE.
--- NOTE | 2019-04-12 06:59 | NUR ---
RN MS CLOSING NOTES, PATIENT SLEEPING AT THIS TIME, NO SOB/ACUTE DISTRESS NOTED, NO SIGNIFICANT CHANGE IN CONDITION DURING THE NIGHT, WILL ENDORSE CONTINUITY OF CARE TO ONCOMING NURSE.
--- NOTE | 2019-04-12 07:15 | NUR ---
Tele/RN - Assessment Patient is A/O x 3, no complaints overnight, denies chest pain at this time, no c/o SOB, on oxygen at 2lpm via NC, tele shows NSR. Saline lock on the LAC is patent and intact with no signs of infiltration. Patient on Rocephin for UTI. Fall precautions maintained. All needs attended and met. Will continue with current plan of care.
[2019-04-12 08:00] VITALS: BP 134/70
[2019-04-12 16:00] VITALS: BP 124/74
--- NOTE | 2019-04-12 18:23 | NUR ---
MS/RN - End of shift summary No significant change in condition noted, remain afebrile, no c/o SOB, denies pain, still with poor appetite. Anticipate discharge back to SNF if stable overnight. Will continue with current medical management.
--- NOTE | 2019-04-12 19:00 | NUR ---
MS RN OPENING NOTES RECEIVED PATIENT IN BED, ALERT, ORIENTED X 3. BREATHING EVEN AND UNLABORED, NOT IN ANY DISTRESS. ON SUPPLEMENTAL O2 AT 2L VIA NASAL CANNULA. NO COMPLAINTS AT THIS TIME. SAFETY MEASURES IN PLACE. CALL LIGHT WITHIN EASY REACH. BED IN LOWEST, LOCKED POSITION. WILL CONTINUE TO MONITOR ACCORDINGLY
[2019-04-12 20:00] VITALS: BP 141/73
[2019-04-12] MEDS ORDERED: [UNRECOGNIZED DRUG - OTHER] NS SCH (21:00)
--- NOTE | 2019-04-12 21:13 | NUR ---
RN NOTES BECLOMETHASONE SPRAY NOT GIVEN DRUG IS NOT AVAILABLE IN THE UNIT. CALLED PHARMACY EARLIER AND TALKED TO AXEL, HE SAID WE DON'T HAVE IT YET, HE ORDERED IT THIS MORNING. DRUG WILL BE AVAILABLE TOMORROW
[2019-04-12] MEDS: CEFTRIAXONE 1 G in IV D5W 50 ML IV SCH (21:15)
[2019-04-13] MEDS: IPRATROPIUM NEB FS 0.5 MG/2.5 ML AMPUL.NEB NEB SCH ×7 (03:30→23:15)
[2019-04-13] MEDS: ALBUTEROL FS 2.5 MG/3 ML VIAL.NEB NEB SCH ×7 (03:30→23:16)
[2019-04-13 04:00] VITALS: BP 145/79
--- NOTE | 2019-04-13 06:28 | NUR ---
MS RN CLOSING NOTES Patient still sleeping in bed, easily arousable. No significant change in condition overnight. No complaints of pain or discomfort at this time. Kept clean and dry. All cares attended and anticipated. Safety measures in place; call light within reach, bed in lowest locked position. Will endorse CARLOS to oncoming RN
[2019-04-13 06:52] LABS: BASOPHILS % (AUTO) 0.5 % (0.0-2.0); EOSINOPHILS % (AUTO) 1.2 % (0.0-6.0); HEMATOCRIT 41 % (33-45); HEMOGLOBIN 13.3 g/dL (11.5-14.8); LYMPHOCYTES # (AUTO) 1.1 /CMM (0.8-4.8); LYMPHOCYTES % (AUTO) 20.5 % (20.0-44.0); MEAN CORPUSCULAR HGB CONC 32 g/dl (31.0-36.0); MEAN CORPUSCULAR VOLUME 90 fL (82-100); MONOCYTES # (AUTO) 0.6 /CMM (0.1-1.30); MONOCYTES % (AUTO) 12.3 % (2.0-12.0); NEUTROPHILS # (AUTO) 3.4 /CMM (1.8-8.9); NEUTROPHILS % (AUTO) 65.5 % (43.0-81.0); PLATELET COUNT (AUTO) 248 /CMM (150-450); RED BLOOD CELL COUNT(AUTO) 4.57 MIL/uL (4.0-5.2); WHITE BLOOD COUNT (AUTO) 5.2 K/uL (4.3-11.0)
[2019-04-13 07:24] LABS: CALCIUM, SERUM 9.1 mg/dL (8.5-10.1); CREATININE 1.1 mg/dL (0.6-1.3); POTASSIUM 3.4 mmol/L (3.5-5.1)
[2019-04-13 08:00] VITALS: BP 140/91
[2019-04-13] MEDS ORDERED: POTASSIUM CHLORIDE 20 MEQ TAB.PRT.SR PO ONE (08:00)
--- NOTE | 2019-04-13 08:15 | NUR ---
RN NOTE PT CO BEING SICK TO THE STOMACH, NAUSEA. PER PT LAST BM WAS 2 DAYS AGO, ALL ABDOMEN IS PAINFUL. REFUSED BREAKFAST. ZOFRAN GIVEN. WILL MONITOR RESPONSE.
--- NOTE | 2019-04-13 08:39 | NUR ---
PT REFUSED RESP TX ATT. NO S/S OF SOB NOTED ATT. Addendum: 04/13/19 at 0840 by ROS CALHOUN RT Amended: Links added.
--- NOTE | 2019-04-13 09:06 | NUR ---
rn note paged KAY Almaraz for pt co abdominal pain, nausea. no call back yet.
--- NOTE | 2019-04-13 09:30 | NUR ---
rn note reminded primary hospitalist to review home meds, he said he will do.
[2019-04-13] MEDS: HYDROCODONE/APAP 5/325MG 1 EACH TABLET PO PRN (10:12)
--- NOTE | 2019-04-13 10:32 | NUR ---
rn note spoke with KAY Almaraz, reported abdominal pain 10/10, nausea, he ordered KUB. will order and follow up.
[2019-04-13] MEDS: [UNRECOGNIZED DRUG - OTHER] NS SCH ×3 (12:27→20:40)
[2019-04-13] MEDS ORDERED: BISACODYL SUPP (10 MG) 10 MG/SUPP.RECT SUPP.RECT RC PRN (12:30)
--- NOTE | 2019-04-13 12:30 | NUR ---
rn note spoke with KAY Almaraz, about KUB result. orders put for dulcolax., pt's daughter expressed concern stating "my mom is not herself, confused, I am concerned if she is going to be discharged today". let daughter know that I will notify .
[2019-04-13] MEDS ORDERED: BISACODYL (5 MG) 5 MG TABLET.DR PO PRN (14:30)
[2019-04-13 16:00] VITALS: BP 132/74
[2019-04-13] MEDS: MEGESTROL ACETATE 40 MG TABLET PO SCH (16:25)
--- NOTE | 2019-04-13 19:20 | NUR ---
RN MS NOTES, RECEIVED PATIENT IN BED, ASLEEP AT THIS TIME, BUT EASILY AROUSES TO VERBAL STIMULI, BREATHING EVEN AND UNLABORED, NO SOB/SCUTE DISTRESS NOTED AT THIS TIME, ON O2 2LPM VIA NC, NO S/S OF PAIN OR DISCOMFORT AT THIS TIME, NO FACIAL GRIMACING NOTED AT THIS TIME, LEFT AC 20G IV ACCESS, PATENT AND INTACT, NO IVF AT THIS TIME, ALL SAFETY MEASURES IN PLACED, CALL LIGHT W/I REACH, 2 S/R OF BED UP FOR REPOSITIONING, WILL CONTINUE TO MONITOR CLOSELY.
[2019-04-13 20:00] VITALS: BP 143/84
[2019-04-13] MEDS: CEFTRIAXONE 1 G in IV D5W 50 ML IV SCH (21:23)
[2019-04-14] MEDS: IPRATROPIUM NEB FS 0.5 MG/2.5 ML AMPUL.NEB NEB SCH ×4 (03:32→15:12)
[2019-04-14] MEDS: ALBUTEROL FS 2.5 MG/3 ML VIAL.NEB NEB SCH ×4 (03:33→15:12)
[2019-04-14 04:00] VITALS: BP 133/74
--- NOTE | 2019-04-14 06:49 | NUR ---
RN MS NOTES, PATIENT ASLEEP AT THIS TIME, BUT EASILY AROUSES TO VERBAL STIMULI, ABLE TO VERBALIZED NEEDS, BREATHING EVEN AND UNLABORED, NO DISTRESS/SOB NOTED, NO SIGNIFICANT CHANGE IN CONDITION DURING THE NIGHT, WILL ENDORSE CONTINUITY OF CARE TO ONCOMING NURSE.
[2019-04-14 07:18] LABS: CALCIUM, SERUM 8.8 mg/dL (8.5-10.1); POTASSIUM 4.4 mmol/L (3.5-5.1)
[2019-04-14 07:21] LABS: BASOPHILS % (AUTO) 0.8 % (0.0-2.0); EOSINOPHILS % (AUTO) 2.1 % (0.0-6.0); HEMATOCRIT 44 % (33-45); HEMOGLOBIN 13.9 g/dL (11.5-14.8); MEAN CORPUSCULAR HGB CONC 32 g/dl (31.0-36.0); MEAN CORPUSCULAR VOLUME 91 fL (82-100); MONOCYTES # (AUTO) 0.7 /CMM (0.1-1.30); NEUTROPHILS # (AUTO) 3.7 /CMM (1.8-8.9); NEUTROPHILS % (AUTO) 67.1 % (43.0-81.0); PLATELET COUNT (AUTO) 248 /CMM (150-450); RED BLOOD CELL COUNT(AUTO) 4.84 MIL/uL (4.0-5.2); WHITE BLOOD COUNT (AUTO) 5.6 K/uL (4.3-11.0)
--- NOTE | 2019-04-14 07:40 | NUR ---
M/S RN NOTES PATIENT RESTING, LYING IN BED , NO RESPIRATORY DISTRESS, NO C/O PAIN AT THIS TIME. SKIN WARM TO TOUCH. IV ACCESS SITE INTACT AND PATENT. PATIENT'S NEEDS ATTENDED. BED ON LOWEST LOCKED POSITION, CALL LIGHT WITHIN REACH. WILL CONTINUE TO MONITOR.
[2019-04-14 08:00] VITALS: BP 135/81
[2019-04-14] MEDS: MEGESTROL ACETATE 40 MG TABLET PO SCH ×2 (08:16→17:44)
[2019-04-14] MEDS: [UNRECOGNIZED DRUG - OTHER] NS SCH ×2 (08:17→17:44)
[2019-04-14] MEDS ORDERED: NITR100C6 PO (11:33)
--- NOTE | 2019-04-14 15:51 | NUR ---
M/S RN NOTES GAVE DISCHARG REPORT TO BARBARA MALDONADO AT [facility].
[2019-04-14 16:00] VITALS: BP 139/85
--- NOTE | 2019-04-14 18:08 | NUR ---
M/S RN NOTES PATIENT DISCHARGED IN NO RESPIRATORY DISTRESS, NO C/O PAIN AT THIS TIME. PATIENT HAD TWO BOWEL MOVEMENTS, LARGE FORMED STOOLS PRIOR TO DISCHARGE. PATIENT CLEAN AND DRY. IV REMOVED AND APPLIED PRESSURE DRESSING. PATIENT GIVEN DISCHARGE INSTRUCTIONS, VERBALIZED UNDERSTANDING. PATIENT'S SKIN ASSESSED AND TOOK PHOTOS AND PLACED IN CHART. PATIENT'S BELONGINGS ACCOUNTED FOR AND SIGNED. GAVE REPORT TO BARBARA MALDONADO AT [facility]. PATIENT LEFT WITH PARAMEDICS VIA [facility].
== END 2019-04-14 18:30 | DRG 190 ==
LOC: ER 01:10 → TELE1 04:05 → MEDSG1 04-12 10:56
PROVIDERS: ATTEND Nurse Practitioner Acute Care
DX: J44.1 Chronic obstructive pulmonary disease with (acute) exacerbation (principal); I50.33 Acute on chronic diastolic (congestive) heart failure; J96.10 Chronic respiratory failure, unspecified whether with hypoxia or hypercapnia; D68.59 Other primary thrombophilia; E66.2 Morbid (severe) obesity with alveolar hypoventilation; Z68.42 Body mass index [BMI] 45.0-49.9, adult; N39.0 Urinary tract infection, site not specified; I48.91 Unspecified atrial fibrillation; I11.0 Hypertensive heart disease with heart failure; E11.9 Type 2 diabetes mellitus without complications; I25.10 Atherosclerotic heart disease of native coronary artery without angina pectoris; E03.9 Hypothyroidism, unspecified; K21.9 Gastro-esophageal reflux disease without esophagitis; K59.00 Constipation, unspecified; Z79.4 Long term (current) use of insulin; Z99.81 Dependence on supplemental oxygen; E87.6 Hypokalemia; E78.5 Hyperlipidemia, unspecified
CPT/HCPCS: 36415; 36600; 71045-TC; 74018; 80048-TC; 80061-TC; 80076-TC; 81000-TC; 82803-TC; 83605-TC; 83735-TC; 83880; 84100-TC; 84484-TC; 85025-TC; 85730-TC; 87040-TC; 87081-TC; 87086-TC; 87186-TC; 94760-TC; 94799-TC; 97530-TC; G0378; J0696; J1940; J2405; J7050; J7060

== ENCOUNTER 2019-05-11 18:05 | Inpatient (IN) | payer MEDICAID, MEDICARE ==
[~2019-05-11] VITALS: Ht 172.7 cm; Wt 127.5 kg
[2019-05-11] VITALS (9 sets, daily range): BP systolic 90–155; BP diastolic 19–92
[~2019-05-11 18:05] MED LIST changes: +ALBU8.5H8 IH; +BISA10SU11 RC; +CALC-494 PO; -FURO40TA5 PO; -INSU100V10 SQ; +INSU100V7 SQ; +IPRA3AMP23 IH; +MAGN400O6 PO; -MULT-24 PO; +MULT-447 PO; +NA P133E RC; +NITR100C6 PO; -TIOT18CA3 IH
--- NOTE | 2019-05-11 18:14 | NUR ---
SEEN AND EXAMINED BY .
--- NOTE | 2019-05-11 18:20 | NUR ---
RT PLACED PT ON BIPAP PER ER MD. ALARMS CHECKED AND AUDIBLE. BIPAP PLUGGED IN RED OUTLET. WILL CONTINUE TO MONITOR T/O SHIFT.
--- NOTE | 2019-05-11 18:20 | NUR ---
RT AT BEDSIDE FOR BI-PAP SET UP.
--- NOTE | 2019-05-11 18:25 | NUR ---
IV LINE ESTABLISHED, BLOOD DRAWN AND SENT TO LAB.
[2019-05-11 18:28] LABS: BASOPHILS # (AUTO) 0.1 /CMM (0.0-0.2); BASOPHILS % (AUTO) 0.6 % (0.0-2.0); EOSINOPHILS % (AUTO) 0.6 % (0.0-6.0); HEMATOCRIT 39 % (33-45); HEMOGLOBIN 11.9 g/dL (11.5-14.8); LYMPHOCYTES # (AUTO) 0.8 /CMM (0.8-4.8); LYMPHOCYTES % (AUTO) 5.5 % (20.0-44.0); MEAN CORPUSCULAR HGB CONC 31 g/dl (31.0-36.0); MEAN CORPUSCULAR VOLUME 92 fL (82-100); MONOCYTES # (AUTO) 0.8 /CMM (0.1-1.30); MONOCYTES % (AUTO) 5.8 % (2.0-12.0); NEUTROPHILS # (AUTO) 12.9 /CMM (1.8-8.9); NEUTROPHILS % (AUTO) 87.5 % (43.0-81.0); PLATELET COUNT (AUTO) 362 /CMM (150-450); RED BLOOD CELL COUNT(AUTO) 4.19 MIL/uL (4.0-5.2); WHITE BLOOD COUNT (AUTO) 14.7 K/uL (4.3-11.0)
[2019-05-11 18:58] LABS: ALANINE AMINOTRANSFERASE 17 U/L (12-78); ALBUMIN 2.5 g/dL (3.4-5.0); ALKALINE PHOSPHATASE 93 U/L (46-116); ASPARTATE AMINOTRANSFERASE 17 U/L (15-37); BILIRUBIN,DIRECT 0.2 mg/dL (0.0-0.2); BILIRUBIN,TOTAL 0.3 mg/dL (0.2-1.0); CALCIUM, SERUM 9.1 mg/dL (8.5-10.1); CARBON DIOXIDE 30 mmol/L (21-32); CHLORIDE 98 mmol/L (98-107); GLUCOSE 105 mg/dL (74-106); POTASSIUM 5.1 mmol/L (3.5-5.1); SODIUM SERUM 136 mmol/L (136-145); TOTAL PROTEIN, SERUM 7.8 g/dL (6.4-8.2)
[2019-05-11] MEDS ORDERED: NOREPINEPHRINE 8 MG in IV D5W 500 ML IV PRN ×2 (19:00→22:30)
[2019-05-11 19:04] LABS: ABG BASE EXCESS 1.9 mmol/L; ABG OXYGEN SATURATION 98.7 % (92.0-98.5); ABG PCO2 72.6 mmHg (35.0-45.0); ABG PH 7.249 (7.350-7.450); ABG PO2 172.8 mmHg (75.0-100.0); AaDO2 175.1 mmHg; MetHb 0.4 % (0.0-1.5); O2Hb 97.3 % (94.0-97.0); SITE, ABG Left Radial; VENT MODE, BG ST15/5
[2019-05-11 19:05] LABS: CREATININE 2.5 mg/dL (0.6-1.3); UREA NITROGEN, BLOOD 56 mg/dL (7-18)
--- NOTE | 2019-05-11 19:07 | NUR ---
STARTED LEVOPHED DRIP PER DR. JUSTIN'S ORDER. BP 88/43. PT AWAKE ON BIPAP, O2 SAT 100%. KATHERINE WELL. WILL CONT TO MONITOR. DAUGHTER @ BS.
[2019-05-11 19:11] LABS: APPEARANCE,URINE Clear (CLEAR); BILIRUBIN,URINE Negative (NEGATIVE); BLOOD, URINE Large Ery/uL (NEGATIVE); COLOR,URINE Yellow (YELLOW); KETONES,URINE Negative (NEGATIVE); LEUKOCYTE ESTERASE ,URINE Large (NEGATIVE); NITRITE, URINE Negative (NEGATIVE); PH,URINE 5.5 (5.0-8.0); PROTEIN,URINE 100 mg/dl (NEGATIVE); UGLUCOSE Negative (NEGATIVE)
[2019-05-11] MEDS ORDERED: PIPERACILLIN /TAZOBACTAM 2.25 G in IV D5W 50 ML IV ONE (19:30)
[2019-05-11] MEDS ORDERED: VANCOMYCIN 1 GM in IV D5W 250 ML IV ONE (19:30)
[2019-05-11 20:01] LABS: BACTERIA,URINE Many /HPF (None Seen); RBC,URINE 21-50 /HPF (0-2); SQUAMOUS EPITHELIAL CELL,UR Few /HPF (None Seen); URINE AMORPHOUS URATE Few /HPF (None Seen); WBC,URINE 81-100 /HPF (0-3)
--- NOTE | 2019-05-11 20:43 | NUR ---
PT BACK FROM CT VIA GURNEY. PT EYES CLOSED, VSS, SKIN PINK WARM/DRY & INTACT, O2 SAT 100% ON BIPAP, PT KATHERINE WELL. WILL CONT TO MONITOR.
--- NOTE | 2019-05-11 20:44 | NUR ---
BED ASSIGNMENT ICU 259
[2019-05-11 21:31] LABS: ABG BASE EXCESS 1.3 mmol/L; ABG OXYGEN SATURATION 94.1 % (92.0-98.5); ABG PCO2 66.9 mmHg (35.0-45.0); ABG PH 7.268 (7.350-7.450); ABG PO2 76.4 mmHg (75.0-100.0); AaDO2 58.9 mmHg; COHb 1.1 % (0.5-1.5); MetHb 0.2 % (0.0-1.5); O2Hb 92.9 % (94.0-97.0); SITE, ABG Left Radial; VENT MODE, BG ST 18/5 R22 30%
--- NOTE | 2019-05-11 21:58 | NUR ---
RT PT TRANSFERRED TO ICU. PT REMAINS ON BIPAP WITH NOTED SETTING. PT TOLERATING SETTING WELL. NO SOB OR DISTRESS NOT6ED AT THIS TIME. WILL GIVE REPORT TO FOLLOWING RT. Addendum: 05/11/19 at 2200 by YADIRA MCKEON RT Amended: Links added.
--- NOTE | 2019-05-11 22:00 | NUR ---
RN NOTES RECEIVED PATIENT ON MARVIN FROM SUPPORT SERVICES COORDINATORBARBARA HARMAN ON BIPAP WITH SATURATION OF 96% ON LEVOPHED DRIP 10MCG/MIN. PATIENT PLACED IN ROOM 259, MONITOR ATTACHED TO THE PATIENT WITH SR AT THIS TIME. PATIENT IS A/A/OX2 WITH CONFUSION, VERBAL, SKIN ASSESSMENT HAS BEEN DONE. CENTENO CATHETER IS IN PLACE AND DRAINING ON GRAVITY. RIGHT UPPER ARM PICC LINE AND LEFT AC G18 IV LINES ARE PATIENT AND INTACT. ALL SAFETY MEASURES ARE IN PLACE, BED IN LOW, LOCKED POSITION, CALL LIGHT IN REACH. PATIENT IS ORIENTED TO THE UNIT AND CALL LIGHT. WILL CONTINUE TO MONITOR PATIENT CLOSELY.
[2019-05-11] MEDS ORDERED: HYDROCODONE/APAP 10/325MG 1 EA TABLET PO PRN (22:30)
[2019-05-11] MEDS ORDERED: Medication Not On Formulary EA (Calcium Carbonate 1,000 MG) PO PRN (22:30)
[2019-05-11] MEDS ORDERED: BISACODYL SUPP (10 MG) 10 MG/SUPP.RECT SUPP.RECT RC PRN (22:30)
[2019-05-11] MEDS ORDERED: ALBUTEROL SULFATE INH 18 GM HFA.AER.AD IH PRN (22:30)
[2019-05-11] MEDS ORDERED: INSULIN REGULAR, HUMAN 100 UNIT/ML 3 ML VIAL SQ PRN (22:30)
[2019-05-11] MEDS ORDERED: ALBUTEROL FS 2.5 MG/0.5 ML VIAL.NEB IH PRN (22:30)
[2019-05-11] MEDS ORDERED: HYDROCODONE/APAP 5/325MG 1 EACH TABLET PO PRN (22:30)
[2019-05-11] MEDS ORDERED: Z GUARD REMEDY 2 OZ OINT TP PRN (22:30)
[2019-05-11] MEDS ORDERED: MAGNESIUM HYDROXIDE 30 ML UDC PO PRN ×2 (22:30)
[2019-05-11] MEDS ORDERED: NA PHOS,M-B/NA PHOS,DI-BA 1 EA ENEMA RC PRN (22:30)
[2019-05-11] MEDS ORDERED: ZOLPIDEM TARTRATE 5 MG TABLET PO PRN (22:30)
[2019-05-11] MEDS ORDERED: IPRATROPIUM NEB FS 0.5 MG/2.5 ML AMPUL.NEB IH PRN (22:30)
[2019-05-11] MEDS ORDERED: MAG HYDROX/AL HYDROX/SIMETH 30 ML UDC PO PRN (22:30)
[2019-05-11] MEDS: IV NS 0.9% 1,000 ML IV SCH (22:33)
[2019-05-11 22:45] LABS: ALBUMIN 2.4 g/dL (3.4-5.0); BILIRUBIN,DIRECT 0.2 mg/dL (0.0-0.2); BILIRUBIN,TOTAL 0.3 mg/dL (0.2-1.0); TOTAL PROTEIN, SERUM 7.7 g/dL (6.4-8.2)
[2019-05-11] MEDS ORDERED: ALBUTEROL FS 2.5 MG/3 ML VIAL.NEB NEB PRN (23:30)
[2019-05-11] MEDS ORDERED: CALCIUM CARBONATE 500 MG TAB.CHEW PO PRN ×2 (23:30)
--- NOTE | 2019-05-11 23:39 | NUR ---
PT RCVD ON BIPAP /, RATE 22, FIO2 30%. BIPAP PLUGGED INTO RED OUTLET. ALARMS ON AND AUDIBLE. AMBU BAG @ BEDSIDE. WILL CONTINUE TO MONITOR T/O SHIFT.
[2019-05-12] VITALS (92 sets, daily range): BP systolic 95–144; BP diastolic 20–81
[2019-05-12] MEDS ORDERED: PIPERACILLIN /TAZOBACTAM 3.375 G in IV D5W 50 ML IV SCH ×2
[2019-05-12] MEDS ORDERED: PIPERACILLIN /TAZOBACTAM 2.25 G in IV D5W 50 ML IV SCH (02:00)
[2019-05-12] MEDS ORDERED: PIPERACILLIN /TAZOBACTAM 2.25 G VIAL IV ONE (02:29)
[2019-05-12 05:12] LABS: BASOPHILS # (AUTO) 0.1 /CMM (0.0-0.2); BASOPHILS % (AUTO) 0.6 % (0.0-2.0); EOSINOPHILS % (AUTO) 0.2 % (0.0-6.0); HEMATOCRIT 37 % (33-45); HEMOGLOBIN 11.4 g/dL (11.5-14.8); LYMPHOCYTES # (AUTO) 0.9 /CMM (0.8-4.8); LYMPHOCYTES % (AUTO) 5.6 % (20.0-44.0); MEAN CORPUSCULAR HGB CONC 31 g/dl (31.0-36.0); MEAN CORPUSCULAR VOLUME 92 fL (82-100); MONOCYTES # (AUTO) 0.9 /CMM (0.1-1.30); MONOCYTES % (AUTO) 5.2 % (2.0-12.0); NEUTROPHILS # (AUTO) 14.9 /CMM (1.8-8.9); NEUTROPHILS % (AUTO) 88.4 % (43.0-81.0); PLATELET COUNT (AUTO) 362 /CMM (150-450); RED BLOOD CELL COUNT(AUTO) 3.96 MIL/uL (4.0-5.2); WHITE BLOOD COUNT (AUTO) 16.8 K/uL (4.3-11.0)
[2019-05-12 05:23] LABS: CALCIUM, SERUM 8.4 mg/dL (8.5-10.1); CARBON DIOXIDE 33 mmol/L (21-32); CHLORIDE 100 mmol/L (98-107); CREATININE 2.1 mg/dL (0.6-1.3); GLUCOSE 114 mg/dL (74-106); MAGNESIUM 3.1 mg/dL (1.8-2.4); PHOSPHORUS 4.1 mg/dL (2.5-4.9); POTASSIUM 4.6 mmol/L (3.5-5.1); SODIUM SERUM 136 mmol/L (136-145); UREA NITROGEN, BLOOD 49 mg/dL (7-18)
[2019-05-12 05:57] LABS: CHOLESTEROL 135 mg/dL (<200); HDL CHOLESTEROL 65 mg/dL (40-60); LDL 54 mg/dL (0-99); TRIGLYCERIDES 56 mg/dL (30-150)
--- NOTE | 2019-05-12 07:05 | NUR ---
RN NOTES RECEIVED PT ON BED ON , ON BIPAP, NON VERBAL ,DOES NOTE FOLLOW COMMAND, RESPONSE TO PAINFUL STIMULI, O2 SAT WNL. ON TELE SR HR IN 70'S , CENTENO DRAINING TO GRAVITY, R UPPER ARM PICC LINE SITE CLEAN, DRY , INTACT , ON LEVOPHED DRIP 2MCG/MIN. NS AT 100CC/HR RUNNING , ALL SAFETY MEASURES ARE IN PLACE, BED IN LOW, LOCKED POSITION, SR UP x3, CALL LIGHT WITHIN EASY REACH,
--- NOTE | 2019-05-12 07:16 | NUR ---
RN NOTES PATIENT IS ON BIPAP WITH SATURATION OF 97% ON LEVOPHED DRIP 2MCG/MIN. PATIENT TUBING MACHINE OPERATOR READING IS SR AT THIS TIME. PATIENT IS A/A/OX2 WITH CONFUSION, VERBAL. CENTENO CATHETER IS IN PLACE AND DRAINING ON GRAVITY. RIGHT UPPER ARM PICC LINE AND LEFT AC G18 IV LINES ARE PATIENT AND INTACT WITH IV FLUIDS AND MEDICATIONS ORDERED.PATIENT HAS BILATERAL SOFT WRIST RESTRAINTS . ALL SAFETY MEASURES ARE IN PLACE, BED IN LOW, LOCKED POSITION, CALL LIGHT IN REACH. PATIENT IS ORIENTED TO THE CALL LIGHT. WILL ENDORSE PATIENT CARE TO AM RN FOR CONT. OF CARE.
[2019-05-12] MEDS: PANTOPRAZOLE 40 MG TABLET.DR PO SCH (07:30)
[2019-05-12] MEDS: LEVOTHYROXINE SODIUM 175 MCG TABLET PO SCH (07:30)
[2019-05-12] MEDS ORDERED: [UNRECOGNIZED DRUG - OTHER] SQ PRN (08:00)
[2019-05-12] MEDS ORDERED: INSULIN REGULAR, HUMAN 100 UNIT/ML 3 ML VIAL SQ PRN (08:00)
[2019-05-12] MEDS ORDERED: DEXTROSE 50%-WATER 50 ML DISP.SYRIN IV PRN ×2 (08:00)
[2019-05-12] MEDS: IV NS 0.9% 1,000 ML IV SCH (08:00)
[2019-05-12] MEDS ORDERED: [UNRECOGNIZED DRUG - OTHER] SQ PRN ×5 (08:00)
[2019-05-12] MEDS: GABAPENTIN 300 MG CAPSULE PO SCH ×3 (08:13→17:00)
[2019-05-12] MEDS: DOCUSATE SODIUM 100 MG CAPSULE PO SCH ×2 (08:13→17:00)
[2019-05-12] MEDS: ASCORBIC ACID 500 MG TABLET PO SCH (08:14)
[2019-05-12] MEDS: MULTIVIT W/MINERALS 1 TAB TABLET PO SCH (08:14)
[2019-05-12] MEDS: BLOOD SUGAR DIAGNOSTIC 1 EACH STRIP IN SCH ×4 (08:15→22:05)
--- NOTE | 2019-05-12 08:20 | NUR ---
RN NOTES MORNING MEDS HELD, PT ON BIPAP AND LETHARGIC . MD NOTIFED
[2019-05-12] MEDS: ALBUTEROL FS 2.5 MG/3 ML VIAL.NEB NEB SCH ×5 (08:23→19:50)
[2019-05-12] MEDS ORDERED: IPRATROPIUM NEB FS 0.5 MG/2.5 ML AMPUL.NEB NEB PRN (08:30)
[2019-05-12] MEDS ORDERED: FLUTICASONE/VILANTEROL 1 EACH BLST.W.DEV IH SCH (09:00)
[2019-05-12] MEDS ORDERED: Medication Not On Formulary EA (Multivitamin With Minerals (One Daily Complete) 1 EACH) PO SCH (09:00)
[2019-05-12] MEDS: AMIODARONE HCL 200 MG TABLET PO SCH ×2 (09:00→21:00)
[2019-05-12] MEDS ORDERED: ALBUTEROL SULFATE INH 18 GM HFA.AER.AD IH SCH (09:00)
[2019-05-12 09:08] LABS: ABG BASE EXCESS 4.3 mmol/L; ABG PCO2 66.9 mmHg (35.0-45.0); ABG PH 7.303 (7.350-7.450); ABG PO2 84.5 mmHg (75.0-100.0); AaDO2 50.8 mmHg; COHb 0.8 % (0.5-1.5); MetHb 0.4 % (0.0-1.5); O2Hb 94.8 % (94.0-97.0); SITE, ABG Left Radial; VENT MODE, BG BIPAP 18/5 R 22
[2019-05-12] MEDS: PIPERACILLIN /TAZOBACTAM 3.375 G in IV D5W 100 ML IV SCH ×2 (09:24→17:13)
[2019-05-12] MEDS ORDERED: methylPREDNISolone SOD SUCC 125 MG/2ML VIAL IV SCH (10:30)
[2019-05-12] MEDS: IPRATROPIUM NEB FS 0.5 MG/2.5 ML AMPUL.NEB IH SCH ×3 (10:30→19:50)
[2019-05-12] MEDS: methylPREDNISolone SOD SUCC 40 MG/ML VIAL IV SCH ×2 (10:34→17:13)
[2019-05-12] MEDS ORDERED: [UNRECOGNIZED DRUG - OTHER] IN SCH (12:00)
--- NOTE | 2019-05-12 12:00 | NUR ---
RN NOTES DR ZENG NOTIFIED REGARDING POSITIVE GRAM NEGATIVE RODS IN BOTH BLOOD CULTURE BOTTLES , NO NEW ORDER GIVEN , CONTINUE TO MONITOR .
[2019-05-12] MEDS ORDERED: ALBUTEROL FS 2.5 MG/0.5 ML VIAL.NEB NEB PRN (13:30)
--- NOTE | 2019-05-12 16:00 | NUR ---
RN NOTES PT PALCED ON BARIATRIC BED, VSS STABLE, OFF LEVO GTT , CONTINUE TO MONITOR.
[2019-05-12] MEDS: RIVAROXABAN 10 MG TABLET PO SCH (17:00)
--- NOTE | 2019-05-12 17:32 | NUR ---
Readmitted less 30 days due to resp distress and sepsis. Patient resides at [facility] [phone]. He requires assistance with adl's and mobility. Bedhold for 7days, plan to return to SNF when discharge. Addendum: 05/12/19 at 1732 by ELPIDIO HARDIN RN Amended: Links added.
[2019-05-12] MEDS: IV NS 0.9% 1,000 ML IV PRN (17:37)
--- NOTE | 2019-05-12 18:00 | NUR ---
RN NOTES VSS STABLE, PT STILL OFF LEVO GTT ,BP STABLE, TOLERATING BIPAP WELL, NS AT 100CC/HR RUNNING VIA R UPPER ARM PICC LINE , WILL ENDOSE TO BRICK SHADER NURSE FOR CONTINUITY OF CARE.
--- NOTE | 2019-05-12 19:26 | NUR ---
ORACLE DATABASE MANAGER NOTES RECEIVED PT ON BED. OBTUNDED. ON GOING HD. ON [facility] VENT SETTING , SATURATING 100%. CENTENO CATH DRAINING YELLOW URINE. ON TELE MONITOR ST 110. GTUBE FEEDING RUNNING @ 45CC/HR, NO RESIDUAL NOTED. HEAD OF BED ELEVATED. SIDE RAILS UP. BED IN LOW AND LOCKED POSITION. CALL LIGHT WITHIN REACH. WILL MONITOR PT CLOSELY. Addendum: 05/12/19 at 1937 by KATELYN PETER RN WRONG PT. USER ERROR
--- NOTE | 2019-05-12 19:38 | NUR ---
BUILDINGS AND GROUNDS SUPERVISOR NOTES RECEIVED PT ON BED. A/O X1. ON BIPAP SETTING NO RESPIRATORY DISTRESS NOTED. ON TELE MONITOR SR 71. CENTENO CATH DRAINING YELLOW URINE. IV ACCESS ON KT PICC WITH NS RUNNING 100CC/HR, PATENT AND INTACT. LAC G18 SALINE LOCK.ON BILATERAL SOFT WRIST RESTRAINTS. HEAD OF BED ELEVATED. SIDE RAILS UP. CALL LIGHT WITHIN REACH. BED ALARM ON.
--- NOTE | 2019-05-12 20:42 | NUR ---
RT NOTE PT RECEIVED ON BIPAP. MASK SECURED W/ MEPILEX. TX GIVEN, NO ADVERSE REACTIONS NOTED. BIPAP PLUGGED TO RED OUTLET. NO SOB NOTED AT THIS TIME. RIANU BAG @ BEDSIDE. WILL MONITOR. Addendum: 05/12/19 at 2042 by ARIEL BAPTISTE RT Amended: Links added.
[2019-05-12] MEDS: GABAPENTIN 400 MG CAPSULE PO SCH (21:10)
[2019-05-12] MEDS: SENNOSIDES 8.6 MG TABLET PO SCH (21:11)
--- NOTE | 2019-05-12 21:26 | NUR ---
INSTRUCTOR WEAVING NOTES CALLED DR COCHRAN, PT GRAM + COCCI IN PRELIM BLOOD CX. PER DR DIMAS DODGE TO DOSE PER PHARMACY.
[2019-05-12] MEDS ORDERED: TRAZODONE 50 MG TABLET PO SCH (22:00)
[2019-05-12] MEDS: INSULIN GLARGINE, 100 UNIT/ML CARTRIDGE SQ SCH (22:00)
--- NOTE | 2019-05-12 23:08 | NUR ---
FASHION PATTERNMAKER NOTES CALLED PHARMACY REGARDING VANCO ORDER. PER OUTSIDE PHARMACY, "THEY HAVE TROUBLE WITH THE SYSTEM, SAYS IT WILL TAKE SOME TIME."
--- NOTE | 2019-05-12 23:20 | NUR ---
GRIZZLYMAN NOTES LANTUS NOT GIVEN, PT NPO.
[2019-05-13] VITALS (57 sets, daily range): BP systolic 100–145; BP diastolic 44–87
[2019-05-13] MEDS: ALBUTEROL FS 2.5 MG/3 ML VIAL.NEB NEB SCH ×5 (01:43→20:00)
[2019-05-13] MEDS: IPRATROPIUM NEB FS 0.5 MG/2.5 ML AMPUL.NEB IH SCH ×4 (01:43→20:00)
[2019-05-13] MEDS: PIPERACILLIN /TAZOBACTAM 3.375 G in IV D5W 100 ML IV SCH ×3 (01:48→17:02)
[2019-05-13] MEDS ORDERED: VANCOMYCIN 1 GM VIAL ONE (03:35)
[2019-05-13] MEDS: IV NS 0.9% 1,000 ML IV PRN ×2 (03:40→14:33)
[2019-05-13] MEDS ORDERED: VANCOMYCIN 1 GM in IV D5W 250ml IV ONE (04:00)
[2019-05-13 05:01] LABS: BASOPHILS % (AUTO) 0.1 % (0.0-2.0); HEMATOCRIT 35 % (33-45); HEMOGLOBIN 10.8 g/dL (11.5-14.8); LYMPHOCYTES # (AUTO) 0.6 /CMM (0.8-4.8); LYMPHOCYTES % (AUTO) 3.7 % (20.0-44.0); MEAN CORPUSCULAR HGB CONC 31 g/dl (31.0-36.0); MEAN CORPUSCULAR VOLUME 92 fL (82-100); MONOCYTES # (AUTO) 0.2 /CMM (0.1-1.30); MONOCYTES % (AUTO) 1.3 % (2.0-12.0); NEUTROPHILS # (AUTO) 15.1 /CMM (1.8-8.9); NEUTROPHILS % (AUTO) 94.9 % (43.0-81.0); PLATELET COUNT (AUTO) 365 /CMM (150-450); RED BLOOD CELL COUNT(AUTO) 3.84 MIL/uL (4.0-5.2); WHITE BLOOD COUNT (AUTO) 15.9 K/uL (4.3-11.0)
[2019-05-13 05:14] LABS: CALCIUM, SERUM 7.9 mg/dL (8.5-10.1); CARBON DIOXIDE 26 mmol/L (21-32); CHLORIDE 103 mmol/L (98-107); CREATININE 1.8 mg/dL (0.6-1.3); GLUCOSE 186 mg/dL (74-106); PHOSPHORUS 3.7 mg/dL (2.5-4.9); POTASSIUM 4.5 mmol/L (3.5-5.1); SODIUM SERUM 139 mmol/L (136-145); UREA NITROGEN, BLOOD 42 mg/dL (7-18)
--- NOTE | 2019-05-13 06:08 | NUR ---
ENVIRONMENTAL ASSOCIATE NOTES PAGED EPIC SCHOOL RESOURCE OFFICER REGARDING H/H OF , AWAITING CALL BACK. Addendum: 05/13/19 at 0609 by KATELYN PETER RN USER ERROR WRONG PT
--- NOTE | 2019-05-13 06:49 | NUR ---
PELOTA MAKER NOTES NO ACUTE CHANGES NOTED DURING THE SHIFT. PROVIDED COMFORT AND SAFETY. WILL ENDORSE TO THE AM NURSE FOR CONTINUITY OF CARE.
--- NOTE | 2019-05-13 07:10 | NUR ---
RN NOTES RECEIVED PT ON BED, PT IS ALERT,CONFUSED, FOLLOWS COMMAND, ON BIPAP , O2 SAT WNL, ON TELE SR HR IN 70'S , PATIENT CENTENO CATHETER IS IN PLACE AND DRAINING ON GRAVITY. RIGHT UPPER ARM PICC LINE AND LEFT AC G18 IV LINES ARE PATIENT AND INTACT WITH IVF NS AT 100CC/HR RUNNING, BILATERAL SOFT WRIST RESTRAINTS . ALL SAFETY MEASURES ARE IN PLACE, BED IN LOW AND LOCKED POSITION, CALL LIGHT WITHIN EASY REACH, PATIENT IS ORIENTED TO THE CALL LIGHT. CONTINUE TO MONITOR
[2019-05-13] MEDS ORDERED: FEE PK DOSING 1 MIN EA MC ONE (07:15)
[2019-05-13] MEDS: methylPREDNISolone SOD SUCC 40 MG/ML VIAL IV SCH ×2 (08:14→16:25)
[2019-05-13] MEDS: PANTOPRAZOLE 40 MG TABLET.DR PO SCH (08:32)
[2019-05-13] MEDS: GABAPENTIN 300 MG CAPSULE PO SCH ×3 (08:32→16:25)
[2019-05-13] MEDS: ASCORBIC ACID 500 MG TABLET PO SCH (08:32)
[2019-05-13] MEDS: DOCUSATE SODIUM 100 MG CAPSULE PO SCH ×2 (08:32→16:23)
[2019-05-13] MEDS: LEVOTHYROXINE SODIUM 175 MCG TABLET PO SCH (08:33)
[2019-05-13] MEDS: MULTIVIT W/MINERALS 1 TAB TABLET PO SCH (08:33)
[2019-05-13] MEDS: AMIODARONE HCL 200 MG TABLET PO SCH ×2 (08:33→21:47)
[2019-05-13] MEDS: BLOOD SUGAR DIAGNOSTIC 1 EACH STRIP IN SCH ×4 (08:34→21:46)
[2019-05-13] MEDS: INSULIN GLARGINE, 100 UNIT/ML CARTRIDGE SQ SCH ×2 (08:43→21:50)
--- NOTE | 2019-05-13 09:00 | NUR ---
RN NOTES DR ROBERTSON NOTIFED , REGARDING ABG RESULTS, PT ON 2L O2 N/C , NO DISTRESS NOTED, CONTINUE TO MONITOR.
--- NOTE | 2019-05-13 12:00 | NUR ---
RN NOTES O2 SAT WNL ON 2-3 L O2 N/C , NO DISTRESS NOTED, CONTINUE TO MONITOR.
[2019-05-13] MEDS: INSULIN REGULAR, HUMAN 100 UNIT/ML 3 ML VIAL SQ PRN ×3 (12:11→21:52)
[2019-05-13 13:27] LABS: ABG BASE EXCESS -0.4 mmol/L; ABG OXYGEN SATURATION 93.5 % (92.0-98.5); ABG PCO2 48.4 mmHg (35.0-45.0); ABG PH 7.344 (7.350-7.450); ABG PO2 68.9 mmHg (75.0-100.0); AaDO2 73.6 mmHg; COHb 0.5 % (0.5-1.5); MetHb 0.4 % (0.0-1.5); O2Hb 92.7 % (94.0-97.0); SITE, ABG Right Radial; VENT MODE, BG 2LNC
[2019-05-13] MEDS: MUPIROCIN OINT 2% 22 GM TUBE SCH (14:02)
--- NOTE | 2019-05-13 15:00 | NUR ---
RN NOTES PT TOLERATING PO INTAKE WELL, HOB ELEVATED , VSS STABLE ,CONTINUE TO MONITOR
[2019-05-13] MEDS: RIVAROXABAN 10 MG TABLET PO SCH (16:25)
--- NOTE | 2019-05-13 18:00 | NUR ---
RN NOTES VSS STABLE , PT IS MORE ALERT, STILL CONFUSED, ON TELE SR HR IN 70' , CENTENO DRINING TO GRAVITY, R UPPER ARM PICC LINE SITE CLEAN, DRY AND INTACT, SR UP X3, CALL LIGHT WITHIN EASY REACH, WILL ENDOSE TO CRYSTAL SYRUP MAKER NURSE FOR CONTINUITY OF CARE .
--- NOTE | 2019-05-13 19:30 | NUR ---
SALES SERVICE PROMOTER RRCD PT W/DX SEPSIS; A/O x4 AT THIS TIME. NSR ON MONITOR. 02 2L NC. FAMILY AT BEDSIDE; EDUCATED ON ISOLATION PRECAUTIONS. PLAN FOR NOCTURNAL BIPAP. PT AWARE AND AGREES.
[2019-05-13] MEDS: SENNOSIDES 8.6 MG TABLET PO SCH (21:46)
[2019-05-13] MEDS: GABAPENTIN 400 MG CAPSULE PO SCH (21:46)
--- NOTE | 2019-05-13 22:32 | NUR ---
PT PLACED ON NOC BIPAP. RN NOTIFIED.
--- NOTE | 2019-05-13 23:45 | NUR ---
PT TOOK THE BIPAP MASK OFF. PT WANTS A BREAK FROM BIPAP. PT PLACED ON 2L NC. RN AWARE. WILL CONTINUE TO MONITOR.
[2019-05-14] VITALS (26 sets, daily range): BP systolic 89–130; BP diastolic 33–77
[2019-05-14] MEDS: IV NS 0.9% 1,000 ML IV PRN ×3 (00:53→21:36)
[2019-05-14] MEDS: IPRATROPIUM NEB FS 0.5 MG/2.5 ML AMPUL.NEB IH SCH ×4 (01:19→19:44)
[2019-05-14] MEDS: ALBUTEROL FS 2.5 MG/3 ML VIAL.NEB NEB SCH ×4 (01:20→19:45)
[2019-05-14] MEDS: PIPERACILLIN /TAZOBACTAM 3.375 G in IV D5W 100 ML IV SCH ×2 (02:00→10:34)
[2019-05-14] MEDS: VANCOMYCIN 1 GM in IV D5W 250 ML IV SCH (02:00)
--- NOTE | 2019-05-14 04:13 | NUR ---
PT REFUSED TO GO BACK ON BIPAP. RN NOTIFIED. O2 SAT 97% ON 2L NC. NO RESP DISTRESS. WILL CONTINUE TO MONITOR.
[2019-05-14 05:17] LABS: BASOPHILS % (AUTO) 0.2 % (0.0-2.0); HEMATOCRIT 35 % (33-45); HEMOGLOBIN 10.8 g/dL (11.5-14.8); LYMPHOCYTES # (AUTO) 0.6 /CMM (0.8-4.8); LYMPHOCYTES % (AUTO) 3.4 % (20.0-44.0); MEAN CORPUSCULAR HGB CONC 31 g/dl (31.0-36.0); MEAN CORPUSCULAR VOLUME 90 fL (82-100); MONOCYTES # (AUTO) 0.5 /CMM (0.1-1.30); MONOCYTES % (AUTO) 3.1 % (2.0-12.0); NEUTROPHILS # (AUTO) 15.1 /CMM (1.8-8.9); NEUTROPHILS % (AUTO) 93.3 % (43.0-81.0); PLATELET COUNT (AUTO) 417 /CMM (150-450); RED BLOOD CELL COUNT(AUTO) 3.92 MIL/uL (4.0-5.2); WHITE BLOOD COUNT (AUTO) 16.2 K/uL (4.3-11.0)
[2019-05-14 05:30] LABS: CALCIUM, SERUM 7.4 mg/dL (8.5-10.1); CARBON DIOXIDE 28 mmol/L (21-32); CHLORIDE 104 mmol/L (98-107); CREATININE 1.9 mg/dL (0.6-1.3); GLUCOSE 223 mg/dL (74-106); MAGNESIUM 2.8 mg/dL (1.8-2.4); PHOSPHORUS 2.3 mg/dL (2.5-4.9); POTASSIUM 4.9 mmol/L (3.5-5.1); SODIUM SERUM 135 mmol/L (136-145); UREA NITROGEN, BLOOD 41 mg/dL (7-18)
--- NOTE | 2019-05-14 06:16 | NUR ---
STREET LIGHT CLEANER PT DECLINED BIPAP; REMAINED ON O2 2L NC; NO DISTRESS NOTED.
--- NOTE | 2019-05-14 07:35 | NUR ---
MANUFACTURING TECHNOLOGY PROFESSOR OPENING NOTES RECEIVED REPORT FROM PM NURSE. PT ON BED, PT IS ALERTXOX3-4.FOLLOWS COMMAND.ON TELE SR HR IN 60'S.ON O2 2L VIA NASAL CANULA.SATURATING 99%. PATIENT CENTENO CATHETER IS IN PLACE AND DRAINING ON GRAVITY CLEAR YELLOW URINE. RIGHT UPPER ARM PICC LINE AND LEFT AC G18 IV LINES ARE PATIENT AND INTACT WITH IVF NS AT 100CC/HR RUNNING. ALL SAFETY MEASURES ARE IN PLACE, BED IN LOW AND LOCKED POSITION, CALL LIGHT WITHIN EASY REACH.WILL CONTINUE TO MONITOR.
[2019-05-14] MEDS: BLOOD SUGAR DIAGNOSTIC 1 EACH STRIP IN SCH ×4 (07:44→21:20)
[2019-05-14] MEDS: LEVOTHYROXINE SODIUM 175 MCG TABLET PO SCH (07:48)
[2019-05-14] MEDS: PANTOPRAZOLE 40 MG TABLET.DR PO SCH (07:48)
[2019-05-14] MEDS: INSULIN REGULAR, HUMAN 100 UNIT/ML 3 ML VIAL SQ PRN ×4 (07:50→21:24)
[2019-05-14] MEDS: AMIODARONE HCL 200 MG TABLET PO SCH ×2 (09:00→21:26)
[2019-05-14] MEDS: MULTIVIT W/MINERALS 1 TAB TABLET PO SCH (09:14)
[2019-05-14] MEDS: DOCUSATE SODIUM 100 MG CAPSULE PO SCH ×2 (09:14→17:31)
[2019-05-14] MEDS: GABAPENTIN 300 MG CAPSULE PO SCH ×3 (09:14→17:31)
[2019-05-14] MEDS: methylPREDNISolone SOD SUCC 40 MG/ML VIAL IV SCH ×2 (09:14→17:30)
[2019-05-14] MEDS: ASCORBIC ACID 500 MG TABLET PO SCH (09:15)
[2019-05-14] MEDS: INSULIN GLARGINE, 100 UNIT/ML CARTRIDGE SQ SCH ×2 (09:16→21:25)
[2019-05-14] MEDS: MUPIROCIN OINT 2% 22 GM TUBE SCH ×2 (09:16→21:36)
[2019-05-14] MEDS ORDERED: K PHOS NEUTRAL 250 MG TABLET PO ONE (11:30)
--- NOTE | 2019-05-14 13:56 | NUR ---
ENGINEERING PROGRAMMER NOTE SEEN BY UPDATED ABOUT PATIENT CONDITION WITH LABS.FAMILY WAS AT BEDSIDE.SPOKE TO DAUGHTER CHRISTAL AND ANSWERED ALL QUESTIONS.GOT NEW ORDER FOR SENNA 2 TAB FIRST DOSE NOW.ENSURE TID .CONTINUE IVF IN SANE RATE.URINE CULTURE RESULT NOTIFIED WITH SENSITIVITY.NO CHANGE IN ANTIBIOTICS.WILL CONTINUE TO MONITOR.
[2019-05-14] MEDS: SENNOSIDES 8.6 MG TABLET PO SCH ×2 (14:49→21:26)
[2019-05-14] MEDS ORDERED: DOSE PER PHARMACY (MD SPECIFY MEDICATION) 1 EA XX PRN (15:30)
--- NOTE | 2019-05-14 15:52 | NUR ---
INORGANIC CHEMISTRY TEACHER NOTE GOT CALL FROM .GOT NEW ORDER TO D/C [facility] AND START ON [facility] TO DOSE.
[2019-05-14] MEDS ORDERED: ENSURE ENLIVE 237 ML LIQUID (VANILLA) PO SCH (17:00)
[2019-05-14] MEDS ORDERED: MEROPENEM 1 G in IV NS 0.9% 100 ML IV ONE (17:00)
[2019-05-14] MEDS: LACTOBACILLUS RHAMNOSUS GG 1 EACH CAP.SPRINK PO SCH (17:31)
[2019-05-14] MEDS: RIVAROXABAN 10 MG TABLET PO SCH (17:33)
[2019-05-14] MEDS ORDERED: ACETAMINOPHEN 650 MG/SUPP.RECT RC PRN (18:30)
--- NOTE | 2019-05-14 19:00 | NUR ---
Received patient awake,alert,oriented,converses,coherent and appropriate.On O2 via nasal cannula 3L/min ,breathing regular and non labored,not in any acute respiratory distress.BIPAP q HS. Patient on contact isolation ESBL in urine ,MRSA nares.Comfort care done,needs attended.Possible downgrade to [facility].
--- NOTE | 2019-05-14 19:37 | NUR ---
SUPERVISOR ASSEMBLY ROOM NOTE PATIENT IS STABLE IWTH STABLE V/S.ON O2 2L VIA NASAL CANULA.OK TO TRANSFER TO [facility].ENDORSED TO PM NURSE FOR CARLOS.
[2019-05-14] MEDS: GABAPENTIN 400 MG CAPSULE PO SCH (21:26)
--- NOTE | 2019-05-14 22:00 | NUR ---
Remains stable,not in any distress,remains alert,family at bedside.
[2019-05-15] VITALS (12 sets, daily range): BP systolic 95–123; BP diastolic 48–71
--- NOTE | 2019-05-15 | NUR ---
Stable,asleep. As per RT patient refused to be on BIPAP.Will closely monitor overnight on nasal cannula.
[2019-05-15] MEDS: MEROPENEM 1 G in IV NS 0.9% 100 ML IV SCH ×2 (01:30→12:11)
[2019-05-15] MEDS: ALBUTEROL FS 2.5 MG/3 ML VIAL.NEB NEB SCH ×4 (02:00→20:03)
[2019-05-15] MEDS: IPRATROPIUM NEB FS 0.5 MG/2.5 ML AMPUL.NEB IH SCH ×4 (02:00→20:03)
--- NOTE | 2019-05-15 02:00 | NUR ---
Trid to convince patient again to use the BIPAP, as soon as RT applied the mask, patient grabbed the mask ,yank it out of her face and fighting RN and RT, got upset about using the BIPAP machine.
--- NOTE | 2019-05-15 02:40 | NUR ---
RT NOTE PT REFUSED BIPAP, RN IS AWARE.
[2019-05-15] MEDS: VANCOMYCIN 1 GM in IV D5W 250 ML IV SCH (03:02)
--- NOTE | 2019-05-15 04:00 | NUR ---
Remains stable,drowsy but easily arousable,alert when awakens ,oriented and coherent.Not in any distress, still on 2 L NC.(refused BIPAP all night).
[2019-05-15 04:52] LABS: BASOPHILS % (AUTO) 0.2 % (0.0-2.0); HEMATOCRIT 35 % (33-45); HEMOGLOBIN 11.1 g/dL (11.5-14.8); LYMPHOCYTES # (AUTO) 0.5 /CMM (0.8-4.8); LYMPHOCYTES % (AUTO) 3.7 % (20.0-44.0); MEAN CORPUSCULAR HGB CONC 31 g/dl (31.0-36.0); MEAN CORPUSCULAR VOLUME 91 fL (82-100); MONOCYTES # (AUTO) 0.5 /CMM (0.1-1.30); MONOCYTES % (AUTO) 3.8 % (2.0-12.0); NEUTROPHILS # (AUTO) 11.5 /CMM (1.8-8.9); NEUTROPHILS % (AUTO) 92.3 % (43.0-81.0); PLATELET COUNT (AUTO) 412 /CMM (150-450); WHITE BLOOD COUNT (AUTO) 12.5 K/uL (4.3-11.0)
[2019-05-15 05:12] LABS: CALCIUM, SERUM 7.7 mg/dL (8.5-10.1); CARBON DIOXIDE 30 mmol/L (21-32); CHLORIDE 105 mmol/L (98-107); CREATININE 1.6 mg/dL (0.6-1.3); GLUCOSE 228 mg/dL (74-106); MAGNESIUM 2.6 mg/dL (1.8-2.4); PHOSPHORUS 2.5 mg/dL (2.5-4.9); POTASSIUM 4.7 mmol/L (3.5-5.1); SODIUM SERUM 137 mmol/L (136-145); UREA NITROGEN, BLOOD 32 mg/dL (7-18)
--- NOTE | 2019-05-15 06:15 | NUR ---
TORSTEN RN NOTES RECEIVED PTS REPORT AND CARE FROM BARBARA JUDGE , PTS IN BED STABLE V/S , NO SOB NO DISTRESS NOTED , PTS REMAINS ON NS AT 100 CC/HR INFUSING WELL .PTS ON NC AT 2LITERS OF O2 , A/O X 4 ON SR ON THE MONITOR .
--- NOTE | 2019-05-15 06:15 | NUR ---
Transfered to [facility] by bed ( Bariatric bed),report given to Milka JIMENEZ.
--- NOTE | 2019-05-15 07:16 | NUR ---
TORSTEN RN NOTES PTS REMAINS IN BED AWAKE AND STABLE ,WILL ENDORSED TO BARBARA PATEL FOR CONTINUITY OF CARE.
[2019-05-15] MEDS: BLOOD SUGAR DIAGNOSTIC 1 EACH STRIP IN SCH ×4 (08:09→21:49)
[2019-05-15] MEDS: SENNOSIDES 8.6 MG TABLET PO SCH ×2 (08:10→21:49)
[2019-05-15] MEDS: GABAPENTIN 300 MG CAPSULE PO SCH ×3 (08:10→16:50)
[2019-05-15] MEDS: LACTOBACILLUS RHAMNOSUS GG 1 EACH CAP.SPRINK PO SCH ×2 (08:10→16:50)
[2019-05-15] MEDS: ASCORBIC ACID 500 MG TABLET PO SCH (08:10)
[2019-05-15] MEDS: DOCUSATE SODIUM 100 MG CAPSULE PO SCH ×2 (08:10→16:50)
[2019-05-15] MEDS: MULTIVIT W/MINERALS 1 TAB TABLET PO SCH (08:10)
[2019-05-15] MEDS: methylPREDNISolone SOD SUCC 40 MG/ML VIAL IV SCH ×2 (08:11→16:50)
[2019-05-15] MEDS: PANTOPRAZOLE 40 MG TABLET.DR PO SCH (08:11)
[2019-05-15] MEDS: LEVOTHYROXINE SODIUM 175 MCG TABLET PO SCH (08:12)
[2019-05-15] MEDS: MUPIROCIN OINT 2% 22 GM TUBE SCH ×2 (08:13→21:50)
[2019-05-15] MEDS: GLUCERNA SHAKE 237 ML CAN PO SCH ×3 (08:13→18:17)
[2019-05-15] MEDS: AMIODARONE HCL 200 MG TABLET PO SCH ×2 (08:13→21:49)
[2019-05-15] MEDS: INSULIN GLARGINE, 100 UNIT/ML CARTRIDGE SQ SCH ×2 (08:22→21:50)
[2019-05-15] MEDS: IV NS 0.9% 1,000 ML IV PRN (09:49)
[2019-05-15] MEDS: INSULIN REGULAR, HUMAN 100 UNIT/ML 3 ML VIAL SQ PRN ×3 (12:08→21:51)
--- NOTE | 2019-05-15 14:00 | NUR ---
rn leopoldo note RECEIVED PT FROM VADIM. PATIENT IS ALERT AND ORIENTED X 4. ON NC @ 2LPM, NO SOB, HEAD OF BED ELEVATED. NO COMPLAINTS OF PAIN OR DISCOMFORT. PATIENT KEPT CLEAN AND DRY. SKIN INTACT. MULTIPLE SMALL PURPLE SKIN DISCOLORATION ON BOTH THIGHS, BED IN LOW POSITION, CENTENO CATHETER IN PLACE WITH YELLOW URINE, ON TELE MONITOR WITH SINUS RHTHYM, WITH RIGHT ARM PICC LINE AND FLUSHES WELL, WILL CONITNUE TO MONITOR
[2019-05-15] MEDS: RIVAROXABAN 10 MG TABLET PO SCH (16:51)
--- NOTE | 2019-05-15 18:47 | NUR ---
RN NOTE PATIENT IN BED WITHOUT SIGNS OF DISTRESS, REPOSITIONED, CURRENTLY EATING DINNER WITH MINIMAL ASSIST, CURRENTLY ON 2L OF O2 VIA N, CALL LIGHT WITHIN REACH
--- NOTE | 2019-05-15 21:00 | NUR ---
DIRECTOR MEDIA NOTE: RECEIVED PT ON BED ALERT AND ORIENTED X3. NO COMPLAINTS OF PAIN OR DISCOMFORT AT THIS TIME. ON 2LPM NASAL CANNULA, BREATHING EVEN AND UNLABORED WITH NORMAL RESPIRATIONS. SATURATING WELL. SINUS RHYTHM ON TELE MONITOR HR 70BPM. RIGHT UPPER ARM PICC LINE INTACT AND PATENT, IVF INFUSING WELL. CENTENO CATH INTACT AND DRAINING WELL. KEPT CLEAN, DRY AND COMFORTABLE. CALL LIGHT PLACED WITHIN REACH. SAFETY AND FALL PRECAUTIONS OBSERVED AND MAINTAINED. WILL CONTINUE TO MONITOR PT.
[2019-05-15] MEDS: GABAPENTIN 400 MG CAPSULE PO SCH (21:49)
--- NOTE | 2019-05-15 23:00 | NUR ---
COACH TOUR DRIVER NOTE: PT REFUSED NOCTURNAL BIPAP. EXPLAINED RISKS AND BENEFITS BUT PT STILL REFUSED. CHARGE NURSE AWARE. WILL CONTINUE TO MONITOR PT.
[2019-05-16] VITALS: BP 105/61
[2019-05-16] MEDS: MEROPENEM 1 G in IV NS 0.9% 100 ML IV SCH ×2 (01:15→14:18)
[2019-05-16] MEDS: IV NS 0.9% 1,000 ML IV PRN ×2 (01:16→14:18)
[2019-05-16] MEDS: IPRATROPIUM NEB FS 0.5 MG/2.5 ML AMPUL.NEB IH SCH ×4 (01:18→20:26)
[2019-05-16] MEDS: ALBUTEROL FS 2.5 MG/3 ML VIAL.NEB NEB SCH ×4 (01:19→20:26)
[2019-05-16 04:00] VITALS: BP 119/62
[2019-05-16] MEDS: VANCOMYCIN 1 GM in IV D5W 250 ML IV SCH (04:04)
[2019-05-16 06:19] LABS: HEMATOCRIT 36 % (33-45); HEMOGLOBIN 11.3 g/dL (11.5-14.8); LYMPHOCYTES # (AUTO) 0.7 /CMM (0.8-4.8); LYMPHOCYTES % (AUTO) 6.9 % (20.0-44.0); MEAN CORPUSCULAR HGB CONC 32 g/dl (31.0-36.0); MEAN CORPUSCULAR VOLUME 91 fL (82-100); MONOCYTES # (AUTO) 0.6 /CMM (0.1-1.30); MONOCYTES % (AUTO) 6.1 % (2.0-12.0); NEUTROPHILS # (AUTO) 9.3 /CMM (1.8-8.9); PLATELET COUNT (AUTO) 387 /CMM (150-450); RED BLOOD CELL COUNT(AUTO) 3.97 MIL/uL (4.0-5.2); WHITE BLOOD COUNT (AUTO) 10.7 K/uL (4.3-11.0)
[2019-05-16 06:52] LABS: CALCIUM, SERUM 7.5 mg/dL (8.5-10.1); CARBON DIOXIDE 28 mmol/L (21-32); CHLORIDE 103 mmol/L (98-107); CREATININE 1.5 mg/dL (0.6-1.3); GLUCOSE 223 mg/dL (74-106); MAGNESIUM 2.5 mg/dL (1.8-2.4); PHOSPHORUS 2.1 mg/dL (2.5-4.9); POTASSIUM 5.1 mmol/L (3.5-5.1); SODIUM SERUM 136 mmol/L (136-145); UREA NITROGEN, BLOOD 32 mg/dL (7-18)
--- NOTE | 2019-05-16 07:26 | NUR ---
STRUCTURAL STEEL EQUIPMENT ERECTOR NOTE: NO CHANGES NOTED THROUGHOUT THE SHIFT. DENIES PAIN AND DISCOMFORT AT THIS TIME. ON 2LPM NASAL CANNULA, NO SOB NOTED. SINUS RHYTHM ON TELE MONITOR HR 65 BPM. CENTENO CATH INTACT AND PATENT, DRAINED 600 ML OF URINE OUTPUT. KEPT CLEAN, DRY AND COMFORTABLE. SAFETY AND FALL PRECAUTIONS OBSERVED AND MAINTAINED. WILL ENDORSE TO DAY SHIFT RN FOR CONTINUITY OF CARE
--- NOTE | 2019-05-16 07:30 | NUR ---
TORSTEN RN NOTES RECEIVED PT IN BED, ASLEEP, RESPONDS TO NAME AND TOUCH, ORIENTED X 4. ON NC @ 2LPM, NO SOB, HEAD OF BED ELEVATED. ON BARIMAXX BED, SINUS RHYTHM WITH HR 67 ON TELE MONITOR, NO COMPLAINTS OF PAIN OR DISCOMFORT. KT PICC LINE WITH NS AT 100 ML/HR INFUSING WELL, SITE CLEAR. CCHO DIET, SEE NURSING FLOWSHEET FOR SKIN ISSUES. BED IN LOW POSITION, CENTENO CATHETER IN PLACE WITH YELLOW URINE, CALL LIGHT WITHIN REACH, SAFETY MEASURES IN PLACE. WILL CONITNUE TO MONITOR
[2019-05-16 08:00] VITALS: BP 140/72
--- NOTE | 2019-05-16 08:30 | NUR ---
BULK PICKER NOTES ACCUCHECK. BS 148 MG/DL, 2 UNITS HUM R GIVEN PER SS
[2019-05-16] MEDS: BLOOD SUGAR DIAGNOSTIC 1 EACH STRIP IN SCH ×4 (08:32→21:48)
[2019-05-16] MEDS: LEVOTHYROXINE SODIUM 175 MCG TABLET PO SCH (08:48)
[2019-05-16] MEDS: LACTOBACILLUS RHAMNOSUS GG 1 EACH CAP.SPRINK PO SCH ×2 (08:49→17:06)
[2019-05-16] MEDS: MULTIVIT W/MINERALS 1 TAB TABLET PO SCH (08:49)
[2019-05-16] MEDS: PANTOPRAZOLE 40 MG TABLET.DR PO SCH (08:49)
[2019-05-16] MEDS: GABAPENTIN 300 MG CAPSULE PO SCH ×3 (08:49→17:07)
[2019-05-16] MEDS: DOCUSATE SODIUM 100 MG CAPSULE PO SCH ×2 (08:49→17:07)
[2019-05-16] MEDS: AMIODARONE HCL 200 MG TABLET PO SCH ×2 (08:50→21:47)
[2019-05-16] MEDS: ASCORBIC ACID 500 MG TABLET PO SCH (08:50)
[2019-05-16] MEDS: SENNOSIDES 8.6 MG TABLET PO SCH ×2 (08:50→21:47)
[2019-05-16] MEDS: methylPREDNISolone SOD SUCC 40 MG/ML VIAL IV SCH ×2 (08:51→17:06)
[2019-05-16] MEDS: INSULIN GLARGINE, 100 UNIT/ML CARTRIDGE SQ SCH ×2 (08:52→21:49)
[2019-05-16] MEDS: INSULIN REGULAR, HUMAN 100 UNIT/ML 3 ML VIAL SQ PRN ×4 (08:54→21:50)
[2019-05-16] MEDS: MUPIROCIN OINT 2% 22 GM TUBE SCH ×2 (09:04→21:48)
[2019-05-16] MEDS: GLUCERNA SHAKE 237 ML CAN PO SCH ×3 (09:04→18:12)
--- NOTE | 2019-05-16 09:30 | NUR ---
RN NOTES DUE MEDS GIVEN
--- NOTE | 2019-05-16 11:53 | NUR ---
BOOKKEEPING CLERK NOTES ACCUCHECK. BS 135 MG/DL, 2 UNITS HUM R GIVEN PER SS
[2019-05-16 12:00] VITALS: BP 133/76
[2019-05-16] MEDS ORDERED: K PHOS NEUTRAL 250 MG TABLET PO ONE (12:00)
--- NOTE | 2019-05-16 15:30 | NUR ---
SENIOR HRIS ANALYST NOTES REPORT GIVEN TO STEPHANI JIMENEZ FOR CARLOS.
[2019-05-16 16:00] VITALS: BP 119/66
--- NOTE | 2019-05-16 16:00 | NUR ---
RN NOTE RECEIVED REPORT FROM BARBARA TEJEDA FOR [facility]
[2019-05-16] MEDS: RIVAROXABAN 10 MG TABLET PO SCH (17:08)
[2019-05-16] MEDS: ACETAMINOPHEN 325 MG TABLET PO PRN (17:11)
[2019-05-16] MEDS ORDERED: methylPREDNISolone SOD SUCC 40 MG/ML VIAL IV SCH (17:30)
--- NOTE | 2019-05-16 17:30 | NUR ---
RN NOTE DAUGHTER REQUESTED TO NOT USE THE PATIENT'S FRACTURED SHOULDER FOR BLOOD PRESSURE CHECK. ALSO, PER DAUGHTER HER MOM IS HAVING SOME PAIN AND REQUESTING FOR PAIN MEDICATION
--- NOTE | 2019-05-16 17:47 | NUR ---
RN NOTE PATIENT WAS JUST GIVEN A 40 MG DOSE OF SOLU MEDROL AT 1715 TODAY. NEW ORDER FOR 173N BID WAS NON ADMINISTERED
--- NOTE | 2019-05-16 19:30 | NUR ---
RN CLOSING NOTE PATIENT IN BED, AWAKE AND ALERT. HAD A COMPLAIN OF BACK PAIN, WAS GIVEN TYLENOL ORDERED. ALL AFTERNOON MEDS GIVEN. ALL NEEDS MET. HAS A KT LINE, WITH NS AT 100ML/HR. BED LOCKED AND IN LOWEST POSITION. CALL LIGHT WITHIN REACH, ENDORSED TO NOC SHIFT FOR CARLOS
--- NOTE | 2019-05-16 19:35 | NUR ---
TELE/RN NOTES RECEIVED PT. LYING IN BED. PT. IS AWAKE, ALERT AND ORIENTED X3. BREATHING EVEN AND UNLABORED ON 2LPM O2 VIA NC. NO SOB, RESPIRATORY DISTRESS OR COMPLAINTS OF PAIN NOTED AT THIS TIME. PT. WITH EXTERNAL INTERMEDIATE ACCOUNTANT PRESENT AND INTACT. PT. WITH RIGHT UPPER ARM PICC LINE PRESENT, PATENT AND INTACT ADMINISTERING TO PT. NS @ 100ML/HR. PT. WITH CENTENO CATHETER PRESENT, PATENT AND INTACT. SAFETY, ASPIRATION AND ISOLATION PRECAUTIONS ARE IMPLEMENTED AND IN PLACE. BED LOCKED AND IN LOWEST POSITION, SIDE RAILS UP X3, BED ALARM ON, CALL LIGHT WITHIN REACH, WILL CONTINUE TO MONITOR.
[2019-05-16 20:00] VITALS: BP 136/87
[2019-05-16] MEDS: GABAPENTIN 400 MG CAPSULE PO SCH (21:46)
[2019-05-17] VITALS (7 sets, daily range): BP systolic 135–173; BP diastolic 72–103
[2019-05-17] MEDS: IPRATROPIUM NEB FS 0.5 MG/2.5 ML AMPUL.NEB IH SCH ×4 (01:30→20:05)
[2019-05-17] MEDS: ALBUTEROL FS 2.5 MG/3 ML VIAL.NEB NEB SCH ×4 (01:30→20:05)
[2019-05-17] MEDS: MEROPENEM 1 G in IV NS 0.9% 100 ML IV SCH ×2 (01:50→14:24)
[2019-05-17] MEDS: VANCOMYCIN 1 GM in IV D5W 250 ML IV SCH (03:43)
[2019-05-17] MEDS: IV NS 0.9% 1,000 ML IV PRN ×2 (05:57→21:28)
--- NOTE | 2019-05-17 06:48 | NUR ---
TELE/RN NOTES PT. IS LYING IN BED RESTING. BREATHING EVEN AND UNLABORED ON 2LPM O2 VIA NC. NO SOB, RESPIRATORY DISTRESS OR COMPLAINTS OF PAIN NOTED AT THIS TIME. PT. WITH EXTERNAL PARACHUTE PANEL JOINER PRESENT AND INTACT. CURRENT RHYTHM = SINUS RHYTHM WITH FIRST DEGREE AV BLOCK HR 70. PT. WITH RIGHT UPPER ARM PICC LINE PRESENT, PATENT AND INTACT ADMINISTERING TO PT. NS @ 100ML/HR. PT. WITH CENTENO CATHETER PRESENT, PATENT AND INTACT. ALL PT. NEEDS MET. PT. REFUSED BED BATH STATING "I JUST WANT TO SLEEP". SAFETY, ASPIRATION AND ISOLATION PRECAUTIONS ARE IMPLEMENTED AND IN PLACE. BED LOCKED AND IN LOWEST POSITION, SIDE RAILS UP X3, BED ALARM ON, CALL LIGHT WITHIN REACH, WILL ENDORSE TO DAYSHIFT NURSE FOR CONTINUITY OF CARE.
--- NOTE | 2019-05-17 07:00 | NUR ---
PRINT CONTROLLER NOTES RECIVED PATIENT LYING IN BED . PT IS AWAKE AND ORIENTED X3 . PATIENT IS ON 2LMP O2 VIA NC. NO SOB. RESPIRATORY DITRESS OR COMPLAINS OF PAIN NOTED AT THIS TIME. PATIENT HAS EXTERNAL MONITOR PRESENT AND INTACT WITH UPPER ARM PICC LINE PRESENT. PATIENT IS ON 100 ML /HR WITH CENTENO CATHERTER PRESENT, PATENT AND INTACT. ASPIRATION AND ISOLATION PRECAUTION ARE IMPLEMENTED AND IN PLACE. BED LOCKED AND IN LOWEST POSITION , SIDE RAILS UP X3 AND CALL LIGHT WITH IN REACH
[2019-05-17 07:12] LABS: BASOPHILS # (AUTO) 0.1 /CMM (0.0-0.2); BASOPHILS % (AUTO) 0.5 % (0.0-2.0); EOSINOPHILS % (AUTO) 0.1 % (0.0-6.0); HEMATOCRIT 37 % (33-45); HEMOGLOBIN 11.7 g/dL (11.5-14.8); LYMPHOCYTES # (AUTO) 0.9 /CMM (0.8-4.8); LYMPHOCYTES % (AUTO) 8.4 % (20.0-44.0); MEAN CORPUSCULAR HGB CONC 32 g/dl (31.0-36.0); MEAN CORPUSCULAR VOLUME 89 fL (82-100); MONOCYTES # (AUTO) 0.7 /CMM (0.1-1.30); MONOCYTES % (AUTO) 6.6 % (2.0-12.0); NEUTROPHILS # (AUTO) 9.4 /CMM (1.8-8.9); NEUTROPHILS % (AUTO) 84.4 % (43.0-81.0); PLATELET COUNT (AUTO) 402 /CMM (150-450); RED BLOOD CELL COUNT(AUTO) 4.14 MIL/uL (4.0-5.2); WHITE BLOOD COUNT (AUTO) 11.2 K/uL (4.3-11.0)
[2019-05-17 07:24] LABS: CALCIUM, SERUM 7.6 mg/dL (8.5-10.1); CREATININE 1.3 mg/dL (0.6-1.3); MAGNESIUM 2.3 mg/dL (1.8-2.4); PHOSPHORUS 1.9 mg/dL (2.5-4.9); POTASSIUM 5.2 mmol/L (3.5-5.1)
[2019-05-17] MEDS: MULTIVIT W/MINERALS 1 TAB TABLET PO SCH (10:24)
[2019-05-17] MEDS: ASCORBIC ACID 500 MG TABLET PO SCH (10:24)
[2019-05-17] MEDS: AMIODARONE HCL 200 MG TABLET PO SCH ×2 (10:24→22:40)
[2019-05-17] MEDS: DOCUSATE SODIUM 100 MG CAPSULE PO SCH ×2 (10:25→17:00)
[2019-05-17] MEDS: SENNOSIDES 8.6 MG TABLET PO SCH ×2 (10:25→22:41)
[2019-05-17] MEDS: LACTOBACILLUS RHAMNOSUS GG 1 EACH CAP.SPRINK PO SCH ×2 (10:25→17:00)
[2019-05-17] MEDS: GABAPENTIN 300 MG CAPSULE PO SCH ×3 (10:25→17:00)
[2019-05-17] MEDS: BLOOD SUGAR DIAGNOSTIC 1 EACH STRIP IN SCH ×4 (10:26→22:39)
[2019-05-17] MEDS: LEVOTHYROXINE SODIUM 175 MCG TABLET PO SCH (10:28)
[2019-05-17] MEDS: PANTOPRAZOLE 40 MG TABLET.DR PO SCH (10:30)
[2019-05-17] MEDS: GLUCERNA SHAKE 237 ML CAN PO SCH ×3 (10:31→17:00)
[2019-05-17] MEDS: MUPIROCIN OINT 2% 22 GM TUBE SCH ×2 (10:31→22:41)
[2019-05-17] MEDS: INSULIN GLARGINE, 100 UNIT/ML CARTRIDGE SQ SCH ×2 (10:33→22:40)
[2019-05-17] MEDS: INSULIN REGULAR, HUMAN 100 UNIT/ML 3 ML VIAL SQ PRN ×2 (10:35→17:57)
[2019-05-17] MEDS: predniSONE 20 MG TABLET PO SCH (10:40)
--- NOTE | 2019-05-17 12:00 | NUR ---
TELEVISION WRITER NOTES PATIENT REFUSED BED BATH - PATIENT STATED NOT FEELING WELL OFFERED TWICE
[2019-05-17] MEDS ORDERED: K PHOS NEUTRAL 250 MG TABLET PO ONE (12:30)
[2019-05-17] MEDS ORDERED: PRED20TA PO (13:01)
[2019-05-17] MEDS ORDERED: NUT.237L45 PO (13:01)
[2019-05-17] MEDS ORDERED: MERO1VIA IV (13:01)
[2019-05-17] MEDS ORDERED: VANC1PLA9 IV (13:01)
[2019-05-17] MEDS: ONDANSETRON HCL/PF 4 MG/2 ML VIAL IVP PRN ×2 (14:38→15:09)
--- NOTE | 2019-05-17 14:47 | NUR ---
PATCHER HELPER NOTES PATIENT BS 176. PATIENT DID NOT EAT BREAKFAST/ LUNCH - HOLD INSULIN PATIENT IS ALSO NAUSEOUS AND EMESIS PRESENT
--- NOTE | 2019-05-17 15:03 | NUR ---
EHS MANAGER NOTES PATIENT NAUSEA AND EMESIS PATIENT SAID SHE COMPLAINED OF NAUSEA WHEN AT 0200 WHEN MERREM WAS STARTED. ABOUT 1400 PATIENT VOMITED X2 ABOUT 10 ML NAUSEA . PATIENT WAS GIVEN ZOLFRAN. ATTENDING DOCTOR WAS ALSO NOTIFIED. TOLD TO CONTINUE THE MERREM
[2019-05-17] MEDS: RIVAROXABAN 10 MG TABLET PO SCH (17:00)
--- NOTE | 2019-05-17 17:00 | NUR ---
patient still c/o nausea and vomitting ,prn reglan obtained,pt. unable to tolerate po will hold discharge for now per dr. kenney,transplant case manager notified.
--- NOTE | 2019-05-17 17:00 | NUR ---
TOOL OR DIE DRAWING CHECKER NOTES PATIENT REFUSED BED BATH
--- NOTE | 2019-05-17 17:45 | NUR ---
ACQUISITIONS ANALYST NOTES PATIENT OFFERED BED BATH PATIENT REFUSED. NOT FEELING WELL
--- NOTE | 2019-05-17 17:46 | NUR ---
INTERVENTIONAL NEURORADIOLOGIST NOTES MEDICATIONS HELD DUE TO NAUSEA AND VOMITING
--- NOTE | 2019-05-17 19:30 | NUR ---
SOLID FIBER PASTER OPERATOR NOTES CLOSING PATIENT IS LYING IN BED RESTING. BREATHING EVEN AND UNLABORED ON 2LMP VIA NC. NO SOB OR RESPIRATORY DISTRESS OR COMPLAINS OF PAIN NOTED AT THIS TIME. PATIENT IS ON STOCK HANDLER FLOORPERSON WITH SR IN 70'S . ALL PT NEEDS MET . PATIENT REFUSED BED BATH MULTIPLE TIMES. BED LOCKED AND LOWEST POSITION. CALL LIGHT WITH IN REACH. SAFETY MAINTAINED.
[2019-05-17] MEDS: METOCLOPRAMIDE HCL 10 MG/2 ML VIAL IV PRN (21:27)
[2019-05-17] MEDS: GABAPENTIN 400 MG CAPSULE PO SCH (22:40)
[2019-05-18] VITALS: BP 162/93
[2019-05-18] MEDS: MEROPENEM 1 G in IV NS 0.9% 100 ML IV SCH ×2 (00:40→13:00)
[2019-05-18] MEDS: IPRATROPIUM NEB FS 0.5 MG/2.5 ML AMPUL.NEB IH SCH ×4 (01:30→19:29)
[2019-05-18] MEDS: ALBUTEROL FS 2.5 MG/3 ML VIAL.NEB NEB SCH ×4 (01:30→19:30)
[2019-05-18] MEDS: VANCOMYCIN 1 GM in IV D5W 250 ML IV SCH (03:52)
[2019-05-18 04:00] VITALS: BP 158/89
[2019-05-18 06:55] LABS: CREATININE 1.2 mg/dL (0.6-1.3); PHOSPHORUS 2.1 mg/dL (2.5-4.9); POTASSIUM 5.3 mmol/L (3.5-5.1)
--- NOTE | 2019-05-18 07:00 | NUR ---
SENIOR CLINICAL RESEARCH ASSOCIATE NOTES PATIENT ASLEEP BUT EASILY WAKEN WITH NAME AND TOUCH. PATIENT IS ALERT AND ORIENTED X4 . PATIENT IS IS HAS NAUSEA PRESENT. PATIENT IS CURRENTLY ON TELE MONITOR WITH SR. PATIENT HAS R THIGH DISCOLORATION. PICC LINE, PATENT AND INTACT. NO SIGNS OF INFILTRATION OR INFECTION. PICC LINE HAS NS 100 ML/HR. BED LOCK AND LOWEST POSITION. CALL LIGHT WITH IN REACH . WILL CONTINUE TO MONITOR
[2019-05-18 08:00] VITALS: BP 148/82
[2019-05-18 08:26] LABS: BASOPHILS # (AUTO) 0.1 /CMM (0.0-0.2); BASOPHILS % (AUTO) 0.4 % (0.0-2.0); EOSINOPHILS % (AUTO) 0.1 % (0.0-6.0); HEMATOCRIT 43 % (33-45); HEMOGLOBIN 13.5 g/dL (11.5-14.8); LYMPHOCYTES # (AUTO) 0.7 /CMM (0.8-4.8); MEAN CORPUSCULAR HGB CONC 31 g/dl (31.0-36.0); MEAN CORPUSCULAR VOLUME 90 fL (82-100); MONOCYTES % (AUTO) 5.6 % (2.0-12.0); NEUTROPHILS # (AUTO) 16.1 /CMM (1.8-8.9); NEUTROPHILS % (AUTO) 89.9 % (43.0-81.0); PLATELET COUNT (AUTO) 360 /CMM (150-450); WHITE BLOOD COUNT (AUTO) 17.9 K/uL (4.3-11.0)
[2019-05-18 09:04] LABS: MAGNESIUM 2.1 mg/dL (1.8-2.4)
[2019-05-18] MEDS: MULTIVIT W/MINERALS 1 TAB TABLET PO SCH (10:11)
[2019-05-18] MEDS: predniSONE 20 MG TABLET PO SCH (10:11)
[2019-05-18] MEDS: SENNOSIDES 8.6 MG TABLET PO SCH ×2 (10:12→21:41)
[2019-05-18] MEDS: ASCORBIC ACID 500 MG TABLET PO SCH (10:12)
[2019-05-18] MEDS: DOCUSATE SODIUM 100 MG CAPSULE PO SCH ×2 (10:13→17:39)
[2019-05-18] MEDS: AMIODARONE HCL 200 MG TABLET PO SCH ×2 (10:13→21:40)
[2019-05-18] MEDS: LACTOBACILLUS RHAMNOSUS GG 1 EACH CAP.SPRINK PO SCH ×2 (10:13→17:39)
[2019-05-18] MEDS: GABAPENTIN 300 MG CAPSULE PO SCH ×3 (10:13→17:39)
[2019-05-18] MEDS: GLUCERNA SHAKE 237 ML CAN PO SCH ×3 (10:20→17:52)
[2019-05-18] MEDS: MUPIROCIN OINT 2% 22 GM TUBE SCH ×2 (10:20→21:52)
[2019-05-18] MEDS: PANTOPRAZOLE 40 MG TABLET.DR PO SCH (10:20)
[2019-05-18] MEDS: LEVOTHYROXINE SODIUM 175 MCG TABLET PO SCH (10:20)
[2019-05-18] MEDS: BLOOD SUGAR DIAGNOSTIC 1 EACH STRIP IN SCH ×4 (10:22→21:39)
[2019-05-18] MEDS: METOCLOPRAMIDE HCL 10 MG/2 ML VIAL IV PRN ×2 (10:29→19:56)
[2019-05-18] MEDS: IV NS 0.9% 1,000 ML IV PRN (10:30)
[2019-05-18] MEDS: INSULIN GLARGINE, 100 UNIT/ML CARTRIDGE SQ SCH ×2 (10:44→21:52)
--- NOTE | 2019-05-18 11:00 | NUR ---
CUSTOMER DEVELOPMENT REPRESENTATIVE NOTES PATIENT BS 155- PATIENT DID NOT EAT BREAKFAST. DID NOT COVER WITH INSULIN
[2019-05-18] MEDS ORDERED: K PHOS NEUTRAL 250 MG TABLET PO ONE (11:30)
[2019-05-18 12:00] VITALS: BP 156/83
--- NOTE | 2019-05-18 13:05 | NUR ---
RN NOTES TELE CONTACTED DOCTOR ABOUT HOLDING MERREM. MEDICATION HELD
[2019-05-18 16:00] VITALS: BP 156/91
[2019-05-18] MEDS ORDERED: AMIK250V13 IJ (17:23)
[2019-05-18] MEDS ORDERED: DOSING PER PHARMACY-AMIKACI IV XX PRN (17:30)
[2019-05-18] MEDS ORDERED: FEE PK DOSING 1 MIN EA MC ONE (17:40)
[2019-05-18] MEDS: RIVAROXABAN 10 MG TABLET PO SCH (17:42)
--- NOTE | 2019-05-18 17:51 | NUR ---
ORE FIELDER NOTES PATIENT BS 162 INSULN BEING HELD PATIENT DID NOT EAT TODAY. PATIENT FELT NAUSEOUS ALL DAY WITH A FEW EPISODES OF VOMITING
[2019-05-18] MEDS: AMIKACIN 450 MG in IV D5W 100 ML IV SCH (18:31)
--- NOTE | 2019-05-18 18:54 | NUR ---
PLUG CUTTER NOTES PATIENT A/O X4 PATIENT IS ON NASAL CANNULA 2L . PATIENT BREATHING SYMMETRICAL, EVEN AND UNLABORED. PATIENT IS SATURATING AT BETWEEM 97 %. PATIENT SHOWS NO SIGNS OF ACUTE DISTRESS. PATIENT WAS TURN Q2H. PATIENT MIDLINE FLUSHED AND INTACT. JAKUBTHER WAS ALSO HERE FOR UPDATED ABOUT MOMS CARE BED LOCKED AND LOWEST POSITION, CALL LIGHT WITH IN REACH.
--- NOTE | 2019-05-18 19:30 | NUR ---
TUNE UP MECHANIC NOTE PATIENT RECEIVED IN BED A/O X 4 SLEEPY. PATIENT STATES SHE IS NAUSEOUS, RN AWARE PATIENT REGLAN Q 6 FOR NAUSEA. PATIENT ON 2L NC TOLERATING WELL. NO S.S. OF RESP DISTRESS. PATIENT HR SR ON THE MONITOR. PATIENT DENIES CHEST PAIN AT THIS TIME. PATIENT DENIES SOB/ INCREASED WORK OF BREATHING. SAFETY PRECAUTIONS IN PLACE. GOALS AND AND POC DISCUSSED WITH PATIENT. PATIENT VERBALIZE UNDERSTANDING. CALL LIGHT IN REACH. RN WILL CONTINUE TO MONITOR FOR CHANGES. BED LOWEST LOCKED POSITION SIDE RAILS UP X 2.
[2019-05-18 20:00] VITALS: BP 158/94
--- NOTE | 2019-05-18 20:03 | NUR ---
PATIENT REFUSED NOCTURNAL BIPAP. NO DISTRESS NOTED. Addendum: 05/18/19 at 2004 by IRA GARCIA RT Amended: Links added.
[2019-05-18] MEDS: GABAPENTIN 400 MG CAPSULE PO SCH (21:39)
--- NOTE | 2019-05-18 21:42 | NUR ---
PARTS DEPARTMENT SUPERVISOR NOTE PATIENT BS 158 PATIENT NOT EATING HOLDING INSULIN COVERAGE. GIVING LANTUS ORDERED
[2019-05-19] VITALS: BP 149/92
--- NOTE | 2019-05-19 00:57 | NUR ---
CONTAINER FINISHER NOTE NO KUNAL NOTIFIED OF PATIENT ON AND OFF JUNCTIONAL RHYTHM ON THE TELE MONITOR. PATIENTI ASYMPTOMATIC. PER MD ORDER RN WILL CONTINUE TO MONITOR FOR CHANGES.
[2019-05-19] MEDS: IPRATROPIUM NEB FS 0.5 MG/2.5 ML AMPUL.NEB IH SCH ×4 (01:54→19:30)
[2019-05-19] MEDS: ALBUTEROL FS 2.5 MG/3 ML VIAL.NEB NEB SCH ×4 (01:55→19:30)
[2019-05-19] MEDS: VANCOMYCIN 1 GM in IV D5W 250 ML IV SCH (03:08)
[2019-05-19 04:00] VITALS: BP 124/78
--- NOTE | 2019-05-19 05:38 | NUR ---
HAND I TUBE BENDER NOTE PATIENT REFUSED BED BATH.
[2019-05-19] MEDS: AMIKACIN 450 MG in IV D5W 100 ML IV SCH ×2 (06:05→18:10)
[2019-05-19] MEDS: METOCLOPRAMIDE HCL 10 MG/2 ML VIAL IV PRN ×2 (06:44→12:43)
--- NOTE | 2019-05-19 07:00 | NUR ---
SECURITY INCIDENT RESPONSE ENGINEER NOTES OPENING PATIENT RECEIVED FROM PM SHIFT. PATIENT IS IN BED ASLEEP, PATIENT IS EASILY WOKEN WITH NAME AND TOUCH. PATIENT CURRENTLY NASAL CANNULA 2LPM . PATIENT IS TOLERATING WELL AT 95% . NO S/S OF ACUTE RESPIRATORY DISTRESS . PATIENT IS CURRENTLY SR. PATIENT REPORTED TO HAVE JUNCTIONAL RHYTHM . WILL CONTINUE TO MONITOR . PATIENT DENIES CHEST PAIN. SAFETY PRECAUTION IMPLEMENTED PER HOSPITAL PROTOCOL . BED LOCKED AND LOWEST POSITION . CALL LIGHT WITH IN REACH
[2019-05-19 07:14] LABS: BASOPHILS % (AUTO) 0.1 % (0.0-2.0); EOSINOPHILS % (AUTO) 0.6 % (0.0-6.0); HEMATOCRIT 40 % (33-45); HEMOGLOBIN 12.5 g/dL (11.5-14.8); LYMPHOCYTES # (AUTO) 1.2 /CMM (0.8-4.8); LYMPHOCYTES % (AUTO) 8.7 % (20.0-44.0); MEAN CORPUSCULAR HGB CONC 31 g/dl (31.0-36.0); MEAN CORPUSCULAR VOLUME 89 fL (82-100); MONOCYTES # (AUTO) 1.1 /CMM (0.1-1.30); MONOCYTES % (AUTO) 7.8 % (2.0-12.0); NEUTROPHILS # (AUTO) 11.8 /CMM (1.8-8.9); NEUTROPHILS % (AUTO) 82.8 % (43.0-81.0); PLATELET COUNT (AUTO) 336 /CMM (150-450); RED BLOOD CELL COUNT(AUTO) 4.46 MIL/uL (4.0-5.2); WHITE BLOOD COUNT (AUTO) 14.3 K/uL (4.3-11.0)
[2019-05-19 07:47] LABS: CALCIUM, SERUM 7.6 mg/dL (8.5-10.1); CREATININE 0.9 mg/dL (0.6-1.3); MAGNESIUM 1.8 mg/dL (1.8-2.4); PHOSPHORUS 2.3 mg/dL (2.5-4.9); POTASSIUM 4.2 mmol/L (3.5-5.1)
[2019-05-19] MEDS: BLOOD SUGAR DIAGNOSTIC 1 EACH STRIP IN SCH ×4 (07:52→22:43)
[2019-05-19 08:00] VITALS: BP 156/95
[2019-05-19] MEDS: LEVOTHYROXINE SODIUM 175 MCG TABLET PO SCH (08:01)
[2019-05-19] MEDS: PANTOPRAZOLE 40 MG TABLET.DR PO SCH (08:01)
[2019-05-19] MEDS: GABAPENTIN 300 MG CAPSULE PO SCH ×3 (08:09→18:10)
[2019-05-19] MEDS: LACTOBACILLUS RHAMNOSUS GG 1 EACH CAP.SPRINK PO SCH ×2 (08:09→18:10)
[2019-05-19] MEDS: AMIODARONE HCL 200 MG TABLET PO SCH ×2 (08:09→21:37)
[2019-05-19] MEDS: DOCUSATE SODIUM 100 MG CAPSULE PO SCH ×2 (08:09→18:10)
[2019-05-19] MEDS: ASCORBIC ACID 500 MG TABLET PO SCH (08:09)
--- NOTE | 2019-05-19 08:44 | NUR ---
NUCLEAR LICENSING ENGINEER NOTES RECEIVED RN CRITICAL LAB VALUE OF 396 . CHECKED BLOOD BS AT [address] HOLDER INFORMED- TO NOT GIVE INSULIN PATIENT HAS DRANK ABOUT 200ML GLUCERNA
[2019-05-19] MEDS: GLUCERNA SHAKE 237 ML CAN PO SCH ×3 (09:07→18:21)
[2019-05-19] MEDS: MUPIROCIN OINT 2% 22 GM TUBE SCH ×2 (09:07→21:34)
[2019-05-19] MEDS: SENNOSIDES 8.6 MG TABLET PO SCH ×2 (09:10→21:40)
[2019-05-19] MEDS: MULTIVIT W/MINERALS 1 TAB TABLET PO SCH (09:10)
[2019-05-19] MEDS: predniSONE 20 MG TABLET PO SCH (09:11)
[2019-05-19] MEDS: INSULIN GLARGINE, 100 UNIT/ML CARTRIDGE SQ SCH ×2 (09:14→22:39)
[2019-05-19] MEDS ORDERED: K PHOS NEUTRAL 250 MG TABLET PO ONE (10:00)
[2019-05-19] MEDS: IV NS 0.9% 1,000 ML IV SCH ×2 (10:31→22:49)
[2019-05-19 12:00] VITALS: BP 154/88
[2019-05-19 16:00] VITALS: BP 166/98
--- NOTE | 2019-05-19 18:00 | NUR ---
AIRLINE CUSTOMER SERVICE AGENT NOTES PATIENT PATIENT BLOOD SUGAR IN THE AFTER NOON WAS 171 . HELD INSULIN PATIENT DIDNT WANT TO EAT. 1800 BS CHECK 212 HELD BS . PATIENT ONLY DRANK ABOUT 200 ML OF GLUCERNA . PATIENT REFUSED FOOD
[2019-05-19] MEDS: RIVAROXABAN 10 MG TABLET PO SCH (18:12)
--- NOTE | 2019-05-19 19:30 | NUR ---
SUPERVISOR VINE FRUIT FARMING NOTES PATIENT IS A/O X4. PATIENT SHOWS NO SIGNS OF ACUTE RESPIRATORY DISTRESS. PATIENT IS ON TELE MONITOR PATIENT IS CURRENTLY SR. PATIENT IS ON 2LMP OF OXYGEN, PATIENT IS SATURATING AT 97% .PATIENT WAS REPOSITION PER HOSPITAL PROTOCOL . BED LOCK AND LOWEST POSITION. CALL LIGHT WITH IN REACH. INFORMED DAUGHTER ABOUT PLAN OF CARE AND MEDICATION MANAGEMENT.
[2019-05-19 20:00] VITALS: BP 152/87
[2019-05-19] MEDS: GABAPENTIN 400 MG CAPSULE PO SCH (21:40)
[2019-05-19] MEDS: INSULIN REGULAR, HUMAN 100 UNIT/ML 3 ML VIAL SQ PRN (22:41)
[2019-05-20] VITALS: BP 122/68
[2019-05-20] MEDS: ALBUTEROL FS 2.5 MG/3 ML VIAL.NEB NEB SCH ×3 (01:56→14:00)
[2019-05-20] MEDS: IPRATROPIUM NEB FS 0.5 MG/2.5 ML AMPUL.NEB IH SCH ×3 (01:56→14:00)
[2019-05-20 04:00] VITALS: BP 116/71
[2019-05-20] MEDS: VANCOMYCIN 1 GM in IV D5W 250 ML IV SCH (04:30)
[2019-05-20] MEDS: AMIKACIN 450 MG in IV D5W 100 ML IV SCH (06:00)
--- NOTE | 2019-05-20 06:56 | NUR ---
RN NOTES RECEIVED PATIENT SLEEPING IN BED WITH NO DISTRESS NOTED. BREATHING EVEN AND UNLABORED. NO PHYSICAL MANIFESTATION OF PAIN OR DISCOMFORT. EASY TO AROUSE. ALERT AND ORIENTED, VERBALLY ABLE TO COMMUNICATE NEEDS. LAB CALLED AT ABOUT 0400, TO NOTIFY HIGH LEVEL OF AMIKACIN IN PEAK AND TROUGH. AAMIKACIN HELD AT 6AM. WAITING FOR RECOMMENDATION OF PHARMACY. KEPT CLEAN AND DRY. WILL ENDORSEE TO NEXT SHIFT FOR CONTINUITY OF CARE.
--- NOTE | 2019-05-20 07:25 | NUR ---
ARCHIVAL RECORDS CLERK OPENING NOTE: RECEIVED PATIENT IN BED AND SLEEP. CONTACT ISOLATION PRECAUTIONS IN PLACE, STAFF AWARE AND COMPLIANCE OBSERVED. WITH CONT. O2 VIA NC @ 3LPM, TOLERATING WELL. NO SOB, NOT IN DISTRESS. KT PICC LINE WITH NS @ 75ML/HR INFUSING WELL. SITE AND PATENT, CLEAN, DRY AND INTACT. PATIENT NOTED TO HAVE NOT TAKEN MEALS DURING PRIOR SHIFTS. ON CARDIAC MONITORING WITH SINUS RHYTHM NOTED AT 71. NO PAIN NOTED. CALL LIGHT IN REACH, SIDE RAILS UP, BED LOCKED, LOW AND AT SEMI-ROBERTS'S POSITION. WILL CONTINUE TO MONITOR.
[2019-05-20 07:32] LABS: CREATININE 0.7 mg/dL (0.6-1.3); POTASSIUM 3.9 mmol/L (3.5-5.1)
[2019-05-20 08:00] VITALS: BP 106/64
[2019-05-20] MEDS: PANTOPRAZOLE 40 MG TABLET.DR PO SCH (08:18)
[2019-05-20] MEDS: LEVOTHYROXINE SODIUM 175 MCG TABLET PO SCH (08:18)
[2019-05-20] MEDS: BLOOD SUGAR DIAGNOSTIC 1 EACH STRIP IN SCH ×3 (08:18→17:58)
[2019-05-20] MEDS: GLUCERNA SHAKE 237 ML CAN PO SCH ×3 (09:00→17:00)
[2019-05-20] MEDS ORDERED: predniSONE 20 MG TABLET PO SCH (09:00)
[2019-05-20] MEDS: INSULIN GLARGINE, 100 UNIT/ML CARTRIDGE SQ SCH (09:00)
[2019-05-20] MEDS: SENNOSIDES 8.6 MG TABLET PO SCH ×2 (09:30→09:33)
[2019-05-20] MEDS: AMIODARONE HCL 200 MG TABLET PO SCH ×2 (09:30→09:33)
[2019-05-20] MEDS: ASCORBIC ACID 500 MG TABLET PO SCH ×2 (09:30→09:33)
[2019-05-20] MEDS: MULTIVIT W/MINERALS 1 TAB TABLET PO SCH ×2 (09:30→09:33)
[2019-05-20] MEDS: GABAPENTIN 300 MG CAPSULE PO SCH ×4 (09:30→16:49)
[2019-05-20] MEDS: LACTOBACILLUS RHAMNOSUS GG 1 EACH CAP.SPRINK PO SCH ×3 (09:30→16:49)
[2019-05-20] MEDS: DOCUSATE SODIUM 100 MG CAPSULE PO SCH ×3 (09:30→16:49)
--- NOTE | 2019-05-20 09:30 | NUR ---
SALES SERVICE ASSISTANT NOTE: PATIENT WANTED TO TAKE ALL MEDICATIONS TOGETHER BUT COULD NOT SWALLOW IT AND SPIT IT ALL OUT AND REFUSED TO TAKE ALL MEDICATIONS. MEDS WASTED AND WITNESSED BY BARBARA TIWARI
[2019-05-20] MEDS: MUPIROCIN OINT 2% 22 GM TUBE SCH (09:37)
[2019-05-20] MEDS ORDERED: AMIK250V13 IJ (09:56)
[2019-05-20 12:00] VITALS: BP 109/55
[2019-05-20] MEDS: METOCLOPRAMIDE HCL 10 MG/2 ML VIAL IV PRN (12:43)
[2019-05-20 16:00] VITALS: BP 98/50
[2019-05-20] MEDS: RIVAROXABAN 10 MG TABLET PO SCH (16:54)
[2019-05-20] MEDS: ACETAMINOPHEN 325 MG TABLET PO PRN (17:02)
[2019-05-20] MEDS: ONDANSETRON HCL/PF 4 MG/2 ML VIAL IVP PRN (17:41)
[2019-05-20] MEDS ORDERED: AMIKACIN 500 MG in IV D5W 100 ML IV SCH (18:00)
--- NOTE | 2019-05-20 18:01 | NUR ---
OUTBOUND SALES ADVISORACCOUNT RECEIVABLE ASSOCIATE NOTE: PATIENT WAS TAKEN BY [facility] STAFF IN STABLE CONDITION. REFUSED SCHEDULED INSULIN DOSE. REPORT WAS GIVEN EARLIER TO BARBARA LOCKWOOD FOR MIMA AND CHRISTAL DAUGHTER INFORMED ABOUT DISCHARGE.
== END 2019-05-20 18:00 | DRG 720 ==
LOC: ER 18:06 → ICU 21:06 → TELE-TD 05-15 06:03 → TELE1 05-15 10:06
PROVIDERS: ADMIT Family Medicine; ATTEND Internal Medicine
PROC: 02HV33Z Insertion of Infusion Device into Superior Vena Cava, Percutaneous Approach (ICD-10-PCS; principal; 2019-05-11)
PROC: 5A09457 Assistance with Respiratory Ventilation, 24-96 Consecutive Hours, Continuous Positive Airway Pressure (ICD-10-PCS; principal; 2019-05-11)
PROC: B548ZZA Ultrasonography of Superior Vena Cava, Guidance (ICD-10-PCS; principal; 2019-05-11)
DX: A41.9 Sepsis, unspecified organism (principal); J96.21 Acute and chronic respiratory failure with hypoxia; R65.21 Severe sepsis with septic shock; E44.0 Moderate protein-calorie malnutrition; N17.9 Acute kidney failure, unspecified; G92 Toxic encephalopathy; E11.22 Type 2 diabetes mellitus with diabetic chronic kidney disease; I48.91 Unspecified atrial fibrillation; E11.65 Type 2 diabetes mellitus with hyperglycemia; E66.2 Morbid (severe) obesity with alveolar hypoventilation; N39.0 Urinary tract infection, site not specified; B96.20 Unspecified Escherichia coli [E. coli] as the cause of diseases classified elsewhere; J96.22 Acute and chronic respiratory failure with hypercapnia; N18.9 Chronic kidney disease, unspecified; Z16.12 Extended spectrum beta lactamase (ESBL) resistance; E86.1 Hypovolemia; E87.1 Hypo-osmolality and hyponatremia; E03.9 Hypothyroidism, unspecified; I25.10 Atherosclerotic heart disease of native coronary artery without angina pectoris; E88.09 Other disorders of plasma-protein metabolism, not elsewhere classified; K21.9 Gastro-esophageal reflux disease without esophagitis; J44.9 Chronic obstructive pulmonary disease, unspecified; I13.0 Hypertensive heart and chronic kidney disease with heart failure and stage 1 through stage 4 chronic kidney disease, or unspecified chronic kidney disease; I50.32 Chronic diastolic (congestive) heart failure; Z79.01 Long term (current) use of anticoagulants; Z82.49 Family history of ischemic heart disease and other diseases of the circulatory system; Z83.3 Family history of diabetes mellitus; Z79.4 Long term (current) use of insulin; Z68.41 Body mass index [BMI] 40.0-44.9, adult; B95.7 Other staphylococcus as the cause of diseases classified elsewhere
CPT/HCPCS: 31720; 36415; 36600; 70450-TC; 71045-TC; 76770-TC; 80048-TC; 80061-TC; 80076-TC; 80150; 80202-TC; 81000-TC; 82803-TC; 82962-TC; 83605-TC; 83735-TC; 84100-TC; 84484-TC; 85025-TC; 85730-TC; 87040-TC; 87081-TC; 87086-TC; 87186-TC; 93307-TC; 94660; 94760-TC; 94799-TC; 99082-TC; C1751; G0378; J0278; J1815; J2185; J2405; J2543; J2765; J2920; J3370; J7030; J7060